=== PATIENT | male | born 1965 | race Caucasian/White ===

== ENCOUNTER 2024-02-24 05:42 | Emergency (ER) | payer OTHER, SELFPAY ==
[2024-02-24] VITALS (15 sets, daily range): BP systolic 109–140; BP diastolic 57–100; PULSE 83–102; RESP 17–20; TEMP 36.4; O2SAT 91–97; BMI 25.4
--- NOTE | 2024-02-24 06:13 | W.ED.GENADLT ---
HPI - General Adult General: Chief complaint: Upper Respiratory Infection Stated complaint: Rt side of Face Swollen Time Seen by Provider: 02/24/24 06:11 History of Present Illness: 58-year-old male presents emergency room with complaint of swelling in the left side of his neck. Over this past weekend about beginning about 6 7 days ago he had sore throat 4 days ago he was seen at [facility] clinic they swabbed him positive for strep he was started on amoxicillin beginning the following day and over the next 3 days leading up to this morning he had increased swelling and discomfort in that area. He still able to swallow and breathe out difficulty is a large amount of swelling in the right submandibular space extending down to the neck. He denies any tooth or dental pain. Associated symptoms: Reports chest pain; Deny dyspnea or rash Related Data Home Medications Medication Instructions Recorded Confirmed amoxicillin 875 mg tablet 875 mg PO Q12H 02/24/24 02/24/24 ibuprofen 200 mg tablet (Advil) 800 mg PO Q6H PRN Pain 02/24/24 02/24/24 omeprazole magnesium 20 mg 20 mg PO DAILY 02/24/24 02/24/24 tablet,delayed release (Prilosec OTC) Allergies Allergy/AdvReac Type Severity Reaction Status Date / Time No Known Allergies Allergy Verified 02/24/24 06:31 Review of Systems Const: Denies: fever(s) or chills ENMT: Reports: throat pain, enlarged tonsils, odynophagia and hoarseness; Denies: dental pain Card: Reports: chest pain Resp: Denies: dyspnea GI: Denies: abdominal pain : Denies: dysuria, urinary frequency or urinary urgency Musc: Denies: neck pain or back pain Skin/Breast: Denies: rash Physical Exam Const: GENERAL APPEARANCE: cooperative ORIENTATION/CONSCIOUSNESS: Yes awake, Yes oriented to person, Yes oriented to place and Yes oriented to time HENMT: COMMON NORMALS: normocephalic, atraumatic and hearing grossly normal bilaterally HEAD & SCALP: normocephalic and atraumatic THROAT: posterior oropharynx abnormal (swelling of posterior pharyngeal wall the right side ) erythema Neck/C-Spine: OTHER: Large swollen mass in the right submandibular region extending inferiorly to the level of the clavicle no supra or infraclavicular nodes are noted. No overlying skin irritation or erythema no induration no puncture araujo or abrasions of the skin overlying this area Resp: COMMON NORMALS: normal respiratory effort, No retractions, No use of accessory muscles and clear to auscultation bilaterally AUSCULTATION: clear to auscultation bilaterally Cardio: COMMON NORMALS: regular rate, regular rhythm and No murmurs present (Cardio) RATE: regular rate RHYTHM: regular rhythm GI: COMMON NORMALS: Soft to palpation and No hepatosplenomegaly present AUSCULTATION: Yes normoactive bowel sounds PALPATION: Yes Soft to palpation, No Tenderness to palpation present (GI), No Guarding due to palpation present (GI) and Yes No hepatosplenomegaly present Extremity: COMMON NORMALS: normal to inspection, capillary refill normal, no clubbing, cyanosis or edema, no calf tenderness and no pedal edema Neuro: SENSORIUM/ORIENTATION: Yes oriented to person, Yes oriented to place and Yes oriented to time Skin: COMMON NORMALS: no rashes or lesions noted GENERAL SKIN EXAM: no rashes or lesions noted Course Vital Signs: Vital signs: Vital Signs Temperature 97.6 F 02/24/24 05:51 Pulse Rate 96 02/24/24 11:44 Respiratory Rate 18 02/24/24 11:44 Blood Pressure 114/57 02/24/24 11:44 Pulse Oximetry 92 02/24/24 11:44 Oxygen Delivery Me thod Room Air 02/24/24 11:00 Oxygen Flow Rate 2 02/24/24 08:30 MDM - General Adult Medical Decision Making Large submandibular mass that is arisen over the last 3 days with severe leukocytosis with left shift. Cultures done lactate normal started on vancomycin. We do not have ENT coverage at our facility able to transfer to [facility]. Note that in the radiologist report there is concern of this being a neoplastic process however prior to 3 days ago patient did not have any of the swelling present. Her dad in conjunction with the recently diagnosed strep pharyngitis suspect this is infectious rather than neoplastic. Discussed with ENT and hospitalist at [facility]. Will transfer via ambulance. The patient has been started on antibiotics cultures have been done lactic acid is not elevated. CT was forwarded to [facility]. Medical Records I reviewed the patient's medical records. Lab Data I reviewed the patient's lab results. 02/24/24 06:10 02/24/24 06:[address] 02/24/24 06:25 IMPRESSION: Large pathologic process in the submandibular neck on the right side, this appears more likely to represent a neoplastic then inflammatory process but correlate clinically. ADDENDUM: 02/24/24822 Addendum: I calf received a very detailed history and based on that history this process is almost certainly a large inflammatory mass with abscess There does appear to be a focal area of abscess measuring 3.8 x 2.5 cm. Chest X-Ray 02/24/24 06:26 IMPRESSION: Two small nodules on the left. Consider chest CT. Laboratory Results WBC 41.15 10^3/uL (3.29-11.43) H* 02/24/24 06:10 RBC 4.30 10^6/uL (3.85-5.65) 02/24/24 06:10 Hgb 12.70 g/dL (11.27-16.99) 02/24/24 06:10 Hct 38.5 % (37-53) 02/24/24 06:10 MCV 89.5 fl (82-101) 02/24/24 06:10 MCH 29.5 pg (27-33) 02/24/24 06:10 MCHC 33.0 g/dL (30-55) 02/24/24 06:10 RDW 14.3 % (12.1-15.1) 02/24/24 06:10 Plt Count 274 10^3/cmm (157-399) 02/24/24 06:10 MPV 10.1 fL (7.4-10.4) 02/24/24 06:10 Neut % (Auto) 88.8 % 02/24/24 06:10 Lymph % (Auto) 3.5 % 02/24/24 06:10 [place] % (Auto) 6.1 % 02/24/24 06:10 Eos % (Auto) 0.0 % 02/24/24 06:10 Baso % (Auto) 0.3 % 02/24/24 06:10 Neut # (Auto) 36.54 10^3/uL (1.8-7.7) H 02/24/24 06:10 Lymph # (Auto) 1.4 10^3/uL (0.8-4.8) 02/24/24 06:10 [place] # (Auto) 2.5 10^3/uL (0.2-0.9) H 02/24/24 06:10 Eos # (Auto) 0.0 10^3/uL (0.0-0.8) 02/24/24 06:10 Baso # (Auto) 0.1 10^3/uL (0.0-0.1) 02/24/24 06:10 Nucleated RBC % (auto) 0 % 02/24/24 06:10 Nucleated RBCs # 0.0 /100WBC 02/24/24 06:10 Sodium 134 mmol/L (136-145) L 02/24/24 06:10 Potassium 3.8 mmol/L (3.5-5.1) 02/24/24 06:10 Chloride 98 mmol/L (98-107) 02/24/24 06:10 Carbon Dioxide 23 mmol/L (22-29) 02/24/24 06:10 Anion Gap 16.8 (5-19) 02/24/24 06:10 BUN 9 mg/dL (6-20) 02/24/24 06:10 Creatinine 0.7 mg/dL (0.7-1.2) 02/24/24 06:10 GFR Calculation 115.8 mL/min (90-130) 02/24/24 06:10 Glucose 129 mg/dL (65-115) H 02/24/24 06:10 Calculated Osmolality 278 mOsm/kg (285-295) L 02/24/24 06:10 Lactic Acid 1.7 mmol/L (0.5-2.2) 02/24/24 06:10 Calcium 9.3 mg/dL (8.5-10.5) 02/24/24 06:10 Total Bilirubin 1.0 mg/dL (0.15-1.2) 02/24/24 06:10 AST 19 U/L (0-40) 02/24/24 06:10 ALT 29 U/L (0-41) 02/24/24 06:10 Alkaline Phosphatase 158 U/L (40-130) H 02/24/24 06:10 Total Protein 7.7 g/dL (6.6-8.7) 02/24/24 06:10 Albumin 3.3 g/dL (3.5-5.2) L 02/24/24 06:10 Globulin 4.4 g/dL (1.3-4.6) 02/24/24 06:10 Lipase 12 U/L (13-60) L 02/24/24 06:10 All radiology interpretation(s) finalized by discharge Discharge Plan Discharge Patient Disposition: Xfer Short-Term Hosp Clinical Impression: Abscess of submandibular region Condition: Stable Coding Level of Care Code ED Screw Machine Operator for Rosanne Holliday
--- NOTE | 2024-02-24 06:25 | CTR_ITS ---
PROCEDURE INFORMATION: Exam: CT Neck With Contrast Exam date and time: 02/24/2024 6:57 AM Age: 58 years old Clinical indication: Mass, lump, or swelling in neck; Right; Additional info: Right submandibular mass possibly extending into the upper m. Swelling in right side of next x 3 days. PT was dx with strep and px amoxicillin 2 days ago. Swelling has increased in size and increased pain since. Difficulty swallowing. TECHNIQUE: Imaging protocol: Computed tomography of the neck with contrast. Radiation optimization: All CT scans at this facility use at least one of these dose optimization techniques: automated exposure control; mA and/or kV adjustment per patient size (includes targeted exams where dose is matched to clinical indication); or iterative reconstruction. Contrast material: OMNI 350; Contrast volume: 100 ml; Contrast route: INTRAVENOUS (IV); COMPARISON: CR XR chest 1V portable [id number] 02/24/2024 6:47 AM RADIATION DOSE METRICS: Total DLP (mGy-cm): 297.51 FINDINGS: Salivary glands: See Lymph nodes finding. Pharynx: Unremarkable. No significant tonsillar enlargement. Prevertebral and retropharyngeal spaces: Unremarkable. Larynx: Unremarkable. Epiglottis is normal. Thyroid: Normal. No enlarged or calcified nodules. Trachea: Visualized trachea is unremarkable. Lungs: Unremarkable as visualized. Lymph nodes: In the submandibular upper neck on the right side is a 5.6 x 4.0 cm heterogeneously enhancing mass with moderate adenopathy. Areas of necrosis are present. There is anterior displacement of the right submandibular gland, there is lateral displacement of the sternocleidomastoid muscle with an indistinct interface between the muscle and the mass, local invasion is probably present. In addition soft tissue surrounding the carotid artery have an infiltrated appearance, local invasion is probably present as well. Bones/joints: See Lymph nodes finding. Soft tissues: Unremarkable. No significant soft tissue swelling. Other findings: Despite the history the findings appear much more likely to represent a neoplastic than inflammatory process but correlate clinically. CT/CT neck w con* [id number] IMPRESSION: Large pathologic process in the submandibular neck on the right side, this appears more likely to represent a neoplastic then inflammatory process but correlate clinically.
--- NOTE | 2024-02-24 06:26 | XRR_ITS ---
PROCEDURE INFORMATION: Exam: XR Chest Exam date and time: 02/24/2024 6:47 AM Age: 58 years old Clinical indication: Dyspnea; Patient HX: Swollen neck TECHNIQUE: Imaging protocol: Radiologic exam of the chest. Views: 1 view. COMPARISON: No relevant prior studies available. FINDINGS: Lungs: Two small nodules in the left mid lung. Consider chest CT to evaluate for pulmonary nodules. Pleural spaces: Unremarkable. No pleural effusion. No pneumothorax. Heart/Mediastinum: Unremarkable. No cardiomegaly. Bones/joints: Unremarkable. Other findings: Mild chronic reticulonodular opacities. XR/XR chest 1V portable [id number] IMPRESSION: Two small nodules on the left. Consider chest CT.
[2024-02-24 06:27] LABS: Basophils # 0.1 10^3/uL (0.0-0.1); Basophils % 0.3 %; Hematocrit 38.5 % (37-53); Lymphocytes # 1.4 10^3/uL (0.8-4.8); Lymphocytes % 3.5 %; Mean Corpuscular Hemoglobin 29.5 pg (27-33); Mean Corpuscular Volume 89.5 fl (82-101); Mean Platelet Volume 10.1 fL (7.4-10.4); Monocytes # 2.5 10^3/uL (0.2-0.9); Monocytes % 6.1 %; Neutrophils # 36.54 10^3/uL (1.8-7.7); Neutrophils % 88.8 %; Nucleated Red Blood Cells % 0 %; Platelet Count 274 10^3/cmm (157-399); Red Cell Distribution Width 14.3 % (12.1-15.1)
[2024-02-24] MEDS: ondansetron 2 mg/ML SDV 2 mL 4 MG IVP (06:38)
[2024-02-24] MEDS: morphine 4 mg/mL SDV 1 mL IVP ×2 (06:39→11:36)
[2024-02-24 06:41] LABS: Alanine Aminotransferase 29 U/L (0-41); Albumin Level 3.3 g/dL (3.5-5.2); Alkaline Phosphatase 158 U/L (40-130); Anion Gap 16.8 (5-19); Aspartate Amino Transferase 19 U/L (0-40); Blood Urea Nitrogen 9 mg/dL (6-20); Calcium 9.3 mg/dL (8.5-10.5); Carbon Dioxide 23 mmol/L (22-29); Chloride 98 mmol/L (98-107); Creatinine Clr Calc Pharmacy 119.7903; Globulin 4.4 g/dL (1.3-4.6); Glomerular Filtration Rate 115.8 mL/min (90-130); Glucose 129 mg/dL (65-115); Osmolality Calculated 278 mOsm/kg (285-295); Potassium 3.8 mmol/L (3.5-5.1); Sodium 134 mmol/L (136-145); Total Protein 7.7 g/dL (6.6-8.7)
[2024-02-24 06:46] LABS: White Blood Count 41.15 10^3/uL (3.29-11.43)
[2024-02-24 06:49] LABS: Lactic Sepsis W/Reflex 1.7 mmol/L (0.5-2.2)
[2024-02-24 06:51] LABS: Lipase 12 U/L (13-60)
[2024-02-24] MEDS: iohexol 350 mg/mL 500 mL Btl (per mL) IV (07:08)
--- NOTE | 2024-02-24 07:09 | ECG_ITS ---
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 Measurements Intervals [place] Rate: 92 P: 94 TX: 141 QRS: 79 QRSD: 122 T: 75 QT: 385 QTc: 476 Interpretive Statements SINUS RHYTHM POSSIBLE RIGHT VENTRICULAR CONDUCTION DELAY [RSR (QR) IN V1/V2] No previous ECG available for comparison Electronically Signed On 02-24-2024 14:41:14 SORTING MACHINE OPERATOR by Leoncio Hernandez M.D. [email or web address]
--- NOTE | 2024-02-24 07:15 | PC.NURSE ---
PT WORRIED ABOUT OXYGEN SATURATION DROPPING DUE TO MORPHINE ADMINISTRATION. PT PLACED ON 2L NC FOR COMFORT.
[2024-02-24] MEDS: VANCOMYCIN ADD-Vantage 1,000 MG in 0.9% NaCl ADD-Vantage 250 ML 250 MG IV (07:16)
[2024-02-24] MEDS: sodium chloride 0.9% 1,000 ML 999 ML IV (11:35)
[2024-02-24] MEDS: ketorolac 30 mg/mL INJ IVP (11:37)
--- NOTE | 2024-02-24 12:31 | PC.NURSE ---
REPORT CALLED TO KHOI Nguyen RN AT [facility]. ACCEPTING NURSE VERBALIZED UNDERSTANDING AND DENIED ANY FURTHER VERBALIZED QUESTIONS OR CONCERNS.
== END 2024-02-24 13:58 | disposition short-term general hospital (02) ==
PROVIDERS: Emergency Provider Family Medicine
DX: K12.2 Cellulitis and abscess of mouth (principal)
CPT/HCPCS: 70491; 71045; 80053; 83605; 83690; 85025; 87040; 93005; 96365; 96375; 96376; 99285; J1885; J2270; J2405; J3370; J7030; J7050

== ENCOUNTER 2024-07-04 14:06 | Emergency (ER) | payer OTHER, SELFPAY ==
[2024-07-04 14:24] VITALS: BP 104/57; PULSE 66; RESP 16; TEMP 36.5; O2SAT 99; BMI 26.9
--- NOTE | 2024-07-04 15:29 | ED_ITS ---
HPI - General Adult 2 General: Chief complaint: Upper Respiratory Infection Stated complaint: sore throat with swelling Time Seen by Provider: 07/04/24 15:16 Source: patient Mode of arrival: ambulatory Limitations: no limitations History of Present Illness: Patient is a 59-year-old male who presents today with a painful right submandibular mass. In February 2024, patient had a large right submandibular mass that was abrupt in onset with severe leukocytosis and left shift. Patient was transferred from here to [facility] where the abscess was drained. Patient states he never had any follow up with them following this. CT scan at that time had questioned malignancy vs infectious etiology. Patient states that the mass has never fully gone away, however it is not typically painful. He states that the past few days the area has become extremely painful and he now has pain/difficulty swallowing. Denies difficulty breathing. Patient states that he called the ENT office and has an appointment scheduled for tomorrow at 2:00 with the nurse practitioner. They prescribed him Augmentin which he has started taking. Patient presents today as he states that the mass is too painful to wait. Onset (ago): day(s) Location: neck (submandibular) Radiation: non-radiation Severity: moderate Quality: aching and constant Pain Consistency: constant Relieving factors: none Exacerbating factors: other (swallowing) Associated symptoms: Reports no associated symptoms; Deny chest pain, dyspnea, headache(s), nausea, rash, palpitations or vomiting Treatments prior to arrival: other (abx) Related Data Home Medications ?Medication ?Instructions ?Recorded ?Confirmed amoxicillin 875 mg tablet 875 mg PO Q12H 02/24/2408/12 ibuprofen 200 mg tablet (Advil) 800 mg PO Q6H PRN Pain 02/24/24 02/24/24 omeprazole magnesium 20 mg 20 mg PO DAILY 02/24/2408/12 tablet,delayed release (Prilosec OTC) Previous Rx's ?Medication ?Instructions ?Recorded hydrocodone 5 mg-acetaminophen 325 1 tab PO Q6H PRN pa in #20 tabs 07/04/24 mg tablet Allergies Allergy/AdvReac Type Severity Reaction Status Date / Time No Known Allergies Allergy Verified 07/04/24 14:31 Review of Systems 2 Const: Denies: fever(s), chills, body aches, change in weight or fatigue ENMT: Reports: throat pain and odynophagia; Denies: sinus pain Card: Denies: chest pain or palpitations Resp: Denies: dyspnea, wheezing or stridor GI: Denies: abdominal pain, nausea, vomiting or dysphagia Musc: Reports: neck pain; Denies: back pain Skin/Breast: Denies: rash, pruritus, erythema or skin pain Neuro: Denies: headache(s), numbness in extremities or weakness in extremities Physical Exam 2 Const: COMMON NORMALS: no acute distress, average body habitus, patient oriented x3, no limitations, healthy appearing, alert and well nourished G ENERAL APPEARANCE: cooperative and comfortable ORIENTATION/CONSCIOUSNESS: Yes awake, Yes oriented to person, Yes oriented to place and Yes oriented to time HENMT: COMMON NORMALS: normocephalic, atraumatic, hearing grossly normal bilaterally, external ears normal and Normal external nose present HEAD & SCALP: normal to inspection, normocephalic and atraumatic FACE & SINUS: n ormal facial exam NOSE: Normal external nose present EXTERNAL EAR: Yes external ears normal MOUTH: Normal oral and palatal mucosa present and tongue normal; no muffled voice THROAT: posterior oropharynx normal and tonsils normal Eye: GENERAL EYE: appearance normal, both eyes and all related structures Neck/C-Spine: GENERAL: Yes trachea midline, Yes tender, Yes submandibular swelling (large R sided submandibular mass; no overlying erythema) and Yes other (no fluctuance) NECK IMAGES: 1. Large swollen mass in the right submandibular region extending inferiorly Chest: COMMONS NORMALS: normal inspection of the chest Resp: COMMON NORMALS: normal respiratory effort, No retractions, No use of accessory muscles, clear to auscultation bilaterally and percussion normal E FFORT & INSPECTION: Yes able to speak in complete sentences AUSCULTATION: c lear to auscultation bilaterally PERCUSSION: percussion normal Cardio: COMMON NORMALS: regular rate and regular rhythm RATE: regular rate RHYTHM: regular rhythm Neuro: COMMON NORMALS: patient oriented x3 SENSORIUM/ORIENTATION: Yes alert, Yes oriented to person, Yes oriented to place and Yes oriented to time Course 2 Vital Signs: Vital signs: Vital Signs Temperature 97.7 F 07/04/24 14:24 Pulse Rate 65 07/04/24 17:33 Respiratory Rate 16 07/04/24 16:35 Blood Pressure 115/64 07/04/24 17:33 Pulse Oximetry 96 07/04/24 17:33 Oxygen Delivery Me thod Room Air 07/04/24 16:35 MDM - General Adult Medical Decision Making Patient is a very nice 59-year-old male here with a right sided submandibular mass that has been present since February. In February, he was seen at [facility] and had the mass incised and drained. At that time he did have significant leukocytosis. Patient states he never followed up with ENT and the mass has never fully went away. CT imaging back in February did question the possibility of malignancy. Today mass feels firm. It does not appear acutely infected. His vital signs are stable. His white count is normal. His inflammatory CRP is scantly elevated at 8.4. CT scan today looking more like malignancy. He already has an ENT scheduled appointment for tomorrow at [facility] in [place]. We will upload today's CT imaging to their radiology system. He was also sent with a paper copy of the CT report as well as a disc. Patient is not having any airway compromise and is stable for discharge. Lab Data 07/04/24 15:37 07/04/24 15:[address] 07/04/24 15:37 IMPRESSION: Right neck mass with adenopathy consistent with malignancy. The findings have improved significantly over the past 4 months Laboratory Results WBC 7.64 10^3/uL (3.29-11.43) 07/04/24 15:37 RBC 4.35 10^6/uL (3.85-5.65) 07/04/24 15:37 Hgb 12.60 g/dL (11.27-16.99) 07/04/24 15:37 Hct 38.8 % (37-53) 07/04/24 15:37 MCV 89.2 fl (82-101) 07/04/24 15:37 MCH 29.0 pg (27-33) 07/04/24 15:37 MCHC 32.5 g/dL (30-55) 07/04/24 15:37 RDW 13.9 % (12.1-15.1) 07/04/24 15:37 Plt Count 237 10^3/cmm (157-399) 07/04/24 15:37 MPV 10.2 fL (7.4-10.4) 07/04/24 15:37 Neut % (Auto) 73.0 % 07/04/24 15:37 Lymph % (Auto) 17.8 % 07/04/24 15:37 [place] % (Auto) 7.2 % 07/04/24 15:37 Eos % (Auto) 1.3 % 07/04/24 15:37 Baso % (Auto) 0.3 % 07/04/24:37 Neut # (Auto) 5.58 10^3/uL (1.8-7.7) 07/04/24 15:37 Lymph # (Auto) 1.4 10^3/uL (0.8-4.8) 07/04/24 15:37 [place] # (Auto) 0.6 10^3/uL (0.2-0.9) 07/04/24 15:37 Eos # (Auto) 0.1 10^3/uL (0.0-0.8) 07/04/24:37 Baso # (Auto) 0.0 10^3/uL (0.0-0.1) 07/04/24 15:37 Nucleated RBC % (auto) 0 % 07/04/24: Nucleated RBCs # 0.0 /100WBC 07/04/24 15:37 Sodium 139 mmol/L (136-145) 07/04/24 15:37 Potassium 4.1 mmol/L (3.5-5.1) 07/04/24 15:37 Chloride 101 mmol/L (98-107) 07/04/24 15:37 Carbon Dioxide 25 mmol/L (22-29) 07/04/24 15:37 Anion Gap 17.1 (5-19) 07/04/24 15:37 BUN 9 mg/dL (6-20) 07/04/24 15:37 Creatinine 0.8 mg/dL (0.7-1.2) 07/04/24 15:37 GFR Calculation 98.9 mL/min (90-130) 07/04/24 15:37 Glucose 117 mg/dL (65-115) H 07/04/24 15:37 Calculated Osmolality 288 mOsm/kg (285-295) 07/04/24 15:37 Calcium 9.3 mg/dL (8.5-10.5) 07/04/24 15:37 Total Bilirubin 0.2 mg/dL (0.15-1.2) 07/04/24 15:37 AST 35 U/L (0-40) 07/04/24 15:37 ALT 25 U/L (0-41) 07/04/24 15:37 Alkaline Phosphatase 89 U/L (40-130) 07/04/24 15:37 C-Reactive Protein 8.4 mg/L (0.0-4.9) H 07/04/24 15:37 Total Protein 8.5 g/dL (6.6-8.7) 07/04/24 15:37 Albumin 4.2 g/dL (3.5-5.2) 07/04/24 15:37 Globulin 4.3 g/dL (1.3-4.6) 07/04/24 15:37 Group A Strep Rapid Negative (Negative) 07/04/24 15:19 All radiology interpretation(s) finalized by discharge Discharge Plan Discharge Patient Disposition: Home Clinical Impression: Mass of right submandibular region Condition: Stable Prescriptions: New hydrocodone-acetaminophen 5-325 mg tablet 1 tab PO Q6H PRN (Reason: pain) Qty: 20 0RF No Action amoxicillin 875 mg Tablet 875 mg PO Q12H ibuprofen [Advil] 200 mg Tablet 800 mg PO Q6H PRN (Reason: Pain) omeprazole magnesium [Prilosec OTC] 20 mg Tablet,Delayed Release (Dr/Ec) 20 mg PO DAILY Discharge Orders: Discharge ED (Routine); Ordered 07/04/24 Ordered By: Ritu Merlos Patient Instructions: Opioid Safety, Pain Management Activity Restrictions/Additional Instructions: As we discussed, I will have your CT imaging uploaded to the [facility] system. I have also given you a physical copy of the CT report as well as the CT disc to take with you to your ENT appointment tomorrow. Print Language: Brazilian Coding Level of Care Code ED Aircraft Maintenance Supervisor for Rosanne Holliday
[2024-07-04 15:35] LABS: Rapid Strep A Test Negative (Negative)
--- NOTE | 2024-07-04 15:37 | CTR_ITS ---
PROCEDURE INFORMATION: Exam: CT Neck With Contrast Exam date and time: 07/04/2024 4:19 PM Age: 59 years old Clinical indication: Abscess, cutaneous; Additional info: Right submandibular mass TECHNIQUE: Imaging protocol: Computed tomography of the neck with contrast. Radiation optimization: All CT scans at this facility use at least one of these dose optimization techniques: automated exposure control; mA and/or kV adjustment per patient size (includes targeted exams where dose is matched to clinical indication); or iterative reconstruction. Contrast material: OMNIPAQUE 350; Contrast volume: 100 ml; Contrast route: INTRAVENOUS (IV); COMPARISON: CT neck w con* [id number] 02/24/2024 6:57 AM RADIATION DOSE METRICS: Total DLP (mGy-cm): 262.64 FINDINGS: Salivary glands: See Vasculature finding. Pharynx: Unremarkable. No significant tonsillar enlargement. Larynx: Unremarkable. Epiglottis is normal. Thyroid: Normal. No enlarged or calcified nodules. Trachea: Visualized trachea is unremarkable. Lungs: Unremarkable as visualized. Esophagus: The cervical esophagus is unremarkable. Lymph nodes: See Vasculature finding. Vasculature: There is a rounded heterogeneous nodule lying within the right carotid space of the neck. The nodule shows a length of 5.3 cm and measures 3.4 cm in AP diameter as well as 3.3 cm in width. There are multiple other mildly prominent lymph nodes in this area measuring up to 1 cm in diameter. The larger mass lies just posterior to the right submandibular gland and deviates the gland anteriorly. 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 Bones/joints: Unremarkable. No acute fracture. Soft tissues: Surgical clips are noted in the right lower neck anteriorly. CT/CT neck w con* [id number] IMPRESSION: Right neck mass with adenopathy consistent with malignancy. The findings have improved significantly over the past 4 months
[2024-07-04 15:52] LABS: Basophils % 0.3 %; Eosinophils # 0.1 10^3/uL (0.0-0.8); Eosinophils % 1.3 %; Hematocrit 38.8 % (37-53); Lymphocytes # 1.4 10^3/uL (0.8-4.8); Lymphocytes % 17.8 %; Mean Corpuscular HGB Conc 32.5 g/dL (30-55); Mean Corpuscular Volume 89.2 fl (82-101); Mean Platelet Volume 10.2 fL (7.4-10.4); Monocytes # 0.6 10^3/uL (0.2-0.9); Monocytes % 7.2 %; Neutrophils # 5.58 10^3/uL (1.8-7.7); Nucleated Red Blood Cells % 0 %; Platelet Count 237 10^3/cmm (157-399); Red Blood Count 4.35 10^6/uL (3.85-5.65); Red Cell Distribution Width 13.9 % (12.1-15.1); White Blood Count 7.64 10^3/uL (3.29-11.43)
[2024-07-04 16:19] LABS: Alanine Aminotransferase 25 U/L (0-41); Albumin Level 4.2 g/dL (3.5-5.2); Alkaline Phosphatase 89 U/L (40-130); Anion Gap 17.1 (5-19); Aspartate Amino Transferase 35 U/L (0-40); Blood Urea Nitrogen 9 mg/dL (6-20); C Reactive Protein 8.4 mg/L (0.0-4.9); Calcium 9.3 mg/dL (8.5-10.5); Carbon Dioxide 25 mmol/L (22-29); Chloride 101 mmol/L (98-107); Creatinine Clr Calc Pharmacy 106.0898; Globulin 4.3 g/dL (1.3-4.6); Glomerular Filtration Rate 98.9 mL/min (90-130); Glucose 117 mg/dL (65-115); Osmolality Calculated 288 mOsm/kg (285-295); Potassium 4.1 mmol/L (3.5-5.1); Sodium 139 mmol/L (136-145); Total Bilirubin 0.2 mg/dL (0.15-1.2); Total Protein 8.5 g/dL (6.6-8.7)
[2024-07-04 16:30] VITALS: RESP 16
[2024-07-04] MEDS: ondansetron 2 mg/ML SDV 2 mL 4 MG IVP (16:30)
[2024-07-04] MEDS: morphine 4 mg/mL SDV 1 mL IVP (16:30)
[2024-07-04 16:35] VITALS: BP 129/73; PULSE 71; RESP 16; O2SAT 97
[2024-07-04 17:33] VITALS: BP 115/64; PULSE 65; O2SAT 96
== END 2024-07-04 17:35 | disposition home or self-care (01) ==
PROVIDERS: Emergency Medicine; Emergency Provider Physician Assistant
DX: R22.1 Localized swelling, mass and lump, neck (principal)
CPT/HCPCS: 36415; 70491; 80053; 85025; 86140; 87081; 87880; 96374; 96375; 99285; J2270; J2405

== ENCOUNTER 2024-08-01 07:43 | Observation (INO) | payer OTHER, SELFPAY ==
[2024-08-01] VITALS (20 sets, daily range): BP systolic 108–153; BP diastolic 65–99; PULSE 61–154; RESP 7–22; TEMP 36.6; O2SAT 92–98; BMI 26.2; BMI 25.2
--- NOTE | 2024-08-01 08:11 | W.ED.GENADLT ---
HPI - General Adult General: Chief complaint: General Medical Stated complaint: tonsils bleeding Time Seen by Provider: 08/01/24 07:54 History of Present Illness: 59-year-old male presents to the emergency room with complaints of bleeding from his tonsils. 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 He also has a mass in the right submandibular area this is in the process of being worked up by ENT doctor that he sees in [place]. This morning he had some bleeding from his throat which was new overnight he is not on any anticoagulants does not regularly take aspirin. On arrival here he is afebrile but noted to be tachycardic with an irregularly irregular rhythm. He has no known history of any arrhythmias particularly atrial fibrillation. Associated symptoms: Deny chest pain, dyspnea or rash Related Data Home Medications ?Medication ?Instructions ?Recorded ?Confirmed ibuprofen 200 mg tablet (Advil) 800 mg PO Q6H PRN Pain 02/24/24 08/01/24 omeprazole magnesium 20 mg 20 mg PO DAILY 02/24/24 08/01/24 tablet,delayed release (Prilosec OTC) acetaminophen 160 mg/5 mL oral 500 mg PO Q6H PRN Pain 08/01/24 08/01/24 liquid oxycodone 5 mg/5 mL oral solution 5 mg PO Q4H PRN Pain 08/01/24 08/01/24 Previous Rx's ?Medication ?Instructions ?Recorded hydrocodone 5 mg-acetaminophen 325 1 tab PO Q6H PRN pain #20 tabs 25 mg tablet metoprolol tartrate 25 mg tablet 25 mg PO BID@0900,2100 #180 tabs 08/02/24 Allergies Allergy/AdvReac Type Severity Reaction Status Date / Time diltiazem (From [facility]) Allergy Mild ALGY-Hives Verified 08/01/24 19:09 Review of Systems Const: Denies: fever(s) or chills Card: Denies: chest pain Resp: Denies: dyspnea GI: Denies: abdominal pain : Denies: dysuria, urinary frequency or urinary urgency Musc: Denies: neck pain or back pain Skin/Breast: Denies: rash PFSH ED PFSH: Social History Smoking and tobacco/nicotine status: never used tobacco/nicotine Alcohol intake: former Former alcohol use details: Years ago before father Substance/Drug Use: current Physical Exam Const: COMMON NORMALS: no acute distress GENERAL APPEARANCE: cooperative and comfortable ORIENTATION/CONSCIOUSNESS: Yes awake, Yes oriented to person, Yes oriented to place and Yes oriented to time HENMT: COMMON NORMALS: normocephalic, atraumatic and hearing grossly normal bilaterally HEAD & SCALP: normocephalic and atraumatic OTHER: Eschar on the right tonsillar bed appears to have sloughed off there is some bloody mucus there are no active bleeding on the left tonsillar bed eschar appears to be intact. There is no stridor noted compromise of the airway right submandibular swelling consistent with what was seen in previous exams. Resp: COMMON NORMALS: normal respiratory effort, No retractions, No use of accessory muscles and clear to auscultation bilaterally AUSCULTATION: clear to auscultation bilaterally Cardio: COMMON NORMALS: No murmurs present (Cardio) RATE: tachycardic RHYTHM: abnormal rhythm irregularly irregular GI: COMMON NORMALS: Soft to palpation and No hepatosplenomegaly present AUSCULTATION: Yes normoactive bowel sounds PALPATION: Yes Soft to palpation, No Tenderness to palpation present (GI), No Guarding due to palpation present (GI) and Yes No hepatosplenomegaly present Extremity: COMMON NORMALS: normal to inspection, capillary refill normal, no clubbing, cyanosis or edema, no calf tenderness and no pedal edema Neuro: SENSORIUM/ORIENTATION: Yes oriented to person, Yes oriented to place and Yes oriented to time Skin: COMMON NORMALS: no rashes or lesions noted GENERAL SKIN EXAM: no rashes or lesions noted Course Vital Signs: Vital signs: Vital Signs Temperature 97.9 F 08/01/24 08:08 Pulse Rate 72 08/02/24 10:49 Respiratory Rate 18 08/02/24 10:49 Blood Pressure 146/85 08/02/24 10:49 Pulse Oximetry 98 08/02/24 10:49 Oxygen Delivery Me thod Room Air 08/01/24 14:36 MDM - General Adult Medical Decision Making Patient had his surgery done by Dr. Reyes. Dr. Reyes was kind enough to call us and we discussed the patient since the patient not had any active bleeding generally we would not do anything with the sloughing of the eschar that we noted on exam. Patient has been here a little over 3 hours has not had any further bleeding reexamine the tonsillar bed several times no real real significant changes on the right the left still has a good eschar bed in place. Dr. Reyes stated that Dr. Tom Joiner is on-call for him and he can be reached through the [facility] transfer line if there are any issues that developed during this hospitalization. The rate is improved with Cardizem but is still not fully controlled. Medical Records I reviewed the patient's medical records. Lab Data I reviewed the patient's lab results. 08/01/24 08:30 08/01/24 08:30 Laboratory Results WBC 9.12 10^3/uL (3.29-11.43) 08/01/24 08:30 RBC 4.19 10^6/uL (3.85-5.65) 08/01/24 08:30 Hgb 12.20 g/dL (11.27-16.99) 08/01/24 08:30 Hct 38.1 % (37-53) 08/01/24 08:30 MCV 90.9 fl (82-101) 08/01/24 08:30 MCH 29.1 pg (27-33) 08/01/24 08:30 MCHC 32.0 g/dL (30-55) 08/01/24 08:30 RDW 13.7 % (12.1-15.1) 08/01/24 08:30 Plt Count 225 10^3/cmm (157-399) 08/01/24 08:30 MPV 10.7 fL (7.4-10.4) H 08/01/24 08:30 Neut % (Auto) 64.8 % 08/01/24 08:30 Lymph % (Auto) 18.4 % 08/01/24 08:30 Mckinley % (Auto) 11.5 % 08/01/24 08:30 Eos % (Auto) 4.5 % 08/01/24 08:30 Baso % (Auto) 0.5 % 08/01/24 08:30 Neut # (Auto) 5.90 10^3/uL (1.8-7.7) 08/01/24 08:30 Lymph # (Auto) 1.7 10^3/uL (0.8-4.8) 08/01/24 08:30 Mckinley # (Auto) 1.1 10^3/uL (0.2-0.9) H 08/01/24 08:30 Eos # (Auto) 0.4 10^3/uL (0.0-0.8) 08/01/24 08:30 Baso # (Auto) 0.1 10^3/uL (0.0-0.1) 08/01/24 08:30 Nucleated RBC % (auto) 0 % 08/01/24 08:30 Nucleated RBCs # 0.0 /100WBC 08/01/24 08:30 PT 12.50 SECONDS (12.1-14.9) 08/01/24 08:30 INR 0.87 (0.8-1.2) 08/01/24 08:30 Sodium 140 mmol/L (136-145) 08/01/24 08:30 Potassium 4.2 mmol/L (3.5-5.1) 08/01/24 08:30 Chloride 104 mmol/L (98-107) 08/01/24 08:30 Carbon Dioxide 21 mmol/L (22-29) L 08/01/24 08:30 Anion Gap 19.2 (5-19) H 08/01/24 08:30 BUN 13 mg/dL (6-20) 08/01/24 08:30 Creatinine 0.7 mg/dL (0.7-1.2) 08/01/24 08:30 GFR Calculation 115.4 mL/min (90-130) 08/01/24 08:30 Glucose 108 mg/dL (65-115) 08/01/24 08:30 Calculated Osmolality 291 mOsm/kg (285-295) 08/01/24 08:30 Lactic Acid 1.2 mmol/L (0.5-2.2) 08/01/24 08:30 Calcium 9.2 mg/dL (8.5-10.5) 08/01/24 08:30 Total Bilirubin 0.5 mg/dL (0.15-1.2) 08/01/24 08:30 AST 29 U/L (0-40) 08/01/24 08:30 ALT 29 U/L (0-41) 08/01/24 08:30 Alkaline Phosphatase 102 U/L (40-130) 08/01/24 08:30 Troponin T Baseline 7 ng/L (0-15) 08/01/24 08:30 Troponin T 120 Minute 11.16 ng/L (0-15) 08/01/24 10:23 Delta Troponin T 4.16 ABS# (0-10) 08/01/24 10:23 Total Protein 7.8 g/dL (6.6-8.7) 08/01/24 08:30 Albumin 4.1 g/dL (3.5-5.2) 08/01/24 08:30 Globulin 3.7 g/dL (1.3-4.6) 08/01/24 08:30 TSH 1.68 uIU/mL (0.27-4.20) 08/01/24 08:30 All radiology interpretation(s) finalized by discharge Discharge Plan Discharge Patient Disposition: Admitted As Inpatient Admit Provider: Behzad Bose Clinical Impression: Atrial fibrillation with RVR, Tonsillar cancer Condition: Stable Coding Level of Care Code ED Nuclear Unit Operator for Rosanne Holliday
--- NOTE | 2024-08-01 08:15 | ECG_ITS ---
[employer] Test Date: 2024-08-01 Pat Name: Harshal Hinson Department: Room: Gender: Male Sander Wooden Pencils: : 1965 Requested By: Chase Rhodes Order Number: [id number] Reading MD: JAMARI DIAMOND Measurements Intervals [place] Rate: 116 P: 0 NV: 0 QRS: 48 QRSD: 98 T: 64 QT: 309 QTc: 430 Interpretive Statements ATRIAL FIBRILLATION WITH RAPID VENTRICULAR RESPONSE INCOMPLETE RIGHT BUNDLE BRANCH BLOCK [90+ ms QRS DURATION, TERMINAL R IN V1/V2, 40+ ms S IN I/aVL/V4/V5/V6] ABNORMAL RHYTHM ECG Compared to ECG 02/24/2024 07:09:54 Incomplete right bundle-branch block now present Sinus rhythm no longer present Electronically Signed On 08-03-2024 23:34:55 CDT by JAMARI DIAMOND [email or web address] [id number]
--- NOTE | 2024-08-01 08:25 | PC.PHAR ---
patient has a bottle of maijana elderberry gummies but i cant put that in his chart as its not an option or even anything close that i can insert in there.
[2024-08-01] MEDS: sodium chloride 0.9% 1,000 ML 999 ML IV (08:31)
[2024-08-01] MEDS: dilTIAZem 5 mg/mL SDV 5 mL 10 MG IVP (08:32)
[2024-08-01] MEDS: dilTIAZem 100 MG in sodium chloride 0.9% (add-van) 100 ML IV (08:35)
[2024-08-01 08:45] LABS: Basophils # 0.1 10^3/uL (0.0-0.1); Basophils % 0.5 %; Eosinophils # 0.4 10^3/uL (0.0-0.8); Eosinophils % 4.5 %; Hematocrit 38.1 % (37-53); Lymphocytes # 1.7 10^3/uL (0.8-4.8); Lymphocytes % 18.4 %; Mean Corpuscular Hemoglobin 29.1 pg (27-33); Mean Corpuscular Volume 90.9 fl (82-101); Mean Platelet Volume 10.7 fL (7.4-10.4); Monocytes # 1.1 10^3/uL (0.2-0.9); Monocytes % 11.5 %; Neutrophils % 64.8 %; Nucleated Red Blood Cells % 0 %; Platelet Count 225 10^3/cmm (157-399); Red Blood Count 4.19 10^6/uL (3.85-5.65); Red Cell Distribution Width 13.7 % (12.1-15.1); White Blood Count 9.12 10^3/uL (3.29-11.43)
[2024-08-01 08:57] LABS: INR 0.87 (0.8-1.2)
[2024-08-01 09:04] LABS: Lactic Sepsis W/Reflex 1.2 mmol/L (0.5-2.2)
[2024-08-01 09:10] LABS: Troponin(5th) Baseline 7 ng/L (0-15)
[2024-08-01 09:17] LABS: Alanine Aminotransferase 29 U/L (0-41); Albumin Level 4.1 g/dL (3.5-5.2); Alkaline Phosphatase 102 U/L (40-130); Blood Urea Nitrogen 13 mg/dL (6-20); Calcium 9.2 mg/dL (8.5-10.5); Carbon Dioxide 21 mmol/L (22-29); Chloride 104 mmol/L (98-107); Creatinine Clr Calc Pharmacy 120.0786; Globulin 3.7 g/dL (1.3-4.6); Glomerular Filtration Rate 115.4 mL/min (90-130); Glucose 108 mg/dL (65-115); Osmolality Calculated 291 mOsm/kg (285-295); Sodium 140 mmol/L (136-145); Thyroid Stimulating Hormone 1.68 uIU/mL (0.27-4.20); Total Bilirubin 0.5 mg/dL (0.15-1.2); Total Protein 7.8 g/dL (6.6-8.7)
[2024-08-01 09:29] LABS: Anion Gap 19.2 (5-19); Aspartate Amino Transferase 29 U/L (0-40); Potassium 4.2 mmol/L (3.5-5.1)
--- NOTE | 2024-08-01 10:19 | ECG_ITS ---
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: : 1965 Requested By: Chase Rhodes Order Number: [id number] Reading MD: JAMARI DIAMOND Measurements Intervals [place] Rate: 111 P: 0 NC: 0 QRS: 59 QRSD: 99 T: 77 QT: 322 QTc: 438 Interpretive Statements ATRIAL FIBRILLATION WITH RAPID VENTRICULAR RESPONSE INCOMPLETE RIGHT BUNDLE BRANCH BLOCK [90+ ms QRS DURATION, TERMINAL R IN V1/V2, 40+ ms S IN I/aVL/V4/V5/V6] ABNORMAL RHYTHM ECG Compared to ECG 08/01/2024 08:39:27 No significant changes Electronically Signed On 08-03-2024 23:47:10 CDT by JAMARI DIAMOND [id number]
[2024-08-01 11:00] LABS: Troponin 5 2HR 11.16 ng/L (0-15); Troponin 5 2HR Delta 4.16 ABS# (0-10)
--- NOTE | 2024-08-01 14:15 | ECG_ITS ---
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: : 1965 Requested By: Chase Rhodes Order Number: [id number] Reading MD: JAMARI DIAMOND Measurements Intervals [place] Rate: 93 P: 77 PA: 158 QRS: 60 QRSD: 105 T: 72 QT: 350 QTc: 435 Interpretive Statements SINUS RHYTHM WITH OCCASIONAL SUPRAVENTRICULAR PREMATURE COMPLEXES INCOMPLETE RIGHT BUNDLE BRANCH BLOCK [90+ ms QRS DURATION, TERMINAL R IN V1/V2, 40+ ms S IN I/aVL/V4/V5/V6] Compared to ECG 08/01/2024 10:19:57 Atrial fibrillation no longer present Electronically Signed On 08-03-2024 23:43:09 CDT by JAMARI DIAMOND [id number]
--- NOTE | 2024-08-01 14:17 | P.HP_ITS ---
Providers/Chief Complaint 2 Admitting Physician: Behzad Bose Chief Complaint: tonsils bleeding History of Present Illness The patient with a history of tonsil cancer (status post recent tonsillectomy) and remote rotator cuff surgery (four to five years ago) presents after being referred by Dr. Brennan in the ER for overnight observation. The patient was noted to have coughed up some bloody secretions following the tonsillectomy. There is no report of persistent bleeding. The patient was also found to be in atrial fibrillation with a heart rate up to 140 bpm. The patient denies any prior history of atrial fibrillation, heart disease, stents, or heart attack. There is no recent chest pain, pressure, palpitations, or significant lightheadedness (other than what the patient attributes to recent surgery and medications). The patient denies fever, chills, nausea, vomiting, diarrhea, blood in stool, or melena. No leg swelling or orthopnea. The patient reports sleeping with a wedge due to habit from prior shoulder surgery, not due to shortness of breath. The patient has not smoked, used to drink alcohol heavily but quit years ago, and currently uses marijuana edibles to help with sleep (has not smoked marijuana for two weeks). The patient is currently on hydrocodone for throat pain and has been eating soft foods but will be kept on a liquid diet for now due to recent minor bleeding. Review of Systems 2 Const: Denies: fever(s), chills, body aches or malaise ENMT: Reports: other (Scratchy throat) Card: Reports: other (Lightheaded after surgery); Denies: chest pain, edema, pre-syncope or dyspnea on exertion Resp: Denies: dyspnea, productive cough, change in phlegm color or hemoptysis GI: Denies: abdominal pain, nausea, vomiting, diarrhea, constipation, hematochezia or melena : Denies: flank pain, difficulty urinating, urinary frequency or hematuria Musc: Denies: back pain, joint swelling or joint redness Skin/Breast: Denies: rash or new lesions Neuro: Denies: headache(s) or confusion Medications/Allergies Home Medications ?Medication ?Instructions ?Recorded ?Confirmed ?Last Taken ?Type ibuprofen 200 mg tablet (Advil) 800 mg PO Q6H PRN Pain 02/24/24 08/01/24 02/24/24 02:00 History omeprazole magnesium 20 mg 20 mg PO DAILY 02/24/2402/23/24 History tablet,delayed release (Prilosec OTC) hydrocodone 5 mg-acetaminophen 325 1 tab PO Q6H PRN pa in #20 tabs 07/04/24 08/01/24 Unknown Rx mg tablet acetaminophen 160 mg/5 mL oral 500 mg PO Q6H PRN Pain 08/01/24 08/01/24 Unknown History liquid oxycodone 5 mg/5 mL oral solution 5 mg PO Q4H PRN Pain 08/01/24 08/01/24 Unknown History Allergies Allergy/AdvReac Type Severity Reaction Status Date / Time No Known Allergies Allergy Verified 07/04/24 14:31 PFSH Acute 2 PFSH: Social History Smoking and tobacco/nicotine status: never used tobacco/nicotine Alcohol intake: former Former alcohol use details: Years ago before father Substance/Drug Use: current Substance/Drug use type: Marijuana Vitals/I&O/Wt Last Vital Signs Temp 97.9 F 08/01/24 08:08 Pulse 98 08/01/24 13:00 Resp 16 08/01/24 13:00 BP 132/71 08/01/24 13:00 Pulse Ox 96 08/01/24 12:30 O2 Del Method Room Air 08/01/24 09:19 07/31/24 08/01/24 08/01/24 22:59 06:59 14:59 Intake Total 1022.083 / 1022.083 Balance 1022.083 / 1022.083 Weight last 48 hrs Weight 80.739 kg Physical Exam 2 Const: COMMON NORMALS: patient oriented x3 and alert GENERAL APPEARANCE: c ooperative ORIENTATION/CONSCIOUSNESS: Yes awake HENMT: COMMON NORMALS: oropharynx normal OTHER: Status post bilateral tonsillectomy, granulation tissue, no bleeding. Neck/C-Spine: COMMON NORMALS: no JVD Resp: COMMON NORMALS: normal respiratory effort and clear to auscultation bilaterally AUSCULTATION: clear to auscultation bilaterally Cardio: COMMON NORMALS: no JVD, regular rhythm, S1 normal heart sound present, S2 normal heart sound present and No murmurs present (Cardio) RHYTHM: regular rhythm HEART SOUNDS: S1 normal heart sound present and S2 normal heart sound present GI: COMMON NORMALS: Normal to inspection, nondistended, normoactive bowel sounds present, Soft to palpation and non-tender PALPATION: Yes Soft to palpation Extremity: COMMON NORMALS: no joint enlargement and no pedal edema Neuro: COMMON NORMALS: patient oriented x3 and moves all extremities S ENSORIUM/ORIENTATION: Yes alert Skin: COMMON NORMALS: no rashes or lesions noted GENERAL SKIN EXAM: no rashes or lesions noted Data 08/01/24 08:30 08/01/24 08:30 Micro: Microbiology 08/01/24 08:30 Blood Culture - Preliminary Blood SPECIMEN COLLECTED 08/01/24 08:37 Blood Culture - Preliminary Blood SPECIMEN COLLECTED A&P Assessment and plan (1) Atrial fibrillation with RVR: New onset atrial fibrillation with rapid ventricular response (heart rate up to 140 bpm) discovered during ER evaluation. No prior history of atrial fibrillation or other cardiac disease. No chest pain, pressure, or significant lightheadedness. No stents or history of heart attack. The patient is considered at lower risk for stroke due to absence of hypertension, diabetes, or other risk factors, but the risk is not zero. Current bleeding risk precludes starting aspirin or anticoagulation at this time. The patient is responding to IV diltiazem (referred to as 'cartosome drip') for rate control. Reviewed vitals, CBC, INR, CMP, troponin, EKG, ER provider note, discussed with ER provider. - Continue IV diltiazem drip for rate control. - Transition to oral diltiazem as tolerated, with plan to wean off IV drip overnight or by tomorrow if stable. Start Cardizem 60 mg every 6 hours. Wean off drip. Monitor for risk of hypotension. - Monitor heart rate and rhythm. - Check thyroid function, magnesium, and cardiac enzymes. - Consider outpatient cardiac stress test in the future to assess for coronary artery disease. - Follow up with primary care provider after discharge to reassess need for antithrombotic therapy (aspirin or anticoagulation) once bleeding risk subsides. Discussed with him also subsequent follow-up and consideration for stress testing. (2) Tonsillar cancer: Oropharyngeal bleeding after tonsillectomy. On exam noted bilateral granular tissue, without active bleeding. Spitting up some bloody secretions on presentation, but so far without recurrence in ER. His case was discussed with his ENT by ER provider, with recommendation for observation. Discussed with him will keep with liquid diet for now. His ENT originally did recommend solid diet as tolerating. Follow-up with ENT in office. Plan Tonsil cancer (status post tonsillectomy) : History of tonsil cancer, recently treated with tonsillectomy. Pathology results pending or not yet communicated to the patient. - Await pathology results from tonsillectomy. - Follow up with ENT for further management and surveillance. Pain management (post-tonsillectomy) : Patient is taking hydrocodone (liquid) for throat pain following tonsillectomy. No issues reported with pain control. Patient prefers to use their own medication if possible. - Continue hydrocodone (liquid) for pain as needed, using hospital-supplied medication if available, or patient's own supply if necessary. PDMP PDMP Reviewed: Not Reviewed Attestations 2 Medical Necessity Statement*: Please observation for additional assessment management of new onset A-fib with RVR. Oropharyngeal bleeding following tonsillectomy. and High MDM includes amount and/or complexity of data reviewed/ordered [ previous or external records, resulted lab(s)/test(s), ordered lab(s)/test(s) and other healthcare professional discussion] and described risk of complication, morbidity or mortality of management as documented Diagnoses Atrial fibrillation with RVR I48.91 Tonsillar cancer C09.9
[2024-08-01] MEDS: dilTIAZem 60 mg Tablet PO (14:43)
[2024-08-01] MEDS: OXYCODONE 5 MG/5 ML 5 EACH PO ×3 (15:04→22:50)
--- NOTE | 2024-08-01 15:36 | PC.NURSE ---
REceived patient from ER staff at 1430. Patient is alert, oriented to person, place, time, and situation. HR: 93 (Normal sinus), BP: 139/87, SPO2: 97% on room air. Respiratory rate: 12. Currently on cardizem drip, received PO Cardizem, nurse has started titrating off of drip. Home medication: Liquid oxycodone. Label made by pharmacy, dose administered, and medication store din locked pharmacy cabinet.
--- NOTE | 2024-08-01 18:07 | PC.NURSE ---
HIves noted to left arm. Allergic reaction limited to left arm only, no other symptoms. Proximal to Cardizem infusion site. IV aspirated. Cardizem discontinued. Patient still has PO cardizem ordered. Nurse alerted Dr poole. Cardizem discontinued Future aniarrythmic changed to metoprolol
--- NOTE | 2024-08-01 18:27 | PC.NURSE ---
SHift SUmmary: Since arrival in ICU, patient has been normal sinus. Initially transitioned to cardizem PO, but after hives developed, the anti arrythmic was changed to metoprolol.
[2024-08-01] MEDS: cetylpyridinium Lozenge 1 EACH MUCOUS MEM ×2 (20:16→23:03)
[2024-08-01] MEDS: metoprolol tartrate 25 mg Tablet PO (20:17)
[2024-08-02] MEDS: OXYCODONE 5 MG/5 ML 5 EACH PO ×2 (03:06→07:46)
[2024-08-02 06:00] VITALS: PULSE 67
[2024-08-02] MEDS: metoprolol tartrate 25 mg Tablet PO (07:46)
[2024-08-02] MEDS: pantoprazole DR 40 mg Tablet PO (07:46)
--- NOTE | 2024-08-02 08:20 | P.DS_ITS ---
Discharge Providers Date of Admission: 08/01/24 14:13 Date of Discharge: August 02, 2024 Attending Provider at Admission: Behzad Bose Attending Provider at Discharge: Behzad Bose Diagnoses at Discharge Discharge Diagnosis (1) Atrial fibrillation with RVR: Status: Acute (2) Tonsillar cancer: Status: Acute Reason for Visit Reason for Visit: tonsils bleeding Brief History: The patient with a history of tonsil cancer (status post recent tonsillectomy) and remote rotator cuff surgery (four to five years ago) presents after being referred by Dr. Brennan in the ER for overnight observation. The patient was noted to have coughed up some bloody secretions following the tonsillectomy. There is no report of persistent bleeding. The patient was also found to be in atrial fibrillation with a heart rate up to 140 bpm. The patient denies any prior history of atrial fibrillation, heart disease, stents, or heart attack. There is no recent chest pain, pressure, palpitations, or significant lightheadedness (other than what the patient attributes to recent surgery and m edications). The patient denies fever, chills, nausea, vomiting, diarrhea, blood in stool, or melena. No leg swelling or orthopnea. The patient reports sleeping with a wedge due to habit from prior shoulder surgery, not due to shortness of breath. The patient has not smoked, used to drink alcohol heavily but quit years ago, and currently uses marijuana edibles to help with sleep (has not smoked ma rijuana for two weeks). The patient is currently on hydrocodone for throat pain and has been eating soft foods but will be kept on a liquid diet for now due to recent minor bleeding. Hospital Course Hospital Course He was admitted and received treatment for A-fib with RVR with Cardizem drip, transition to oral Cardizem, however, noted to have erythema at the site of infusion of Cardizem tracking up his arm with suspected allergic reaction, added to his list of allergies. Cardizem discontinued so switched over to metoprolol with continued good control with conversion to sinus rhythm. Discussed risk of stroke with him, however, due to recent tonsillectomy and bloody secretions preadmission anticoagulation or aspirin not started and has prescription with him he is encouraged to follow-up with primary provider and discuss and start this once bleeding is no longer concerned. He understands the reason for this is to prevent risk of stroke with atrial fibrillation even if it is perioperative. He is referred for further assessment with echocardiogram and as per discussion we will follow-up with primary provider and consider further evaluation with stress testing given new onset atrial fibrillation. He otherwise had no further recurrence of bloody sputum or secretions. He is asked to also follow-up with his ENT within the next 4 to 7 days for reassessment as well as for pathology results. Physical Exam Narrative: He is feeling well today, denies any discomfort, without any concerns. Const: COMMON NORMALS: patient oriented x3 and alert GENERAL APPEARANCE: cooperative ORIENTATION/CONSCIOUSNESS: Yes awake HENMT: COMMON NORMALS: oropharynx normal Neck/C-Spine: COMMON NORMALS: no JVD Resp: COMMON NORMALS: normal respiratory effort and clear to auscultation bilaterally AUSCULTATION: clear to auscultation bilaterally Cardio: COMMON NORMALS: no JVD, regular rhythm, S1 normal heart sound present, S2 normal heart sound present and No murmurs present (Cardio) RHYTHM: regular rhythm HEART SOUNDS: S1 normal heart sound present and S2 normal heart sound present GI: COMMON NORMALS: Normal to inspection, nondistended, normoactive bowel sounds present, Soft to palpation and non-tender PALPATION: Yes Soft to palpation Extremity: COMMON NORMALS: no joint enlargement and no pedal edema Neuro: COMMON NORMALS: patient oriented x3 and moves all extremities SENSORIUM/ORIENTATION: Yes alert Skin: COMMON NORMALS: no rashes or lesions noted GENERAL SKIN EXAM: no rashes or lesions noted Discharge Data Studies Completed and Pending Pending at discharge Category Date Time Status Blood Culture Stat Lab 08/01/24 08:30 Results Laboratory Results WBC 9.12 10^3/uL (3.29-11.43) 08/01/24 08:30 RBC 4.19 10^6/uL (3.85-5.65) 08/01/24 08:30 Hgb 12.20 g/dL (11.27-16.99) 08/01/24 08:30 Hct 38.1 % (37-53) 08/01/24 08:30 MCV 90.9 fl (82-101) 08/01/24 08:30 MCH 29.1 pg (27-33) 08/01/24 08:30 MCHC 32.0 g/dL (30-55) 08/01/24 08:30 RDW 13.7 % (12.1-15.1) 08/01/24 08:30 Plt Count 225 10^3/cmm (157-399) 08/01/24 08:30 MPV 10.7 fL (7.4-10.4) H 08/01/24 08:30 Neut % (Auto) 64.8 % 08/01/24 08:30 Lymph % (Auto) 18.4 % 08/01/24 08:30 Dupage % (Auto) 11.5 % 08/01/24 08:30 Eos % (Auto) 4.5 % 08/01/24 08:30 Baso % (Auto) 0.5 % 08/01/24 08:30 Neut # (Auto) 5.90 10^3/uL (1.8-7.7) 08/01/24 08:30 Lymph # (Auto) 1.7 10^3/uL (0.8-4.8) 08/01/24 08:30 Dupage # (Auto) 1.1 10^3/uL (0.2-0.9) H 08/01/24 08:30 Eos # (Auto) 0.4 10^3/uL (0.0-0.8) 08/01/24 08:30 Baso # (Auto) 0.1 10^3/uL (0.0-0.1) 08/01/24 08:30 Nucleated RBC % (auto) 0 % 08/01/24 08:30 Nucleated RBCs # 0.0 /100WBC 08/01/24 08:30 PT 12.50 SECONDS (12.1-14.9) 08/01/24 08:30 INR 0.87 (0.8-1.2) 08/01/24 08:30 Sodium 140 mmol/L (136-145) 08/01/24 08:30 Potassium 4.2 mmol/L (3.5-5.1) 08/01/24 08:30 Chloride 104 mmol/L (98-107) 08/01/24 08:30 Carbon Dioxide 21 mmol/L (22-29) L 08/01/24 08:30 Anion Gap 19.2 (5-19) H 08/01/24 08:30 BUN 13 mg/dL (6-20) 08/01/24 08:30 Creatinine 0.7 mg/dL (0.7-1.2) 08/01/24 08:30 GFR Calculation 115.4 mL/min (90-130) 08/01/24 08:30 Glucose 108 mg/dL (65-115) 08/01/24 08:30 Calculated Osmolality 291 mOsm/kg (285-295) 08/01/24 08:30 Lactic Acid 1.2 mmol/L (0.5-2.2) 08/01/24 08:30 Calcium 9.2 mg/dL (8.5-10.5) 08/01/24 08:30 Total Bilirubin 0.5 mg/dL (0.15-1.2) 08/01/24 08:30 AST 29 U/L (0-40) 08/01/24 08:30 ALT 29 U/L (0-41) 08/01/24 08:30 Alkaline Phosphatase 102 U/L (40-130) 08/01/24 08:30 Troponin T Baseline 7 ng/L (0-15) 08/01/24 08:30 Troponin T 120 Minute 11.16 ng/L (0-15) 08/01/24 10:23 Delta Troponin T 4.16 ABS# (0-10) 08/01/24 10:23 Troponin T Hi Sens 6Hr 8.10 ng/L (0-15) 08/01/24 14:22 Troponin T Hi Sens 6Hr Delta 1.10 ng/L (0-12) 08/01/24 14:22 Total Protein 7.8 g/dL (6.6-8.7) 08/01/24 08:30 Albumin 4.1 g/dL (3.5-5.2) 08/01/24 08:30 Globulin 3.7 g/dL (1.3-4.6) 08/01/24 08:30 TSH 1.68 uIU/mL (0.27-4.20) 08/01/24 08:30 Vitals Last Vital Signs Temp 97.9 F 08/01/24 08:08 Pulse 67 08/02/24 06:00 Resp 16 08/01/24 13:00 BP 130/86 08/01/24 14:29 Pulse Ox 98 08/01/24 14:29 O2 Del Method Room Air 08/01/24 14:36 Discharge Plan Discharge Patient Disposition: Home Condition: Stable Prescriptions: New metoprolol tartrate 25 mg Tablet 25 mg PO BID@0900,2100 Qty: 180 0RF Continued ibuprofen [Advil] 200 mg Tablet 800 mg PO Q6H PRN (Reason: Pain) omeprazole magnesium [Prilosec OTC] 20 mg Tablet,Delayed Release (Dr/Ec) 20 mg PO DAILY hydrocodone-acetaminophen 5-325 mg tablet 1 tab PO Q6H PRN (Reason: pain) Qty: 20 0RF acetaminophen 160 mg/5 mL Liquid 500 mg PO Q6H PRN (Reason: Pain) Rx Instructions: TAKE 31.25 MG PO EVERY 6 HOURS NEEDED oxycodone 5 mg/5 mL Solution 5 mg PO Q4H PRN (Reason: Pain) Discharge Orders: Discharge Order (Routine); Ordered 08/02/24 Ordered By: Behzad Bose Other Ambulatory Orders: CV. echo complete* [id number] (Routine) Timeframe: 3 Days Facility: [facility] - Location: Radiology Ordered By: Behzad Bose Referrals: Your, ENT Dr Reyes [Other, Otolaryngology (ENT)] - 08/08/24 11:30 am Sandy Mclain, REPERTOIRE MANAGER [Nurse Practitioner, Family Practice] - 08/11/24 10:30 am Referral Note: establish primary care, post tonsillectomy at [facility], , and admisson to icu at [facility] 08-01-2024 with new onset of atrial fib with rvr please call if you need to cancel,please bring insurance cards ,and arrive at 10:15 prior to this visit also centralized scheduling for echocardiogram will call you for appointment for a date and time to schedule . Patient Instructions: Metoprolol (By mouth), A-fib (Atrial Fibrillation) (GEN), Tonsillectomy (GEN), Opioid Safety Activity Restrictions/Additional Instructions: Please follow-up with the primary doctor within 4-7 days for reassessment after new onset atrial fibrillation and rapid ventricular response. Continue metoprolol. Complete echocardiogram as per referral to further assess for any structural abnormalities in your heart and have your primary doctor further refer you for stress testing. Revisit also with your primary provider regarding stroke prophylaxis with atrial fibrillation as discussed which could be started once bleeding is no longer a risk after tonsillectomy. Follow-up with your ENT Dr Reyes within a week for reassessment after tonsillectomy and to discuss results. Discharge Attestations Time Spent in Discharge Care*: greater than 30 min Quality Metrics Clinical Quality Measures [ No reported AMI, CVA or VTE this stay] Coding Level of Care Code 60581 Total time (in minutes) for Discharge: 45 Diagnoses Atrial fibrillation with RVR I48.91 Tonsillar cancer C09.9
[2024-08-02] MEDS: cetylpyridinium Lozenge 1 EACH MUCOUS MEM (08:47)
--- NOTE | 2024-08-02 10:46 | PC.NURSE ---
Patient home medications returned to him. Patient dc meds delivered via meds to beds. All d/c instructions provided to patient and friend. Verbalizes understanding. Patient IV removed, stable upon discharge.
[2024-08-02 10:49] VITALS: BP 146/85; PULSE 72; RESP 18; O2SAT 98
== END 2024-08-02 10:50 | disposition home or self-care (01) ==
LOC: ER 11:31 → ICU 14:13
PROVIDERS: Admitting Provider Internal Medicine; Emergency Provider Family Medicine; Visit Provider Internal Medicine
DX: I48.91 Unspecified atrial fibrillation (principal); C09.9 Malignant neoplasm of tonsil, unspecified; Z98.890 Other specified postprocedural states
CPT/HCPCS: 36415; 80053; 83605; 84443; 84484; 85025; 85610; 87040; 93005; 96365; 96366; 96375; 99285; G0378; J3490; J7030; J9999

== ENCOUNTER 2024-08-04 08:06 | Outpatient (CLI) | payer OTHER, SELFPAY ==
--- NOTE | 2024-08-04 08:13 | USCV_ITS ---
Harshal Hinson Age: 59 Gender: M : 1965 Exam Date: 08/04/2024 08:21 Ordering Phys: Behzad Bose MD Technologist: MENA Exam Location: [facility] [place] [place] Indication: New AFib BP: 132 / 71 HR: 65 Rhythm: Sinus Technical Quality: Adequate MEASUREMENTS (Male / Female) Normal Values 2D ECHO LV Diastolic Diameter PLAX 5.3 cm 4.2 - 5.9 / 3.9 - 5.3 cm IVS Diastolic Thickness 0.8 cm 0.6 - 1.0 / 0.6 - 0.9 cm IVS Systolic Thickness 2.1 cm LVPW Diastolic Thickness 1.1 cm 0.6 - 1.0 / 0.6 - 0.9 cm LVPW Systolic Thickness 1.5 cm LVOT Diameter 2.1 cm LV Ejection Fraction 2D Teich 53.4 % LV Ejection Fraction MOD 4C 53.5 % LV Ejection Fraction MOD 2C 55.0 % LV Ejection Fraction 2C AL 55.6 % LA Diameter 3.1 cm RA Systolic Volume 4C AL 34.1 ml RA Systolic Volume 4C MOD 33.9 ml Aorta at Sinotubular Diameter 3.1 cm IVC Diameter 1.8 cm DOPPLER AV Peak Velocity 133.0 cm/s LVOT Peak Velocity 75.0 cm/s AV Area Cont Eq vti 2.0 cm squared AV Area Cont Eq pk 1.9 cm squared MV Peak Velocity 73.0 cm/s MV Area PHT 2.7 cm squared Mitral E to A Ratio 0.7 TR Peak Velocity 104.0 cm/s TR Peak Gradient 4.3 mmHg TV Peak E Velocity 72.0 cm/s PV Peak Velocity 98.0 cm/s FINDINGS Left Ventricle Normal left ventricular size, systolic function and wall thickness, with no regional wall motion abnormalities. Estimated LVEF normal at 55-60%. Right Ventricle Normal right ventricular size and systolic function. Right Atrium Normal right atrial size. Left Atrium Normal left atrial size. Mitral Valve Grossly normal mitral valve. No mitral valve regurgitation. Aortic Valve Structurally normal aortic valve. Tricuspid Valve Structurally normal tricuspid valve. Pulmonic Valve Pulmonic valve not well visualized. Trace pulmonary valve regurgitation. Pericardium No pericardial effusion. Aorta Normal size aortic root and proximal ascending aorta. IVC Inferior vena cava not well visualized. CONCLUSIONS Normal left ventricle size and systolic function. LVEF is normal 55 to 60%. Normal chamber sizes. No significant valvular abnormality noted. Normal right heart and pulmonary pressures. Eduar Booker MD (Electronically Signed) Final Date: 04 Aug 2024 13:11 S
== END 2024-08-04 08:07 | disposition home or self-care (01) ==
PROVIDERS: Visit Provider Internal Medicine
DX: I48.91 Unspecified atrial fibrillation (principal)
CPT/HCPCS: 93306

== ENCOUNTER 2024-11-19 00:26 | Inpatient (IN) | payer OTHER, SELFPAY ==
[2024-11-19] VITALS (48 sets, daily range): BP systolic 114–167; BP diastolic 75–119; PULSE 80–127; RESP 14–30; TEMP 36.9; O2SAT 78–100
--- NOTE | 2024-11-19 00:36 | PC.NURSE ---
family reports seizure that occurred at home was est 1 minute long. no hx of seizures.
--- OUTSIDE RECORDS SUMMARY | 2024-11-19 00:39 | XMS_ITS ---
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 07/17/2024 Neck abscess 02/26/2024 Abscess of neck 02/24/2024 Leukocytosis (leucocytosis) 02/24/2024 Hard to intubate 02/24/2024 Hypothyroidism 02/24/2024 GERD (gastroesophageal reflux disease) Probable sepsis 02/24/2024 Status post Right rotator cu ff surgery 03/13/2020 w/Dr Medina 03/27/2020 Current Treatment and Therapy Plans OP ONC HEAD NECK_CISPLATIN_EVERY 7 DAYS X 6 WITH CONCURRENT RADIATION* Plan Start Date:08/30/2024 Plan Provider:Arvind Trevino MD Linked Problems Squamous cell carcinoma of h ead and neck regionTonsillar cancer (CMS/HCC) Treatment Medications CISplatin (PLATINOL) with mannitol Past Treatment and Therapy Plans No past plan information found. Radiation Treatments * Course 1 09/20/2024 - 11/08/2024 Treatment Sites Treatment Period Technique Fraction Dose Fra ctions Total Dose RTonsil&NckRpln 10/09/2024 - 11/08/2024 Helical-IMRT 200 / 200 cGy 23 / 23 4,600 / 4,600 cGy R tonsil R neck 09/20/2024 - 10/06/2024 Helical-IMRT 200 / 200 cGy 2,400 / 7,000 cGy Lifetime Dose Tracking * Chemical Lifetime Dose Automatic Entry Manual Entr y cisplatin 274.886 mg/m2 (549 mg) 274.886 mg/m2 (549 mg) 0 mg/m2 (0 mg) Effective Dose 16.26 mSv 16.26 mSv 0 mSv Total DLP 1,108.95 DLP 1,108.95 DLP 0 DLP CTDIvol Max 32.33 mGy 32.33 mGy 0 mGy CTDIvol Min 0.14 mGy 0.14 mGy 0 mGy
--- OUTSIDE RECORDS SUMMARY | 2024-11-19 00:40 | XMS_ITS | Encounter Summary ---
Author Organization [employer] Address [address] [place] [address] Care Team Providers Care Director Of Instrumental Music Name Role Phone Unavailable Primary Care Provider Unavailabl e Encounter Details Date Type Department Care Team (Late st Contact Info) Description 11/16/2024 External Device Data STL ABSTRACTION Provider, Abstract NO ADDRESS ON FILE Social History Tobacco Use Types Packs/Day Years Used Date Smoking Tobacco: Never Smokeless Tobacco: Former Chew Quit: 2014 Alcohol Use Standard Drinks/Week Comments Not Currently 0 (1 standard drink = 0.6 oz pur e alcohol) Feeling Safe Answer Date Recorded Do you worry about feeling s afe and happy with the people in your life? No 08/22/2024 Food Insecurity Answer Date Recorded Do you find you are eating l ess than you should because you can t pay for food? No 08/22/2024 Transportation Needs Answer Date Record ed Have you gone without health care because you didn t have a way to get there? Or worry about transportation for future doctor visits, peanut picker medication, etc.? No 2024 Housing Stability Answer Date Recorded Do you worry you won t have a steady place to sleep or struggle to pay rent or mortgage? No 08/22/2024 Utility Needs Answer Date Recorded Do you have difficulty payin g for utility costs (electric, water or gas bills)? Yes 08/22/2024 Medication Needs Answer Date Recorded Have you skipped taking medi cation due to cost or worry you can t afford new medications? No 08/22/2024 Feeling Safe Answer Date Recorded Are you in a relationship wi th someone who hurts you emotionally and/or physically? No 07/27/2024 Food Insecurity Answer Date Recorded Patient needs follow up regardin 07/12/2024 Transportation Needs Answer Date Record ed Patient needs follow up regardin 07/12/2024 Housing Stability Answer Date Recorded Social/Environmental Concerns No concerns Utility Needs Answer Date Recorded Patient needs follow up regardin 07/12/2024 Sex and Gender Information Value Date Recorded Sex Assigned at Not on file Legal Sex Male 8:32 PM CANE WEIGHER HELPER Gender Identity Not on file Sexual Orientation Not on file documented as of this encounter Plan of Treatment Upcoming Encounters Date Type Department Care Team (Late st Contact Info) Description 11/21/2024 9:00 AM CDT Video Visit [facility] Supportive Care [facility] [address] [place] [address] Margaret Davis MD [address] [place] [address] 12/14/2024 1:45 PM CDT Appointment [facility] [address] [facility] [address] [address] Arvind Trevino MD [address] [place] [address] 12/14/2024 2:40 PM CDT Office Visit [facility] [address] [place] [address] 2 [place] [address] Arvind Trevino MD [address] [place] [phone] 02/02/2025 1:00 PM CANE WEIGHER HELPER Appointment [facility] [address] [facility] [address] [address] Arvind Trevino MD [address] [place] [phone] 02/02/2025 1:40 PM CANE WEIGHER HELPER Office Visit [facility] [place] [address] [place] [address] Arvind Trevino MD [address] [place] [address] 02/07/2025 10:00 AM CANE WEIGHER HELPER Office Visit [facility] Ear Nose and Throat Head Neck S[facility] [address] [place] [address] Magno Reyes MD [address] [place] [address] 02/08/2025 3:30 PM CANE WEIGHER HELPER Appointment [facility] [address] [place] [address] Amaris Deras PA-C [address] [place] [address] 03/05/2025 11:30 AM CANE WEIGHER HELPER Clinical Support [facility] Supportive Care [facility] [address] [place] [address] Kathe Regan, GOLF COURSE EQUIPMENT OPERATOR [address] [facility] [address] [place] [address] 03/12/2025 10:00 AM CANE WEIGHER HELPER Clinical Support [facility] Supportive Care [facility] [address] [place] [address] Kathe Regan, GOLF COURSE EQUIPMENT OPERATOR [address] [facility] [address] [place] [address] documented as of this encounter Visit Diagnoses Not on filedocumented in this encounter
--- OUTSIDE RECORDS SUMMARY | 2024-11-19 00:40 | XMS_ITS | Encounter Summary ---
Author Organization [employer] Address [address] [place] [address] Care Team Providers Care Chronic Care Nurse Name Role Phone Unavailable Primary Care Provider Unavailabl e Encounter Details Date Type Department Care Team (Late st Contact Info) Description 11/15/2024 External Device Data STL ABSTRACTION Provider, Abstract [...] worry about transportation for future doctor visits, pickle processor medication, etc.? No 2024 Housing Stability Answer [...] on file Legal Sex Male 8:32 PM FLIGHT PURSER Gender Identity Not on file Sexual Orientation Not on file documented as of this encounter Plan of Treatment Upcoming Encounters Date Type Department Care Team (Late st Contact Info) Description 11/21/2024 9:00 AM CDT Video Visit [facility] Supportive Care [facility] [address] [place] [address] Margaret Davis MD [address] [place] [address] 12/14/2024 1:45 PM CDT Appointment [facility] [address] [facility] [address], [place] [address] Arvind Trevino MD [address] [place] [address] 12/14/2024 2:40 PM CDT Office Visit [facility] [address] [place] [address] 2 [place] [address] Arvind Trevino MD [address] [place] [phone] 02/02/2025 1:00 PM FLIGHT PURSER Appointment [facility] [address] [facility] [address], [place] [address] Arvind Trevino MD [address] [place] [phone] 02/02/2025 1:40 PM FLIGHT PURSER Office Visit [facility] [place] [address] [place] [address] Arvind Trevino MD [address] [place] [address] 02/07/2025 10:00 AM FLIGHT PURSER Office Visit [facility] Ear Nose and Throat Head Neck S[facility] [address] [place] [address] Magno Reyes MD [address] [place] [address] 02/08/2025 3:30 PM FLIGHT PURSER Appointment [facility] [address] [facility] [address] [place] [address] Amaris Deras PA-C [address] [place] [address] 03/05/2025 11:30 AM FLIGHT PURSER Clinical Support [facility] Supportive Care [facility] [address] [place] [address] Kathe Regan, DOG BARBER [address] [facility] [address] [place] [address] 03/12/2025 10:00 AM FLIGHT PURSER Clinical Support [facility] Supportive Care [facility] [address] [place] [address] Kathe Regan, DOG BARBER [address] [facility] [address] [place] [address] documented as of this encounter Visit Diagnoses Not on filedocumented in this encounter
--- OUTSIDE RECORDS SUMMARY | 2024-11-19 00:40 | XMS_ITS | Encounter Summary ---
Author Organization [employer] Address [address] [place] [address] Care Team Providers Care Silk Finisher Name Role Phone Unavailable Primary Care Provider Unavailabl e Encounter Details Date Type Department Care Team (Late st Contact Info) Description 11/17/2024 External Device Data STL ABSTRACTION Provider, Abstract [...] worry about transportation for future doctor visits, garbage pick up worker medication, etc.? No 2024 Housing Stability Answer [...] on file Legal Sex Male 8:32 PM METAL FURNITURE POLISHER Gender Identity Not on file Sexual Orientation Not on file documented as of this encounter Plan of Treatment Upcoming Encounters Date Type Department Care Team (Late st Contact Info) Description 11/21/2024 9:00 AM CDT Video Visit [facility] Supportive Care [facility] [address] [place] [address] Margaret Davis MD [address] [place] [address] 12/14/2024 1:45 PM CDT Appointment [facility] [address] [facility] [address], [place] [address] Arvind Trevino MD [address] [place] [address] 12/14/2024 2:40 PM CDT Office Visit [facility] [address] [place] [address] 2 [place] [address] Arvind Trevino MD [address] [place] [address] 02/02/2025 1:00 PM METAL FURNITURE POLISHER Appointment [facility] [address] [facility] [address], [place] [address] Arvind Trevino MD [address] [place] [phone] 02/02/2025 1:40 PM METAL FURNITURE POLISHER Office Visit [facility] [place] [address] [place] [address] Arvind Trevino MD [address] [place] [address] 02/07/2025 10:00 AM METAL FURNITURE POLISHER Office Visit [facility] Ear Nose and Throat Head Neck S[facility] [address] [place] [address] Magno Reyes MD [address] [place] [address] 02/08/2025 3:30 PM METAL FURNITURE POLISHER Appointment [facility] [address] [place] [address] Amaris Deras PA-C [address] [place] [address] 03/05/2025 11:30 AM METAL FURNITURE POLISHER Clinical Support [facility] Supportive Care [facility] [address] [place] [address] Kathe Regan, BICYCLE DESIGNER [address] [facility] [address] [place] [address] 03/12/2025 10:00 AM METAL FURNITURE POLISHER Clinical Support [facility] Supportive Care [facility] [address] [place] [address] Kathe Regan, BICYCLE DESIGNER [address] [facility] [place] [address] [place] [address] documented as of this encounter Visit Diagnoses Not on filedocumented in this encounter
--- OUTSIDE RECORDS SUMMARY | 2024-11-19 00:40 | XMS_ITS | Encounter Summary ---
Author Organization [employer] Address [address] [place] [address] Care Team Providers Care Medical Billing Coordinator Name Role Phone Unavailable Primary Care Provider [...] worry about transportation for future doctor visits, supervisor opening and picking medication, etc.? 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 Gender Identity Not on file Sexual Orientation Not on file documented as of this encounter Plan of Treatment Upcoming Encounters Date Type Department Care Team (Late st Contact Info) Description 11/21/2024 9:00 AM CDT Video Visit [facility] Supportive [place] [facility] [place] [address] [place] [address] Margaret Davis MD [address] [place] [address] 12/14/2024 1:45 PM CDT Appointment [facility] [address] [facility] [address], [place] [address] Arvind Trevino MD [address] [place] [phone] 12/14/2024 2:40 PM CDT Office Visit [facility] [address] [place] [address] [address] [place] [address] Arvind Trevino MD [address] [place] [phone] 02/02/2025 1:00 PM AGRICULTURAL PILOT Appointment [facility] [address] [facility] [address], [place] [address] Arvind Trevino MD [address] [place] [phone] 02/02/2025 1:40 PM AGRICULTURAL PILOT Office Visit [facility] [place] [address] [place] [address] Arvind Trevino MD [address] [place] [address] 02/07/2025 10:00 AM AGRICULTURAL PILOT Office Visit [facility] [address] [place] [address] Magno Reyes MD [address] [place] [address] 02/08/2025 3:30 PM AGRICULTURAL PILOT Appointment [facility] [address] [place] [address] Amaris Deras PA-C [address] [place] [address] 03/05/2025 11:30 AM AGRICULTURAL PILOT Clinical Support [facility] Supportive Care [facility] [address] [place] [address] Kathe Regan, REGISTRATION OFFICER [address] [facility] [address] [place] [address] 03/12/2025 10:00 AM AGRICULTURAL PILOT Clinical Support [facility] Supportive Care [facility] [address] [place] [address] Kathe Regan, REGISTRATION OFFICER [address] [facility] [address] [place] [address] documented as of this encounter Visit Diagnoses Not on filedocumented in this encounter
--- OUTSIDE RECORDS SUMMARY | 2024-11-19 00:40 | XMS_ITS | Clinical Summary ---
Author Organization [facility] Alicia Crump nob Address [address] [facility] [place] [address] Care Team Providers Care Whale Fisherman Name Role Phone Unavailable Primary Care Provider Unavailabl e Allergies No known active allergies Medications omeprazole (PriLOSEC) 20 mg Capsule, Delayed Release(E.C.) Take 20 mg by mouth daily. 09/07/19 20 Active metoprolol tartrate (LOPRESSOR) 25 mg tablet TAKE ONE TABLET BY MOUTH TWICE DAILY AT 9am AND 9pm 08/03/19 25 Active baclofen (LIORESAL) 5 mg tablet Take 1 Tablet (5 mg) by mouth 3 times daily as needed for Pain. 30 Tablet 09/09/19 25 Active Oral Thermometer, Electronic (Digital Thermometer) 1 Each [place] [facility]Non-[place] g; Combo Route) route 1 time daily as needed for Temperature. 1 Each 09/09/19 25 Active lidocaine (lidocaine viscous 2%) 2 % Solution 5 mL by Mouth/Throat route every 6 hours as needed for Pain. 400 mL 5 10/03/19 25 Active ondansetron (ZOFRAN) 8 mg Tablet Take 1 Tablet (8 mg) by mouth every 8 hours as needed for Nausea/Emesis . Take every 8 hours PRN starting on day 4 after chemo. 30 Tablet 1 5 12:00 PM CDT 10/20/19 25 Active OLANZapine (ZyPREXA) 5 mg tablet Take 1 Tablet (5 mg) by mouth daily at bedtime. Take 1 tablet PO days 1-4 of chemotherapy. After that can then take PRN 30 Tablet 1 5 4:40 PM CDT 10/20/19 25 Active dexAMETHasone (DECADRON) 4 mg tablet Take 1 Tablet (4 mg) by mouth 2 times daily. Take 2 tablets with breakfast day 2, 3 and 4 of each chemo. 60 Tablet 5 4:40 PM CDT 10/20/19 25 Active fluconazole (DIFLUCAN) 100 mg tabletIndicati ons:Palliative care by specialist,Thr ush, oral Take 2 tabs on day one and then 1 tab daily thereafter. 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 Swish around, retain as long as possible then swallow. 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 From 10/17/2024 to 10/21/2024 Max Daily Amount: 6 Tablets 24 Tablet 5 2:09 PM CDT 10/18/19 025 gabapentin (NEURONTIN) 300 mg capsuleIndicat ions:Palliativ e care by specialist,Corrie ropathy associated with cancer (CMS/HCC) Take 1 Capsule (300 mg) by mouth daily at bedtime. 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 Max Daily Amount: 60 mg 60 Tablet 5 3:44 PM CDT 10/31/19 025 Discontinued Active Problems Problem Noted Date Diagnosed Date [...] cu ff surgery 03/13/2020 w/Dr Medina 03/27/2020 Encounters Date Type Department Care Team Description 11/18/2024 External Device Data STL ABSTRACTION Provider, Abstract 11/18/2024 External Device Data STL ABSTRACTION Provider, Abstract 11/17/2024 External Device Data STL ABSTRACTION Provider, Abstract 11/17/2024 External Device Data STL ABSTRACTION Provider, Abstract 11/16/2024 External Device Data STL ABSTRACTION Provider, Abstract 11/16/2024 External Device Data STL ABSTRACTION Provider, Abstract 11/15/2024 External Device Data STL ABSTRACTION Provider, Abstract 11/15/2024 External Device Data STL ABSTRACTION Provider, Abstract 11/14/2024 External Device Data STL ABSTRACTION Provider, Abstract 11/14/2024 External Device Data STL ABSTRACTION Provider, Abstract 11/13/2024 External Device Data STL ABSTRACTION Provider, Abstract 11/13/2024 External Device Data STL ABSTRACTION Provider, Abstract 11/12/2024 External Device Data STL ABSTRACTION Provider, Abstract 11/12/2024 External Device Data STL ABSTRACTION Provider, Abstract 11/11/2024 External Device Data STL ABSTRACTION Provider, Abstract 11/11/2024 External Device Data STL ABSTRACTION Provider, Abstract 11/10/2024 External Device Data STL ABSTRACTION Provider, Abstract 11/10/2024 External Device Data STL ABSTRACTION Provider, Abstract 11/09/2024 External Device Data STL ABSTRACTION Provider, Abstract 11/09/2024 External Device Data STL ABSTRACTION Provider, Abstract 11/08/2024 10:00 AM CDT Office Visit [facility] Ear Nose and Throat Head Neck [facility] [address] [place] [address] Magno Reyes MD Tonsillar cancer (CMS/HCC) (Primary Dx) 11/08/2024 8:26 AM CDT - 11/08/2024 11:59 PM CDT Hospital Encounter [facility] [address] [place] [address] [address] [place] [address] Jose East MD Discharge Disposition: Home or Self Care 11/08/2024 External Device Data STL ABSTRACTION Provider, Abstract 11/08/2024 External Device Data STL ABSTRACTION Provider, Abstract 11/08/2024 External Device Data STL ABSTRACTION Provider, Abstract 11/08/2024 Chart Note [facility] [address] [place] [address] [address] [place] [address] Melisa Dunne RN 11/08/2024 Orders Only HIS RADIATION ONCOLOGY 11/07/2024 9:10 AM CDT - 11/07/2024 11:59 PM CDT Hospital Encounter [facility] [address] [place] [address] [address] [place] [address] Jose East MD Discharge Disposition: Home or Self Care 11/07/2024 External Device Data STL ABSTRACTION Provider, Abstract 11/07/2024 Orders Only HIS RADIATION ONCOLOGY 11/07/2024 Orders Only [facility] Supportive [place] [facility] [address] [address] Janet Ulrich, MENTAL HEALTH AIDES TEACHER 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 ([facility]/HCC); Palliative care by specialist; Cancer related pain 11/07/2024 External Device Data STL ABSTRACTION Provider, Abstract 11/06/2024 10:21 AM CDT - 11/06/2024 11:59 PM CDT Hospital Encounter [facility] [address] [place] [address] 10 [place] [address] Jose East MD Discharge Disposition: Home or Self Care 11/06/2024 9:30 AM CDT Office Visit [facility] Supportive [facility] [address] [place] [address] Margaret Davis MD Thrush, oral (Primary Dx); 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); Palliative care by specialist; Cancer related pain; Neuropathy associated with cancer (CMS/HCC); Mucositis due to radiation therapy; Depression screen 11/06/2024 Telephone [facility] Ear Nose and Throat Head Neck [facility] [address] [place] [address] Magno Reyes MD appointment needed 11/06/2024 Chart Note [facility] Cancer and Hematology [facility] [address] [place] [address] 11/06/2024 Orders Only HIS RADIATION ONCOLOGY 11/06/2024 External Device Data STL ABSTRACTION Provider, Abstract 11/05/2024 External Device Data STL ABSTRACTION Provider, Abstract 11/04/2024 External Device Data STL ABSTRACTION Provider, Abstract 11/03/2024 8:22 AM CDT - 11/03/2024 11:59 PM CDT Hospital Encounter [facility] Radiation Oncology Cancer [place] [address] [facility] [address] [place] [address] Jose East MD Discharge Disposition: Home or Self Care 11/03/2024 Telephone [facility] Spiritual Care [address] [place] [phone] Bruce Mclain S Cancer (Spiritual care) 11/03/2024 Orders Only HIS RADIATION ONCOLOGY 11/03/2024 External Device Data STL ABSTRACTION Provider, Abstract 11/02/2024 9:51 AM CDT - 11/02/2024 11:59 PM CDT Hospital Encounter [facility] Cancer [place] [address] [place] [address] Arvind Trevino MD Sprg Oncology, Infusion 8 Discharge Disposition: Home or Self Care 11/02/2024 9:30 AM CDT Office Visit [facility] Cancer and Hematology [facility] [address] [place], [place] [address] [place] [address] Arvind Trevino MD Joy, Jennifer L, MANAGER OF MAINTENANCE Tonsillar cancer (CMS/HCC) (Primary Dx); 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; Anemia due to chemotherapy 11/02/2024 8:28 AM CDT - 11/02/2024 11:59 PM CDT Hospital Encounter [facility] [address] [place] [address] [address] [place] [address] Arvind Trevino MD Discharge Disposition: Home or Self Care 11/02/2024 8:22 AM CDT - 11/02/2024 11:59 PM CDT Hospital Encounter [facility] Laboratory Services [address] [facility] [address] [place] [address] Arvind Trevino MD Discharge Disposition: Home or Self Care 11/02/2024 7:43 AM CDT - 11/02/2024 11:59 PM CDT Hospital Encounter [facility] [address] [facility] [address] [place] [address] Jose East MD Discharge Disposition: Home or Self Care 11/02/2024 Orders Only HIS RADIATION ONCOLOGY 11/02/2024 External Device Data STL ABSTRACTION Provider, Abstract 11/02/2024 External Device Data STL ABSTRACTION Provider, Abstract 11/02/2024 External Device Data STL ABSTRACTION Provider, Abstract 11/02/2024 External Device Data STL ABSTRACTION Provider, Abstract 11/01/2024 9:14 AM CDT - 11/01/2024 11:59 PM CDT Hospital Encounter [facility] [address] [facility] [address] [place] [address] Jose East MD Discharge Disposition: Home or Self Care 11/01/2024 External Device Data STL ABSTRACTION Provider, Abstract 11/01/2024 [facility] Cancer and Hematology [place] [address] [address] [place] [address] Trish Alva, OLINDA ePRO 11/01/2024 External Device Data STL ABSTRACTION Provider, Abstract 11/01/2024 Chart Note [facility] [address] [facility] [address] [place] [address] Melisa Dunne RN 11/01/2024 External Device Data STL ABSTRACTION Provider, Abstract 11/01/2024 External Device Data STL ABSTRACTION Provider, Abstract 11/01/2024 Orders Only HIS RADIATION ONCOLOGY 11/01/2024 External Device Data STL ABSTRACTION Provider, Abstract 11/01/2024 External Device Data STL ABSTRACTION Provider, Abstract 11/01/2024 External Device Data STL ABSTRACTION Provider, Abstract 11/01/2024 External Device Data STL ABSTRACTION Provider, Abstract 11/01/2024 External Device Data STL ABSTRACTION Provider, Abstract 11/01/2024 External Device Data STL ABSTRACTION Provider, Abstract 10/31/2024 9:40 AM CDT - 10/31/2024 11:59 PM CDT Hospital Encounter [facility] [address] [facility] 10 [place] [address] Jose East MD Discharge Disposition: Home or Self Care 10/31/2024 Orders Only HIS RADIATION ONCOLOGY 10/31/2024 External Device Data STL ABSTRACTION Provider, Abstract 10/30/2024 1:30 PM CDT Video Visit [facility] Supportive Care [facility] [address] [place] [address] Margaret Davis MD Depression screen (Primary Dx); 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); Palliative care by specialist; Neuropathy associated with cancer (CMS/HCC); Cancer related pain; Thrush, oral 10/30/2024 9:39 AM CDT - 10/30/2024 11:59 PM CDT Hospital Encounter [facility] [address] [facility] 10 [place] [address] Jose East MD Discharge Disposition: Home or Self Care 10/30/2024 External Device Data STL ABSTRACTION Provider, Abstract 10/30/2024 External Device Data STL ABSTRACTION Provider, Abstract 10/30/2024 External Device Data STL ABSTRACTION Provider, Abstract 10/30/2024 External Device Data STL ABSTRACTION Provider, Abstract 10/30/2024 External Device Data STL ABSTRACTION Provider, Abstract 10/30/2024 External Device Data STL ABSTRACTION Provider, Abstract 10/30/2024 External Device Data STL ABSTRACTION Provider, Abstract 10/30/2024 External Device Data STL ABSTRACTION Provider, Abstract 10/30/2024 External Device Data STL ABSTRACTION Provider, Abstract 10/30/2024 External Device Data STL ABSTRACTION Provider, Abstract 10/30/2024 External Device Data STL ABSTRACTION Provider, Abstract 10/30/2024 External Device Data STL ABSTRACTION Provider, Abstract 10/30/2024 External Device Data STL ABSTRACTION Provider, Abstract 10/30/2024 External Device Data STL ABSTRACTION Provider, Abstract 10/30/2024 External Device Data STL ABSTRACTION Provider, Abstract 10/30/2024 External Device Data STL ABSTRACTION Provider, Abstract 10/30/2024 External Device Data STL ABSTRACTION Provider, Abstract 10/30/2024 External Device Data STL ABSTRACTION Provider, Abstract 10/30/2024 External Device Data STL ABSTRACTION Provider, Abstract 10/30/2024 External Device Data STL ABSTRACTION Provider, Abstract 10/30/2024 Orders Only [facility] Cancer and Hematology [facility] [address] [place], [place] [address] [address] Jackie Bertrand, MANAGER OF MAINTENANCE Leukocytosis, unspecified type (Primary Dx); 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 10/30/2024 Orders Only HIS RADIATION ONCOLOGY 10/30/2024 Chart Note [facility] Cancer and Hematology [facility] [address] [place], [place] [address] [place] [address] 10/30/2024 External Device Data STL ABSTRACTION Provider, Abstract 10/29/2024 External Device Data STL ABSTRACTION Provider, Abstract 10/28/2024 External Device Data STL ABSTRACTION Provider, Abstract 10/27/2024 9:01 AM CDT - 10/27/2024 11:59 PM CDT Hospital Encounter [facility] Radiation Oncology Cancer [place] [address] [place] [address] Jose East MD Discharge Disposition: Home or Self Care 10/27/2024 Orders Only HIS RADIATION ONCOLOGY 10/27/2024 External Device Data STL ABSTRACTION Provider, Abstract 10/26/2024 4:28 PM CDT - 10/26/2024 11:59 PM CDT Hospital Encounter [facility] Oncology [facility] [address] [place] [address] Jose East MD Discharge Disposition: Home or Self Care 10/26/2024 1:11 PM CDT - 10/26/2024 11:59 PM CDT Hospital Encounter [facility] [address] [place] [address] Arvind Trevino MD Spr Oncology, Infusion 5 Discharge Disposition: Home or Self Care 10/26/2024 1:00 PM CDT Office Visit [facility] Cancer and Hematology [address] [place] [address] Avrind Trevino MD Leukocytosis, unspecified type (Primary Dx); 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 10/26/2024 8:17 AM CDT - 10/26/2024 11:59 PM CDT Hospital Encounter [facility] Laboratory Services [address] [place] [address] Arvind Trevino MD Discharge Disposition: Home or Self Care 10/26/2024 Orders Only HIS RADIATION ONCOLOGY 10/26/2024 External Device Data STL ABSTRACTION Provider, Abstract 10/25/2024 9:15 AM CDT - 10/25/2024 11:59 PM CDT Hospital Encounter [facility] [address] [facility] [address] [address] [place] [address] Jose East MD Discharge Disposition: Home or Self Care 10/25/2024 External Device Data STL ABSTRACTION Provider, Abstract 10/25/2024 Orders Only HIS RADIATION ONCOLOGY 10/24/2024 9:40 AM CDT - 10/24/2024 11:59 PM CDT Hospital Encounter [facility] [address] [facility] 10 [place] [address] Jose East MD Discharge Disposition: Home or Self Care 10/24/2024 Orders Only HIS RADIATION ONCOLOGY 10/24/2024 External Device Data STL ABSTRACTION Provider, Abstract 10/23/2024 9:27 AM CDT - 10/23/2024 11:59 PM CDT Hospital Encounter [facility] [address] [facility] 10 [place] [address] Jose East MD Discharge Disposition: Home or Self Care 10/23/2024 Orders Only [facility] Cancer and Hematology [facility] [address] [facility] 2 [place] [address] Arvind Trevino MD Leukocytosis, unspecified type (Primary Dx); 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 10/23/2024 Orders Only HIS RADIATION ONCOLOGY 10/23/2024 External Device Data STL ABSTRACTION Provider, Abstract 10/22/2024 External Device Data STL ABSTRACTION Provider, Abstract 10/21/2024 External Device Data STL ABSTRACTION Provider, Abstract 10/20/2024 8:58 AM CDT - 10/20/2024 11:59 PM CDT Hospital Encounter [facility] [address] [facility] [address] [place] [address] Jose East MD Discharge Disposition: Home or Self Care 10/20/2024 8:15 AM CDT Office Visit [facility] Supportive Care [facility] [address] [place] [phone] Negro Jordan, OLINDA Cancer related pain (Primary Dx); 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); Palliative care by specialist; Depression screen; Neuropathy associated with cancer (CMS/HCC); Thrush, oral; Neoplastic malignant related fatigue 10/20/2024 Refill [facility] Supportive Care [facility] [address] [place] [address] Negro Jordan, MANAGER OF MAINTENANCE Cancer related pain (Primary Dx); 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); Palliative care by specialist 10/20/2024 Orders Only HIS RADIATION ONCOLOGY 10/20/2024 External Device Data STL ABSTRACTION Provider, Abstract 10/19/2024 12:12 PM CDT - 10/19/2024 11:59 PM CDT Hospital Encounter [facility] [address] [place] [address] Arvind Trevino MD [facility] Oncology, Infusion 13 Discharge Disposition: Home or Self Care 10/19/2024 12:00 PM CDT Office Visit [facility] Cancer and Hematology [facility] [address] [place] [address] Arvind Trevino MD Grogan, Susan K, DOG LICENSER Tonsillar cancer (CMS/HCC) (Primary Dx); Encounter for antineoplastic chemotherapy 10/19/2024 10:13 AM CDT - 10/19/2024 11:59 PM CDT Hospital Encounter [facility] Laboratory Services [address] [place] [address] Arvind Trevino MD Discharge Disposition: Home or Self Care 10/19/2024 9:07 AM CDT - 10/19/2024 11:59 PM CDT Hospital Encounter [facility] [address] [facility] [address] [place] [address] Jose East MD Discharge Disposition: Home or Self Care 10/19/2024 Orders Only HIS RADIATION ONCOLOGY 10/19/2024 External Device Data STL ABSTRACTION Provider, Abstract 10/18/2024 9:34 AM CDT - 10/18/2024 11:59 PM CDT Hospital Encounter [facility] [address] [facility] [address] [place] [address] Jose East MD Discharge Disposition: Home or Self Care 10/18/2024 Orders Only HIS RADIATION ONCOLOGY 10/18/2024 External Device Data STL ABSTRACTION Provider, Abstract 10/17/2024 9:36 AM CDT - 10/17/2024 11:59 PM CDT Hospital Encounter [facility] [address] [place] [address] Jose East MD Discharge Disposition: Home or Self Care 10/17/2024 Refill [facility] Supportive Care [facility] [address] [place] [address] Negro Jordan, OLINDA Cancer related pain (Primary Dx); 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); Palliative care by specialist 10/17/2024 Orders Only HIS RADIATION ONCOLOGY 10/17/2024 External Device Data STL ABSTRACTION Provider, Abstract 10/16/2024 9:16 AM CDT - 10/16/2024 11:59 PM CDT Hospital Encounter [facility] [address] [facility] 10 [place] [address] Jose East MD Discharge Disposition: Home or Self Care 10/16/2024 Orders Only HIS RADIATION ONCOLOGY 10/16/2024 Chart Note [facility] Cancer and Hematology [facility] [address] [place] [phone] [address] 10/16/2024 External Device Data STL ABSTRACTION Provider, Abstract 10/15/2024 External Device Data STL ABSTRACTION Provider, Abstract 10/14/2024 External Device Data STL ABSTRACTION Provider, Abstract 10/13/2024 9:26 AM CDT - 10/13/2024 11:59 PM CDT Hospital Encounter [facility] [address] [facility] [address] [place] [address] Jose East MD Discharge Disposition: Home or Self Care 10/13/2024 Orders Only HIS RADIATION ONCOLOGY 10/13/2024 Orders Only [facility] Cancer and Hematology [facility] [place] [address] Traci Veloz, DOG LICENSER Leukocytosis, unspecified type (Primary Dx) 10/13/2024 External Device Data STL ABSTRACTION Provider, Abstract 10/12/2024 10:46 AM CDT - 10/12/2024 11:59 PM CDT Hospital Encounter [facility] Oncology [facility] [address] [place] [address] Arvind Trevino MD [facility] Oncology, Infusion Discharge Disposition: Home or Self Care 10/12/2024 10:00 AM CDT - 10/12/2024 11:59 PM CDT Hospital Encounter [facility] [address] [facility] 10 [place] [address] Jose East MD Discharge Disposition: Home or Self Care 10/12/2024 10:00 AM CDT Office Visit [facility] Cancer and Hematology [facility] [address] [facility] 2 [place] [address] Arvind Trevino MD Tonsillar cancer (CMS/HCC) (Primary Dx) 10/12/2024 8:30 AM CDT - 10/12/2024 11:59 PM CDT Hospital Encounter [facility] Laboratory Services [address] [place] [address] Arvind Trevino MD Discharge Disposition: Home or Self Care 10/12/2024 Orders Only HIS RADIATION ONCOLOGY 10/12/2024 External Device Data STL ABSTRACTION Provider, Abstract 10/11/2024 9:46 AM CDT - 10/11/2024 11:59 PM CDT Hospital Encounter [facility] [address] [facility] [address] [place] [address] Jose East MD Discharge Disposition: Home or Self Care 10/11/2024 Orders Only HIS RADIATION ONCOLOGY 10/11/2024 External Device Data STL ABSTRACTION Provider, Abstract 10/10/2024 9:35 AM CDT - 10/10/2024 11:59 PM CDT Hospital Encounter [facility] [address] [phone] Jose East MD Discharge Disposition: Home or Self Care 10/10/2024 External Device Data STL ABSTRACTION Provider, Abstract 10/10/2024 Orders Only HIS RADIATION ONCOLOGY 10/10/2024 External Device Data STL ABSTRACTION Provider, Abstract 10/09/2024 9:57 AM CDT - 10/09/2024 11:59 PM CDT Hospital Encounter [facility] [address] [place] [phone] Jose East MD Discharge Disposition: Home or Self Care 10/09/2024 Orders Only HIS RADIATION ONCOLOGY 10/09/2024 Telephone [facility] Spiritual [facility] [place] [address] [place] [address] Bruce Mclain S Cancer (Spiritual care) 10/09/2024 Chart Note [facility] [address] [place] [address] [place] [address] [place] [phone] Melisa Dunne RN 10/09/2024 External Device Data STL ABSTRACTION Provider, Abstract 10/08/2024 External Device Data STL ABSTRACTION Provider, Abstract 10/07/2024 External Device Data STL ABSTRACTION Provider, Abstract 10/06/2024 9:22 AM CDT - 10/06/2024 11:59 PM CDT Hospital Encounter [facility] [address] [place] [address] [phone] Jose East MD Discharge Disposition: Home or Self Care 10/06/2024 Orders Only HIS RADIATION ONCOLOGY 10/06/2024 External Device Data STL ABSTRACTION Provider, Abstract 10/05/2024 11:25 AM CDT - 10/05/2024 11:59 PM CDT Hospital Encounter [facility] Oncology Infusion [facility] [place] [address] [place] [address] Arvind Trevino MD Sprg Oncology, Infusion 14 Discharge Disposition: Home or Self Care 10/05/2024 10:54 AM CDT - 10/05/2024 11:59 PM CDT Hospital Encounter [facility] Radiation Oncology [facility] [address] [place] [phone] Jose East MD Discharge Disposition: Home or Self Care 10/05/2024 10:30 AM CDT - 10/05/2024 11:59 PM CDT Hospital Encounter [facility] Radiation Oncology [facility] [address] [place] [address] Jose East MD Discharge Disposition: Home or Self Care 10/05/2024 10:00 AM CDT Office Visit [facility] Cancer and Hematology [facility] [address] [facility] 2 [place] [address] Arvind Trevino MD Joy, Jennifer L, OLINDA Tonsillar cancer (CMS/HCC) (Primary Dx) 10/05/2024 8:33 AM CDT - 10/05/2024 11:59 PM CDT Hospital Encounter [facility] Services [address] [facility] [address] [place] [phone] Arvind Trevino MD Discharge Disposition: Home or Self Care 10/05/2024 Orders Only HIS RADIATION ONCOLOGY 10/05/2024 Refill [facility] Supportive Care [facility] [address] [place] [phone] Margaret Davis MD 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) 10/05/2024 External Device Data STL ABSTRACTION Provider, Abstract 10/04/2024 9:56 AM CDT - 10/04/2024 11:59 PM CDT Hospital Encounter [facility] [address] [place] [address] Jose East MD Discharge Disposition: Home or Self Care 10/04/2024 External Device Data STL ABSTRACTION Provider, Abstract 10/04/2024 Orders Only HIS RADIATION ONCOLOGY 10/04/2024 External Device Data STL ABSTRACTION Provider, Abstract 10/04/2024 External Device Data STL ABSTRACTION Provider, Abstract 10/04/2024 External Device Data STL ABSTRACTION Provider, Abstract 10/03/2024 9:53 AM CDT - 10/03/2024 11:59 PM CDT Hospital Encounter [facility] [address] [place] [address] Jose East MD Discharge Disposition: Home or Self Care 10/03/2024 External Device Data STL ABSTRACTION Provider, Abstract 10/03/2024 Orders Only HIS RADIATION ONCOLOGY 10/03/2024 External Device Data STL ABSTRACTION Provider, Abstract 10/02/2024 9:59 AM CDT - 10/02/2024 11:59 PM CDT Hospital Encounter [facility] [address] [place] [address] Jose East MD Discharge Disposition: Home or Self Care 10/02/2024 Orders Only HIS RADIATION ONCOLOGY 10/02/2024 External Device Data STL ABSTRACTION Provider, Abstract 10/01/2024 External Device Data STL ABSTRACTION Provider, Abstract 09/30/2024 External Device Data STL ABSTRACTION Provider, Abstract 09/29/2024 10:04 AM CDT - 09/29/2024 11:59 PM CDT Hospital Encounter [facility] [address] [place] [address] Jose East MD Discharge Disposition: Home or Self Care 09/29/2024 Orders Only HIS RADIATION ONCOLOGY 09/29/2024 Chart Note [facility] Cancer and Hematology [facility] [address] [place] [phone] Ruth Deal, LJ 09/29/2024 Refill [facility] Supportive Care [facility] [address] [place] [address] Margaret Davis MD 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) 09/29/2024 External Device Data STL ABSTRACTION Provider, Abstract 09/28/2024 2:45 PM CDT - 09/28/2024 11:59 PM CDT Hospital Encounter [facility] Radiation Oncology [facility] [place] [address] [place] [phone] Jose East MD Discharge Disposition: Home or Self Care 09/28/2024 11:48 AM CDT - 09/28/2024 11:59 PM CDT Hospital Encounter [facility] Oncology [facility]fusion [facility] [place] [address] [place] [phone] Arvind Trevino MD Sprg Oncology, Infusion 13 Discharge Disposition: Home or Self Care 09/28/2024 11:30 AM CDT Office Visit [facility] Cancer and Hematology [facility] [address] [place] [phone] Arvind Trevino MD Joy, Jennifer L, MANAGER OF MAINTENANCE Tonsillar cancer (CMS/HCC) (Primary Dx) 09/28/2024 9:50 AM CDT - 09/28/2024 11:59 PM CDT Hospital Encounter [facility] Oncology [facility] Cancer [place] [address] [place] [phone] Arvind Trevino MD Discharge Disposition: Home or Self Care 09/28/2024 9:44 AM CDT - 09/28/2024 11:59 PM CDT Hospital Encounter [facility] Laboratory Services [address] [place] [phone] Arvind Trevino MD Discharge Disposition: Home or Self Care 09/28/2024 Orders Only HIS RADIATION ONCOLOGY 09/28/2024 External Device Data STL ABSTRACTION Provider, Abstract 09/27/2024 2:11 PM CDT - 09/27/2024 11:59 PM CDT Hospital Encounter [facility] [address] [place] [address] AVE [address] [place] [address] Jose East MD Discharge Disposition: Home or Self Care 09/27/2024 Orders Only HIS RADIATION ONCOLOGY 09/27/2024 External Device Data STL ABSTRACTION Provider, Abstract 09/26/2024 2:02 PM CDT - 09/26/2024 11:59 PM CDT Hospital Encounter [facility] [address] [place] [address] 10 [place] [address] Jose East MD Discharge Disposition: Home or Self Care 09/26/2024 Orders Only HIS RADIATION ONCOLOGY 09/26/2024 External Device Data STL ABSTRACTION Provider, Abstract 09/25/2024 2:20 PM CDT - 09/25/2024 11:59 PM CDT Hospital Encounter [facility] [address] [place] [address] 10 [place] [address] Jose East MD Discharge Disposition: Home or Self Care 09/25/2024 Orders Only HIS RADIATION ONCOLOGY 09/25/2024 Chart Note [facility] Cancer [place] [address] [place] [address] [place] [address] [place] [address] Gianfranco Fajardo RN 09/25/2024 External Device Data STL ABSTRACTION Provider, Abstract 09/24/2024 External Device Data STL ABSTRACTION Provider, Abstract 09/23/2024 External Device Data STL ABSTRACTION Provider, Abstract 09/22/2024 External Device Data STL ABSTRACTION Provider, Abstract 09/21/2024 2:17 PM CDT - 09/21/2024 11:59 PM CDT Hospital Encounter [facility] [address] [place] [address] AVE [facility] 10 [place] [address] Jose East MD Discharge Disposition: Home or Self Care 09/21/2024 Orders Only HIS RADIATION ONCOLOGY 09/21/2024 Orders Only [address] 2 [place] [address] Arvind Trevino MD Leukocytosis, unspecified type (Primary Dx); 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 09/21/2024 Orders Only [facility] Hematology [address] 2 [place] [address] Jackie Bertrand L, MANAGER OF MAINTENANCE Leukocytosis, unspecified type (Primary Dx); 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 09/21/2024 Orders Only [facility] Hematology [address] 2 [place] [address] Jackie Bretrand L, MANAGER OF MAINTENANCE Leukocytosis, unspecified type (Primary Dx); 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 09/21/2024 Abstract [facility] Hematology [address] 2 [place] [address] Provider, Abstract 09/21/2024 Chart Note [facility] [address] [place] [address] [place] [address] Deni Meehan RN 09/20/2024 11:30 AM CDT - 09/20/2024 11:59 PM CDT Hospital Encounter [facility] Oncology Infusion Cancer [address] [place] [address] Arvind Trevino MD Sprg Oncology, Infusion 20 Discharge Disposition: Home or Self Care 09/20/2024 11:12 AM CDT - 09/20/2024 11:59 PM CDT Hospital Encounter [facility] Radiation Oncology Cancer [address] 10 [place] [address] Jose East MD Discharge Disposition: Home or Self Care 09/20/2024 11:00 AM CDT [facility] Visit [facility] [address] [facility] 2 [place] [address] Arvind Trevino MD Tonsillar cancer (CMS/HCC) (Primary Dx); 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 09/20/2024 9:19 AM CDT - 09/20/2024 11:59 PM CDT Hospital Encounter [facility] [address] [facility] [address] [place] [address] Arvind Trevino MD Discharge Disposition: Home or Self Care 09/20/2024 8:56 AM CDT - 09/20/2024 11:59 PM CDT Hospital Encounter [facility] Interventional Radiology [address] [place] [phone] Discharge Disposition: Home or Self Care 09/20/2024 Orders Only HIS RADIATION ONCOLOGY 09/20/2024 Abstract [facility] [place] [address] [facility] [place] [address] Provider, Abstract 09/20/2024 Chart Note [facility] Cancer and Hematology [facility] [address] [place] [address] 2 [place] [address] Melisa Dunne RN 09/20/2024 Chart Note [facility] Cancer and Hematology [facility] [address] [place] [address] 2 [place] [address] 09/19/2024 10:00 AM CDT Office Visit [facility] Ear, Nose and Throat [address] [place] [phone] Angie Goss, DOG LICENSER Bilateral impacted cerumen (Primary Dx) 09/19/2024 9:30 AM CDT Procedure visit [facility] Audiology [address] [place] [address] Arvind Trevino MD Stone, Amanda, AU.D Encounter for monitoring ototoxic drug therapy (Primary Dx); Tonsillar cancer (CMS/HCC); Sensorineural hearing loss, bilateral 09/19/[address] [place] [address] Melisa Dunne, RN Nurse Navigation 09/14/2024 8:00 AM CDT - 09/14/2024 11:59 PM CDT Hospital Encounter [facility] Radiation Oncology [address] [place] [address] Discharge Disposition: Home or Self Care 09/13/2024 Telephone [place] [id number] [place] [address] Nathaniel Carney Jr., MD Medication Question 09/13/[address] [place] [address] Melisa Dunne, HELADIO Nurse Navigation 09/12/2024 3:00 PM CDT Clinical Support [place] [id number] [place] [address] Kathe Regan MSW Other specified counseling (Primary Dx) 09/12/2024 2:30 PM CDT Office Visit [place] [id number] [facility] 230 [place] [phone] Belinda Edge, MANAGER OF MAINTENANCE Palliative care by specialist (Primary Dx); 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); Cancer related pain; Depression screen 09/11/[address] [place] [address] Provider, Abstract 09/08/2024 11:00 AM CDT Clinical Support [facility] Cancer and Hematology [place] [address] [place] [address] [address] [place] [address] Arvind Trevino MD Brumfield, Sheena R, DOG LICENSER Tonsillar cancer (CMS/HCC) (Primary Dx); Encounter for education; Palliative care by specialist 09/08/2024 8:22 AM CDT - 09/08/2024 11:59 PM CDT Hospital Encounter [facility] Radiation Oncology [facility] [place] [address] [facility] [place] [address] Jose East MD Discharge Disposition: Home or Self Care 09/08/2024 Telephone [facility] Supportive Care [facility] [address] [place] [address] Margaret Davis MD Pain 09/08/2024 Chart Note [facility] Cancer [place] [address] [place] [address] [place] [address] Magi Garnett LCSW Other (Social Work Navigation) 09/08/2024 Chart Note [facility] [address] [place] [address] [place] [address] Melisa Dunne RN 09/08/2024 Chart Note [facility] Cancer and Hematology [facility] S [facility] [address] [place] [address] 09/07/2024 1:00 PM CDT Clinical Support [facility] [address] [place] [phone] Kathe Regan, VENEER MARKER Other specified counseling (Primary Dx) 09/06/2024 7:03 AM CDT - 09/06/2024 11:59 PM CDT Hospital Encounter [facility] Interventional Radiology [address] [place] [address] Arvind Trevino MD Todd, Adam Ross, MD Discharge Disposition: Home or Self Care 09/06/2024 7:03 AM CDT - 09/06/2024 11:59 PM CDT Hospital Encounter [facility] Interventional Radiology [address] [place] [address] Jose East MD Todd, Adam Ross, MD Discharge Disposition: Home or Self Care 09/06/2024 External Device Data STL ABSTRACTION Provider, Abstract 09/05/2024 Telephone [facility] [address] [place] [address] [place] [address] Melisa Dunne, RN Nurse Navigation 09/04/2024 Chart Note [facility] Cancer and Hematology [place] [address] [place] [phone] 09/01/2024 3:15 PM CDT - 09/01/2024 11:59 PM CDT Hospital Encounter [facility] [address] [place] [address] Magno Reyes MD Discharge Disposition: Home or Self Care 09/01/2024 Orders Only [facility] Cancer and Hematology [place] [address] [place] [address] Arvind Trevino MD Leukocytosis, unspecified type (Primary Dx); 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 [phone] Sonal Rios, LJ 08/25/2024 Telephone [facility] [address] [place] [address] [place] [address] Bettye Khan LCSW Information (Social Work Navigation) 08/25/2024 Telephone [facility] [address] [place] [address] [place] [address] Melisa Dunne, RN Nurse Navigation 08/24/2024 Chart Note [facility] 7A Oncology [address] [place] [address] Sonal Rios, RD 08/23/2024 12:37 PM CDT - 08/23/2024 11:59 PM CDT Hospital Encounter [facility] Radiation Oncology Cancer Center 2054 [facility] 10 [place] [address] Jose East MD Discharge Disposition: Home or Self Care 08/23/2024 11:20 AM CDT Office Visit [facility] Cancer and Hematology [facility] [address] [place] [address] 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 [address] [facility] 2 [place] [address] Arvind Trevino MD Discharge Disposition: Home or Self Care 08/23/2024 Telephone [facility] Cancer and Hematology [facility] [address] [place], [place] [address] Ave [facility] 2 [place] [address] 08/23 visit to do 08/23/2024 Orders Only [facility] Cancer and Hematology [facility] [address] [facility] 2 [place] [address] Arvind Trevino MD Tonsillar cancer (CMS/HCC) (Primary Dx) 08/23/2024 Chart Note [facility] [address] [facility] [place] [address] Bettye Khan LCSW Cancer (Social Work Navigation) 08/23/2024 Chart Note [facility] Cancer and Hematology [facility] [address] 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) (Primary Dx); Palliative care by specialist; Cancer related pain; Financial difficulties; Depression screen; Atrial fibrillation, unspecified type (CMS/HCC) from Last 3 Months Family History Medical History Relation Name Comments Respiratory Disease Brother 2 Sonu substance abuse Brother 3 Tray Alzheimer's Disease Father Colon Cancer Father Lung Cancer Mother No Known Problems Sister Relation Name Status Comments Brother 1 Bryn Brother 2 Sonu Brother 3 Tray Brother 4 Ray Alive Father Mother Sister Alive Social History Tobacco Use Types Packs/Day Years Used Date Smoking Tobacco: Never Smokeless Tobacco: Former Chew Quit: 2014 Tobacco Cessation:Counseling Given: No Alcohol Use Standard Drinks/Week Comments Not Currently [...] worry about transportation for future doctor visits, mushroom picker medication, etc.? No 2024 Housing Stability [...] on file Legal Sex Male 8:32 PM BRUISE TRIMMER Gender Identity Not on file Sexual Orientation Not on file Last Filed Vital Signs Vital Sign Reading Time Taken Comments Blood Pressure 146/92 11/08/2024 9:42 AM CDT Pulse 90 11/06/2024 10:47 AM CDT Temperature 36.1 C (97 F) 11/06/2024 10:47 AM CDT Respiratory Rate 16 11/06/2024 10:47 AM CDT Oxygen Saturation 98% 11/06/2024 10:47 AM CDT Inhaled Oxygen Concentration - - Weight 88.5 kg (195 lb) 11/08/2024 9:42 AM CDT Height 175.3 cm (5' 9 ) 11/08/2024 9:42 AM CDT Body Mass Index 28.8 11/08/2024 9:42 AM CDT Plan of Treatment Upcoming Encounters Date Type Department Care Team (Late st Contact Info) Description 11/21/2024 9:00 AM CDT Video Visit [facility] Supportive Care [facility] [address] [place] [address] Margaret Davis MD [address] [place] [phone] 12/14/2024 1:45 PM CDT Appointment [facility] [address] [facility] [address] [place] [address] Arvind Trevino MD [address] [phone] 12/14/2024 2:40 PM CDT Office Visit [facility] Cancer [facility] Hematology [facility] 2 [place] [address] Arvind Trevino MD S [address] [address] 02/02/2025 1:00 PM BRUISE TRIMMER Appointment [facility] S [facility] [address] [address] Arvind Trevino MD [address] [place] [address] 02/02/2025 1:40 PM BRUISE TRIMMER Office Visit [facility] [address] [address] Arvind Trevino MD [address] [place] [address] 02/07/2025 10:00 AM BRUISE TRIMMER Office Visit [facility] Ear Nose and Throat Head [place]ck [facility] [address] [place] [address] Magno Reyes MD [address] [place] [address] 02/08/2025 3:30 PM BRUISE TRIMMER Appointment [facility] Radiation Oncology [facility] S [facility] 10 [place] [address] Amaris Deras PA-C [address] [place] [address] 03/05/2025 11:30 AM BRUISE TRIMMER Clinical Support [facility] Supportive Care [facility] [address] [place] [address] Haseltine, Kathe, VENEER MARKER [address] [place] [address] 03/12/2025 10:00 AM BRUISE TRIMMER Clinical Support [facility] Supportive Care [facility] [address] [place] [address] Haseltine, Kathe, VENEER MARKER [address] [facility] 230 [place] [address] Health Maintenance Due Date Last Done Comments DTAP/TDAP/TD VACCINES (1 - Tdap) 1984 HEPATITIS B VACCINES (1 of 3 - 19+ 3-dose series) 1984 ZOSTER VACCINE (1 of 2) 1984 COLORECTAL SCREENING 2010 Colorectal Cancer Screening 2010 FIT-DNA Q 3 years 2010 FIT/FOBT Q 1 year 2010 Flex Sig/CT Colonography Q 5 years 2010 COVID-19 Vaccine (3 - Moderna risk series) 11/25/2020 10/28/2020, 09/30/2020 Pre-Diabetes and Diabetes Screening 10/04/202210/04 INFLUENZA VACCINE (#1) 2024 09/07/2019 Medical Devices Implanted Type Area Cover Marker Device Identifier Shelf Expiration Date Model / Serial / Lot [place] Suture 4.75x24.5mm Bio [facility] Swiveloc Sp Ar-2324bcm - [id number] Implanted:Qty: 1 on 03/13/2020 by Goodman LOONEY, Sergio Murray MD [place] Right: Shoulder [employer] [id number] 12/20/2023 AR-2324BC M / / [id number] [place] Suture 4.75x24.5mm Bio Com Swiveloc Sp Ar-2324bcm - [id number] Implanted:Qty: 1 on 03/13/2020 by Sergio Medina III, MD [place] Right: Shoulder [employer] [id number] 12/20/2023 AR-2324BC M / / [id number] Clip Ligating Horizon Med Ti [id number] - Csc - [id number] Implanted:Qty: 1 on 02/24/2024 by Paul Kimbrough DO at [facility] Clip Right: Neck [employer]- [employer] S[employer] [id number] 10/13/2028 [id number] / / [id number] Tube Feeding Yaya Gastro Bolus 16fr [id number] - [id number] Implanted:Qty: 1 on 09/06/2024 by Ricardo Rogers MD at [facility] Feeding Device N/A: Abdomen [employer] HALYARD [id number] 04/26/2027 [id number] / / [id number] Port Pwrprt Clearvue Slim 8fr [id number] - [id number] Implanted:Qty: 1 on 09/06/2024 by Ricardo Rogers MD at [facility] Port Left: Chest Wall BARD EVON VASC [id number] 07/19/2025 [id number] / / [id number] Procedures Procedure Name Priority Date/Time Associated Diagnosis Comments RAD ONC MSQ TREATMENT SUMMARY Routine 11/08/2024 8:46 AM CDT RAD ONC MSQ TREATMENT SUMMARY Routine 11/07/2024 9:30 AM CDT RAD ONC MSQ TREATMENT SUMMARY Routine 11/06/2024 10:44 AM CDT RAD ONC MSQ TREATMENT SUMMARY Routine 11/03/2024 8:42 AM CDT MAGNESIUM LEVEL Stat 11/02/2024 8:56 AM CDT Leukocytosis, unspecified type 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 COMPREHENSIVE METABOLIC PANEL Stat 11/02/2024 8:56 AM CDT Leukocytosis, unspecified type 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 DIFFERENTIAL, MANUAL Stat 11/02/2024 8:55 AM CDT Leukocytosis, unspecified type 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 CBC WITH DIFFERENTIAL Stat 11/02/2024 8:55 AM CDT Leukocytosis, unspecified type 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 RAD ONC MSQ TREATMENT SUMMARY Routine 11/02/2024 8:18 AM CDT RAD ONC MSQ TREATMENT SUMMARY Routine 11/01/2024 9:40 AM CDT RAD ONC MSQ TREATMENT SUMMARY Routine 10/31/2024 9:53 AM CDT RAD ONC MSQ TREATMENT SUMMARY Routine 10/30/2024 10:02 AM CDT RAD ONC MSQ TREATMENT SUMMARY Routine 10/27/2024 10:00 AM CDT RAD ONC MSQ TREATMENT SUMMARY Routine 10/26/2024 4:38 PM CDT DIFFERENTIAL, MANUAL Stat 10/26/2024 8:20 AM CDT Leukocytosis, unspecified type 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 MAGNESIUM LEVEL Stat 10/26/2024 8:20 AM CDT Leukocytosis, unspecified type 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 COMPREHENSIVE METABOLIC PANEL Stat 10/26/2024 8:20 AM CDT Leukocytosis, unspecified type 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 CBC WITH DIFFERENTIAL Stat 10/26/2024 8:20 AM CDT Leukocytosis, unspecified type 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 RAD ONC MSQ TREATMENT SUMMARY Routine 10/25/2024 10:02 AM CDT RAD ONC MSQ TREATMENT SUMMARY Routine 10/24/2024 10:22 AM CDT RAD ONC MSQ TREATMENT SUMMARY Routine 10/23/2024 9:43 AM CDT RAD ONC MSQ TREATMENT SUMMARY Routine 10/20/2024 9:21 AM CDT MAGNESIUM LEVEL Stat 10/19/2024 10:20 AM CDT Leukocytosis, unspecified type COMPREHENSIVE METABOLIC PANEL Stat 10/19/2024 10:20 AM CDT Leukocytosis, unspecified type CBC WITH DIFFERENTIAL Stat 10/19/2024 10:20 AM CDT Leukocytosis, unspecified type RAD ONC MSQ TREATMENT SUMMARY Routine 10/19/2024 10:08 AM CDT RAD ONC MSQ TREATMENT SUMMARY Routine 10/18/2024 9:58 AM CDT RAD ONC MSQ TREATMENT SUMMARY Routine 10/17/2024 10:07 AM CDT RAD ONC MSQ TREATMENT SUMMARY Routine 10/16/2024 10:17 AM CDT RAD ONC MSQ TREATMENT SUMMARY Routine 10/13/2024 10:08 AM CDT RAD ONC MSQ TREATMENT SUMMARY Routine 10/12/2024 10:42 AM CDT MAGNESIUM LEVEL Stat 10/12/2024 8:34 AM CDT 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 Tonsillar cancer (CMS/HCC) COMPREHENSIVE METABOLIC PANEL Stat 10/12/2024 8:34 AM CDT 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 Tonsillar cancer (CMS/HCC) CBC WITH DIFFERENTIAL Stat 10/12/2024 8:34 AM CDT 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 Tonsillar cancer (CMS/HCC) RAD ONC MSQ TREATMENT SUMMARY Routine 10/11/2024 10:08 AM CDT RAD ONC MSQ TREATMENT SUMMARY Routine 10/10/2024 9:53 AM CDT RAD ONC MSQ TREATMENT SUMMARY Routine 10/09/2024 10:59 AM CDT RAD ONC MSQ TREATMENT SUMMARY Routine 10/06/2024 9:56 AM CDT RAD ONC MSQ TREATMENT SUMMARY Routine 10/05/2024 10:59 AM CDT DIFFERENTIAL, MANUAL Stat 10/05/2024 8:39 AM CDT Tonsillar cancer (CMS/HCC) MAGNESIUM LEVEL Stat 10/05/2024 8:39 AM CDT Tonsillar cancer (CMS/HCC) COMPREHENSIVE METABOLIC PANEL Stat 10/05/2024 8:39 AM CDT Tonsillar cancer (CMS/HCC) CBC WITH DIFFERENTIAL Stat 10/05/2024 8:39 AM CDT Tonsillar cancer (CMS/HCC) RAD ONC MSQ TREATMENT SUMMARY Routine 10/04/2024 10:38 AM CDT RAD ONC MSQ TREATMENT SUMMARY Routine 10/03/2024 10:13 AM CDT RAD ONC MSQ TREATMENT SUMMARY Routine 10/02/2024 10:17 AM CDT RAD ONC MSQ TREATMENT SUMMARY Routine 09/29/2024 10:32 AM CDT RAD ONC MSQ TREATMENT SUMMARY Routine 09/28/2024 3:10 PM CDT MAGNESIUM LEVEL Stat 09/28/2024 10:47 AM CDT Leukocytosis, unspecified type 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 COMPREHENSIVE METABOLIC PANEL Stat 09/28/2024 10:47 AM CDT Leukocytosis, unspecified type 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 DIFFERENTIAL, MANUAL Stat 09/28/2024 10:46 AM CDT Leukocytosis, unspecified type 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 CBC WITH DIFFERENTIAL Stat 09/28/2024 10:46 AM CDT Leukocytosis, unspecified type 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 RAD ONC MSQ TREATMENT SUMMARY Routine 09/27/2024 2:39 PM CDT RAD ONC MSQ TREATMENT SUMMARY Routine 09/26/2024 2:49 PM CDT RAD ONC MSQ TREATMENT SUMMARY Routine 09/25/2024 3:13 PM CDT RAD ONC MSQ TREATMENT SUMMARY Routine 09/21/2024 3:26 PM CDT RAD ONC MSQ TREATMENT SUMMARY Routine 09/20/2024 11:33 AM CDT CBC WITH DIFFERENTIAL Stat 09/20/2024 9:21 AM CDT Leukocytosis, unspecified type 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) COMPREHENSIVE METABOLIC PANEL Stat 09/20/2024 9:21 AM CDT Leukocytosis, unspecified type 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) [place] REMOVAL IMPACTED CERUMEN INSTRUMENTATION UNILAT Routine 09/19/2024 10:27 AM CDT Bilateral impacted cerumen AZ TYMPANOMETRY Routine 09/19/2024 10:03 AM CDT Encounter for monitoring ototoxic drug therapy Tonsillar cancer (CMS/HCC) Sensorineural hearing loss, bilateral [place] DISTRT PROD EVOKD OTOACOUSTIC EMSNS COMP/DX EVAL Routine 09/19/2024 10:03 AM CDT Encounter for monitoring ototoxic drug therapy Tonsillar cancer (CMS/HCC) Sensorineural hearing loss, bilateral [place] COMPRE AUDIOMETRY THRESHOLD EVAL SP RECOGNIJ Routine 09/19/2024 10:03 AM CDT Encounter for monitoring ototoxic drug therapy Tonsillar cancer (CMS/HCC) Sensorineural hearing loss, bilateral IR TUBE PLACEMENT Stat 09/06/2024 9:4 9 AM CDT 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) 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 IR VENOUS ACCESS Routine 09/06/2024 9:15 AM CDT 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) 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 PROTIME-INR Stat 09/06/2024 7:17 AM CDT CBC WITHOUT DIFFERENTIAL Stat 09/06/2024 7:[address] CHEST WO CONTRAST Routine 09/01/2024 3:23 PM CDT 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) COMPREHENSIVE METABOLIC PANEL Stat 08/23/2024 9:35 AM CDT 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 CBC WITH DIFFERENTIAL Stat 08/23/2024 9:35 AM CDT 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 HEMOGLOBIN A1C Routine 10/05/2019 8:16 AM CDT from Last 3 Months or Most Recently Relevant to Health Maintenance Results * RAD ONC MSQ TREATMENT SUMMARY (11/08/2024 8:46 AM CDT) Treatment Site RTonsil&N ckRpln [facility] Course Number 1 [facility] Prescribed Fractional Dose 200 cGray [facility] Prescribed Total Dose 4,600 cGray [facility] Actual Fractions Delivered 23 [facility] Prescription Pattern Comment 6FFF; 36.8Gy SIB cGy [facility] Actual Session Delivered Dose 200 cGray [facility] Actual Total Dose 4,600 cGray [facility] Prescribed Technique Helical-I MRT [facility] Elapsed Days 30 [facility] Start Date 10[facility]09/2024 [facility] Last Date 11/08/2024 [facility] Prescribed Number of Fractions 23 [facility] 11/08/2024 8:46 AM CDT us Aok Ip Radiation Oncologist Physician MD RILEY ON ONCOLOGY ORDERABLES Final Result [facility] CLIA # [id number] [address] [place] [address] * RAD ONC MSQ TREATMENT SUMMARY (11/07/2024 9:30 AM CDT) Treatment Site RTonsil&N ckRpln [facility] Course Number 1 [facility] Prescribed Fractional Dose 200 cGray [facility] Prescribed Total Dose 4,600 cGray [facility] Actual Fractions Delivered 22 [facility] Prescription Pattern Comment 6FFF; 36.8Gy SIB cGy [facility] Actual Session Delivered Dose 200 cGray [facility] Actual Total Dose 4,400 cGray [facility] Prescribed Technique Helical-I MRT [facility] Elapsed Days 29 [facility] Start Date 10/09/2024 [facility] Last Date 11/07/2024 [facility] Prescribed Number of Fractions 23 [facility] 11/07/2024 9:30 AM CDT us Aok Ip Radiation Oncologist Physician MD RILEY ON ONCOLOGY ORDERABLES Final Result [facility] CLIA # [id number] [address] [place] [address] * RAD ONC MSQ TREATMENT SUMMARY (11/06/2024 10:44 AM CDT) [facility] Treatment Site RTonsil&N ckRpln [facility] Course Number 1 [facility] Prescribed Fractional Dose 200 cGray [facility] Prescribed Total Dose 4,600 cGray [facility] Actual Fractions Delivered 21 [facility] Prescription Pattern Comment 6FFF; 36.8Gy SIB cGy [facility] Actual Session Delivered Dose 200 cGray [facility] Actual Total Dose 4,200 cGray [facility] Prescribed Technique Helical-I MRT [facility] Elapsed Days 28 [facility] Start Date 10/09/2024 [facility] Last Date 11/06/2024 [facility] Prescribed Number of Fractions 23 [facility] 11/06/2024 10:4 4 AM CDT us Aok Ip Radiation Oncologist Physician MD RILEY ON ONCOLOGY ORDERABLES Final Result [facility] CLIA # [id number] [address] [place] [address] * RAD ONC MSQ TREATMENT SUMMARY (11/03/2024 8:42 AM CDT) [facility] Treatment Site RTonsil&N ckRpln [facility] Course Number 1 [facility] Prescribed Fractional Dose 200 cGray [facility] Prescribed Total Dose 4,600 cGray [facility] Actual Fractions Delivered 20 [facility] Prescription Pattern Comment 6FFF; 36.8Gy SIB cGy [facility] Actual Session Delivered Dose 200 cGray [facility] Actual Total Dose 4,000 cGray [facility] Prescribed Technique Helical-I MRT [facility] Elapsed Days 25 [facility] Start Date 10/09/2024 [facility] Last Date 11/03/2024 [facility] Prescribed Number of Fractions 23 [facility] 11/03/2024 8:42 AM CDT us Aok Ip Radiation Oncologist Physician MD RILEY ON ONCOLOGY ORDERABLES Final Result [facility] CLIA # [id number] [address] [place] [address] * MAGNESIUM LEVEL (11/02/2024 8:56 AM CDT) Only the most recent of6 resultswithin the time period is included. [facility] MAGNESIUM 1.7 1.6 - 2.6 mg/dL 11/02/2024 10:12 AM CDT [facility] [place] Blood Venipuncture / Unknown 11/02/2024 8:56 AM CDT 11/02/2024 8:56 AM CDT us Jackie Bertrand NP CHEMISTRY ORDERABLES Final Res ult [facility] CLIA# [id number] [address] [place] [address] * (ABNORMAL) COMPREHENSIVE METABOLIC PANEL (11/02/2024 8:56 AM CDT) Only the most recent of8 resultswithin the time period is included. SODIUM 134(L) 136 - 145 mmol/L 11/02/2024 10:12 AM T [facility] POTASSIUM 4.5 3.5 - 5.1 mmol/L 11/02/2024 10:[address] [facility] CHLORIDE 96(L) 98 - 107 mmol/L 11/02/2024 10:[address] [facility] CO2 28 22 - 29 mmol/L 11/02/2024 10:[address] [facility] CALCIUM 8.5(L) 8.6 - 10.0 mg/dL 11/02/2024 10:[address] [facility] BUN 27(H) 6 - 20 mg/dL 11/02/2024 10:[address] [facility] CREATININE 0.64(L) 0.67 - 1.17 mg/dL 11/02/2024 10:[address] [facility] GLUCOSE 136(H) 74 - 99 mg/dL 11/02/2024 10:[address] [facility] TOTAL PROTEIN 6.5 6.4 - 8.3 g/dL 11/02/2024 10:[address] [facility] ALBUMIN 3.9 3.5 - 5.2 g/dL 11/02/2024 10:[address] [facility] BILIRUBIN TOTAL <0.2 0.0 - 1.0 mg/dL 11/02/2024 10:[address] [facility] ALKALINE PHOSPHATASE 45 40 - 129 U/L 11/02/2024 10:12 AM T [facility] [place] AST 22 <=41 U/L 11/02/2024 10:[address] [facility] [place] ALT 41 <=41 U/L 11/02/2024 10:[address] [facility] [place] GFR >60 >=60 mL/min/1.7 3 sq meter 11/02/2024 10:[address] [facility] [place] Comment:eGFR calculated with 2020 CKD-EPI equation. Vegetarian diet, extremely high or low muscle mass, and may affect results. Cystatin C with Glomerular Filtration Rate is a suitable alternative for these patients. ANION GAP 10 9 - 20 mmol/L 11/02/2024 10:[address] [facility] [place] Blood Venipuncture / Unknown 11/02/2024 8:56 AM CDT 11/02/2024 8:56 AM CDT us Jackie Bertrand NP CHEMISTRY ORDERABLES Final Res ult [id number] [address] [place] [address] * (ABNORMAL) MANUAL DIFFERENTIAL (11/02/2024 8:55 AM CDT) Only the most recent of4 resultswithin the time period is included. SEGMENTED NEUTROPHILS 73(H) 36 - 66 % 11/02/2024 9:55 AM T [facility] [place] LYMPHOCYTES RELATIVE 9(L) 43 - 53 % 11/02/2024 9:55 AM T [facility] [place] MONOCYTES RELATIVE 6 4 - 10 % 2024 9:55 AM T [facility] [place] METAMYELOCYTES RELATIVE 10(H) 0 - 1 % 11/02/2024 9:55 AM T [facility] [place] MYELOCYTES - REL (DIFF) 2(H) <0 % 11/02/2024 9:55 AM CDT [facility] NEUTROPHILS ABSOLUTE COUNT 4.31 1.40 - 6.50 K/uL 11/02/2024 9:55 AM CDT [facility] LYMPHOCYTES ABSOLUTE 0.53(L) 1.20 - 4.00 K/uL 11/02/2024 9:55 AM CDT [facility] MONOCYTES ABSOLUTE 0.35 0.10 - 0.60 K/uL 11/02/2024 9:55 AM CDT [facility] TOTAL CELLS COUNTED IN DIFF 100 11/02/2024 9:55 AM CDT [facility] PLATELET EST. Adequate 11/02/2024 9:55 AM CDT [facility] ANISOCYTOSIS 2+ /hpf 11/02/2024 9:55 AM CDT [facility] TOXIC GRANULATION 1+ 025 9:55 AM CDT [facility] Blood 11/02/2024 8:55 AM CDT 11/02/2024 8:55 AM CDT us Jackie Bertrand NP HEMATOLOGY ORDERABLES COM Isabella costa Result [facility] CLIA# [id number] [address] [place] [address] * (ABNORMAL) CBC WITH DIFFERENTIAL (11/02/2024 8:55 AM CDT) Only the most recent of8 resultswithin the time period is included. WBC 5.9 4.8 - 10.8 K/uL 11/02/2024 9:20 AM CDT [facility] NRBCS 1(H) <1 % 11/02/2024 9:20 AM CDT [facility] [place] RBC 3.62(L) 4.60 - 6.20 M/uL 11/02/2024 9:20 AM CDT [facility] [place] HEMOGLOBIN 11.3(L) 14.0 - 18.0 g/dL 11/02/2024 9:20 AM CDT [facility] [place] HEMATOCRIT 33.0(L) 41.0 - 53.0 % 11/02/2024 9:20 AM CDT [facility] MCV 91.2 82.0 - 100.0 fL 11/02/2024 9:20 AM CDT [facility] [place] MCH 31.2 27.0 - 34.0 pg 11/02/2024 9:20 AM CDT [facility] [place] MCHC 34.2 31.0 - 37.0 g/dL 11/02/2024 9:20 AM CDT [facility] [place] RDW 19.4(H) 11.0 - 14.5 % 11/02/2024 9:20 AM CDT [facility] [place] RDW-STDEV 57.1(H) 37.0 - 54.0 fL 11/02/2024 9:20 AM CDT [facility] [place] PLATELETS 195 140 - 440 K/uL 11/02/2024 9:20 AM CDT [facility] [place] MPV 9.5 8.9 - 12.8 fL 11/02/2024 9:20 AM CDT [facility] [place] Blood 11/02/2024 8:55 AM CDT 11/02/2024 8:55 AM CDT us Jackie Bertrand MANAGER OF MAINTENANCE HEMATOLOGY ORDERABLES Final Re sult [facility] [place] CLIA# [id number] [facility] [id number] [place] [address] * RAD ONC MSQ TREATMENT SUMMARY (11/02/2024 8:18 AM CDT) Treatment Site RTonsil&N ckRpln [facility] Course Number 1 [facility] Prescribed Fractional Dose 200 cGray [facility] Prescribed Total Dose 4,600 cGray [facility] Actual Fractions Delivered 19 [facility] Prescription Pattern Comment 6FFF; 36.8Gy SIB cGy [facility] Actual Session Delivered Dose 200 cGray [facility] Actual Total Dose 3,800 cGray [facility] Prescribed Technique Helical-I MRT [facility] Elapsed Days 24 [facility] Start Date 10[facility]09/2024 [facility] Last Date 11/02/2024 [facility] Prescribed Number of Fractions 23 [facility] 11/02/2024 8:18 AM CDT us Aok Ip Radiation Oncologist Physician MD RILEY ON ONCOLOGY ORDERABLES Final Result [facility] CLIA # [id number] [address] [place] [address] * RAD ONC MSQ TREATMENT SUMMARY (11/01/2024 9:40 AM CDT) Treatment Site RTonsil&N ckRpln [facility] Course Number 1 [facility] Prescribed Fractional Dose 200 cGray [facility] Prescribed Total Dose 4,600 cGray [facility] Actual Fractions Delivered 18 [facility] Prescription Pattern Comment 6FFF; 36.8Gy SIB cGy [facility] Actual Session Delivered Dose 200 cGray [facility] Actual Total Dose 3,600 cGray [facility] Prescribed Technique Helical-I MRT [facility] Elapsed Days 23 [facility] Start Date 10/09/2024 [facility] Last Date 11/01/2024 [facility] Prescribed Number of Fractions 23 [facility] 11/01/2024 9:40 AM CDT us Aok Ip Radiation Oncologist Physician MD RILEY ON ONCOLOGY ORDERABLES Final Result Performing Organization Address City/[facility]/ZIP Co de Phone Number [facility] CLIA # [id number] [address] [place] [address] * RAD ONC MSQ TREATMENT SUMMARY (10/31/2024 9:53 AM CDT) Pathologist [facility] Treatment Site RTonsil&N ckRpln [facility] Course Number 1 [facility] Prescribed Fractional Dose 200 cGray [facility] Prescribed Total Dose 4,600 cGray [facility] Actual Fractions Delivered 17 [facility] Prescription Pattern Comment 6FFF; 36.8Gy SIB cGy [facility] Actual Session Delivered Dose 200 cGray [facility] Actual Total [facility]ose 3,400 cGray [facility] Prescribed Technique Helical-I MRT [facility] Elapsed Days 22 [facility] C LINIC [facility] Start Date 10[facility]09/2024 [facility] CLI RAFAEL [facility] Last Date 10/31/2024 [facility] CLIN IC [facility] Prescribed Number of Fractions 23 [facility] 10/31/2024 9:53 AM CDT us Aok Ip Radiation Oncologist Physician MD RILEY ON ONCOLOGY ORDERABLES Final Result [facility] CLIA # [id number] [place] [address] * RAD ONC MSQ TREATMENT SUMMARY (10/30/2024 10:02 AM CDT) [facility] RTonsil&N ckRpln [facility] Course Number 1 [facility] Prescribed Fractional [facility]ose 200 cGray [facility] [facility] Prescribed Total Dose 4,600 cGray [facility] Actual Fractions Delivered 16 [facility] Prescription Pattern Comment 6FFF; 36.8Gy SIB cGy [facility] Actual Session Delivered Dose 200 cGray [facility] Actual Total Dose 3,200 cGray [facility] Prescribed Technique Helical-I MRT [facility] Elapsed Days 21 [facility] Start Date 10[facility]09/2024 [facility] Last Date 10/30/2024 [facility] Prescribed Number of Fractions 23 [facility] 10/30/2024 10:0 2 AM CDT us Aok Ip Radiation Oncologist Physician MD RILEY ON ONCOLOGY ORDERABLES Final Result [facility] CLIA # [id number] [address] [place] [address] * RAD ONC MSQ TREATMENT SUMMARY (10/27/2024 10:00 AM CDT) [facility] Treatment [facility] RTonsil&N ckRpln [facility] Course Number 1 [facility] Prescribed Fractional Dose 200 cGray [facility] Prescribed Total Dose 4,600 cGray [facility] Actual Fractions Delivered 15 [facility] Prescription Pattern Comment 6FFF; 36.8Gy SIB cGy [facility] Actual Session Delivered Dose 200 cGray [facility] Actual Total Dose 3,000 cGray [facility] Prescribed Technique Helical-I MRT [facility] Elapsed Days 18 [facility] Start Date 10[facility]09/2024 [facility] Last Date 10/27/2024 [facility] Prescribed Number of Fractions 23 [facility] 10/27/2024 10:0 0 AM CDT us Aok Ip Radiation Oncologist Physician MD RILEY ON ONCOLOGY ORDERABLES Final Result [facility] CLIA # [id number] [address] [place] [address] * RAD ONC MSQ TREATMENT SUMMARY (10/26/2024 4:38 PM CDT) Pathologist [facility] Treatment Site RTonsil&N ckRpln [facility] Course Number 1 [facility] Prescribed Fractional Dose 200 cGray [facility] Prescribed Total Dose 4,600 cGray [facility] Actual Fractions Delivered 14 [facility] Prescription Pattern Comment 6FFF; 36.8Gy SIB cGy [facility] Actual Session Delivered Dose 200 cGray [facility] Actual Total Dose 2,800 cGray [facility] Prescribed Technique Helical-I MRT [facility] Elapsed Days 17 [facility] Start Date 10/09/2024 [facility] Last Date 10/26/2024 [facility] Prescribed Number of Fractions 23 [facility] 10/26/2024 4:38 PM CDT us Aok Ip Radiation Oncologist Physician MD RILEY ON ONCOLOGY ORDERABLES Final Result [facility] CLIA # [id number] [address] [place] [address] * RAD ONC MSQ TREATMENT SUMMARY (10/25/2024 10:02 AM CDT) [facility] RTonsil&N ckRpln [facility] Course Number 1 [facility] Prescribed Fractional Dose 200 cGray [facility] Prescribed Total Dose 4,600 cGray [facility] Actual Fractions Delivered 13 [facility] Prescription Pattern Comment 6FFF; 36.8Gy SIB cGy [facility] Actual Session Delivered Dose 200 cGray [facility] Actual Total Dose 2,600 cGray [facility] Prescribed Technique Helical-I MRT [facility] Elapsed Days 16 [facility] Start Date 10/09/2024 [facility] Last Date 10/25/2024 [facility] Prescribed Number of Fractions 23 [facility] 10/25/2024 10:0 2 AM CDT us Aok Ip Radiation Oncologist Physician MD RILEY ON ONCOLOGY ORDERABLES Final Result [facility] CLIA # [id number] [address] [place] [address] * RAD ONC MSQ TREATMENT SUMMARY (10/24/2024 10:22 AM CDT) [facility] RTonsil&N ckRpln [facility] Course Number 1 [facility] Prescribed Fractional Dose 200 cGray [facility] Prescribed Total Dose 4,600 cGray [facility] Actual Fractions Delivered 12 [facility] Prescription Pattern Comment 6FFF; 36.8Gy SIB cGy [facility] Actual Session Delivered Dose 200 cGray [facility] Actual Total Dose 2,400 cGray [facility] Prescribed Technique Helical-I MRT [facility] Elapsed Days 15 [facility] Start Date 10/09/2024 [facility] Last Date 10/24/2024 [facility] Prescribed Number of Fractions 23 [facility] 10/24/2024 10:2 2 AM CDT us Aok Ip Radiation Oncologist Physician MD RILEY ON ONCOLOGY ORDERABLES Final Result [facility] CLIA # [id number] [address] [place] [address] * RAD ONC MSQ TREATMENT SUMMARY (10/23/2024 9:43 AM CDT) Treatment Site RTonsil&N ckRpln [facility] Course Number 1 [facility] Prescribed Fractional Dose 200 cGray [facility] Prescribed Total Dose 4,600 cGray [facility] Actual Fractions Delivered 11 [facility] Prescription Pattern Comment 6FFF; 36.8Gy SIB cGy [facility] Actual Session Delivered Dose 200 cGray [facility] Actual Total Dose 2,200 cGray [facility] Prescribed Technique Helical-I MRT [facility] Elapsed Days 14 [facility] Start Date 10/09/2024 [facility] Last Date 10/23/2024 [facility] Prescribed Number of Fractions 23 [facility] 10/23/2024 9:43 AM CDT us Aok Ip Radiation Oncologist Physician MD RILEY ON ONCOLOGY ORDERABLES Final Result Performing Organization Address City/[facility] Co de Phone Number [facility] CLIA # [id number] [address] [place] [address] * RAD ONC MSQ TREATMENT SUMMARY (10/20/2024 9:21 AM CDT) Pathologist [facility] Treatment Site RTonsil&N ckRpln [facility] Course Number 1 [facility] Prescribed Fractional Dose 200 cGray [facility] Prescribed Total Dose 4,600 cGray [facility] Actual Fractions Delivered 10 [facility] Prescription Pattern Comment 6FFF; 36.8Gy SIB cGy [facility] Actual Session Delivered Dose 200 cGray [facility] Actual Total Dose 2,000 cGray [facility] Prescribed Technique Helical-I MRT [facility] Elapsed Days 11 [facility] Start Date 10/09/2024 [facility] Last Date 10/20/2024 [facility] Prescribed Number of Fractions 23 [facility] 10/20/2024 9:21 AM CDT us Aok Ip Radiation Oncologist Physician MD RILEY ON ONCOLOGY ORDERABLES Final Result [facility] CLIA # [id number] [address] [place] [address] * RAD ONC MSQ TREATMENT SUMMARY (10/19/2024 10:08 AM CDT) [facility] RTonsil&N ckRpln [facility] Course Number 1 [facility] Prescribed Fractional Dose 200 cGray [facility] Prescribed Total Dose 4,600 cGray [facility] Actual Fractions Delivered 9 [facility] Prescription Pattern Comment 6FFF; 36.8Gy SIB cGy [facility] Actual Session Delivered Dose 200 cGray [facility] Actual Total Dose 1,800 cGray [facility] Prescribed Technique Helical-I MRT [facility] Elapsed Days 10 [facility] Start Date 10/09/2024 [facility] Last Date 10/19/2024 [facility] Prescribed Number of Fractions 23 [facility] 10/19/2024 10:0 8 AM CDT Aok Ip Radiation Oncologist Physician MD RILEY ON ONCOLOGY ORDERABLES Final Result [facility] CLIA # [id number] [address] [place] [address] * RAD ONC MSQ TREATMENT SUMMARY (10/18/2024 9:58 AM CDT) [facility] Treatment [facility] RTonsil&N ckRpln [facility] Course Number 1 [facility] Prescribed Fractional Dose 200 cGray [facility] Prescribed Total Dose 4,600 cGray [facility] Actual Fractions Delivered 8 [facility] Prescription Pattern Comment 6FFF; 36.8Gy SIB cGy [facility] Actual Session Delivered Dose 200 cGray [facility] Actual Total Dose 1,600 cGray [facility] Prescribed Technique Helical-I MRT [facility] Elapsed Days 9 [facility] Start Date 10/09/2024 [facility] Last Date 10/18/2024 [facility] Prescribed Number of Fractions 23 [facility] 10/18/2024 9:58 AM CDT us Aok Ip Radiation Oncologist Physician MD RILEY ON ONCOLOGY ORDERABLES Final Result [facility] CLIA # [id number] [address] [place] [phone] * RAD ONC MSQ TREATMENT SUMMARY (10/17/2024 10:07 AM CDT) [facility] Treatment Site RTonsil&N ckRpln [facility] Course Number 1 [facility] Prescribed Fractional Dose 200 cGray [facility] Prescribed Total Dose 4,600 cGray [facility] Actual Fractions Delivered 7 [facility] Prescription Pattern Comment 6FFF; 36.8Gy SIB cGy [facility] Actual Session Delivered Dose 200 cGray [facility] Actual Total Dose 1,400 cGray [facility] Prescribed Technique Helical-I MRT [facility] Elapsed Days 8 [facility] Start Date 10/09/2024 [facility] Last Date 10/17/2024 [facility] Prescribed Number of Fractions 23 [facility] 10/17/2024 10:0 7 AM CDT us Aok Ip Radiation Oncologist Physician MD RILEY ON ONCOLOGY ORDERABLES Final Result Performing Organization Address City/[facility]/ZIP Co de Phone Number [facility] CLIA # [id number] [address] [place] [address] * RAD ONC MSQ TREATMENT SUMMARY (10/16/2024 10:17 AM CDT) [facility] Treatment Site RTonsil&N ckRpln [facility] Course Number 1 [facility] Prescribed Fractional Dose 200 cGray [facility] Prescribed Total Dose 4,600 cGray [facility] Actual Fractions Delivered 6 [facility] Prescription Pattern Comment 6FFF; 36.8Gy SIB cGy [facility] Actual Session Delivered Dose 200 cGray [facility] Actual Total Dose 1,200 cGray [facility] Prescribed Technique Helical-I MRT [facility] Elapsed Days 7 [facility] Start Date 10/09/2024 [facility] Last Date 10[facility]16/2024 [facility] Prescribed Number of Fractions 23 [facility] 10/16/2024 10:1 7 AM CDT us Aok Ip Radiation Oncologist Physician MD RILEY ON ONCOLOGY ORDERABLES Final Result [facility] CLIA # [id number] [address] [place] [address] * RAD ONC MSQ TREATMENT SUMMARY (10/13/2024 10:08 AM CDT) [facility] RTonsil&N ckRpln [facility] Course Number 1 [facility] Prescribed Fractional Dose 200 cGray [facility] Prescribed Total Dose 4,600 cGray [facility] Actual Fractions Delivered 5 [facility] Prescription Pattern Comment 6FFF; 36.8Gy SIB cGy [facility] Actual Session Delivered Dose 200 cGray [facility] Actual Total Dose 1,000 cGray [facility] Prescribed Technique Helical-I MRT [facility] Elapsed Days 4 [facility] Start Date 10/09/2024 [facility] Last Date 10/13/2024 [facility] Prescribed Number of Fractions 23 [facility] 10/13/2024 10:0 8 AM CDT us Aok Ip Radiation Oncologist Physician MD RILEY ON ONCOLOGY ORDERABLES Final Result [facility] CLIA # [id number] [address] [place] [address] * RAD ONC MSQ TREATMENT SUMMARY (10/12/2024 10:42 AM CDT) [facility] Treatment Site RTonsil&N ckRpln [facility] Course Number 1 [facility] Prescribed Fractional Dose 200 cGray [facility] Prescribed Total Dose 4,600 cGray [facility] Actual Fractions Delivered 4 [facility] Prescription Pattern Comment 6FFF; 36.8Gy SIB cGy [facility] Actual Session Delivered Dose 200 cGray [facility] Actual Total Dose 800 cGray [facility] Prescribed Technique Helical-I MRT [facility] Elapsed Days 3 [facility] Start Date 10[facility]09/2024 [facility] Last Date 10/12/2024 [facility] Prescribed Number of Fractions 23 [facility] 10/12/2024 10:4 2 AM CDT us Aok Ip Radiation Oncologist Physician MD RILEY ON ONCOLOGY ORDERABLES Final Result [facility] CLIA # [id number] [address] [place] [address] * RAD ONC MSQ TREATMENT SUMMARY (10/11/2024 10:08 AM CDT) Treatment Site RTonsil&N ckRpln [facility] Course Number 1 [facility] Prescribed Fractional Dose 200 cGray [facility] Prescribed Total Dose 4,600 cGray [facility] Actual Fractions Delivered 3 [facility] Prescription Pattern Comment 6FFF; 36.8Gy SIB cGy [facility] Actual Session Delivered Dose 200 cGray [facility] Actual Total Dose 600 cGray [facility] Prescribed Technique Helical-I MRT [facility] Elapsed Days 2 [facility] Start Date 10[facility]09/2024 [facility] Last Date 10/11/2024 [facility] Prescribed Number of Fractions 23 [facility] 10/11/2024 10:0 8 AM CDT us Aok Ip Radiation Oncologist Physician MD RILEY ON ONCOLOGY ORDERABLES Final Result Performing Organization Address City/[facility]/ZIP Co de Phone Number [facility] CLIA # [id number] [address] [place] [address] * RAD ONC MSQ TREATMENT SUMMARY (10/10/2024 9:53 AM CDT) [facility] RTonsil&N ckRpln [facility] Course Number 1 [facility] Prescribed Fractional Dose 200 cGray [facility] Prescribed Total Dose 4,600 cGray [facility] Actual [facility]ractions Delivered 2 [facility] Prescription Pattern Comment 6FFF; 36.8Gy SIB cGy [facility] Actual Session Delivered Dose 200 cGray [facility] Actual Total Dose 400 cGray [facility] Prescribed Technique Helical-I MRT [facility] Elapsed Days 1 [facility] Start Date 10/09/2024 [facility] Last Date 10/10/2024 [facility] Prescribed Number of Fractions 23 [facility] 10/10/2024 9:53 AM CDT us Aok Ip Radiation Oncologist Physician MD RILEY ON ONCOLOGY ORDERABLES Final Result [facility] CLIA # [id number] [address] [place] [address] * RAD ONC MSQ TREATMENT SUMMARY (10/09/2024 10:59 AM CDT) [facility] Treatment Site RTonsil&N ckRpln [facility] Course Number 1 [facility] Prescribed Fractional Dose 200 cGray [facility] Prescribed Total Dose 4,600 cGray [facility] Actual [facility]ractions Delivered 1 [facility] Prescription Pattern Comment 6FFF; 36.8Gy SIB cGy [facility] Actual Session Delivered Dose 200 cGray [facility] Actual Total Dose 200 cGray [facility] Prescribed Technique Helical-I MRT [facility] Elapsed Days 0 [facility] Start Date 10[facility]09/2024 [facility] Last Date 10/09/2024 [facility] Prescribed Number of Fractions 23 [facility] 10/09/2024 10:5 9 AM CDT us Aok Ip Radiation Oncologist Physician MD RILEY ON ONCOLOGY ORDERABLES Final Result [facility] CLIA # [id number] [address] [place] [address] * RAD ONC MSQ TREATMENT SUMMARY (10/06/2024 9:56 AM CDT) [facility] R tonsil R neck [facility] Course Number 1 [facility] Prescribed Fractional Dose 200 cGray [facility] Prescribed Total Dose 7,000 cGray [facility] Actual Fractions Delivered 12 [facility] Prescription Pattern Comment 5600 cGy SIB cGy [facility] Actual Session Delivered Dose 200 cGray [facility] Actual Total Dose 2,400 cGray [facility] [facility] Prescribed Technique Helical-IM RT [facility] Elapsed Days 16 [facility] Start Date 09[facility]20/2024 [facility] Last Date 10/06/2024 [facility] Prescribed Number of Fractions 35 [facility] 10/06/2024 9:56 AM CDT us Aok Ip Radiation Oncologist Physician MD RILEY ON ONCOLOGY ORDERABLES Final Result [facility] CLIA # [id number] [address] [place] [address] * RAD ONC MSQ TREATMENT SUMMARY (10/05/2024 10:59 AM CDT) Treatment Site R tonsil R neck [facility] Course Number 1 [facility] Prescribed Fractional Dose 200 cGray [facility] Prescribed Total Dose 7,000 cGray [facility] Actual Fractions Delivered 11 [facility] Prescription Pattern Comment 5600 cGy SIB cGy [facility] Actual Session Delivered Dose 200 cGray [facility] Actual Total Dose 2,200 cGray [facility] Prescribed Technique Helical-IM RT [facility] Elapsed Days 15 [facility] Start Date 09/20/2024 [facility] Last Date 10/05/2024 [facility] Prescribed Number of Fractions 35 [facility] 10/05/2024 10:5 9 AM CDT us Aok Ip Radiation Oncologist Physician MD RILEY ON ONCOLOGY ORDERABLES Final Result [facility] CLIA # [id number] [address] [place] [address] * RAD ONC MSQ TREATMENT SUMMARY (10/04/2024 10:38 AM CDT) [facility] Treatment Site R tonsil R neck [facility] Course Number 1 [facility] Prescribed Fractional Dose 200 cGray [facility] Prescribed Total Dose 7,000 cGray [facility] Actual Fractions Delivered 10 [facility] Prescription Pattern Comment 5600 cGy SIB cGy [facility] Actual Session Delivered Dose 200 cGray [facility] Actual Total Dose 2,000 cGray [facility] Prescribed Technique Helical-IM RT [facility] Elapsed Days 14 [facility] Start Date 09/20/2024 [facility] Last Date 10/04/2024 [facility] Prescribed Number of Fractions 35 [facility] 10/04/2024 10:3 8 AM CDT us Aok Ip Radiation Oncologist Physician MD RILEY ON ONCOLOGY ORDERABLES Final Result [facility] CLIA # [id number] [address] [place] [address] * RAD ONC MSQ TREATMENT SUMMARY (10/03/2024 10:13 AM CDT) [facility] Treatment Site R tonsil R neck [facility] Course Number 1 [facility] Prescribed Fractional Dose 200 cGray [facility] Prescribed Total Dose 7,000 cGray [facility] Actual Fractions Delivered 9 [facility] Prescription Pattern Comment 5600 cGy SIB cGy [facility] Actual Session Delivered Dose 200 cGray [facility] Actual Total Dose 1,800 cGray [facility] Prescribed Technique Helical-IM RT [facility] Elapsed Days 13 [facility] Start Date 09/20/2024 [facility] Last Date 10/03/2024 [facility] Prescribed Number of Fractions 35 [facility] 10/03/2024 10:1 3 AM CDT us Aok Ip Radiation Oncologist Physician MD RILEY ON ONCOLOGY ORDERABLES Final Result [facility] CLIA # [id number] [address] [place] [address] * RAD ONC MSQ TREATMENT SUMMARY (10/02/2024 10:17 AM CDT) [facility] Treatment Site R tonsil R neck [facility] Course Number 1 [facility] Prescribed Fractional Dose 200 cGray [facility] Prescribed Total Dose 7,000 cGray [facility] Actual Fractions Delivered 8 [facility] Prescription Pattern Comment 5600 cGy SIB cGy [facility] Actual Session Delivered Dose 200 cGray [facility] Actual Total Dose 1,600 cGray [facility] Prescribed Technique Helical-IM RT [facility] Elapsed Days 12 [facility] Start Date 09/20/2024 [facility] Last Date 10/02/2024 [facility] Prescribed Number of Fractions 35 [facility] 10/02/2024 10:1 7 AM CDT us Aok Ip Radiation Oncologist Physician MD RILEY ON ONCOLOGY ORDERABLES Final Result Performing Organization Address City/[facility]/ZIP Co de Phone Number [facility] CLIA # [id number] [address] [place] [address] * RAD ONC MSQ TREATMENT SUMMARY (09/29/2024 10:32 AM CDT) Pathologist [facility] Treatment Site R tonsil R neck [facility] Course Number 1 [facility] Prescribed Fractional Dose 200 cGray [facility] Prescribed Total Dose 7,000 cGray [facility] Actual Fractions Delivered 7 [facility] Prescription Pattern Comment 5600 cGy SIB cGy [facility] Actual Session Delivered Dose 200 cGray [facility] Actual Total Dose 1,400 cGray [facility] Prescribed Technique Helical-IM RT [facility] Elapsed Days 9 [facility] Start Date 09/20/2024 [facility] Last Date 09/29/2024 [facility] Prescribed Number of Fractions 35 [facility] 09/29/2024 10:3 2 AM CDT us Aok Ip Radiation Oncologist Physician MD RILEY ON ONCOLOGY ORDERABLES Final Result [facility] CLIA # [id number] [address] [place] [address] * RAD ONC MSQ TREATMENT SUMMARY (09/28/2024 3:10 PM CDT) [facility] Treatment Site R tonsil R neck [facility] Course Number 1 [facility] Prescribed Fractional Dose 200 cGray [facility] Prescribed Total Dose 7,000 cGray [facility] Actual Fractions Delivered 6 [facility] Prescription Pattern Comment 5600 cGy SIB cGy [facility] Actual Session Delivered Dose 200 cGray [facility] Actual Total Dose 1,200 cGray [facility] Prescribed Technique Helical-IM RT [facility] Elapsed Days 8 [facility] Start Date 09/20/2024 [facility] Last Date 09/28/2024 [facility] Prescribed Number of Fractions 35 [facility] 09/28/2024 3:10 PM CDT us Aok Ip Radiation Oncologist Physician MD RILEY ON ONCOLOGY ORDERABLES Final Result [facility] CLIA # [id number] [address] [place] [address] * RAD ONC MSQ TREATMENT SUMMARY (09/27/2024 2:39 PM CDT) [facility] Treatment Site R tonsil R neck [facility] Course Number 1 [facility] Prescribed Fractional Dose 200 cGray [facility] Prescribed Total Dose 7,000 cGray [facility] Actual Fractions Delivered 5 [facility] Prescription Pattern Comment 5600 cGy SIB cGy [facility] Actual Session Delivered Dose 200 cGray [facility] Actual Total Dose 1,000 cGray [facility] Prescribed Technique Helical-IM RT [facility] Elapsed Days 7 [facility] Start Date 09[facility]20/2024 [facility] Last Date 09/27/2024 [facility] Prescribed Number of Fractions 35 [facility] 09/27/2024 2:39 PM CDT us Aok Ip Radiation Oncologist Physician MD RILEY ON ONCOLOGY ORDERABLES Final Result Performing Organization Address City/State/[facility] Co de Phone Number [facility] CLIA # [id number] [address] [place] [phone] * RAD ONC MSQ TREATMENT SUMMARY (09/26/2024 2:49 PM CDT) Pathologist [facility] Treatment Site R tonsil R neck [facility] Course Number 1 [facility] Prescribed [facility]ractional Dose 200 cGray [facility] Prescribed Total Dose 7,000 cGray [facility] Actual Fractions Delivered 4 [facility] Prescription Pattern Comment 5600 cGy SIB cGy [facility] Actual Session Delivered Dose 200 cGray [facility] Actual Total Dose 800 cGray [facility] Prescribed Technique Helical-IM RT [facility] Elapsed Days 6 [facility] Start Date 09/20/2024 [facility] Last Date 09/26/2024 [facility] Prescribed Number of Fractions 35 [facility] 09/26/2024 2:49 PM CDT us Aok Ip Radiation Oncologist Physician MD RILEY ON ONCOLOGY ORDERABLES Final Result [facility] CLIA # [id number] [address] [place] [address] * RAD ONC MSQ TREATMENT SUMMARY (09/25/2024 3:13 PM CDT) [facility] Treatment Site R tonsil R neck [facility] Course Number 1 [facility] Prescribed Fractional Dose 200 cGray [facility] Prescribed Total Dose 7,000 cGray [facility] Actual Fractions Delivered 3 [facility] Prescription Pattern Comment 5600 cGy SIB cGy [facility] Actual Session Delivered Dose 200 cGray [facility] Actual Total Dose 600 cGray [facility] Prescribed Technique Helical-IM RT [facility] Elapsed Days 5 [facility] Start Date 09[facility]20/2024 [facility] Last Date 09/25/2024 [facility] Prescribed Number of Fractions 35 [facility] 09/25/2024 3:13 PM CDT us Aok Ip Radiation Oncologist Physician MD RILEY ON ONCOLOGY ORDERABLES Final Result Performing Organization Address [facility]/ZIP Co de Phone Number [facility] CLIA # [id number] [address] [place] [address] * RAD ONC MSQ TREATMENT SUMMARY (09/21/2024 3:26 PM CDT) [facility] Treatment Site R tonsil R neck [facility] Course Number 1 [facility] Prescribed Fractional Dose 200 cGray [facility] Prescribed Total Dose 7,000 cGray [facility] Actual Fractions Delivered 2 [facility] Prescription Pattern Comment 5600 cGy SIB cGy [facility] Actual Session Delivered Dose 200 cGray [facility] Actual Total Dose 400 cGray [facility] Prescribed Technique Helical-IM RT [facility] Elapsed Days 1 [facility] Start Date 09[facility]20/2024 [facility] Last Date 09/21/2024 [facility] Prescribed Number of Fractions 35 [facility] 09/21/2024 3:26 PM CDT us Aok Ip Radiation Oncologist Physician MD RILEY ON ONCOLOGY ORDERABLES Final Result [facility] CLIA # [id number] [address] [place] [address] * RAD ONC MSQ TREATMENT SUMMARY (09/20/2024 11:33 AM CDT) Treatment Site R tonsil R neck [facility] Course Number 1 [facility] Prescribed Fractional Dose 200 cGray [facility] Prescribed Total Dose 7,000 cGray [facility] Actual Fractions Delivered 1 [facility] Prescription Pattern Comment 5600 cGy SIB cGy [facility] Actual Session Delivered Dose 200 cGray [facility] Actual Total Dose 200 cGray [facility] Prescribed Technique Helical-IM RT [facility] Elapsed Days 0 [facility] Start Date 09[facility]20/2024 [facility] Last Date 09/20/2024 [facility] Prescribed Number of Fractions 35 [facility] 09/20/2024 11:3 3 AM CDT us Aok Ip Radiation Oncologist Physician MD RILEY ON ONCOLOGY ORDERABLES Final Result [facility] CLIA # [id number] [address] [place] [address] * [place] REMOVAL IMPACTED CERUMEN INSTRUMENTATION UNILAT (09/19/2024 10:27 AM CDT) Narrative Angie Goss FNP - 09/19/2024 10:27 AM CDT Angie Goss FNP 09/19/2024 10:29 AM Procedure - Binocular Microscopy For Cerumen Removal: Cerumen was noted to be significantly obstructing the bilateral external auditory canal(s). The cerumen was removed by manual debridement using: slade suction, cerumen loop, and alligator forceps under binocular microscopy to allow inspection of the tympanic membrane and middle ear. The patient tolerated the procedure well and without any known complications. us Angie STUART PROCEDURE/MINOR SURGICAL ORDE RABLES Final Result * [place] TYMPANOMETRY (09/19/2024 10:03 AM CDT) Kathe Putnam AU.D - 09/19/2024 10:03 AM CDT aKthe Kirkpatrick AU.D 09/19/2024 10:07 AM Tympanometric results: See Scanned Images Right Ear: Jerger Type A (0.5 ear canal volume; 0.30 compliance; 7 middle ear pressure) Left Ear: Jerger Type A (0.6 ear canal volume; 0.54 compliance; -9 middle ear pressure) us Kathe [facility] ORDERABLES Final Result * [place] DISTRT PROD EVOKD OTOACOUSTIC EMSNS COMP/DX EVAL (09/19/2024 10:03 AM CDT) Kathe Putnam AU.D - 09/19/2024 10:03 AM CDT Kathe Kirkpatrick AU.D 09/19/2024 10:07 AM 12 Frequency Distortion Product Otoacoustic Emissions (DPOAEs) Protocol: See Scanned Images Right ear: OAEs present at or above 6 dB SNR at 1330-7985 Hz Left ear: OAEs present at or above 6 dB SNR at 9223-4341 Hz us Kathe [facility] ORDERABLES Final Result * [place] COMPRE AUDIOMETRY THRESHOLD EVAL SAMIRA RECOGNIJ (09/19/2024 10:03 AM CDT) Narrative Kathe Kirkpatrick AU.D - 09/19/2024 10:03 AM CDT Kathe Kirkpatrick AU.D 09/19/2024 10:07 AM SUBJECTIVE: Adiel Burton is a 59 y.o. male was seen today for a baseline hearing evaluation to monitor ototoxic drug therapy. 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 He is scheduled to start treatment tomorrow. He denies any difficulty hearing or tinnitus. He describes the right ear as feeling different or puffy/swollen compared to the left; he attributes this to the cancer on that side. He denies otalgia, history of ear infections, and significant history of noise exposure. He recalls rupturing his right eardrum when diving as a child. There is a family history of hearing loss with age. OBJECTIVE: Patient was referred by Dr. Trevino. ASSESSMENT: Otoscopy revealed significant but non-occluding cerumen bilaterally. [employer] Consultant Threshold:(live voice) Right Ear: 20 dB HL Left Ear: 20 dB HL Word Recognition Testing: (recorded) Right: 100 % presented at 60 dB HL (-- dB masking) Left: 100 % presented at 60 dB HL (-- dB masking) Pure Tone Testing: Right Ear: mild to moderate sensorineural hearing loss Left Ear: mild to moderately-severe sensorineural hearing loss High Frequency Audiometry Results: 9k 10k 11.2k 12.5k 14k 16k 18k 20k Right Baseline 09/19/2024 80 80 85 90 NR NR NR NR Left Baseline 09/19/2024 60 65 70 75 80 NR NR NR NR= No Response at the limits of the audiometer Interpretation: Baseline: 09/19/2024; Grade 0; National Cancer [place] Common Terminology Criteria for Adverse Events (CTCAE) v4.03 Tympanometric results: See Scanned Images Right Ear: Jerger Type A (0.5 ear canal volume; 0.30 compliance; 7 middle ear pressure) Left Ear: Jerger Type A (0.6 ear canal volume; 0.54 compliance; -9 middle ear pressure). 12 Frequency Distortion Product Otoacoustic Emissions (DPOAEs) Protocol: See Scanned Images Right ear: OAEs present at or above 6 dB SNR at 0547-2955 Hz Left ear: OAEs present at or above 6 dB SNR at 8109-2113 Hz Patient test reliability was very good. (Amos #2; Transducer: HF HEADPHONES; Word List:[id number] RECORDED) PLAN: It is recommended that patient follow up with oncology team as planned., Serial audiograms scheduled just prior to each cisplatin treatment is recommended., Hearing protection around loud noise is recommended., and His next follow up will be scheduled with the help of his care team. Follow up sooner if changes in hearing or tinnitus occur. us Kathe [facility] ORDERABLES Final Result * IR TUBE PLACEMENT (09/06/2024 9:49 AM CDT) Anatomical Region Laterality Modality X-Ray Angiograph y 09/06/2024 9:49 AM CDT Impressions 09/06/2024 10:04 AM CDT IMPRESSION: Successful image-guided insertion of a percutaneous gastrostomy tube. 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 DATE: 09/06/2024. COMPARISON: CT of the chest obtained on 09/01/2024. PHYSICIAN: Ricardo Rogers CONSENT: After discussing the potential risks, benefits, and alternatives of the procedure, written informed consent was obtained. MEDICATIONS: Versed 3.5 mg IV, fentanyl 175 mcg IV, Ancef 2 g IV, 1% lidocaine subcutaneous. SEDATION: Moderate (conscious) sedation for this procedure was performed with continuous physician supervision. Medical history, physical exam, drug dosages, routes of drug administration, monitoring data, and precise times of service are documented in the medical record on the [facility]-approved form, 'Sedative/Analgesic Administration for Diagnostic and Therapeutic Procedures'. Please see nursing flow sheets for dosage and time. DESCRIPTION OF PROCEDURE: The patient was brought to the angiography suite and placed on table in the supine position. The patient's mid and left upper abdomen were prepped and draped in the usual sterile fashion. The abdomen was evaluated with ultrasound and the liver margin was marked on the skin surface. The patient was given glucagon IV, and the stomach was inflated with air via a previously placed nasogastric tube. The skin and subcutaneous tissues overlying the stomach were infiltrated with 2% lidocaine without epinephrine. A T-fastener needle was advanced into the stomach lumen under fluoroscopic guidance, and intragastric position was confirmed by aspiration of air from the stomach lumen and injection of contrast into the stomach lumen. A total of three T-fasteners were deployed using this technique. A dermatotomy was then made between the T-fasteners, and a needle was inserted into the stomach. A 0.035-inch J-wire was advanced through the needle, and fluoroscopy showed the wire curled within the stomach lumen. A serial dilator/peel-away sheath was passed over the wire into the stomach. A 16 [place] YAYA gastrostomy tube was placed over the wire through the sheath and into the stomach. The sheath was removed. Intraluminal position was again confirmed with the injection of contrast, and the gastrostomy tube balloon was inflated with dilute contrast.The procedure site was dressed. CATHETER: 16 [place] YAYA gastrostomy tube.. COMPLICATIONS: None. The patient tolerated the procedure well. ESTIMATED BLOOD LOSS: Less than 5 mL. CONTRAST : Isovue-300, 10 mL administered into the gastric lumen. FLUOROSCOPY TIME: 1.9 minutes. SAMPLES: None. 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 DATE: 09/06/2024. COMPARISON: CT of the chest obtained on 09/01/2024. PHYSICIAN: Ricardo Rogers CONSENT: After discussing the potential risks, benefits, and alternatives of the procedure, written informed consent was obtained. MEDICATIONS: Versed 3.5 mg IV, fentanyl 175 mcg IV, Ancef 2 g IV, 1% lidocaine subcutaneous. SEDATION: Moderate (conscious) sedation for this procedure was performed with continuous physician supervision. Medical history, physical exam, drug dosages, routes of drug administration, monitoring data, and precise times of service are documented in the medical record on the [facility]-approved form, 'Sedative/Analgesic Administration for Diagnostic and Therapeutic Procedures'. Please see nursing flow sheets for dosage and time. DESCRIPTION OF PROCEDURE: The patient was brought to the angiography suite and placed on table in the supine position. The patient's mid and left upper abdomen were prepped and draped in the usual sterile fashion. The abdomen was evaluated with ultrasound and the liver margin was marked on the skin surface. The patient was given glucagon IV, and the stomach was inflated with air via a previously placed nasogastric tube. The skin and subcutaneous tissues overlying the stomach were infiltrated with 2% lidocaine without epinephrine. A T-fastener needle was advanced into the stomach lumen under fluoroscopic guidance, and intragastric position was confirmed by aspiration of air from the stomach lumen and injection of contrast into the stomach lumen. A total of three T-fasteners were deployed using this technique. A dermatotomy was then made between the T-fasteners, and a needle was inserted into the stomach. A 0.035-inch J-wire was advanced through the needle, and fluoroscopy showed the wire curled within the stomach lumen. A serial dilator/peel-away sheath was passed over the wire into the stomach. A 16 Djiboutian YAYA gastrostomy tube was placed over the wire through the sheath and into the stomach. The sheath was removed. Intraluminal position was again confirmed with the injection of contrast, and the gastrostomy tube balloon was inflated with dilute contrast.The procedure site was dressed. CATHETER: 16 Djiboutian YAYA gastrostomy tube.. COMPLICATIONS: None. The patient tolerated the procedure well. ESTIMATED BLOOD LOSS: Less than 5 mL. CONTRAST : Isovue-300, 10 mL administered into the gastric lumen. FLUOROSCOPY TIME: 1.9 minutes. SAMPLES: None. IMPRESSION: Successful image-guided insertion of a percutaneous gastrostomy tube. us Jose East MD IR ORDERABLES F inal Result * IR VENOUS ACCESS (09/06/2024 9:15 AM CDT) Anatomical Region Laterality Modality X-Ray Angiograph y 09/06/2024 9:15 AM CDT Impressions 09/06/2024 10:03 AM CDT IMPRESSION: Successful image-guided implantation of a left chest PowerPort. 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 DATE: 09/06/2024. COMPARISON: CT of the soft tissue neck obtained on 07/20/2024. PHYSICIAN: Ricardo Rogers CONSENT: After discussing the risks, benefits, and alternatives of the procedure, written informed consent was obtained. PERIPROCEDURE MEDICATIONS: Versed 2.5 mg IV, fentanyl 175 mcg IV, Ancef 2 g IV, 1% lidocaine subcutaneous. SEDATION: Moderate (conscious) sedation for this procedure was performed with continuous physician supervision. Medical history, physical exam, drug dosages, routes of drug administration, monitoring data, and precise times of service are documented in the medical record on the [facility]-approved form, 'Sedative/Analgesic Administration for Diagnostic and Therapeutic Procedures'. See the accession number for image guided insertion of a percutaneous gastrostomy tube (which was performed on the same day) for the total sedation time. DESCRIPTION OF PROCEDURE: The patient was brought to the angiography suite and placed on table in the supine position. The patient's left neck and chest were prepped and draped in usual sterile manner and with use of maximal barrier technique. Townshend timeout protocol was performed. The initial sonographic evaluation of the patient's neck showed anechoic and compressible left internal jugular vein. After anesthetizing the patient's skin and subcutaneous tissue with 2% lidocaine, a 4 mm skin incision was made, and the left internal jugular vein was accessed with micropuncture needle using real-time ultrasound guidance (ultrasound image is archived to PACS). Using standard micropuncture technique, the tract was dilated, and a micropuncture wire was used to measure the length to the atriocaval junction. After anesthetizing the skin and subcutaneous tissue of the patient's left upper chest with 2% lidocaine with epinephrine, a 1 to 2 cm skin incision was made. A subcutaneous pocket was created using blunt dissection. The port was placed in the pocket, and the catheter was tunneled subcutaneously to the neck incision site using a tunneling device. The neck incision site was dilated, and an 8 Djiboutian peel-away sheath was inserted over a 0.035-inch J-wire using fluoroscopic guidance. The 8 Djiboutian tunneled catheter was inserted into the left internal jugular vein as a peel-away sheath was removed. The final fluoroscopic images showed an indwelling left chest port and tunneled central venous catheter entering the left internal jugular vein. The catheter tip is located near the cavoatrial junction. The port was aspirated, flushed, and heparinized. The neck incision site was closed with a 3-0 Vicryl suture, Dermabond and Steri-Strips. The chest incision site was closed with 3-0 Vicryl sutures, Dermabond, and Steri-Strips. The procedure sites were sterilely dressed. CATHETER: 8 Fr Single-Lumen Bard ClearVue Slim Power Port. COMPLICATIONS: None. The patient tolerated the procedure well. ESTIMATED BLOOD LOSS: MInimal. RADIATION: Fluoroscopy time = 1.9 minutes. SAMPLES: None. 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 DATE: 09/06/2024. COMPARISON: CT of the soft tissue neck obtained on 07/20/2024. PHYSICIAN: Ricardo Rogers CONSENT: After discussing the risks, benefits, and alternatives of the procedure, written informed consent was obtained. PERIPROCEDURE MEDICATIONS: Versed 2.5 mg IV, fentanyl 175 mcg IV, Ancef 2 g IV, 1% lidocaine subcutaneous. SEDATION: Moderate (conscious) sedation for this procedure was performed with continuous physician supervision. Medical history, physical exam, drug dosages, routes of drug administration, monitoring data, and precise times of service are documented in the medical record on the [facility]-approved form, 'Sedative/Analgesic Administration for Diagnostic and Therapeutic Procedures'. See the accession number for image guided insertion of a percutaneous gastrostomy tube (which was performed on the same day) for the total sedation time. DESCRIPTION OF PROCEDURE: The patient was brought to the angiography suite and placed on table in the supine position. The patient's left neck and chest were prepped and draped in usual sterile manner and with use of maximal barrier technique. Townshend timeout protocol was performed. The initial sonographic evaluation of the patient's neck showed anechoic and compressible left internal jugular vein. After anesthetizing the patient's skin and subcutaneous tissue with 2% lidocaine, a 4 mm skin incision was made, and the left internal jugular vein was accessed with micropuncture needle using real-time ultrasound guidance (ultrasound image is archived to PACS). Using standard micropuncture technique, the tract was dilated, and a micropuncture wire was used to measure the length to the atriocaval junction. After anesthetizing the skin and subcutaneous tissue of the patient's left upper chest with 2% lidocaine with epinephrine, a 1 to 2 cm skin incision was made. A subcutaneous pocket was created using blunt dissection. The port was placed in the pocket, and the catheter was tunneled subcutaneously to the neck incision site using a tunneling device. The neck incision site was dilated, and an 8 Djiboutian peel-away sheath was inserted over a 0.035-inch J-wire using fluoroscopic guidance. The 8 Djiboutian tunneled catheter was inserted into the left internal jugular vein as a peel-away sheath was removed. The final fluoroscopic images showed an indwelling left chest port and tunneled central venous catheter entering the left internal jugular vein. The catheter tip is located near the cavoatrial junction. The port was aspirated, flushed, and heparinized. The neck incision site was closed with a 3-0 Vicryl suture, Dermabond and Steri-Strips. The chest incision site was closed with 3-0 Vicryl sutures, Dermabond, and Steri-Strips. The procedure sites were sterilely dressed. CATHETER: 8 Fr Single-Lumen Bard ClearVue Slim Power Port. COMPLICATIONS: None. The patient tolerated the procedure well. ESTIMATED BLOOD LOSS: MInimal. RADIATION: Fluoroscopy time = 1.9 minutes. SAMPLES: None. IMPRESSION: Successful image-guided implantation of a left chest PowerPort. us Arvind Trevino MD IR ORDERABLES Final Result * PROTIME-INR (09/06/2024 7:17 AM CDT) Pathologist [facility] PROTIME 13.5 12.7 - 14.9 Seconds 09/06/2024 8:03 AM CDT [facility] [employer] [facility] INR 1.0 0.8 - 1.2 09/06/2024 8:03 AM CDT [facility] Blood Venipuncture / Unknown 09/06/2024 7:17 AM CDT 09/06/2024 7:50 AM CDT Narrative [facility] [employer] [facility] - 09/06/2024 8:03 AM CDT Expected Values for INR: DVT/PE Goal INR 2.5; range 2.0 - 3.0 Valve Replacement Tissue Goal INR 2.5; range 2.0 - 3.0 Valve Replacement Mechanical Goal INR 3.0; range 2.5 - 3.5 POST-RI Goal INR 2.5; range 2.0 - 3.0 or Goal INR 3.0; range 2.5 - 3.5 Atrial Fibrillation Goal INR 2.5; range 2.0 - 3.0 Ischemic Stroke Goal INR 2.5; range 2.0 - 3.0 us Ricardo Rogers MD HEMATOLOGY ORDERABLES Final Re sult [facility] CLIA # [id number] [address] [place] [address] * (ABNORMAL) CBC WITHOUT DIFFERENTIAL (09/06/2024 7:17 AM CDT) WBC 6.5 4.8 - 10.8 K/uL 09/06/2024 7:55 AM CDT [facility] RBC 4.49(L) 4.60 - 6.20 M/uL 09/06/2024 7:55 AM CDT [facility] HEMOGLOBIN 12.9(L) 14.0 - 18.0 g/dL 09/06/2024 7:55 AM CDT [facility] HEMATOCRIT 39.3(L) 41.0 - 53.0 % 09/06/2024 7:55 AM CDT [facility] MCV 87.5 84.0 - 103.0 fL 09/06/2024 7:55 AM CDT [facility] MCH 28.7 27.0 - 34.0 pg 09/06/2024 7:55 AM CDT [facility] MCHC 32.8 30.0 - 35.0 g/dL 09/06/2024 7:55 AM CDT [facility] PLATELETS 291 140 - 440 K/uL 09/06/2024 7:55 AM CDT [facility] MPV 9.9 8.9 - 12.8 fL 09/06/2024 7:55 AM CDT [facility] RDW 13.2 11.0 - 14.5 % 09/06/2024 7:55 AM T [facility] RDW-STDEV 42.0 37.0 - 54.0 fL 09/06/2024 7:55 AM T [facility] Blood Venipuncture / Unknown 09/06/2024 7:17 AM CDT 09/06/2024 7:50 AM CDT us Ricardo Rogers MD HEMATOLOGY ORDERABLES Final Re sult [facility] CLIA # [id number] [address] [address] [place] [address] * CT CHEST WO CONTRAST (09/01/2024 3:23 PM CDT) Anatomical Region Laterality Modality Chest Computed Tomogra phy 09/01/2024 3:20 PM CDT Impressions 09/04/2024 1:36 PM CDT IMPRESSION: Please see below. 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 Findings: Comparison: PET/CT 07/25/2024 This is a non-contrast examination. Evaluation of the mediastinum/elgin, viscera, vasculature and lymphadenopathy is limited without the use of IV contrast. Chest: The heart size normal for pleural effusion. The thoracic aorta is nonaneurysmal. The main pulmonary artery is normal in caliber. The thyroid is unremarkable. The trachea is unremarkable. Esophagus unremarkable. No pathologically enlarged thoracic lymph nodes. There is mild subpleural reticular scarring throughout the bilateral lungs without honeycombing. There is mild bronchiectatic change of the lung bases. The pulmonary opacity within the posterior left lower lobe on PET/CT 07/25/2024 is again noted (series 3 image 280) 4 x 7 mm, previously 7 x 11 mm. This now appears more linear and favor is focal scarring, some likely representing pulmonary metastasis. An indolent primary neoplasm is possible is felt less likely. Subpleural nodule lateral upper lobe measuring 3 mm unchanged compared to prior exam without hypermetabolism favoring subpleural scarring. No concerning rounded or nodules to suggest metastasis. The upper abdomen demonstrates no acute findings. There is diverticulosis without diverticulitis. No concerning osseous lesions. IMPRESSION: 1. Pulmonary nodule of the left lower lobe on PET/CT is again noted, this appears decreased in size is predominantly linear favoring scarring likely related to a previous inflammatory process. Metastasis is unlikely given the morphology. An indolent primary pulmonary neoplasm is also felt unlikely. A follow-up CT chest in 6-12 months recommended for further decrease in size/resolution. 2. No enlarged lymph nodes. Narrative Procedure Note Mendoza Casper MD - 09/04/2024 IMPRESSION: Please see below. 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 Findings: Comparison: PET/CT 07/25/2024 This is a non-contrast examination. Evaluation of the mediastinum/elgin, viscera, vasculature and lymphadenopathy is limited without the use of IV contrast. Chest: The heart size normal for pleural effusion. The thoracic aorta is nonaneurysmal. The main pulmonary artery is normal in caliber. The thyroid is unremarkable. The trachea is unremarkable. Esophagus unremarkable. No pathologically enlarged thoracic lymph nodes. There is mild subpleural reticular scarring throughout the bilateral lungs without honeycombing. There is mild bronchiectatic change of the lung bases. The pulmonary opacity within the posterior left lower lobe on PET/CT 07/25/2024 is again noted (series 3 image 280) 4 x 7 mm, previously 7 x 11 mm. This now appears more linear and favor is focal scarring, some likely representing pulmonary metastasis. An indolent primary neoplasm is possible is felt less likely. Subpleural nodule lateral upper lobe measuring 3 mm unchanged compared to prior exam without hypermetabolism favoring subpleural scarring. No concerning rounded or nodules to suggest metastasis. The upper abdomen demonstrates no acute findings. There is diverticulosis without diverticulitis. No concerning osseous lesions. IMPRESSION: 1. Pulmonary nodule of the left lower lobe on PET/CT is again noted, this appears decreased in size is predominantly linear favoring scarring likely related to a previous inflammatory process. Metastasis is unlikely given the morphology. An indolent primary pulmonary neoplasm is also felt unlikely. A follow-up CT chest in 6-12 months recommended for further decrease in size/resolution. 2. No enlarged lymph nodes. us Magno Reyes MD CT ORDERABLES Final Re sult * HEMOGLOBIN A1C (10/05/2019 8:16 AM CDT) HEMOGLOBIN A1C 5.6 See Comment % 10/05/2019 7:24 PM CDT [facility] EST. AVG GLUCOSE, A1C 114 mg/dL 10/05/2019 7:24 PM CDT [facility] Blood Venipuncture / Unknown 10/05/2019 8:16 AM CDT 10/05/2019 6:46 PM CDT Narrative [facility] - 10/05/2019 7:24 PM CDT HGB A1C INTERPRETATION NORMAL: <5.7% PRE-DIABETES: 5.7 - 6.4% DIABETES: 6.5% OR GREATER Falsely low A1C measurements can occur when: 1. Anemia and/or hemolytic anemia is present. 2. Hemoglobin variants present. 3. Renal failure. 4. Transfusion of blood product in the last 120 days. We recommend ordering a fructosamine test([id number]) to more accurately assess glycemic status if any of the above conditions are present. Janell Warren MANAGER OF MAINTENANCE CHEMISTRY ORDERABLES Final Result [facility] CLIA# [id number] [address] [place] [address] from Last 3 Months or Most Recently Relevant to Health Maintenance Insurance [facility] * Guarantor: ADIEL HINSON Account Type Relation to Patient Date of Phone Billing Address Personal/Family [address] [place] [address] [employer] (INTERNAL) [facility] [employer] [facility] [employer] Express Advance Directives For more information, please contact: [phone] * Full Code (Latest Code Status on File) Date Activated Date Inactivated Comments 02/27/2024 10:18 AM 03/02/2024 6:36 PM * Full Code Date Activated Date Inactivated Comments 02/24/2024 7:34 PM 02/27/2024 10:18 AM
--- OUTSIDE RECORDS SUMMARY | 2024-11-19 00:40 | XMS_ITS | Encounter Summary ---
Author Organization [facility] Address [address] [place] [address] Care Team Providers Care Bobbin Fixer Name Role Phone Unavailable Primary Care Provider Unavailabl e Encounter Details Date Type Department Care Team (Late st Contact Info) Description 11/13/2024 External Device Data [facility] ABSTRACTION Provider, [...] worry about transportation for future doctor visits, pick up attendant medication, etc.? No 2024 Housing Stability Answer [...] on file Legal Sex Male 8:32 PM [employer] Gender Identity Not on file Sexual Orientation Not on file documented as of this encounter Plan of Treatment Upcoming Encounters Date Type Department Care Team (Late st Contact Info) Description 11/21/2024 9:00 AM CDT Video Visit [facility] Supportive Care [facility] [address] [place] [address] Margaret Davis MD [address] [place] [address] 12/14/2024 1:45 PM CDT Appointment [facility] [address] [facility] [address] [address] Arvind Trevino MD [address] [place] [phone] 12/14/2024 2:40 PM CDT Office Visit [facility] [address] [place] [address] [address] [place] [address] Arvind Trevino MD [address] [place] [phone] 02/02/2025 1:00 PM [employer] Appointment [facility] [address] [facility] [address] [address] Arvind Trevino MD [address] [place] [phone] 02/02/2025 1:40 PM [employer] Office Visit [facility] [place] [address] [place] [address] Arvind Trevino MD [address] [place] [address] 02/07/2025 10:00 AM [employer] Office Visit [facility] [address] [place] [address] Magno Reyes MD [address] [place] [address] 02/08/2025 3:30 PM [employer] Appointment [facility] [address] [place] [address] Amaris Deras PA-C [address] [place] [address] 03/05/2025 11:30 AM [employer] Clinical Support [facility] Supportive Care [facility] [address] [place] [address] Kathe Regan, HOSE STRIPPER [address] [facility] [address] [place] [address] 03/12/2025 10:00 AM [employer] Clinical Support [facility] [address] [place] [address] Kathe Regan, HOSE STRIPPER [address] [facility] [address] [place] [address] documented as of this encounter Visit Diagnoses Not on filedocumented in this encounter
--- OUTSIDE RECORDS SUMMARY | 2024-11-19 00:40 | XMS_ITS | Clinical Summary ---
Author Organization [facility] Alicia Crump nob Address [address] [place] [address] Care Team Providers Care Plaster Lather Name Role Phone Daryl Cruz MD Primary Care Provider [phone] Allergies No known active allergies Medications omeprazole (PriLOSEC) 20 mg Capsule, Delayed Release(E.C.) Take 20 mg by mouth daily. Active Needle, Disp, 18 G (Nokor Admix Needle) 18 gauge x 1 1/2 Needle Use to draw up testosterone twice weekly 100 Each 3 1 Active Syringe with Needle, Disp, 1 mL 27 x 1/2 Syringe Use to administer Testosterone subcutaneously every 7 days. 100 Each 5 1 Active thyroid, pork, ([place] Thyroid) 30 mg tablet Take 1 Tablet (30 mg) by mouth daily. 30 Tablet 3 1 Active OTHER Testosterone 200mg/ml ([place]) 75 mg three times weekly --TM w/supplies 10 mg 4 1 Active Active Problems Problem Noted Date Diagnosed Date Status post Right rotator cu ff surgery 03/13/2020 w/Dr Medina 03/27/2020 Family History Medical History Relation Name Comments Respiratory Disease Brother passed a way from COPD Alzheimer's Disease Father Colon Cancer Father Lung Cancer Mother Relation Name Status Comments Brother Father Alive Mother Social History Tobacco Use Types Packs/Day Years Used Date Smoking Tobacco: Never Smokeless Tobacco: Current Chew Tobacco Cessation:Ready to Q uit: No; Counseling Given: Yes Alcohol Use Standard Drinks/Week Comments Not Currently 0 (1 standard drink = 0.6 oz pur e alcohol) Sex and Gender Information Value Date Recorded Sex Assigned at Not on file Legal Sex Male 1:14 PM CDT Gender Identity Not on file Sexual Orientation Not on file Last Filed Vital Signs Vital Sign Reading Time Taken Comments Blood Pressure 120/76 08/08/2020 10:40 AM CDT Pulse 77 08/08/2020 10:40 AM CDT Temperature 36.6 C (97.8 F) 03/13/2020 12:00 PM SOIL CONSERVATION TEACHER Respiratory Rate 16 03/13/2020 12:00 PM SOIL CONSERVATION TEACHER Oxygen Saturation 98% 08/08/2020 10:40 AM CDT Inhaled Oxygen Concentration - - Weight 79.4 kg (175 lb) 08/08/2020 10:40 AM CDT Height 175.3 cm (5' 9 ) 08/08/2020 10:40 AM CDT Body Mass Index 25.84 08/08/2020 10:40 AM CDT Plan of Treatment Health Maintenance Due Date Last Done Comments DTAP/TDAP/TD VACCINES (1 - Tdap) 1984 HEPATITIS B VACCINES (1 of 3 - 19+ 3-dose series) 05/20 COLORECTAL SCREENING 2010 Colorectal Cancer Screening 2010 FIT-DNA Q 3 years 2010 FIT/FOBT Q 1 year 2010 Flex Sig/CT Colonography Q 5 years 2010 ZOSTER VACCINE (1 of 2) 06/08/2015 Pre-Diabetes and Diabetes Screening 10/04/202210/04 Preventative Visit- Commercial 03/22/2024 INFLUENZA VACCINE (#1) 2024 09/07/2019 Medical Devices Implanted Type Area Builder'S Labourer Device Identifier Shelf Expiration Date Model / Serial / Lot Index Suture 4.75x24.5mm Bio Com Swiveloc Sp Ar-2324bcm - [id number] Implanted:Qty: 1 on 03/13/2020 by Sergio Medina III, MD at [facility] Index Right: Shoulder [employer] [id number] 12/20/2023 AR-2324BC M / / [id number] Index Suture 4.75x24.5mm Bio Com Swiveloc Sp Ar-2324bcm - [id number] Implanted:Qty: 1 on 03/13/2020 by Sergio Medina III, MD at [facility] Index Right: Shoulder [employer] [id number] 12/20/2023 AR-2324BC M / / [id number] Procedures Procedure Name Priority Date/Time Associated Diagnosis Comments HEMOGLOBIN A1C Routine 10/05/2019 8:16 AM CDT Pain radiating to right shoulder Encounter to establish care from Last 3 Months or Most Recently Relevant to Health Maintenance Results * HEMOGLOBIN A1C (10/05/2019 8:16 AM CDT) HEMOGLOBIN A1C 5.6 See Comment % 10/05/2019 7:24 PM CDT [facility] EST. AVG GLUCOSE, A1C 114 mg/dL 10/05/2019 7:24 PM CDT [facility] Blood Venipuncture / Unknown 10/05/2019 8:16 AM CDT 10/05/2019 6:46 PM CDT Narrative [facility] - 10/05/2019 7:24 PM CDT HGB A1C INTERPRETATION NORMAL: <5.7% PRE-DIABETES: 5.7 - 6.4% DIABETES: 6.5% OR GREATER Falsely low A1C measurements can occur when: 1. Anemia and/or hemolytic anemia is present. 2. Hemoglobin variants present. 3. Renal failure. 4. Transfusion of blood product in the last 120 days. We recommend ordering a fructosamine test([id number]) to more accurately assess glycemic status if any of the above conditions are present. Janell Warren PANEL LAY UP WORKER CHEMISTRY ORDERABLES Final Result [facility] CLIA# [id number] [address] [place] [address] from Last 3 Months or Most Recently Relevant to Health Maintenance Insurance [facility] RX [facility] [employer] Advance Directives For more information, please contact: [phone] * Full Code (Latest Code Status on File) Date Activated Date Inactivated Comments 03/13/2020 7:56 AM 03/13/2020 3:36 PM Care Teams Plaster Lather Relationship Specialty Start Date End Date Daryl Cruz MD PCP - General Family Practice 12/11/19
--- OUTSIDE RECORDS SUMMARY | 2024-11-19 00:40 | XMS_ITS | Encounter Summary ---
Author Organization [employer] Address [address] [place] [address] Care Team Providers Care Signal System Testing Maintainer Name Role Phone Unavailable Primary Care Provider Unavailabl e Encounter Details Date Type Department Care Team (Late st Contact Info) Description 11/18/2024 External Device Data STL ABSTRACTION [...] worry about transportation for future doctor visits, curing pickling packer medication, etc.? 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 Supportive Care [facility] [address] [place] [address] Margaret Davis MD [address] [place] [address] 12/14/2024 1:45 PM CDT Appointment [facility] [address] [facility] [address], [place] [address] Arvind Trevino MD [address] [place] [address] 12/14/2024 2:40 PM CDT Office Visit [facility] [address] [place] [address] 2 [place] [address] Arvind Trevino MD [address] [place] [address] 02/02/2025 1:00 PM ENGINEERING MODEL MAKER Appointment [facility] [address] [facility] [address], [place] [address] Arvind Trevino MD [address] [place] [phone] 02/02/2025 1:40 PM ENGINEERING MODEL MAKER Office Visit [facility] [place] [address] [place] [address] Arvind Trevino MD [address] [place] [address] 02/07/2025 10:00 AM ENGINEERING MODEL MAKER Office Visit [facility] Nose [facility] Thro[facility] Head Ne[facility] [address] [place] [address] Magno Reyes MD [address] [place] [address] 02/08/2025 3:30 PM ENGINEERING MODEL MAKER Appointment [facility] [address] [place] [address] Amaris Deras PA-C [address] [place] [address] 03/05/2025 11:30 AM ENGINEERING MODEL MAKER Clinical Support [facility] Supportive Care [facility] [address] [place] [address] Kathe Regan, AGENT CONTRACT CLERK [address] [facility] [address] [place] [address] 03/12/2025 10:00 AM ENGINEERING MODEL MAKER Clinical Support [facility] Supportive Care [facility] [address] [place] [address] Kathe Regan, AGENT CONTRACT CLERK [address] [facility] 230 [place] [address] documented as of this encounter Visit Diagnoses Not on filedocumented in this encounter
--- OUTSIDE RECORDS SUMMARY | 2024-11-19 00:40 | XMS_ITS | Encounter Summary ---
Author Organization [employer] Address [address] [place] [address] Care Team Providers Care Medical Services Manager Name Role Phone Unavailable Primary Care Provider [...] worry about transportation for future doctor visits, tack picker medication, etc.? 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 Gender Identity Not on file Sexual Orientation Not on file documented as of this encounter Plan of Treatment Upcoming Encounters Date Type Department Care Team (Late st Contact Info) Description 11/21/2024 9:00 AM CDT Video Visit [facility] Supportive Care [facility] [address] [place] [address] Margaret Davis MD [address] [place] [address] 12/14/2024 1:45 PM CDT Appointment [facility] [address] [facility] [address] [address] Arvind Trevino MD [address] [place] [address] 12/14/2024 2:40 PM CDT Office Visit [facility] [address] [place] [address] 2 [place] [address] Arvind Trevino MD [address] [place] [phone] 02/02/2025 1:00 PM MILK WAGON DRIVER Appointment [facility] [address] [facility] [address] [address] Arvind Trevino MD [address] [place] [phone] 02/02/2025 1:40 PM MILK WAGON DRIVER Office [facility] [place] [address] [place] [address] Arvind Trevino MD [address] [place] [address] 02/07/2025 10:00 AM MILK WAGON DRIVER Office Visit [facility] Ear Nose and Throat Head Neck [facility] [address] [place] [address] Magno Reyes MD [address] [place] [address] 02/08/2025 3:30 PM MILK WAGON DRIVER Appointment [facility] [address] [place] [address] Amaris Deras PA-C [address] [place] [address] 03/05/2025 11:30 AM MILK WAGON DRIVER Clinical Support [facility] Supportive Care [facility] [address] [place] [address] Kathe Regan, AQUATIC PERFORMER [address] [facility] 230 [place] [address] 03/12/2025 10:00 AM MILK WAGON DRIVER Clinical Support [facility] Supportive Care [facility] [address] [place] [address] Kathe Regan, AQUATIC PERFORMER [address] [facility] [address] [place] [address] documented as of this encounter Visit Diagnoses Not on filedocumented in this encounter
--- OUTSIDE RECORDS SUMMARY | 2024-11-19 00:40 | XMS_ITS | Encounter Summary ---
Author Organization [employer] Address [address] [place] [address] Care Team Providers Care Review Specialist Name Role Phone Unavailable Primary Care Provider [...] worry about transportation for future doctor visits, clam picker medication, etc.? 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 [address] [address] Arvind Trevino MD [address] [place] [address] 12/14/2024 2:40 PM CDT Office Visit [facility] [address] [place] [address] 2 [place] [address] Arvind Trevino MD [address] [place] [address] 02/02/2025 1:00 PM FOUNDRY METALLURGIST Appointment [facility] [address] [facility] [address] [address] Arvind Trevino MD [address] [place] [address] 02/02/2025 1:40 PM FOUNDRY METALLURGIST Office Visit [facility] [place] [address] [place] [address] Arvind Trevino MD [address] [place] [address] 02/07/2025 10:00 AM FOUNDRY METALLURGIST Office Visit [facility] Ear Nose and Throat Head Neck S[facility] [address] [place] [address] Magno Reyes MD [address] [place] [address] 02/08/2025 3:30 PM FOUNDRY METALLURGIST Appointment [facility] [address] [place] [address] Amaris Deras PA-C [address] [place] [address] 03/05/2025 11:30 AM FOUNDRY METALLURGIST Clinical Support [facility] Supportive Care [facility] [address] [place] [address] Kathe Regan, FACULTY INSTRUCTOR [address] [facility] 230 [place] [address] 03/12/2025 10:00 AM FOUNDRY METALLURGIST Clinical Support [facility] Supportive Care [facility] [address] [place] [address] Kathe Regan, FACULTY INSTRUCTOR [address] [facility] 230 [place] [address] documented as of this encounter Visit Diagnoses Not on filedocumented in this encounter
--- OUTSIDE RECORDS SUMMARY | 2024-11-19 00:40 | XMS_ITS | Encounter Summary ---
Author Organization [employer] Address [address] [place] [address] Care Team Providers Care Mucker Cofferdam Name Role Phone Unavailable Primary Care Provider Unavailabl e Encounter Details Date Type Department Care Team (Late st Contact Info) Description 11/12/2024 External Device Data STL ABSTRACTION Provider, [...] worry about transportation for future doctor visits, sheepskin pickler medication, etc.? 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 Gender Identity Not on file Sexual Orientation Not on file documented as of this encounter Plan of Treatment Upcoming Encounters Date Type Department Care Team (Late st Contact Info) Description 11/21/2024 9:00 AM CDT Video Visit [facility] Supportive Care [facility] [address] [place] [address] Margaret Davis MD [address] [place] [address] 12/14/2024 1:45 PM CDT Appointment [facility] [address] [facility] [address], [place] [address] Arvind Trevino MD [address] [place] [address] 12/14/2024 2:40 PM CDT Office Visit [facility] [address] [place] [address] 2 [place] [address] Arvind Trevino MD [address] [place] [address] 02/02/2025 1:00 PM COMPANY LABORER Appointment [facility] [address] [facility] [address], [place] [address] Arvind Trevino MD [address] [place] [address] 02/02/2025 1:40 PM COMPANY LABORER Office Visit [facility] [place] [address] [place] [address] Arvind Trevino MD [address] [place] [address] 02/07/2025 10:00 AM COMPANY LABORER Office Visit [facility] Ear Nose and Throat Head Neck S[facility] [address] [place] [address] Magno Reyes MD [address] [place] [address] 02/08/2025 3:30 PM COMPANY LABORER Appointment [facility] [address] [place] [address] Amaris Deras PA-C [address] [place] [address] 03/05/2025 11:30 AM COMPANY LABORER Clinical Support [facility] Supportive Care [facility] [address] [place] [address] Kathe Regan, GAS COMPRESSOR TURBINE OPERATOR [address] [facility] 230 [place] [address] 03/12/2025 10:00 AM COMPANY LABORER Clinical Support [facility] Supportive Care [facility] [address] [place] [address] Kathe Regan, GAS COMPRESSOR TURBINE OPERATOR [address] [facility] 230 [place] [address] documented as of this encounter Visit Diagnoses Not on filedocumented in this encounter
--- OUTSIDE RECORDS SUMMARY | 2024-11-19 00:40 | XMS_ITS | Encounter Summary ---
Author Organization [employer] Address [address] [place] [address] Care Team Providers Care Copyist Name Role Phone Unavailable Primary Care Provider Unavailabl e Encounter Details Date Type Department Care Team (Late st Contact Info) Description 11/14/2024 External Device Data STL ABSTRACTION Provider, [...] transportation for future doctor visits, pick up driver medication, etc.? 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 Gender Identity Not on file Sexual Orientation Not on file documented as of this encounter Plan of Treatment Upcoming Encounters Date Type Department Care Team (Late st Contact Info) Description 11/21/2024 9:00 AM CDT Video Visit [facility] Supportive Care [facility] [address] [place] [address] Margaret Davis MD [address] [place] [address] 12/14/2024 1:45 PM CDT Appointment [facility] [address] [facility] [address] [address] Arvind Trevino MD [address] [place] [address] 12/14/2024 2:40 PM CDT Office Visit [facility] [address] [place] [address] 2 [place] [address] Arvind Trevino MD [address] [place] [address] 02/02/2025 1:00 PM MOTTLER MACHINE FEEDER Appointment [facility] [address] [facility] [address] [address] Arvind Trevino MD [address] [place] [address] 02/02/2025 1:40 PM MOTTLER MACHINE FEEDER Office Visit [facility] Cancer [place] [address] [place] [address] Arvind Trevino MD [address] [place] [address] 02/07/2025 10:00 AM MOTTLER MACHINE FEEDER Office Visit [facility] Ear Nose and Throat Head Neck S[facility] [address] [place] [address] Magno Reyes MD [address] [place] [address] 02/08/2025 3:30 PM MOTTLER MACHINE FEEDER Appointment [facility] [address] [place] [address] Amaris Deras PA-C [address] [place] [address] 03/05/2025 11:30 AM MOTTLER MACHINE FEEDER Clinical Support [facility] Supportive Care [facility] [address] [place] [address] Kathe Regan, ALTERNATIVE ENERGY TECHNICIAN [address] [facility] 230 [place] [address] 03/12/2025 10:00 AM MOTTLER MACHINE FEEDER Clinical Support [facility] Supportive Care [facility] [address] [place] [address] Kathe Regan, ALTERNATIVE ENERGY TECHNICIAN [address] [facility] 230 [place] [address] documented as of this encounter Visit Diagnoses Not on filedocumented in this encounter
--- OUTSIDE RECORDS SUMMARY | 2024-11-19 00:40 | XMS_ITS | Encounter Summary ---
Author Organization [employer] Address 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 [address] [place] [address] Margaret Davis MD [address] [place] [address] 12/14/2024 1:45 PM CDT Appointment [facility] [address] [facility] [address], [place] [address] Arvind Trevino MD [address] [place] [address] 12/14/2024 2:40 PM CDT Office Visit [facility] [address] [place] [address] 2 [place] [address] Arvind Trevino MD [address] [place] [address] 02/02/2025 1:00 PM LAB TECHNICIAN Appointment [facility] [address] [facility] [address], [place] [address] Arvind Trevino MD [address] [place] [address] 02/02/2025 1:40 PM LAB TECHNICIAN Office Visit [facility] Cancer [place] [address] [place] [address] Arvind Trevino MD [address] [place] [address] 02/07/2025 10:00 AM LAB TECHNICIAN Office Visit [facility] Ear Nose and Throat Head Neck [facility] [address] [place] [address] Magno Reyes MD [address] [place] [address] 02/08/2025 3:30 PM LAB TECHNICIAN Appointment [facility] [address] [place] [address] Amaris Deras PA-C [address] [place] [address] 03/05/2025 11:30 AM LAB TECHNICIAN Clinical Support [facility] Supportive Care [facility] [address] [place] [address] Kathe Regan, DESIGN ENGINEERING MANAGER [address] [facility] 230 [place] [address] 03/12/2025 10:00 AM LAB TECHNICIAN Clinical Support [facility] Supportive Care [facility] [address] [place] [address] Kathe Regan, DESIGN ENGINEERING MANAGER [address] [facility] 230 [place] [address] documented as of this encounter Visit Diagnoses Not on filedocumented in this encounter
--- OUTSIDE RECORDS SUMMARY | 2024-11-19 00:40 | XMS_ITS | Encounter Summary ---
Author Organization [employer] Address [address] [place] [address] Care Team Providers Care Sodium Chlorite Operator Name Role Phone Unavailable Primary Care Provider [...] worry about transportation for future doctor visits, molded goods spot picker medication, etc.? 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 Gender Identity Not on file Sexual Orientation Not on file documented as of this encounter Plan of Treatment Upcoming Encounters Date Type Department Care Team (Late st Contact Info) Description 11/21/2024 9:00 AM CDT Video Visit [facility] Supportive [facility] [address] [place] [address] Margaret Davis MD [address] [place] [address] 12/14/2024 1:45 PM CDT Appointment [facility] [address] [facility] [address], [place] [address] Arvind Trevino MD [address] [place] [address] 12/14/2024 2:40 PM CDT Office Visit [facility] [address] [place] [address] 2 [place] [address] Arvind Trevino MD [address] [place] [phone] 02/02/2025 1:00 PM PUMP SERVICE SUPERVISOR Appointment [facility] [address] [facility] [address], [place] [address] Arvind Trevino MD [address] [place] [address] 02/02/2025 1:40 PM PUMP SERVICE SUPERVISOR Office Visit [facility] [place] [address] [place] [address] Arvind Trevino MD [address] [place] [address] 02/07/2025 10:00 AM PUMP SERVICE SUPERVISOR Office Visit [facility] Nose [facility] Thro[facility] Head Neck [facility] [address] [place] [address] Magno Reyes MD [address] [place] [address] 02/08/2025 3:30 PM PUMP SERVICE SUPERVISOR Appointment [facility] [address] [place] [address] Amaris Deras PA-C [address] [place] [address] 03/05/2025 11:30 AM PUMP SERVICE SUPERVISOR Clinical Support [facility] Supportive Care [facility] [address] [place] [address] Kathe Regan, DIESEL POWER SHOVEL OPERATOR [address] [facility] 230 [place] [address] 03/12/2025 10:00 AM PUMP SERVICE SUPERVISOR Clinical Support [facility] Supportive Care [facility] [address] [place] [address] Kathe Regan, DIESEL POWER SHOVEL OPERATOR [address] [facility] 230 [place] [address] documented as of this encounter Visit Diagnoses Not on filedocumented in this encounter
--- OUTSIDE RECORDS SUMMARY | 2024-11-19 00:40 | XMS_ITS | Encounter Summary ---
Author Organization [employer] Address [address] [place] [address] Care Team Providers Care Float Nurse Name Role Phone Unavailable Primary Care [...] worry about transportation for future doctor visits, slat pickler medication, etc.? 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 Supportive Care [facility] [address] [place] [address] Margaret Davis MD [address] [place] [address] 12/14/2024 1:45 PM CDT Appointment [facility] [address] [facility] [address], [place] [address] Arvind Trevino MD [address] [place] [address] 12/14/2024 2:40 PM CDT Office Visit [facility] [address] [place] [address] 2 [place] [address] Arvind Trevino MD [address] [place] [phone] 02/02/2025 1:00 PM TELEGRAPHIC INSTRUMENT SUPERVISOR Appointment [facility] [address] [facility] [address], [place] [address] Arvind Trevino MD [address] [place] [phone] 02/02/2025 1:40 PM TELEGRAPHIC INSTRUMENT SUPERVISOR Office Visit [facility] Cancer [place] [address] [place] [address] Arvind Trevino MD [address] [place] [address] 02/07/2025 10:00 AM TELEGRAPHIC INSTRUMENT SUPERVISOR Office Visit [facility] Ear Nose and Throat Head Neck [facility] [address] [place] [address] Magno Reyes MD [address] [place] [address] 02/08/2025 3:30 PM TELEGRAPHIC INSTRUMENT SUPERVISOR Appointment [facility] Radiation [facility] [address] [place] [address] Amaris Deras PA-C [address] [place] [address] 03/05/2025 11:30 AM TELEGRAPHIC INSTRUMENT SUPERVISOR Clinical Support [facility] Supportive Care [facility] [address] [place] [address] Kathe Regan, VICE PRESIDENT OF RECRUITING [address] [facility] 230 [place] [address] 03/12/2025 10:00 AM TELEGRAPHIC INSTRUMENT SUPERVISOR Clinical Support [facility] Supportive Care [facility] [address] [place] [address] Kathe Regan, VICE PRESIDENT OF RECRUITING [address] [facility] 230 [place] [address] documented as of this encounter Visit Diagnoses Not on filedocumented in this encounter
--- OUTSIDE RECORDS SUMMARY | 2024-11-19 00:40 | XMS_ITS | Encounter Summary ---
Author Organization [employer] Address [address] [place] [address] Care Team Providers Care Rug Dyer Helper Name Role Phone Unavailable Primary Care Provider [...] worry about transportation for future doctor visits, rock picker medication, etc.? 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 Gender Identity Not on file Sexual Orientation Not on file documented as of this encounter Plan of Treatment Upcoming Encounters Date Type Department Care Team (Late st Contact Info) Description 11/21/2024 9:00 AM CDT Video Visit [facility] Supportive Care [facility] [address] [place] [address] Margaret Davis MD [address] [place] [address] 12/14/2024 1:45 PM CDT Appointment [facility] [address] [facility] [address], [place] [address] Arvind Trevino MD [address] [place] [address] 12/14/2024 2:40 PM CDT Office Visit [facility] [address] [place] [address] 2 [place] [address] Arvind Trevino MD [address] [place] [address] 02/02/2025 1:00 PM COUNTER CUTTER Appointment [facility] [address] [facility] [address], [place] [address] Arvind Trevino MD [address] [place] [address] 02/02/2025 1:40 PM COUNTER CUTTER Office Visit [facility] Cancer [place] [address] [place] [address] Arvind Trevino MD [address] [place] [address] 02/07/2025 10:00 AM COUNTER CUTTER Office Visit [facility] Ear Nose and Throat Head Neck [facility] [address] [place] [address] Magno Reyes MD [address] [place] [address] 02/08/2025 3:30 PM COUNTER CUTTER Appointment [facility] [address] [place] [address] Amaris Deras PA-C [address] [place] [address] 03/05/2025 11:30 AM COUNTER CUTTER Clinical Support [facility] Supportive Care [facility] [address] [place] [address] Kathe Regan, TRAINING INSTRUCTOR [address] [facility] 230 [place] [address] 03/12/2025 10:00 AM COUNTER CUTTER Clinical Support [facility] Supportive Care [facility] [address] [place] [address] Kathe Regan, TRAINING INSTRUCTOR [address] [facility] 230 [place] [address] documented as of this encounter Visit Diagnoses Not on filedocumented in this encounter
--- NOTE | 2024-11-19 00:57 | CTR_ITS ---
PROCEDURE INFORMATION: Exam: CT Head With Contrast Exam date and time: 11/19/2024 1:21 AM Age: 59 years old Clinical indication: Altered mental status/memory loss and other: Seizure; EMS arrival for seizure. Patient just recently finished chemotherapy for throat cancer. ; Additional info: [facility] cancer PT. TECHNIQUE: Imaging protocol: Computed tomography of the head with intravenous contrast. Radiation optimization: All CT scans at this facility use at least one of these dose optimization techniques: automated exposure control; mA and/or kV adjustment per patient size (includes targeted exams where dose is matched to clinical indication); or iterative reconstruction. Contrast material: OMNI 350; Contrast volume: 100 ml; Contrast route: INTRAVENOUS (IV); COMPARISON: CT neck w con* [id number] 07/04/2024 4:19 PM RADIATION DOSE METRICS: Total DLP (mGy-cm): 2687.78 FINDINGS: Brain: Normal white matter. No mass effect. No abnormal enhancing lesions. Cerebral ventricles: Unremarkable. No ventriculomegaly. Bones/joints: No fracture or destructive lesion. Paranasal sinuses: Visualized sinuses are unremarkable. No fluid levels. Mastoid air cells: Visualized mastoid air cells are well aerated. Soft tissues: Unremarkable. CT/CT head w con [id number] IMPRESSION: No evidence of acute intracranial hemorrhage, mass effect, or edema. No pathologic enhancement.
--- NOTE | 2024-11-19 00:58 | XRR_ITS ---
PROCEDURE INFORMATION: Exam: XR Chest Exam date and time: 11/19/2024 1:07 AM Age: 59 years old Clinical indication: Other: Altered mental status; Prior surgery; Surgery date: 1-6 months; Surgery type: Port-a-cath; Additional info: [facility] TECHNIQUE: Imaging protocol: Radiologic exam of the chest. Views: 1 view. COMPARISON: CR XR chest 1V portable [id number] 02/24/2024 6:47 AM FINDINGS: Tubes, catheters and devices: Left internal jugular central venous catheter tip projects over the superior vena cava. Lungs: Clear, symmetrically inflated lungs. Pleural spaces: No pleural effusion. No pneumothorax. Heart/Mediastinum: Cardiac silhouette is normal in size for technique. Bones/joints: Age appropriate. XR/XR chest 1V portable [id number] IMPRESSION: No acute cardiopulmonary abnormality.
[2024-11-19] MEDS: iohexol 350 mg/mL 500 mL Btl (per mL) IV (01:25)
--- NOTE | 2024-11-19 01:29 | ED_ITS ---
HPI - Altered Mental Status 2 General: Chief Complaint: Altered Mental Status Stated Complaint: SEIZURE Time Seen by Provider: 11/19/24 00:37 History of Present Illness: Patient is a 59-year-old male with a history of throat cancer who presented after experiencing a seizure at home. Per the patient's caregiver, he recently completed both chemotherapy and radiation treatments for cancer affecting his throat, colon, lymph nodes, head, and lungs. The patient has been deteriorating since returning home from his most recent treatment, which he drove himself to, and home from. He has been experiencing an excruciating headache that has been persistent, along with bilateral leg pain. The night before presentation, he took half a pill of morphine for pain with minimal relief. Earlier today, around 6 PM, the patient became increasingly restless, was reaching up, and couldn't decide whether to get up, sit up, or lay down. By 9 PM, he was raising his legs up and experiencing severe head pain. The caregiver reports he was confused and not making sense at this time, though he had been coherent and able to text earlier in the day. Later, the patient cried out, and the caregiver found him convulsing. After attempting to sit him up, the flailing decreased, but he has not been coherent since. The patient has also experienced vomiting after attempting to eat today and has been constipated, which was attributed to pain medications. Related Data Home Medications ?Medication ?Instructions ?Recorded ?Confirmed ibuprofen 200 mg tablet (Advil) 800 mg PO Q6H PRN Pain 02/24/24 08/11/24 omeprazole magnesium 20 mg 20 mg PO DAILY 02/24/24 tablet,delayed release (Prilosec OTC) acetaminophen 160 mg/5 mL oral 500 mg PO Q6H PRN Pain 08/01/24 08/11/24 liquid Previous Rx's ?Medication ?Instructions ?Recorded metoprolol tartrate 25 mg tablet 25 mg PO BID@0900,210 0 #180 tabs 08/02/24 Allergies Allergy/AdvReac Type Severity Reaction Status Date / Time diltiazem (From Cardizem) Allergy Mild ALGY-Hives Verified 11/19/24 00:35 Review of Systems 2 Narrative: Constitutional: Possible slight fever (per caregiver) Neurological: Excruciating headache, seizure, confusion, altered mental status Gastrointestinal: Vomiting after eating, severe constipation Musculoskeletal: Leg pain Sleep: Significant sleep disturbance noted PFSH ED 2 PFSH: Surgical History Hx of tonsillectomy Family History Father Alzheimer's dementia Mother Cancer lung Social History Smoking and tobacco/nicotine status: former use of tobacco/nicotine Alcohol intake: former Former alcohol use details: Years ago before father Substance/Drug Use: current Physical Exam 2 Const: EXAM LIMITATIONS: altered mental status GENERAL APPEARANCE: ill appearing; not comfortable ORIENTATION/CONSCIOUSNESS: Yes awake HENMT: COMMON NORMALS: normocephalic, atraumatic and Normal external nose present HEAD & SCALP: normocephalic and atraumatic FACE & SINUS: normal facial exam and face symmetric NOSE: Normal external nose present and Normal nares present Eye: COMMON NORMALS: Equal, round and reactive pupils present and EOMs intact bilaterally PUPIL: Yes Equal, round and reactive pupils present Neck/C-Spine: GENERAL: Yes trachea midline Chest: CHEST: Yes Symmetrical chest wall rise Resp: COMMON NORMALS: No use of accessory muscles and clear to auscultation bilaterally AUSCULTATION: clear to auscultation bilaterally Cardio: COMMON NORMALS: regular rhythm RATE: tachycardic RHYTHM: regular rhythm GI: COMMON NORMALS: Soft to palpation PALPATION: Yes Soft to palpation Neuro: SHANTEL COMA SCALE: document GCS findings [place] coma scale eye opening: Spontaneous [place]el coma scale verbal response: Sounds [place] coma scale motor response: Localising Shantel coma scale total score: 11 COMMON NORMALS: no focal motor deficits (moves all extremities equally. nonparticipatory in neuro exam) Course 2 Vital Signs: Vital signs: Vital Signs Temperature 98.4 F 11/19/24 00:26 Pulse Rate 107 H 11/19/24 04:57 Respiratory Rate 22 H 11/19/24 04:57 Blood Pressure 166/114 11/19/24 04:57 Pulse Oximetry 98 11/19/24 04:57 Oxygen Delivery Me thod Nasal Cannula 11/19/24 04:57 Oxygen Flow Rate 1.5 11/19/24 04:37 MDM - Altered Mental Status Medical Decision Making This patient is restless on exam. He equal movements bilaterally. He does appear postictal, confused. This appears metabolic more so than hemorrhage or stroke related. He was taken for CT with contrast. There is no evidence of hemorrhage, mass effect or edema. No clear mass or metastatic disease. His sodium came back at 113. He had a seizure lasting several seconds upon return from CT. He was rolled on his side by staff. Airway suction. He did not get hypoxic. Supplemental oxygen was placed for precautionary reasons. Airway support was given. Currently heart rate is 94 blood pressure is 144/84, saturation is 100% on 2 L. Respirations are 17. He was given 2 mg Ativan for seizure. Keppra infusion started at 1 g. Upon notification of severe hyponatremia, second line was started. Patient was given an infusion of 100 mL of 3% hypertonic saline for initial rapid correction. He will start hypertonic saline at 20 mL/h following that. He was also given desmopressin initially. His potassium is 3.0, this is being repleted as well. Urinalysis and drug screen are pending. He still appears postictal, but is much less restless after Ativan. Chest x-ray is negative. No more episodes of seizure. He is making purposeful movements. Sodium is up to 116 from 113 following the above. He is placed on hypertonic saline infusion at 20 mL an hour. He will go to the ICU. The hospitalist to see the patient. He will require sodiums every 2 hours initially. Lab Data 11/19/24 01:18 11/19/24 03:[address] 11/19/24 00:57 IMPRESSION: No evidence of acute intracranial hemorrhage, mass effect, or edema. No pathologic enhancement. Chest X-Ray 11/19/24 00:58 IMPRESSION: No acute cardiopulmonary abnormality. Laboratory Results WBC 4.23 10^3/uL (3.29-11.43) 11/19/24 01:18 RBC 3.71 10^6/uL (3.85-5.65) L 11/19/24 01:18 Hgb 11.50 g/dL (11.27-16.99) 11/19/24 01:18 Hct 31.3 % (37-53) L 11/19/24 01:18 MCV 84.4 fl (82-101) 11/19/24 01:18 MCH 31.0 pg (27-33) 11/19/24 01:18 MCHC 36.7 g/dL (30-55) 11/19/24 01:18 RDW 19.0 % (12.1-15.1) H 11/19/24 01:18 Plt Count 179 10^3/cmm (157-399) 11/19/24 01:18 MPV 9.0 fL (7.4-10.4) 11/19/24 01:18 Neut % (Auto) 84.9 % 11/19/24 01:18 Lymph % (Auto) 4.3 % 11/19/24 01:18 [place] % (Auto) 5.4 % 11/19/24 01:18 Eos % (Auto) 0.2 % 11/19/24 01:18 Baso % (Auto) 0.5 % 11/19/24 01:18 Neut # (Auto) 3.59 10^3/uL (1.8-7.7) 11/19/24 01:18 Lymph # (Auto) 0.2 10^3/uL (0.8-4.8) L 11/19/24 01:18 [place] # (Auto) 0.2 10^3/uL (0.2-0.9) 11/19/24 01:18 Eos # (Auto) 0.0 10^3/uL (0.0-0.8) 11/19/24 01:18 Baso # (Auto) 0.0 10^3/uL (0.0-0.1) 11/19/24 01:18 Nucleated RBC % (auto) 0 % 11/19/24 01:18 Nucleated RBCs # 0.0 /100WBC 11/19/24 01:18 PT 12.10 SECONDS (12.1-14.9) 11/19/24 01:18 INR 0.83 (0.8-1.2) 11/19/24 01:18 APTT 24.3 SECONDS (23.9-36.7) 11/19/24 01:18 Specimen Type Arterial 11/19/24 02:00 Sample Site Brachial, right 11/19/24 02:00 ABG pH 7.36 (7.35-7.45) 11/19/24 02:00 ABG pCO2 34.3 mmHg (35-45) L 11/19/24 02:00 ABG pO2 107.0 mmHg (80.0-100.0) H 11/19/24 02:00 ABG HCO3 19.3 mmol/L (22-26) L 11/19/24 02:00 ABG Base Excess -5.5 mmol/L (-2.0-2.0) L 11/19/24 02:00 Javier Test N/a 11/19/24 02:00 Hematocrit 37.7 % (42-52) L 11/19/24 02:00 O2 Delivery Device Nc 11/19/24 02:00 O2 Liters/Min 2.0 % 11/19/24 02:00 Server Engineer ID [email or web address] 11/19/24 02:00 Sodium 116 mmol/L (136-145) L* 11/19/24 03:54 Potassium 3.4 mmol/L (3.5-5.1) L 11/19/24 03:54 Chloride 80 mmol/L (98-107) L 11/19/24 03:54 Carbon Dioxide 25 mmol/L (22-29) 11/19/24 03:54 Anion Gap 14.4 (5-19) 11/19/24 03:54 BUN 8 mg/dL (6-20) 11/19/24 03:54 Creatinine 0.4 mg/dL (0.7-1.2) L 11/19/24 03:54 GFR Calculation 220.2 mL/min (90-130) H 11/19/24 03:54 Glucose 107 mg/dL (65-115) 11/19/24 03:54 Calculated Osmolality 241 mOsm/kg (285-295) L 11/19/24 03:54 Lactic Acid 1.9 mmol/L (0.5-2.2) 11/19/24 01:18 Calcium 7.9 mg/dL (8.5-10.5) L 11/19/24 03:54 Magnesium 1.4 mg/dL (1.7-2.3) L 11/19/24 01:18 Total Bilirubin 0.8 mg/dL (0.15-1.2) 11/19/24 01:18 AST 34 U/L (0-40) 11/19/24 01:18 ALT 60 U/L (0-41) H 11/19/24 01:18 Alkaline Phosphatase 57 U/L (40-130) 11/19/24 01:18 Creatine Kinase 55 U/L (39-308) 11/19/24 01:18 C-Reactive Protein 83.6 mg/L (0.0-4.9) H 11/19/24 01:18 Total Protein 6.8 g/dL (6.6-8.7) 11/19/24 01:18 Albumin 3.8 g/dL (3.5-5.2) 11/19/24 01:18 Globulin 3.0 g/dL (1.3-4.6) 11/19/24 01:18 Urine Color Yellow (Yellow) 11/19/24 02:13 Urine Appearance Clear (CLEAR) 11/19/24 02:13 Urine pH 8.5 (5-7) A 11/19/24 02:13 Ur Specific Welcome 1.022 (1.005-1.030) 11/19/24 02:13 Urine Protein Negative (Negative) 11/19/24 02:13 Urine Glucose (UA) Trace (Normal) H 11/19/24 02:13 Urine Ketones Trace (Negative) 11/19/24 02:13 Urine Blood Negative (Negative) 11/19/24 02:13 Urine Nitrate Negative (Negative) 11/19/24 02:13 Urine Bilirubin Negative (Negative) 11/19/24 02:13 Urine Urobilinogen 0.2 mg/dL (Negative) 11/19/24 02:13 Ur Leukocyte Esterase Negative (Negative) 11/19/24 02:13 Urine RBC 0-2 /hpf (0-2) 11/19/24 02:13 Urine WBC 0-5 /hpf (0-5) 11/19/24 02:13 Ur Squamous Epith Cells 0-5 /hpf (0-5) 11/19/24 02:13 Amorphous Sediment Not Reportable 11/19/24 02:13 Urine Bacteria None seen /hpf (NONE) 11/19/24 02:13 Hyaline Casts 2.87 /lpf 11/19/24 02:13 Urine Opiates Screen Positive ng/mL (Negative) H 11/19/24 02:13 Ur Barbiturates Screen Negative ng/mL (Negative) 11/19/24 02:13 Ur Phencyclidine Scrn Negative ng/mL (Negative) 11/19/24 02:13 Ur Amphetamines Screen Negative ng/mL (Negative) 11/19/24 02:13 U Benzodiazepines Scrn Negative ng/mL (Negative) 11/19/24 02:13 Urine Cocaine Screen Negative ng/mL (Negative) 11/19/24 02:13 U Marijuana (THC) Screen Positive ng/mL (Negative) H 11/19/24 02:13 Ethyl Alcohol < 10 mg/dL (0-10) 11/19/24 01:18 All radiology interpretation(s) finalized by discharge Critical Care Time 2 Critical Care Time: Critical Care Time: Yes Total Critical Care Time: 40 Attestation: This case had a high probability of a clinically significant, sudden, or life threatening deterioration of this patient's condition which required my full and direct attention, intervention and personal management. Time is independent of any procedures performed. Discharge Plan Discharge Patient Disposition: Admitted As Inpatient Admit Provider: Caren Almaguer Clinical Impression: Hyponatremia, Seizure Condition: Critical Coding Level of Care Code ED Intake Clinician for Rosanne Holliday
[2024-11-19 01:33] LABS: Hematocrit 31.3 % (37-53); Hemoglobin 11.50 g/dL (11.27-16.99); Mean Corpuscular HGB Conc 36.7 g/dL (30-55); Mean Corpuscular Hemoglobin 31.0 pg (27-33); Mean Corpuscular Volume 84.4 fl (82-101); Nucleated Red Blood Cells % 0 %; Platelet Count 179 10^3/cmm (157-399); Red Blood Count 3.71 10^6/uL (3.85-5.65); White Blood Count 4.23 10^3/uL (3.29-11.43)
[2024-11-19 01:45] LABS: INR 0.83 (0.8-1.2); Partial Thromboplastin Time 24.3 SECONDS (23.9-36.7); Prothrombin Time 12.10 SECONDS (12.1-14.9)
[2024-11-19 01:55] LABS: Lactic Sepsis W/Reflex 1.9 mmol/L (0.5-2.2)
[2024-11-19 01:56] LABS: Alanine Aminotransferase 60 U/L (0-41); Albumin Level 3.8 g/dL (3.5-5.2); Alkaline Phosphatase 57 U/L (40-130); Anion Gap 16.0 (5-19); Aspartate Amino Transferase 34 U/L (0-40); Blood Urea Nitrogen 8 mg/dL (6-20); Calcium 8.2 mg/dL (8.5-10.5); Carbon Dioxide 24 mmol/L (22-29); Chloride 76 mmol/L (98-107); Globulin 3.0 g/dL (1.3-4.6); Glucose 135 mg/dL (65-115); Magnesium 1.4 mg/dL (1.7-2.3); Osmolality Calculated 236 mOsm/kg (285-295); Potassium 3.0 mmol/L (3.5-5.1); Total Protein 6.8 g/dL (6.6-8.7)
--- NOTE | 2024-11-19 01:56 | ECG_ITS ---
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 Measurements Intervals [place] Rate: 98 P: 74 IN: 166 QRS: 56 QRSD: 109 T: 78 QT: 360 QTc: 462 Interpretive Statements SINUS RHYTHM INCOMPLETE RIGHT BUNDLE BRANCH BLOCK [90+ ms QRS DURATION, TERMINAL R IN V1/V2, 40+ ms S IN I/aVL/V4/V5/V6] Compared to ECG 08/01/2024 14:22:00 HEART RATE HAS INCREASED Electronically Signed On 11-19-2024 22:06:12 CDT by Brock Logan M.D. [email or web address]
[2024-11-19 02:00] LABS: Alcohol Level < 10 mg/dL (0-10); Creatinine Clr Calc Pharmacy 298.4865; Sodium 113 mmol/L (136-145)
[2024-11-19 02:11] LABS: ABG PCO2 34.3 mmHg (35-45); ABG PH Result 7.36 (7.35-7.45); Arterial Blood Gas Hematocrit 37.7 % (42-52); Blood Gas LPM 2.0 %; Blood Gas Sample Site Brachial, right; Blood Gas Sample Type Arterial; HCO3 ABG 19.3 mmol/L (22-26); PO2 ABG 107.0 mmHg (80.0-100.0)
[2024-11-19] MEDS: LORazepam 1 MG/0.5 ML injection 2 MG IVP (02:23)
[2024-11-19] MEDS: levETIRAcetam 1,000 MG/100 ML PREMIX 400 MG IV (02:23)
[2024-11-19] MEDS: sodium chloride 3% 100 ML in empty flexible container 1 EACH 200 ML IV ×3 (03:03→14:10)
--- NOTE | 2024-11-19 03:44 | PM.HP ---
Providers/Chief Complaint Admitting Physician: RUBEN ALTMAN DO Chief Complaint: SEIZURE History of Present Illness Harshal Hinson is a 59 year old male with a history of head and neck cancer and had completed treatment a week and a half ago for 7 rounds of radiation. Patient is at this time had presented with sodium of 113 and had seizure twice today. Patient had being started on hypertonic fluid of 100 mL x 2 Chemistry with BMP is every 2 hours. Serum sodium of 113 had increased to 116. Patient is en route to ICU Nephrology consulted because of hyponatremia with seizure. He is doing much better and did not have any further seizure episode. Patient received Keppra will continue with Keppra at this time. Review of Systems Narrative: System review we are not optimal as patient was pretty much postictal Brandon in the room were able to give history and answer some question on behalf of of the patient there is a close friend that has to buy him through this cancer of head and neck. Medications/Allergies Home Medications ?Medication ?Instructions ?Recorded ?Confirmed ?Last Taken ?Type ibuprofen 200 mg tablet (Advil) 800 mg PO Q6H PRN Pain 02/24/24 08/11/24 02/24/24 02:00 History omeprazole magnesium 20 mg 20 mg PO DAILY 02/24/24 08/01/24 02/23/24 History tablet,delayed release (Prilosec OTC) acetaminophen 160 mg/5 mL oral 500 mg PO Q6H PRN Pain 08/01/24 08/11/24 Unknown History liquid metoprolol tartrate 25 mg tablet 25 mg PO BID@0900,2100 #180 tabs 08/02/24 08/11/24 Unknown Rx Allergies Allergy/AdvReac Type Severity Reaction Status Date / Time diltiazem (From [facility]) Allergy Mild ALGY-Hives Verified 11/19/24 00:35 PFSH Acute PFSH: Surgical History Hx of tonsillectomy Family History Father Alzheimer's dementia Mother Cancer lung Social History Smoking and tobacco/nicotine status: former use of tobacco/nicotine Alcohol intake: former Former alcohol use details: Years ago before father Substance/Drug Use: current Vitals/I&O/Wt Last Vital Signs Temp 98.4 F 11/19/24 00:26 Pulse 103 H 11/19/24 03:17 Resp 26 H 11/19/24 03:17 BP 134/97 11/19/24 03:17 Pulse Ox 98 11/19/24 03:17 O2 Del Method Nasal Cannula 11/19/24 03:17 O2 Flow Rate 1.5 11/19/24 03:17 11/18/24 11/18/24 11/19/24 14:59 22:59 06:59 Intake Total 100 / 100 Balance 100 / 100 Weight last 48 hrs Weight 92.941 kg Physical Exam Narrative: Generally patient is calm and fine has Barcenas to gravity eyes closed and l seem to be comfortable HEENT normocephalic/atraumatic neck neck is supple cardiovascular heart rate is regular lungs are pretty much clear abdomen soft nontender nondistended unremarkable extremities are intact no edema has good pulses neurology has no focality but patient is postictal and had had good sleep overnight lab studies lab studies reviewed and noted Urinary Catheter Management: Barcenas: Cath Placed During This Visit: yes Urinary Catheter Date of Insertion: 11/19/24 Data 11/19/24 01:18 11/19/24 03:54 A&P Assessment and plan 1. Seizure: 2. Hyponatremia: 3. Tonsillar cancer: 4. Atrial fibrillation with RVR: 5. Elevated C-reactive protein: 6. Acute alteration in mental status: Plan: #! Acute seizure disorder secondary to hyponatremia - Admit to ICU - Hypertonic saline initiated - BMP chemistry every 2 hours for close monitoring regarding management of hyponatremia IN treatment - Must continue to monitor with renal consult for electrolyte imbalance - Continue Keppra #2 Acute mental status change due to postictal state - Patient on telemetry and in ICU location for close monitoring #3 Elevated C-reactive protein - Patient is a cancer patient had just been status post completion of radiation therapy just 1 and half week ago, hence inflammatory cells #4 Chronic medical problem-head and neck cancer significant for tonsillar cancer and remote history of atrial fibrillation #5 GI and DVT prophylaxis in place PDMP PDMP Reviewed: Last Reviewed 11/19/24 06:56 by Ruben Altman MD Attestations Medical Necessity Statement*: Acute seizure disorder with severe hyponatremia patient is of inpatient stay at least 2 midnights Coding Level of Care Code 83731 Diagnoses Seizure R56.9 Hyponatremia E87.1 Tonsillar cancer C09.9 Atrial fibrillation with RVR I48.91 Elevated C-reactive protein R79.82 Acute alteration in mental status R41.82 Time Spent (min) 60
[2024-11-19 03:48] LABS: Glucose Urine UA Trace (Normal); Nitrate Urine Negative (Negative); Specific Gravity, Urine 1.022 (1.005-1.030)
[2024-11-19 03:53] LABS: Add Urine Microscopic? YES
[2024-11-19 03:55] LABS: PCP Screen Urine Negative (Negative)
[2024-11-19] MEDS: lidocaine 1% 5 ML in potassium chloride premix 100 ML 26.25 ML IV (04:10)
[2024-11-19 04:27] LABS: Anion Gap 14.4 (5-19); Blood Urea Nitrogen 8 mg/dL (6-20); Calcium 7.9 mg/dL (8.5-10.5); Carbon Dioxide 25 mmol/L (22-29); Chloride 80 mmol/L (98-107); Glucose 107 mg/dL (65-115); Osmolality Calculated 241 mOsm/kg (285-295); Potassium 3.4 mmol/L (3.5-5.1)
[2024-11-19 04:46] LABS: Creatinine Clr Calc Pharmacy 223.8649; Sodium 116 mmol/L (136-145)
--- NOTE | 2024-11-19 06:20 | PC.NURSE ---
Port flushes but has no blood return. Dr. Almaguer notified that 3% saline is now infusing through peripheral line.
[2024-11-19] MEDS: heparin 5,000 unit/mL INJ 1 mL 5000 UNIT SUBCUT ×2 (06:32→17:24)
[2024-11-19 06:38] LABS: Hematocrit 32.8 % (37-53); Hemoglobin 11.50 g/dL (11.27-16.99); Mean Corpuscular HGB Conc 35.1 g/dL (30-55); Mean Corpuscular Hemoglobin 32.2 pg (27-33); Mean Corpuscular Volume 91.9 fl (82-101); Nucleated Red Blood Cells % 0 %; Platelet Count 115 10^3/cmm (157-399); Red Blood Count 3.57 10^6/uL (3.85-5.65); White Blood Count 4.05 10^3/uL (3.29-11.43)
--- NOTE | 2024-11-19 08:10 | PM.CONSULT ---
Providers/Reason For Consult Consulting Physician/Specialty*: kommana/Nephrology Reason for Consult*: Hyponatremia Attending Physician: Caren Almaguer MD History of Present Illness History of Present Illness Harshal Hinson is a 59 year old male Patient is a 59-year-old male with past medical history of head and neck cancer status postradiation, remote history of tonsillar cancer presented to the emergency department after patient had a seizure at home. Lab data in the ER has showed severe hyponatremia with a sodium of 113. Patient received 3% saline bolus of 100 mL x 1 and started on 3% saline at 20 cc/h. Patient also was given 1 dose of desmopressin 4 mcg in the ED. And also received Keppra and IV Ativan. Repeat sodium 3 hours later showed 116. Patient unable to provide me any history currently. Review of Systems Narrative: Cannot obtain from patient Medications/Allergies Home Medications ?Medication ?Instructions ?Recorded ?Confirmed ?Last Taken ?Type ibuprofen 200 mg tablet (Advil) 800 mg PO Q6H PRN Pain 02/24/24 08/11/24 02/24/24 02:00 History omeprazole magnesium 20 mg 20 mg PO DAILY 02/24/24 08/01/24 02/23/24 History tablet,delayed release (Prilosec OTC) acetaminophen 160 mg/5 mL oral 500 mg PO Q6H PRN Pain 08/01/24 08/11/24 Unknown History liquid metoprolol tartrate 25 mg tablet 25 mg PO BID@0900,2100 #180 tabs 08/02/24 08/11/24 Unknown Rx Allergies Allergy/AdvReac Type Severity Reaction Status Date / Time diltiazem (From Cardizem) Allergy Mild ALGY-Hives Verified 11/19/24 00:35 Current Medications Generic Name Dose Route Start Last Admin Trade Name Freq PRN Reason Stop Dose Admin Heparin Sodium (Porcine) 5,000 unit 11/19/24 06:15 11/19/24 06:32 Heparin 5,000 Unit/Ml Inj 1 Ml SUBCUT 5,000 unit Q12H JOHNNY Administration Sodium Chloride 1,000 mls @ 125 mls/hr 11/19/24 02:15 11/19/24 06:34 Sodium Chloride 0.9% IV 125 mls/hr .Q8H JOHNNY Infusion PFSH Acute PFSH: Surgical History Hx of tonsillectomy Family History Father Alzheimer's dementia Mother Cancer lung Social History Smoking and tobacco/nicotine status: former use of tobacco/nicotine Alcohol intake: former Former alcohol use details: Years ago before father Substance/Drug Use: current Vitals/I&O/Wt Last Vital Signs Temp 98.4 F 11/19/24 00:26 Pulse 112 H 11/19/24 07:30 Resp 16 11/19/24 07:30 BP 167/83 11/19/24 07:30 Pulse Ox 95 11/19/24 07:30 O2 Del Method Nasal Cannula 11/19/24 06:25 O2 Flow Rate 1.5 11/19/24 06:25 11/18/24 11/19/24 11/19/24 22:59 06:59 14:59 Intake Total 1663.5 / 1663.5 Output Total 1999 Balance -336.5 / -336.5 Weight last 48 hrs Weight 90.265 kg Weight 92.941 kg Physical Exam Narrative: Patient lethargic, sleeping, no distress No JVD S1-S2 regular rate and rhythm Lungs with decreased breath sounds bilaterally Abdomen soft nontender Extremities no pedal edema Skin no rash Urinary Catheter Management: Barcenas: Cath Placed During This Visit: yes Reason for Continuing Indwelling Catheter: Accurate Measurement of Urinary Output in Critically Ill Patients Urinary Catheter Date of Insertion: 11/19/24 Data 11/19/24 06:22 11/19/24 03:54 A&P Assessment and plan 1. Hyponatremia: Plan: 1. 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 Sodium 113 on presentation associated with seizures. Patient received 3% saline bolus of 100 mL and running 3% saline at 20 mL/h currently - Plan on every 2 hours sodium checks, 3% saline currently on hold till the next sodium results back in an hour. Asked RN to report all sodium results to me. - Check urine sodium and urine osmolality - Goal correction up to 8 mEq in 24-hour. Avoid rapid correction 2. Status post seizures, likely from low sodium, status post Keppra and Ativan and correcting sodium 3. Head and neck cancer status post recent radiation Patient evaluated using audiovisual cart. Time spent 40 minutes. PDMP PDMP Reviewed: Not Reviewed Consult Attestations Medical Necessity Statement: per medicne Coding Level of Care Code Acute Code for Chg Fwd Diagnoses Hyponatremia E87.1
[2024-11-19 09:13] LABS: Alanine Aminotransferase 55 U/L (0-41); Albumin Level 3.4 g/dL (3.5-5.2); Alkaline Phosphatase 52 U/L (40-130); Anion Gap 19.6 (5-19); Aspartate Amino Transferase 35 U/L (0-40); Blood Urea Nitrogen 6 mg/dL (6-20); Calcium 7.8 mg/dL (8.5-10.5); Carbon Dioxide 20 mmol/L (22-29); Chloride 80 mmol/L (98-107); Creatinine Clr Calc Pharmacy 294.4725; Globulin 3.0 g/dL (1.3-4.6); Glucose 104 mg/dL (65-115); Osmolality Calculated 240 mOsm/kg (285-295); Potassium 3.6 mmol/L (3.5-5.1); Total Protein 6.4 g/dL (6.6-8.7)
[2024-11-19 09:14] LABS: Sodium 116 mmol/L (136-145)
[2024-11-19 10:45] LABS: Anion Gap 18.8 (5-19); Blood Urea Nitrogen 5 mg/dL (6-20); Calcium 8.0 mg/dL (8.5-10.5); Carbon Dioxide 21 mmol/L (22-29); Chloride 78 mmol/L (98-107); Creatinine Clr Calc Pharmacy 294.4725; Glucose 106 mg/dL (65-115); Osmolality Calculated 236 mOsm/kg (285-295); Potassium 3.8 mmol/L (3.5-5.1); Thyroid Stimulating Hormone 1.22 uIU/mL (0.27-4.20)
[2024-11-19 10:47] LABS: Sodium 114 mmol/L (136-145)
--- NOTE | 2024-11-19 10:56 | PC.PHAR ---
verified medications with [facility] . Pharmacist did say a few were transferred recently to [facility]. [facility] is closed and I will Check back with Patient when he is awake.
[2024-11-19] MEDS: magnesium sulfate premix 2 GM/50 ML PIGGYBACK IV (10:57)
--- NOTE | 2024-11-19 11:31 | PC.NURSE ---
recieved this am pt resting eyes closed resp nonlaborded is lethargic but will respond very confused and picking at things in air will not verbally respond to staff pulling at peg tube and all lines and ivs, monitor lab work q 2 hrs at this time on 3% saline , mqt replacement ordered , oral care done
[2024-11-19] MEDS: levETIRAcetam 500 MG/100 ML PREMIX 400 MG IV (13:15)
--- NOTE | 2024-11-19 14:20 | PC.NURSE ---
lab here kady blood for chem Dr Tolentino called informed to give 3%ns bolus not given prior pharmacy called reloaded ,,, on one bolus of ns given this shift to continue monitor na and inform Dr Robert
[2024-11-19 14:34] LABS: Alanine Aminotransferase 58 U/L (0-41); Albumin Level 3.7 g/dL (3.5-5.2); Alkaline Phosphatase 55 U/L (40-130); Blood Urea Nitrogen 5 mg/dL (6-20); Calcium 8.3 mg/dL (8.5-10.5); Carbon Dioxide 22 mmol/L (22-29); Chloride 79 mmol/L (98-107); Creatinine Clr Calc Pharmacy 294.4725; Globulin 3.2 g/dL (1.3-4.6); Glucose 105 mg/dL (65-115); Osmolality Calculated 240 mOsm/kg (285-295); Total Protein 6.9 g/dL (6.6-8.7)
[2024-11-19 14:42] LABS: Anion Gap 19.1 (5-19); Aspartate Amino Transferase 41 U/L (0-40); Potassium 4.1 mmol/L (3.5-5.1); Sodium 116 mmol/L (136-145)
--- NOTE | 2024-11-19 16:41 | PC.NURSE ---
doctor here exam pt , remain on 3%ns at 30 cc aware changed bmp to q 4 hr
[2024-11-19 18:18] LABS: Blood Urea Nitrogen 5 mg/dL (6-20); Calcium 8.4 mg/dL (8.5-10.5); Carbon Dioxide 22 mmol/L (22-29); Chloride 86 mmol/L (98-107); Glucose 107 mg/dL (65-115); Osmolality Calculated 246 mOsm/kg (285-295)
[2024-11-19 18:21] LABS: Creatinine Clr Calc Pharmacy 294.4725
[2024-11-19 18:22] LABS: Anion Gap 14.7 (5-19); Potassium 3.7 mmol/L (3.5-5.1)
[2024-11-19 18:23] LABS: Sodium 119 mmol/L (136-145)
--- NOTE | 2024-11-19 18:43 | PC.NURSE ---
na called to to kunal loredo running as per order
--- NOTE | 2024-11-19 20:00 | PC.NURSE ---
G tube: Dr. Almaguer gave telephone orders to use G tube for PO medication administration.
[2024-11-19 22:24] LABS: Blood Urea Nitrogen 5 mg/dL (6-20); Calcium 8.3 mg/dL (8.5-10.5); Carbon Dioxide 17 mmol/L (22-29); Chloride 87 mmol/L (98-107); Glucose 110 mg/dL (65-115); Osmolality Calculated 250 mOsm/kg (285-295); Sodium 121 mmol/L (136-145)
[2024-11-19 22:30] LABS: Creatinine Clr Calc Pharmacy 220.8544
[2024-11-19 22:31] LABS: Anion Gap 22.0 (5-19); Potassium 5.0 mmol/L (3.5-5.1)
[2024-11-20] VITALS (46 sets, daily range): BP systolic 80–138; BP diastolic 55–85; PULSE 84–117; RESP 7–25; TEMP 36.6–37.1; O2SAT 92–97; BMI 27.0
[2024-11-20 00:15] LABS: Procalcitonin 0.19 ng/mL (0-0.5)
[2024-11-20 00:23] LABS: Estmated Average Glucose 128; Hemoglobin A1C 6.1 % (4.0-6.0)
[2024-11-20] MEDS: levETIRAcetam 500 MG/100 ML PREMIX 400 MG IV ×2 (01:02→13:04)
[2024-11-20 01:44] LABS: Iron 51 ug/dL (59-158)
[2024-11-20 02:00] LABS: Vitamin B12 641 pg/mL (232-1245)
[2024-11-20 02:20] LABS: Total Iron Binding Capacity 285 mcg/dl; Unsaturated Iron Binding 234 ug/dL (112-347)
[2024-11-20 02:38] LABS: Anion Gap 18.5 (5-19); Blood Urea Nitrogen 6 mg/dL (6-20); Calcium 8.8 mg/dL (8.5-10.5); Carbon Dioxide 22 mmol/L (22-29); Chloride 91 mmol/L (98-107); Glucose 105 mg/dL (65-115); Osmolality Calculated 264 mOsm/kg (285-295); Potassium 3.5 mmol/L (3.5-5.1); Sodium 128 mmol/L (136-145)
[2024-11-20 02:39] LABS: Creatinine Clr Calc Pharmacy 220.8544
--- NOTE | 2024-11-20 03:51 | PC.NURSE ---
3% Saline: Dr. Mcgee was contacted regarding Na level results, gave telephone orders to stop administration of 3% saline and recheck sodium at 2200 and to call her with results. 2200 results were called to Dr. Mcgee wo gave telephone orders to recheck in 4 hours and to call with results if Na level is greater than 125 or less than 122. 0200 results: Na level was 128, Dr. Mcgee gave telephone orders to begin D5w at 60mL/hr . Dr. Mcgee later called and changed the D5w order to 75mL/hr, encourage oral fluids, and check Na level Q2h.
--- NOTE | 2024-11-20 04:06 | PC.NURSE ---
Agitation: Patient repeatedly asked for restraints to be removed, patient also continued to pull on lines and tubes. This nurse attempted to reorient and redirected patient's attempts. Patient also stated he had to pee , this nurse informed patient he had a catheter in place.
--- NOTE | 2024-11-20 04:08 | PC.NURSE ---
Oral intake: This nurse attempted to encourage patient to drink water, patient refused saying it hurt .
[2024-11-20] MEDS: heparin 5,000 unit/mL INJ 1 mL 5000 UNIT SUBCUT ×2 (05:57→17:22)
[2024-11-20 06:23] LABS: Alanine Aminotransferase 53 U/L (0-41); Albumin Level 3.5 g/dL (3.5-5.2); Alkaline Phosphatase 53 U/L (40-130); Aspartate Amino Transferase 27 U/L (0-40); Blood Urea Nitrogen 6 mg/dL (6-20); Calcium 8.4 mg/dL (8.5-10.5); Carbon Dioxide 23 mmol/L (22-29); Chloride 90 mmol/L (98-107); Creatinine Clr Calc Pharmacy 212.6385; Globulin 3.2 g/dL (1.3-4.6); Glucose 124 mg/dL (65-115); Osmolality Calculated 263 mOsm/kg (285-295); Sodium 127 mmol/L (136-145); Total Protein 6.7 g/dL (6.6-8.7)
[2024-11-20 06:36] LABS: Anion Gap 17.1 (5-19); Potassium 3.1 mmol/L (3.5-5.1)
[2024-11-20 07:39] LABS: Hematocrit 31.6 % (37-53); Hemoglobin 11.40 g/dL (11.27-16.99); Mean Corpuscular HGB Conc 36.1 g/dL (30-55); Mean Corpuscular Hemoglobin 32.3 pg (27-33); Mean Corpuscular Volume 89.5 fl (82-101); Nucleated Red Blood Cells % 0 %; Platelet Count 172 10^3/cmm (157-399); Red Blood Count 3.53 10^6/uL (3.85-5.65); White Blood Count 2.34 10^3/uL (3.29-11.43)
[2024-11-20 08:00] LABS: Anion Gap 15.1 (5-19); Blood Urea Nitrogen 7 mg/dL (6-20); Calcium 8.6 mg/dL (8.5-10.5); Carbon Dioxide 26 mmol/L (22-29); Chloride 90 mmol/L (98-107); Creatinine Clr Calc Pharmacy 212.6385; Glucose 131 mg/dL (65-115); Osmolality Calculated 266 mOsm/kg (285-295); Potassium 3.1 mmol/L (3.5-5.1); Sodium 128 mmol/L (136-145)
--- NOTE | 2024-11-20 09:26 | P.PN_ITS ---
Subjective 2 Subjective: more alert today Medications: Reviewed: Yes Vitals/I&O/Wt Last Vital Signs Temp 98.2 F 11/20/24 08:00 Pulse 103 H 11/20/24 08:00 Resp 14 11/20/24 08:00 BP 130/77 11/20/24 08:00 Pulse Ox 96 11/20/24 08:00 O2 Del Method Room Air 11/20/24 08:00 O2 Flow Rate 1 11/19/24 20:30 11/19/24 11/20/24 11/20/24 22:59 06:59 14:59 Intake Total 30 / 499.167 148 / 647.167 250 / 250 Output Total 1601 / 4101 1250 / 5351 Balance -1571 / -3601.833 -1102 / -4703.833 250 / 250 Weight last 48 hrs Weight 82.962 kg Weight 90.265 kg Weight 92.941 kg Physical Exam 2 Narrative: awake , alert , no distress No JVD S1-S2 regular rate and rhythm Lungs with decreased breath sounds bilaterally Abdomen soft nontender Extremities no pedal edema Skin no rash Urinary Catheter Management: Barcenas: Cath Placed During This Visit: yes Reason for Continuing Indwelling Catheter: Accurate Measurement of Urinary Output in Critically Ill Patients Urinary Catheter Date of Insertion: 11/19/24 Data 11/20/24 07:28 11/20/24 07:28 A&P Assessment and plan 1. Hyponatremia: Plan: 1. 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 Sodium 113 on presentation associated with seizures. Patient received 3% saline bolus of 100 mL in ER , and was placed on 30 ml /hr - Plan on every 2 hours sodium checks, - Na corrected from 121 to 128 , so placed on d5w for a goal of 125-126 today - Goal correction up to 8 mEq in 24-hour. Avoid rapid correction 2. Status post seizures, likely from low sodium, status post Keppra and Ativan and correcting sodium 3. Head and neck cancer status post recent radiation 4. AMS : Improved today Patient evaluated using audiovisual cart. Time spent 40 minutes. PDMP PDMP Reviewed: Not Reviewed Attestations 2 Medical Necessity Statement*: per [facility] Coding Level of Care Code Acute Code for Chg Fwd Diagnoses Hyponatremia E87.1
[2024-11-20] MEDS: potassium chloride premix 100 ML 25 MEQ IV (09:36)
[2024-11-20 09:45] LABS: Anion Gap 15.2 (5-19); Blood Urea Nitrogen 9 mg/dL (6-20); Calcium 8.7 mg/dL (8.5-10.5); Carbon Dioxide 27 mmol/L (22-29); Chloride 91 mmol/L (98-107); Creatinine Clr Calc Pharmacy 141.7590; Glucose 136 mg/dL (65-115); Osmolality Calculated 271 mOsm/kg (285-295); Potassium 3.2 mmol/L (3.5-5.1); Sodium 130 mmol/L (136-145)
--- NOTE | 2024-11-20 10:06 | PC.NURSE ---
Notified Dr. Mcgee that new Na+ level is 130.
[2024-11-20] MEDS: magnesium sulfate premix 1 GM/100 ML PIGGYBACK IV (10:28)
[2024-11-20 11:28] LABS: Anion Gap 13.7 (5-19); Blood Urea Nitrogen 10 mg/dL (6-20); Calcium 8.3 mg/dL (8.5-10.5); Carbon Dioxide 27 mmol/L (22-29); Chloride 91 mmol/L (98-107); Creatinine Clr Calc Pharmacy 170.1108; Glucose 120 mg/dL (65-115); Magnesium 2.2 mg/dL (1.7-2.3); Osmolality Calculated 266 mOsm/kg (285-295); Potassium 3.7 mmol/L (3.5-5.1); Sodium 128 mmol/L (136-145)
--- NOTE | 2024-11-20 11:45 | PC.SOCIAL ---
*IMM no gave to patient as the patient will not be discharging in two day, patient is unable to understand IMM at this time.
[2024-11-20 12:06] LABS: Urine Random Sodium < 10 mmol/L
[2024-11-20 13:36] LABS: Anion Gap 15.2 (5-19); Blood Urea Nitrogen 11 mg/dL (6-20); Calcium 8.4 mg/dL (8.5-10.5); Carbon Dioxide 26 mmol/L (22-29); Chloride 89 mmol/L (98-107); Creatinine Clr Calc Pharmacy 170.1108; Glucose 137 mg/dL (65-115); Osmolality Calculated 264 mOsm/kg (285-295); Potassium 4.2 mmol/L (3.5-5.1); Sodium 126 mmol/L (136-145)
--- NOTE | 2024-11-20 13:57 | P.PN_ITS ---
Subjective 2 Subjective: Hospital course, labs appreciated. On examination patient comfortably in bed. Awake and alert. Denies any nausea, vomiting, headache. States he is feeling a lot better. Not feeling any dizziness or fuzzy feeling in the head anymore. Vitals/I&O/Wt Last Vital Signs Temp 98.7 F 11/20/24 12:00 Pulse 107 H 11/20/24 12:00 Resp 14 11/20/24 12:00 BP 115/69 11/20/24 12:00 Pulse Ox 95 11/20/24 12:00 O2 Del Method Room Air 11/20/24 12:00 O2 Flow Rate 1 11/19/24 20:30 11/19/24 11/20/24 11/20/24 22:59 06:59 14:59 Intake Total 30 / 499.167 148 / 735.055 7217.333 / 1223.333 Output Total 1601 / 4101 1250 / 5351 Balance -1571 / -3601.833 -1102 / -4703.833 1223.333 / 1223.333 Weight last 48 hrs Weight 82.962 kg Weight 90.265 kg Weight 92.941 kg Physical Exam 2 Narrative: General: No acute distress, AO x3 HEENT: PERRLA, pupils bilaterally equal and reactive Chest: Normal vesicular breath sounds, no added sounds, equal good air entry bilaterally CVS: S1-S2 regular, no murmurs, no tachycardia, no gallops, no rubs Abdomen: Soft, nontender, no organomegaly, bowel sounds present Neuro: No focal deficits, no facial deformity, AO x3, power 5/5 in all limbs Urinary Catheter Management: Barcenas: Cath Placed During This Visit: yes Reason for Continuing Indwelling Catheter: Accurate Measurement of Urinary Output in Critically Ill Patients Urinary Catheter Date of Insertion: 11/19/24 Data 11/20/24 07:28 11/20/24 13:06 A&P Assessment and plan 1. Seizure: History of head and neck cancer. Seizures most likely in setting of hyponatremia. Appreciate CT head results on admission. If has recurrent seizure can plan for MRI brain to rule out any metastasis. Seizure precaution. Hold off on antiseizure medications for now. 2. Hyponatremia: Most likely in setting of SIADH. History of head and neck cancer. Hold off on home dose of olanzapine. 113 on presentation. Improved to 131 within 36 hours. Concern for overcorrection. Appreciate nephrology recommendations. Continue with D5W at 100 cc/h along with DDAVP for now. Monitor sodium level every 2 hours. Once below 127 can discontinue D5W and DDAVP while monitoring BMP every 2 hours. 3. Tonsillar cancer: 4. Atrial fibrillation with RVR: Restart home dose of metoprolol 25 mg twice daily. 5. Elevated C-reactive protein: 6. Acute alteration in mental status: Plan: Full code Cardiac diet Heparin for DVT prophylaxis Protonix for PUD prophylaxis Continue chronic pain medications. Restart gabapentin. PDMP PDMP Reviewed: Not Reviewed Attestations 2 Medical Necessity Statement*: Require further hospitalization for management of acute hyponatremia leading to seizure in a patient with history of head and neck cancer with concerns for SIADH Critical Care Time: The high probability of a clinically significant, sudden or life threatening deterioration of the patient's [nephrology] system(s) required my full and direct attention, intervention and personal management. The critical care time is as shown. This time is in addition to time spent performing any reported procedures but includes the following: [x] Data and vital sign review and interpretation [x] Patient assessment, examination and intervention [x] Documentation [x] Medication orders and management Critical Care Time (min): 60 Coding Level of Care Code Critical Care >/= 30 minutes Critical care time (in minutes): 60 The high probability of a clinically significant, sudden or life threatening deterioration, as referenced in this documentation, required my full and direct attention, intervention and personal management. The critical care time shown is in addition to time spent performing any reported separately billable procedures and includes the following: [x] Data and vital sign review and interpretation [x ] Patient assessment, examination and intervention [x] Medication orders and management [x] Patient/Family updates as able [x] Care Coordination and Documentation. Diagnoses Seizure R56.9 Hyponatremia E87.1 Tonsillar cancer C09.9 Atrial fibrillation with RVR I48.91 Elevated C-reactive protein R79.82 Acute alteration in mental status R41.82
[2024-11-20 15:40] LABS: Anion Gap 14.1 (5-19); Blood Urea Nitrogen 12 mg/dL (6-20); Calcium 8.4 mg/dL (8.5-10.5); Carbon Dioxide 26 mmol/L (22-29); Chloride 91 mmol/L (98-107); Creatinine Clr Calc Pharmacy 170.1108; Glucose 118 mg/dL (65-115); Osmolality Calculated 265 mOsm/kg (285-295); Potassium 4.1 mmol/L (3.5-5.1); Sodium 127 mmol/L (136-145)
[2024-11-20 19:55] LABS: Blood Urea Nitrogen 14 mg/dL (6-20); Calcium 8.2 mg/dL (8.5-10.5); Carbon Dioxide 24 mmol/L (22-29); Chloride 89 mmol/L (98-107); Creatinine Clr Calc Pharmacy 170.1108; Glucose 105 mg/dL (65-115); Osmolality Calculated 261 mOsm/kg (285-295); Sodium 125 mmol/L (136-145)
[2024-11-20 19:58] LABS: Anion Gap 16.3 (5-19); Potassium 4.3 mmol/L (3.5-5.1)
--- NOTE | 2024-11-20 21:42 | PC.NURSE ---
Discharge order entered in error on wrong patient. Placed and stopped.
--- NOTE | 2024-11-20 23:10 | PC.NURSE ---
Addendum entered by Vanessa Madrid RN 11/20/24 23:12: Witnessed waste of morphine. Original Note: Patient refusing scheduled morphine; med has already been removed from packaging, Vanessa LEIJA witnessed waste
[2024-11-20 23:36] LABS: Blood Urea Nitrogen 12 mg/dL (6-20); Calcium 8.3 mg/dL (8.5-10.5); Carbon Dioxide 25 mmol/L (22-29); Chloride 90 mmol/L (98-107); Creatinine Clr Calc Pharmacy 212.6385; Glucose 112 mg/dL (65-115); Osmolality Calculated 259 mOsm/kg (285-295); Sodium 124 mmol/L (136-145)
[2024-11-20 23:38] LABS: Anion Gap 12.9 (5-19); Potassium 3.9 mmol/L (3.5-5.1)
[2024-11-21] VITALS (98 sets, daily range): BP systolic 71–151; BP diastolic 54–105; PULSE 70–109; RESP 9–29; TEMP 36.3–37.1; O2SAT 74–99
[2024-11-21 04:37] LABS: Hematocrit 31.8 % (37-53); Hemoglobin 10.70 g/dL (11.27-16.99); Mean Corpuscular HGB Conc 33.6 g/dL (30-55); Mean Corpuscular Hemoglobin 31.6 pg (27-33); Mean Corpuscular Volume 93.8 fl (82-101); Nucleated Red Blood Cells % 0 %; Platelet Count 172 10^3/cmm (157-399); Red Blood Count 3.39 10^6/uL (3.85-5.65); White Blood Count 2.45 10^3/uL (3.29-11.43)
[2024-11-21 04:55] LABS: Alanine Aminotransferase 41 U/L (0-41); Albumin Level 3.1 g/dL (3.5-5.2); Alkaline Phosphatase 45 U/L (40-130); Anion Gap 14.0 (5-19); Aspartate Amino Transferase 22 U/L (0-40); Blood Urea Nitrogen 11 mg/dL (6-20); Calcium 8.4 mg/dL (8.5-10.5); Carbon Dioxide 23 mmol/L (22-29); Chloride 90 mmol/L (98-107); Creatinine Clr Calc Pharmacy 212.6385; Globulin 2.9 g/dL (1.3-4.6); Glucose 105 mg/dL (65-115); Magnesium 1.8 mg/dL (1.7-2.3); Osmolality Calculated 256 mOsm/kg (285-295); Potassium 4.0 mmol/L (3.5-5.1); Sodium 123 mmol/L (136-145); Total Protein 6.0 g/dL (6.6-8.7)
--- NOTE | 2024-11-21 05:03 | PC.NURSE ---
Provider notified of amount of decrease in patients sodium levels. Provider made aware and stated the changes were acceptable and that nephrology had been consulted.
[2024-11-21] MEDS: heparin 5,000 unit/mL INJ 1 mL 5000 UNIT SUBCUT ×2 (06:17→18:11)
--- NOTE | 2024-11-21 07:44 | P.PN_ITS ---
Subjective 2 Subjective: Na trend better Medications: Reviewed: Yes Vitals/I&O/Wt Last Vital Signs Temp 97.8 F 11/20/24 20:00 Pulse 88 11/21/24 06:15 Resp 18 11/21/24 06:15 BP 99/60 11/21/24 06:15 Pulse Ox 81 L 11/21/24 06:15 O2 Del Method Room Air 11/20/24 20:00 O2 Flow Rate 1 11/19/24 20:30 11/20/24 11/21/24 11/21/24 22:59 06:59 14:59 Intake Total 592 / 1815.333 Output Total 850 / 850 375 / 1225 Balance -258 / 965.333 -375 / 590.333 Weight last 48 hrs Weight 82.962 kg Weight 82.962 kg Physical Exam 2 Narrative: awake , alert , no distress No JVD S1-S2 regular rate and rhythm Lungs with decreased breath sounds bilaterally Abdomen soft nontender Extremities no pedal edema Skin no rash Urinary Catheter Management: Barcenas: Cath Placed During This Visit: yes, but has since been removed by the nurse Reason for Continuing Indwelling Catheter: Decision to DC Catheter Urinary Catheter Date of Insertion: 11/19/24 Date Urinary Catheter Removed: 11/20/24 Time Urinary Catheter Discontinued: 16:24 Data 11/21/24 04:28 11/21/24 12:31 A&P Assessment and plan 1. Hyponatremia: Plan: 1. 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 Sodium 113 on presentation associated with seizures. Patient received 3% saline bolus of 100 mL in ER , and was placed on 30 ml /hr - Plan on every 2 hours sodium checks, - Na corrected from 121 to 128/130 yesterday, so placed on d5w for a goal of 125-126 , and s/p DDAVP --> now Na dropped to 123 --> added salt tabs and fluid restriction and will follow Na levels 2. Status post seizures, likely from low sodium, status post Keppra and Ativan and correcting sodium 3. Head and neck cancer status post recent radiation 4. AMS : Improved today Patient evaluated using audiovisual cart. Time spent 40 minutes. PDMP PDMP Reviewed: Not Reviewed Attestations 2 Medical Necessity Statement*: per medicine Coding Level of Care Code Acute Code for Chg Fwd Diagnoses Hyponatremia E87.1
[2024-11-21] MEDS: albumin 25 G/100 ML BAG 60 G IV (08:44)
[2024-11-21 10:47] LABS: Anion Gap 13.8 (5-19); Blood Urea Nitrogen 10 mg/dL (6-20); Calcium 8.6 mg/dL (8.5-10.5); Carbon Dioxide 26 mmol/L (22-29); Chloride 92 mmol/L (98-107); Creatinine Clr Calc Pharmacy 170.1108; Glucose 101 mg/dL (65-115); Osmolality Calculated 265 mOsm/kg (285-295); Potassium 3.8 mmol/L (3.5-5.1); Sodium 128 mmol/L (136-145)
--- NOTE | 2024-11-21 11:39 | P.PN_ITS ---
Subjective 2 Subjective: No acute vents overnight. Seen with caregiver at bedside. Sitting up in chair today. Denies any nausea, vomiting, headache. States feeling a lot better. Blood pressures occasionally soft. Medications: Reviewed: Yes Vitals/I&O/Wt Last Vital Signs Temp 97.8 F 11/20/24 20:00 Pulse 88 11/21/24 06:15 Resp 18 11/21/24 06:15 BP 99/60 11/21/24 06:15 Pulse Ox 81 L 11/21/24 06:15 O2 Del Method Room Air 11/20/24 20:00 O2 Flow Rate 1 11/19/24 20:30 11/20/24 11/21/24 11/21/24 22:59 06:59 14:59 Intake Total 592 / 1815.333 Output Total 850 / 850 375 / 1225 Balance -258 / 965.333 -375 / 590.333 Weight last 48 hrs Weight 82.962 kg Weight 82.962 kg Physical Exam 2 Narrative: General: No acute distress, AO x3 HEENT: PERRLA, pupils bilaterally equal and reactive Chest: Normal vesicular breath sounds, no added sounds, equal good air entry bilaterally CVS: S1-S2 regular, no murmurs, no tachycardia, no gallops, no rubs Abdomen: Soft, nontender, no organomegaly, bowel sounds present Neuro: No focal deficits, no facial deformity, AO x3, power 5/5 in all limbs Urinary Catheter Management: Barcenas: Cath Placed During This Visit: yes, but has since been removed by the nurse Reason for Continuing Indwelling Catheter: Decision to DC Catheter Urinary Catheter Date of Insertion: 11/19/24 Date Urinary Catheter Removed: 11/20/24 Time Urinary Catheter Discontinued: 16:24 Data 11/21/24 04:28 11/21/24 10:00 A&P Assessment and plan 1. Seizure: History of head and neck cancer. Seizures most likely in setting of hyponatremia. Appreciate CT head results on admission. If has recurrent seizure can plan for MRI brain to rule out any metastasis. Seizure precaution. Hold off on antiseizure medications for now. 2. Hyponatremia: Most likely in setting of SIADH. History of head and neck cancer. Hold off on home dose of olanzapine. 113 on presentation. Overcorrected to 131 over 36 hrs. Trending down to 123 today. Appreciate nephrology recommendations. Hold off on D5W and DDAVP. Continue with salt tablets 3 times daily, fluid restriction. Blood pressure soft so would not be able to give Lasix. Repeat BMP every 4-6 hours as per nephrology. 3. Hypotension: Unknown cause. Goal blood pressure less than 140/90 mmHg with mean over 65. Check cortisol level. Patient asymptomatic. Appropriate urine output and renal functions. Continue to monitor. Decrease metoprolol to 12.5 mg twice daily. Change morphine from standing to as needed. 4. Atrial fibrillation with RVR: Change metoprolol 12.5 mg twice daily. 5. Elevated C-reactive protein: 6. Acute alteration in mental status: 7. Tonsillar cancer: Plan: Full code Cardiac diet Heparin for DVT prophylaxis Protonix for PUD prophylaxis Continue chronic pain medications. Restart gabapentin. PDMP PDMP Reviewed: Not Reviewed Attestations 2 Medical Necessity Statement*: Requires further hospitalization for management of acute symptomatic hyponatremia leading to seizure disorder Diagnoses Seizure R56.9 Hyponatremia E87.1 Hypotension I95.9 Atrial fibrillation with RVR I48.91 Elevated C-reactive protein R79.82 Acute alteration in mental status R41.82 Tonsillar cancer C09.9
[2024-11-21 12:52] LABS: Anion Gap 13.7 (5-19); Blood Urea Nitrogen 12 mg/dL (6-20); Calcium 8.9 mg/dL (8.5-10.5); Carbon Dioxide 27 mmol/L (22-29); Chloride 92 mmol/L (98-107); Creatinine Clr Calc Pharmacy 170.1108; Glucose 97 mg/dL (65-115); Osmolality Calculated 268 mOsm/kg (285-295); Potassium 3.7 mmol/L (3.5-5.1); Sodium 129 mmol/L (136-145)
--- NOTE | 2024-11-21 18:38 | PC.NURSE ---
Addendum entered by Jean Cervantes RN 11/21/24 18:41: Placed on fluid restriction of 1 liter. Has remained compliant so far, 680mL in during day shift, leaving 320mL for overnight. Original Note: Shift Summary: Uneventful shift. Up to a chair for most of the day. Sodium has increased from 123 at 0400 up to 129 at noon. BMP was just drawn at the time of this note (1844). Patient has been a difficult stick making getting timely BMPs difficult. NUrsing staff has frequently needed to use ultrasound to get blood sample. Mental status is alert and oriented to person, place, time, and situation.
[2024-11-21 19:35] LABS: Anion Gap 16.1 (5-19); Blood Urea Nitrogen 13 mg/dL (6-20); Calcium 8.7 mg/dL (8.5-10.5); Carbon Dioxide 25 mmol/L (22-29); Chloride 96 mmol/L (98-107); Creatinine Clr Calc Pharmacy 170.1108; Glucose 109 mg/dL (65-115); Osmolality Calculated 277 mOsm/kg (285-295); Potassium 4.1 mmol/L (3.5-5.1); Sodium 133 mmol/L (136-145)
--- NOTE | 2024-11-21 19:43 | PC.NURSE ---
630 Sodium resulted at 133 up from 129, called Dr Mcgee who gave telephone orders to hold 2100 Sodium tab. MAY reflected to show orders
[2024-11-21 23:06] LABS: Anion Gap 16.1 (5-19); Blood Urea Nitrogen 13 mg/dL (6-20); Calcium 8.7 mg/dL (8.5-10.5); Carbon Dioxide 25 mmol/L (22-29); Chloride 96 mmol/L (98-107); Creatinine Clr Calc Pharmacy 170.1108; Glucose 114 mg/dL (65-115); Osmolality Calculated 277 mOsm/kg (285-295); Potassium 4.1 mmol/L (3.5-5.1); Sodium 133 mmol/L (136-145)
[2024-11-22] VITALS (15 sets, daily range): BP systolic 94–133; BP diastolic 59–85; PULSE 81–122; RESP 11–59; TEMP 36.5–36.9; O2SAT 92–98
[2024-11-22 03:29] LABS: Anion Gap 15.0 (5-19); Blood Urea Nitrogen 13 mg/dL (6-20); Calcium 8.8 mg/dL (8.5-10.5); Carbon Dioxide 27 mmol/L (22-29); Chloride 96 mmol/L (98-107); Creatinine Clr Calc Pharmacy 212.6385; Glucose 102 mg/dL (65-115); Osmolality Calculated 278 mOsm/kg (285-295); Potassium 4.0 mmol/L (3.5-5.1); Sodium 134 mmol/L (136-145)
[2024-11-22] MEDS: heparin 5,000 unit/mL INJ 1 mL 5000 UNIT SUBCUT (05:45)
[2024-11-22 06:36] LABS: Hematocrit 31.4 % (37-53); Hemoglobin 10.50 g/dL (11.27-16.99); Mean Corpuscular HGB Conc 33.4 g/dL (30-55); Mean Corpuscular Hemoglobin 31.4 pg (27-33); Mean Corpuscular Volume 94.0 fl (82-101); Nucleated Red Blood Cells % 0 %; Platelet Count 205 10^3/cmm (157-399); Red Blood Count 3.34 10^6/uL (3.85-5.65); White Blood Count 2.98 10^3/uL (3.29-11.43)
[2024-11-22 06:57] LABS: Alanine Aminotransferase 37 U/L (0-41); Albumin Level 3.4 g/dL (3.5-5.2); Alkaline Phosphatase 48 U/L (40-130); Anion Gap 15.0 (5-19); Aspartate Amino Transferase 19 U/L (0-40); Blood Urea Nitrogen 11 mg/dL (6-20); Calcium 8.9 mg/dL (8.5-10.5); Carbon Dioxide 27 mmol/L (22-29); Chloride 97 mmol/L (98-107); Creatinine Clr Calc Pharmacy 212.4855; Globulin 3.1 g/dL (1.3-4.6); Glucose 104 mg/dL (65-115); Osmolality Calculated 280 mOsm/kg (285-295); Potassium 4.0 mmol/L (3.5-5.1); Sodium 135 mmol/L (136-145); Total Protein 6.5 g/dL (6.6-8.7)
--- NOTE | 2024-11-22 06:58 | PM.PN ---
Subjective Subjective: The patient feels well. The patient denies nausea vomiting fevers chills itching cramps or diarrhea no further seizures. Medications: Reviewed: Yes Medication Review Details: Current Medications Acetaminophen (Acetaminophen 325 Mg Tablet) 650 mg PO Q6H PRN PRN Reason: Mild/Mod Pain Or Temp >/= 101 Docusate Sodium (Docusate Sodium 100 Mg Capsule) 100 mg PO BID [facility] Last Admin: 11/21/24 18:09 Dose: 100 mg Fentanyl (Fentanyl 12 Mcg Patch) 1 patch TRANSDERMA Q72H [facility] Gabapentin (Gabapentin 300 Mg Capsule) 300 mg PO BID [facility] Last Admin: 11/21/24 18:09 Dose: 300 mg Heparin Sodium (Porcine) (Heparin 5,000 Unit/Ml Inj 1 Ml) 5,000 unit SUBCUT Q12H [facility] Last Admin: 11/22/24 05:45 Dose: 5,000 unit Metoprolol Tartrate (Metoprolol Tartrate 25 Mg Tablet) 12.5 mg PO BID@0900,2100 [facility] Last Admin: 11/21/24 20:34 Dose: 12.5 mg Morphine Sulfate (Morphine Ir 15 Mg Tablet) 15 mg PEG-TUBE Q6H PRN PRN Reason: pain Pantoprazole Sodium (Pantoprazole Dr 40 Mg Tablet) 40 mg PO DAILY [facility] Last Admin: 11/21/24 08:42 Dose: 40 mg Sodium Chloride (Sodium Chloride 1 Gm Tablet) 1 gm PO TID [facility] Vitals/I&O/Wt Last Vital Signs Temp 97.7 F 11/22/24 05:00 Pulse 113 H 11/22/24 06:00 Resp 12 11/22/24 05:00 BP 112/63 11/22/24 05:00 Pulse Ox 95 11/22/24 04:00 O2 Del Method Room Air 11/22/24 04:00 O2 Flow Rate 1 11/19/24 20:30 11/21/24 11/21/24 11/22/24 14:59 22:59 06:59 Intake Total 200 / 200 680 / 880 Output Total 800 / 800 400 / 1200 Balance -600 / -600 280 / -320 Weight last 48 hrs Weight 82.826 kg Weight 82.962 kg Physical Exam Narrative: The patient is comfortable in bed no apparent distress vital signs noted. Blood pressure remains low and he is mildly tachycardic. HEENT normal cephalic atraumatic. Neck is supple no JVP no carotid bruits. Lungs are clear to auscultation. Heart is irregular irregular without rubs or gallops. Abdomen soft positive bowel sounds extremities no edema Neuro awake and interactive Urinary Catheter Management: Barcenas: Cath Placed During This Visit: yes, but has since been removed by the nurse Reason for Continuing Indwelling Catheter: Decision to DC Catheter Urinary Catheter Date of Insertion: 11/19/24 Date Urinary Catheter Removed: 11/20/24 Time Urinary Catheter Discontinued: 16:24 Data 11/21/24 04:28 11/22/24 06:29 A&P Assessment and plan 1. Hyponatremia: 59-year-old gentleman with history of head and neck cancer status posttreatment. Patient presented with a seizure and symptomatic hyponatremia. Sodium is improving. Patient's urine sodium was low which is more consistent with prerenal azotemia or significant water intake. At this time I will decrease his salt tablets continue to fluid restrict the patient and monitor chemistries. If this serum sodium drops further can repeat urine electrolytes including osmolality and creatinine. Given history of head and neck cancer please have patient follow-up with his oncologist. Patient was seen and examined with the aid of a nurse using A/V equipment. The patient consented to telehealth. Plan: Free water restrict and decrease salt tablets PDMP PDMP Reviewed: Not Reviewed Attestations Medical Necessity Statement*: Per hospitalist Time Spent in Patient Care: 16 - 35 minutes (>than 50% of time spent in counselling and/or direct pt care on unit). Coding Level of Care Code Acute Code for [facility] Diagnoses Hyponatremia E87.1
[2024-11-22 07:07] LABS: Magnesium 1.7 mg/dL (1.7-2.3)
[2024-11-22 07:43] LABS: Slide Review Slide Review Perform
--- NOTE | 2024-11-22 09:16 | P.DS_ITS ---
Discharge Providers Date of Admission: 11/19/24 04:10 Date of Discharge: November 22, 2024 Attending Provider at Admission: Caren Almaguer MD Attending Provider at Discharge: Papito Hernandez MD Consults: Telemetry nephrology Diagnoses at Discharge Discharge Diagnosis 1. Hyponatremia: Reason for Visit Reason for Visit: SEIZURE Brief History: Per HPI: Harshal Hinson is a 59 year old male with a history of head and neck cancer and had completed treatment a week and a half ago for 7 rounds of radiation. Patient is at this time had presented with sodium of 113 and had seizure twice today. Patient had being started on hypertonic fluid of 100 mL x 2 Chemistry with BMP is every 2 hours. Serum sodium of 113 had increased to 116. Patient is en route to ICU Nephrology consulted because of hyponatremia with seizure. He is doing much better and did not have any further seizure episode. Patient received Keppra will continue with Keppra at this time. Hospital Course Hospital Course Patient was admitted to the hospital further evaluation and management of acute symptomatic hyponatremia leading to seizures. He was treated with 3% saline. Nephrology was consulted. 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 His hospitalization was prolonged and complicated by overcorrection of sodium on day 1 which was managed accordingly. His sodium levels since then have been gradually improving. Patient is back to his baseline mentation. Has not had any further seizure after improvement in sodium levels. He has been discharged in hemodynamically stable condition on oral salt tablet 1 g daily with advised to hold off on olanzapine, continue with fluid restriction to less than 1500 cc and to follow-up with his PCP within next 2 to 3 days with a repeat sodium level. Physical Exam Narrative: General: No acute distress, AO x3 HEENT: PERRLA, pupils bilaterally equal and reactive Chest: Normal vesicular breath sounds, no added sounds, equal good air entry bilaterally CVS: S1-S2 regular, no murmurs, no tachycardia, no gallops, no rubs Abdomen: Soft, nontender, no organomegaly, bowel sounds present Neuro: No focal deficits, no facial deformity, AO x3, power 5/5 in all limbs Urinary Catheter Management: Barcenas: Cath Placed During This Visit: yes, but has since been removed by the nurse Reason for Continuing Indwelling Catheter: Decision to DC Catheter Urinary Catheter Date of Insertion: 11/19/24 Date Urinary Catheter Removed: 11/20/24 Time Urinary Catheter Discontinued: 16:24 Discharge Data Studies Completed and Pending Completed Studies During Hospitalization Category Date Time Status CT head w con [id number] Stat Cat Scan 11/19/24 00:57 Completed XR chest 1V portable [id number] Stat Exams 11/19/24 00:58 Completed Pending at discharge Category Date Time Status BMP [Basic Metabolic Panel] Q4HR Lab 11/22/24 12:00 Ordered Comprehensive Metabolic Panel AM LABS Lab 11/23/24 04:00 Ordered Comprehensive Metabolic Panel AM LABS Lab 11/24/24 04:00 Ordered Comprehensive Metabolic Panel AM LABS Lab 11/25/24 04:00 Ordered MAG [Magnesium] AM LABS Lab 11/23/24 04:00 Ordered Osmolality Urine Urgent Lab 11/20/24 10:44 Received Uric Acid AM LABS Lab 11/23/24 04:00 Ordered Radiology Impressions Head CT 11/19/24 00:57 IMPRESSION: No evidence of acute intracranial hemorrhage, mass effect, or edema. No pathologic enhancement. Chest X-Ray 11/19/24 00:58 IMPRESSION: No acute cardiopulmonary abnormality. Laboratory Results WBC 2.98 10^3/uL (3.29-11.43) L 11/22/24 06:29 Corrected WBC Cancelled 11/20/24 05:08 RBC 3.34 10^6/uL (3.85-5.65) L 11/22/24 06:29 Hgb 10.50 g/dL (11.27-16.99) L 11/22/24 06:29 Hct 31.4 % (37-53) L 11/22/24 06:29 MCV 94.0 fl (82-101) 11/22/24 06:29 MCH 31.4 pg (27-33) 11/22/24 06:29 MCHC 33.4 g/dL (30-55) 11/22/24 06:29 RDW 21.4 % (12.1-15.1) H 11/22/24 06:29 Plt Count 205 10^3/cmm (157-399) 11/22/24 06:29 MPV 9.3 fL (7.4-10.4) 11/22/24 06:29 Gran % Cancelled 11/20/24 05:08 Neut % (Auto) 63.4 % 11/22/24 06:29 Lymph % (Auto) 12.8 % 11/22/24 06: [place] % (Auto) 16.4 % 11/22/24 06: Eos % (Auto) 0.7 % 11/22/24 06: Baso % (Auto) 0.7 % 11/22/24 06: Neut # (Auto) 1.89 10^3/uL (1.8-7.7) 11/22/24 06: Lymph # (Auto) 0.4 10^3/uL (0.8-4.8) L 11/22/24 06: [place] # (Auto) 0.5 10^3/uL (0.2-0.9) 11/22/24 06: Eos # (Auto) 0.0 10^3/uL (0.0-0.8) 11/22/24 06: Baso # (Auto) 0.0 10^3/uL (0.0-0.1) 11/22/24 06: Absolute Gran (auto) Cancelled 11/20/24 05:08 Nucleated RBC % (auto) 0 % 11/22/24 06: Nucleated RBCs # 0.0 /100WBC 11/22/24 06: PT 12.10 SECONDS (12.1-14.9) 11/19/24 01:18 INR 0.83 (0.8-1.2) 11/19/24 01:18 APTT 24.3 SECONDS (23.9-36.7) 11/19/24 01:18 Specimen Type Arterial 11/19/24 02:00 Sample Site Brachial, right 11/19/24 02:00 ABG pH 7.36 (7.35-7.45) 11/19/24 02:00 ABG pCO2 34.3 mmHg (35-45) L 11/19/24 02:00 ABG pO2 107.0 mmHg (80.0-100.0) H 11/19/24 02:00 ABG HCO3 19.3 mmol/L (22-26) L 11/19/24 02:00 ABG Base Excess -5.5 mmol/L (-2.0-2.0) L 11/19/24 02:00 Javier Test N/a 11/19/24 02:00 Hematocrit 37.7 % (42-52) L 11/19/24 02:00 O2 Delivery Device Nc 11/19/24 02:00 O2 Liters/Min 2.0 % 11/19/24 02:00 Content Writer ID [email or web address] 11/19/24 02:00 Sodium 135 mmol/L (136-145) L 11/22/24 06:29 Potassium 4.0 mmol/L (3.5-5.1) 11/22/24 06:29 Chloride 97 mmol/L (98-107) L 11/22/24 06:29 Carbon Dioxide 27 mmol/L (22-29) 11/22/24 06:29 Anion Gap 15.0 (5-19) 11/22/24 06:29 BUN 11 mg/dL (6-20) 11/22/24 06:29 Creatinine 0.4 mg/dL (0.7-1.2) L 11/22/24 06:29 GFR Calculation 220.2 mL/min (90-130) H 11/22/24 06:29 Glucose 104 mg/dL (65-115) 11/22/24 06:29 Estimat Average Glucose 128 11/19/24 06:22 Hemoglobin A1c 6.1 % (4.0-6.0) H 11/19/24 06:22 Calculated Osmolality 280 mOsm/kg (285-295) L 11/22/24 06:29 Lactic Acid 1.9 mmol/L (0.5-2.2) 11/19/24 01:18 Calcium 8.9 mg/dL (8.5-10.5) 11/22/24 06:29 Magnesium 1.7 mg/dL (1.7-2.3) 11/22/24 06:29 Iron 51 ug/dL (59-158) L 11/19/24 08:31 TIBC 285 mcg/dl 11/19/24 08:31 % Saturation 17.8 % (20-50) L 11/19/24 08:31 Unsat Iron Binding 234 ug/dL (112-347) 11/19/24 08:31 Total Bilirubin 0.3 mg/dL (0.15-1.2) 11/22/24 06:29 AST 19 U/L (0-40) 11/22/24 06:29 ALT 37 U/L (0-41) 11/22/24 06:29 Alkaline Phosphatase 48 U/L (40-130) 11/22/24 06:29 Creatine Kinase 55 U/L (39-308) 11/19/24 01:18 C-Reactive Protein 83.6 mg/L (0.0-4.9) H 11/19/24 01:18 Total Protein 6.5 g/dL (6.6-8.7) L 11/22/24 06:29 Albumin 3.4 g/dL (3.5-5.2) L 11/22/24 06:29 Globulin 3.1 g/dL (1.3-4.6) 11/22/24 06:29 Vitamin B12 641 pg/mL (232-1245) 11/19/24 08:31 Folate > 20.0 ng/mL (4.5-32.2) 11/20/24 05:08 Procalcitonin 0.19 ng/mL (0-0.5) 11/19/24 08:31 TSH 1.22 uIU/mL (0.27-4.20) 11/19/24 10:12 Random Cortisol 7.46 ug/dL (2.47-19.5) 11/21/24 04:28 Urine Color Yellow (Yellow) 11/19/24 02:13 Urine Appearance Clear (CLEAR) 11/19/24 02:13 Urine pH 8.5 (5-7) A 11/19/24 02:13 Ur Specific [place] 1.022 (1.005-1.030) 11/19/24 02:13 Urine Protein Negative (Negative) 11/19/24 02:13 Urine Glucose (UA) Trace (Normal) H 11/19/24 02:13 Urine Ketones Trace (Negative) 11/19/24 02:13 Urine Blood Negative (Negative) 11/19/24 02:13 Urine Nitrate Negative (Negative) 11/19/24 02:13 Urine Bilirubin Negative (Negative) 11/19/24 02:13 Urine Urobilinogen 0.2 mg/dL (Negative) 11/19/24 02:13 Ur Leukocyte Esterase Negative (Negative) 11/19/24 02:13 Urine RBC 0-2 /hpf (0-2) 11/19/24 02:13 Urine WBC 0-5 /hpf (0-5) 11/19/24 02:13 Ur Squamous Epith Cells 0-5 /hpf (0-5) 11/19/24 02:13 Amorphous Sediment Not Reportable 11/19/24 02:13 Urine Bacteria None seen /hpf (NONE) 11/19/24 02:13 Hyaline Casts 2.87 /lpf 11/19/24 02:13 Ur Random Sodium < 10 mmol/L 11/20/24 10:44 Urine Opiates Screen Positive ng/mL (Negative) H 11/19/24 02:13 Ur Barbiturates Screen Negative ng/mL (Negative) 11/19/24 02:13 Ur Phencyclidine Scrn Negative ng/mL (Negative) 11/19/24 02:13 Ur Amphetamines Screen Negative ng/mL (Negative) 11/19/24 02:13 U Benzodiazepines Scrn Negative ng/mL (Negative) 11/19/24 02:13 Urine Cocaine Screen Negative ng/mL (Negative) 11/19/24 02:13 U Marijuana (THC) Screen Positive ng/mL (Negative) H 11/19/24 02:13 Ethyl Alcohol < 10 mg/dL (0-10) 11/19/24 01:18 Vitals Last Vital Signs Temp 97.7 F 11/22/24 05:00 Pulse 113 H 11/22/24 06:00 Resp 12 11/22/24 05:00 BP 112/63 11/22/24 05:00 Pulse Ox 95 11/22/24 04:00 O2 Del Method Room Air 11/22/24 04:00 O2 Flow Rate 1 11/19/24 20:30 Discharge Plan Discharge Patient Disposition: Home Condition: Critical Prescriptions: New sodium chloride 1,000 mg Tablet,Soluble 1,000 mg PO DAILY Qty: 14 0RF Continued fluconazole 100 mg tablet 100 mg PO DAILY ondansetron HCl 8 mg tablet 8 mg PO Q8H PRN (Reason: Nausea And Vomiting) morphine 15 mg tablet 15 mg PO Q4H PRN (Reason: Pain) fentanyl 12 mcg/hr patch 72 hour 12 mcg topical Q72H nystatin 100,000 unit/mL suspension 5 ml PO Q4H gabapentin 300 mg capsule 300 mg PO BID ibuprofen [Advil] 200 mg Tablet 800 mg PO Q6H PRN (Reason: Pain) acetaminophen 160 mg/5 mL Liquid 500 mg PO Q6H PRN (Reason: Pain) Rx Instructions: TAKE 31.25 MG PO EVERY 6 HOURS NEEDED metoprolol tartrate 25 mg Tablet 25 mg PO BID@0900,2100 Qty: 180 0RF Held olanzapine 5 mg tablet 5 mg PO DAILY Hold Instructions: Resume on 12/13/24. Discontinued dexamethasone 4 mg tablet 4 mg PO BID Discharge Order = DC NOW: Discharge Order (Routine); Ordered 11/22/24 Ordered By: Papito Hrenandez Referrals: Sandy Mclain NP [Nurse Practitioner, Family Practice] Jackie Cedeño DO [Physician, Family Practice] - 11/24/24 9:15 am Referral Note: will follow with this visit ,will need lab at this to check sodium level,then will resume care with Sandy Mclain APN nurse . appointment at 09:15 please arrive at 09:00 am please! Discharge Diet: Regular Discharge Activity: Resume usual activity and Increase activity as tolerated Patient Instructions: Sodium Chloride (By mouth), Hyponatremia (DC), How to Take a Blood Pressure Reading (DC), Fluid Restriction (DC), Altered Mental Status (GEN), Opioid Safety, Patient Portal & [facility] Instructions Activity Restrictions/Additional Instructions: Continue to restrict your fluid intake to less than 50 ounces every day. Take salt tablet 1 g daily. Repeat sodium level with your PCP within next 3 days. Do not take olanzapine for now. Check your blood pressure daily at home and maintain a blood pressure diary. Goal blood pressure is between 100-140 systolics. Follow-up with your primary care provider within next 1 week with a blood pressure diary. Discharge Attestations Time Spent in Discharge Care*: greater than 30 min Specific Discharge Activities: educating patient, educating and/or supporting family/caregiver, discussing with pcp/other providers, discussing with packaging inspector/social workers/dc planners, documenting/other paperwork and evaluating patient/reviewing data Status at Discharge: Cognitive status at discharge: cognitively intact , Behavioral status at discharge: cooperative , Functional status at discharge: independent ambulation , Overall status at discharge: patient is back to baseline Quality Metrics Clinical Quality Measures [ No reported AMI, CVA or VTE this stay] Coding Level of Care Code 53919 Total time (in minutes) for Discharge: 65 Diagnoses Hyponatremia E87.1
[2024-11-22 11:27] LABS: Anion Gap 15.9 (5-19); Blood Urea Nitrogen 11 mg/dL (6-20); Calcium 9.2 mg/dL (8.5-10.5); Carbon Dioxide 28 mmol/L (22-29); Chloride 96 mmol/L (98-107); Creatinine Clr Calc Pharmacy 141.6570; Glucose 107 mg/dL (65-115); Osmolality Calculated 282 mOsm/kg (285-295); Potassium 3.9 mmol/L (3.5-5.1); Sodium 136 mmol/L (136-145)
--- NOTE | 2024-11-22 13:57 | PC.NURSE ---
Discharge. Patient discharged at 1330. Accompanied by girlfriend. New prescriptions sent to [facility]. Education provided on new medications, discontinued medications, and fluid restriction. IV removed. patient signature form signed.
== END 2024-11-22 13:30 | disposition home or self-care (01) | DRG 645 ==
LOC: ER 02:55 → ICU 04:38
PROVIDERS: Hospitalist; Student in an Organized Health Care Education/Training Program; Admitting Provider Internal Medicine; Emergency Provider Emergency Medicine; Visit Provider Student in an Organized Health Care Education/Training Program
DX: E22.2 Syndrome of inappropriate secretion of antidiuretic hormone (principal); R56.9 Unspecified convulsions; C09.9 Malignant neoplasm of tonsil, unspecified; R51.9 Headache, unspecified; K59.03 Drug induced constipation; T40.605A Adverse effect of unspecified narcotics, initial encounter; I48.91 Unspecified atrial fibrillation; R41.82 Altered mental status, unspecified; Z92.3 Personal history of irradiation; Z92.21 Personal history of antineoplastic chemotherapy; Z87.891 Personal history of nicotine dependence
CPT/HCPCS: 36415; 36600; 51702; 51798; 70460; 71045; 80048; 80053; 80306; 80307; 81001; 82533; 82550; 82607; 82746; 82803; 83036; 83540; 83550; 83605; 83735; 83935; 84145; 84300; 84443; 85025; 85610; 85730; 86140; 93005; 96365; 96367; 96372; 96375; 99291; J1644; J1953; J2060; J2597; J3475; J3480; J7030; J7070; J7131; J9999; P9046; Q3014

== ENCOUNTER → 2024-11-24 09:53 | Outpatient (BNVA) | payer OTHER, SELFPAY | PROVIDERS: PCP Family Medicine; Visit Provider Family Medicine | DX: E87.1 Hypo-osmolality and hyponatremia (principal) | CPT/HCPCS: 80053 ==

== ENCOUNTER 2024-12-04 09:21 | Emergency (ER) | payer OTHER, SELFPAY ==
--- OUTSIDE RECORDS SUMMARY | 2024-11-29 11:45 | XMS_ITS | Encounter Summary ---
Author Organization [facility] Address 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 This encounter was completed via two-way synchronous audio and video communication. [facility] SUPPORTIVE AND PALLIATIVE CARE OUTPATIENT OFFICE FOLLOW UP PATIENT: Harshal Hinson Date of : 1965 Primary Care Physician: No primary care provider on file. No chief complaint on file. SHORT HISTORY: Harshal Hinson is a 59 y.o. 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 CT done concerning for fluid collection, abscess. Managed with I&D 02/2024. Symptoms persisted. 02/27/2024 CT Soft tissue neck 1. A 6.0 x 3.8 x 5.2 cm complex fluid collection in the lateral right neck likely represents an abscess. 2. A drainage catheter in the lateral right neck is located either within or immediately alongside the complex fluid collection. 3. Mild cervical lymphadenopathy. 4. Bilateral carotid artery disease. 5. Dliz-ai-zwojlntb degenerative changes of the cervical spine. 07/05/2024 FNA A. Right neck, fine-needle aspiration - Atypical cells present, see comment 07/11/2024 FNA A. Right neck mass, fine-needle aspiration and cell block - POSITIVE FOR MALIGNANCY - Metastatic squamous cell carcinoma, p16 positive 07/20/2024 CT Soft tissue neck: Solid and cystic/necrotic mass in the right neck and adjacent surgical clips, overall decreased in size compared to the 02/27/2024 exam. Aggregate metastatic lymphadenopathy is favored considering the history and reported biopsy results. Few additional small bilateral cervical lymph nodes, nonspecific. 07/25/2024 PET 1. Extensive hypermetabolic brown fat uptake within the posterior triangles of the neck and the chest which does limit evaluation. There is redemonstration of a dominant hypermetabolic centrally necrotic layo metastasis of the right level II/III level. There are additional scattered small hypermetabolic lymph nodes within bilateral cervical levels II-V which are indeterminate and are favored to be reactive, soft tissue sampling would be needed to fully exclude additional layo metastasis. 2. Hypermetabolism of the bilateral palatine tonsils, greater on the right. No additional mucosal hypermetabolism of the neck. A right tonsillar primary is leading consideration, direct visualizationrecommended. 3. No definitive metastatic disease within the chest, abdomen or pelvis. Dependent atelectasis which partially obscures a pulmonary nodule left lower lobe which is indeterminate. A follow-up CT chestin 6-8 weeks with prone imaging recommended for reevaluation of this nodule. 07/27/2024 biopsy A. Hypopharynx, biopsy - no tumor identified. / B. Base of tongue, right, biopsy - no tumor identified. / C. Nasopharynx, midline, biopsy - no tumor identified. / D. Tonsil, right, biopsy - squamous cell carcinoma, HPV-associated - tumor in this biopsy measures approximately 0.5 cm in greatest dimension. / E. Tonsil, right, resection - tonsil with no residual carcinoma identified. / F. Tonsil, left, excision - no tumor identified. Advanced Directive/DPOA: No Advance Care Plan Completed: no, Reviewed with patient/ family Review of Systems Constitutional: Negative. HENT: Positive for sore throat. Eyes: Negative. Respiratory: Negative. Cardiovascular: Negative. Gastrointestinal: PEG Genitourinary: Negative. Musculoskeletal: Positive for neck pain. Skin: Negative. Neurological: Negative. Psychiatric/Behavioral: The patient has insomnia. [place] Symptom Assessment Scale (ESAS-r) Pain: 5 (11/29/241099) Tiredness: 7 (11/29/241099) Drowsiness: 5 (11/29/241099) Nausea: 0 - no nausea (11/29/241099) Lack of Appetite: 7 (11/29/241099) Shortness of Breath: 0 - normal respiration with no distress (11/29/241099) Depression: 0 - no symptom(s) of depression (11/29/241099) Anxiety: 0 - no signs or symptoms of anxiety (11/29/241099) [place] (11/29/241099) Other - Constipation: 0 - no constipation (11/29/241099) Completed by: Patient (11/29/241099) PHQ-2 & PHQ-9 Little interest or pleasure in doing things: Not at all (11/29/241099) Feeling down, depressed, or hopeless: Not at all (11/29/241099) PHQ-2 Total: 0 (11/29/241099) SUBJECTIVE: Patient seen via video visit Reviewed events since last visit Reports being hospitalized for hyponatremia (113) in [place] (11/18-11/22) Prior to this he stopped taking his opioids (fentanyl and oxycodone) due to the way the pills madehim feel and constipation He denies pain at this time, no longer taking opioids Now on fluid restriction and sodium tablets Continues to have thrush intermittently, completed diflucan Nystatin previously prescribed for continued symptoms Denies constipation Overall feeling well Fair appetite - although taste is altered He is hopeful to return to work in December Wt Readings from Last 5 Encounters: 11/08/24 88.5 kg (195 lb) 11/06/24 87.3 kg (192 lb 6.4 oz) 11/06/24 87.1 kg (192 lb) 11/02/24 85.7 kg (189 lb) 11/01/24 86.8 kg (191 lb 6.4 oz) ASSESSMENT/PLAN Primary diagnosis: 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 Treatment Plan: primary chemoradiation. Cisplatin + XRT, start 09/20/24 Watch for adverse effects / toxicities of treatment Watch for symptoms related to cancer progression / burden Follow treatment plan PPS 80-90% Pain generators: Cancer related pain - moderate neck pain Symptoms related to treatment - neuropathy, radiation mucositis, dry mouth Comorbidity related pain- none ~ Pain is subjectively satisfactorily controlled ~ Is able to function with activities of daily living ~ No adverse effects reported ~ No aberrant drug taking noted Opioid Screening Tool: yes 6pts MOD risk Current regimen: Not currently taking medications Previously Prescribed: IR 15 mg Fentanyl 12mcg patch Apap 500mg prn Plan: -Tonsillar CA. started treatment on 09/20/24, scheduled last chemo 10/26/24, scheduled last XRT 11/08/24 - pain resolved, denies at this time - no longer using opioids --> discussed storing these in a safe place/out of reach/etc. 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 Next visit, increase further if needed Thrush Dry mouth - nystatin swish and swallow QID x 14 days - oral hygiene discussed. Salt + soda rinses. - did not tolerate Biotene due to taste. Did not tolerate viscous lidocaine d/t consistency Cancer fatigue: Multifactorial: Cancer, cancer treatment, anemia, pain, anxiety/stress/depression, lack of sleep, nutrition, medication, lack of exercise, hormonal agents Nutrition: Goal caloric intake to 2200-2500kcal, 105-120 g protein. --> PEG placed 09/06, following with oncology nutrition, currently with good oral intake Supplements with protein shakes Pain: monitor pain level Activity as tolerated. 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 He intends to continue working as able Depression: Depression Screen Positive: PHQ-2 score >= 3 or PHQ-9 score >= 9 PHQ-2 Total: 0 (11/29/2024 11:00 AM) In the past few weeks, have you had thoughts that you would be better off or have you ever prepared or tried to end your life?: No (11/29/2024 11:00 AM) DEPRESSION PLAN OF CARE His depression screen was negative. (PHQ2 <3, PHQ9 <10, [place] <11) Advanced care planning Discussed. He states he has no family in the area. Closest friend is Zohaib, listed as his emergencycontact. Ex-girlfriend will be helping him at home after treatment completion Return in about 6 weeks (around 01/10/2025). Current Outpatient Medications Medication Sig Dispense Refill nystatin (MYCOSTATIN) 100,000 unit/mL suspension Take 5 mL (500,000 Units) by mouth 4 times daily. Swish around, retain as long as possible then swallow. Take for 14 days 300 mL 0 morphine (MS IR) 15 mg tablet Take 1 Tablet (15 mg) by mouth every 4 hours as needed for Pain. Max Daily Amount: 90 mg 84 Tablet 0 gabapentin (NEURONTIN) 300 mg capsule Take 1 Capsule (300 mg) by mouth 2 times daily. 30 Capsule 0 fluconazole (DIFLUCAN) 100 mg tablet Take 2 tabs on day one and then 1 tab daily thereafter. 15 Tablet 2 ondansetron (ZOFRAN) 8 mg Tablet Take 1 Tablet (8 mg) by mouth every 8 hours as needed for Nausea/Emesis. Take every 8 hours PRN starting on day 4 after chemo. 30 Tablet 1 OLANZapine (ZyPREXA) 5 mg tablet Take 1 Tablet (5 mg) by mouth daily at bedtime. Take 1 tablet PO days 1-4 of chemotherapy. After that can then take PRN 30 Tablet 1 dexAMETHasone (DECADRON) 4 mg tablet Take 1 Tablet (4 mg) by mouth 2 times daily. Take 2 tablets with breakfast day 2, 3 and 4 of each chemo. 60 Tablet 0 lidocaine (lidocaine viscous 2%) 2 % Solution 5 mL by Mouth/Throat route every 6 hours as needed for Pain. 400 mL 5 baclofen (LIORESAL) 5 mg tablet Take 1 Tablet (5 mg) by mouth 3 times daily as needed for Pain. 30 Tablet 0 Oral Thermometer, Electronic (Digital Thermometer) 1 Each by Misc.(Non-Drug; Combo Route) route 1 time daily as needed for Temperature. 1 Each 0 metoprolol tartrate (LOPRESSOR) 25 mg tablet TAKE ONE TABLET BY MOUTH TWICE DAILY AT 9am AND 9pm omeprazole (PriLOSEC) 20 mg Capsule, Delayed Release(E.C.) Take 20 mg by mouth daily. No current facility-administered medications for this visit. I have reviewed the patient's medical, surgical, family, and social history in detail; there are nochanges to the history as noted in the medical record. OBJECTIVE: There were no vitals filed for this visit. Wt Readings from Last 10 Encounters: 11/08/24 88.5 kg (195 lb) 11/06/24 87.3 kg (192 lb 6.4 oz) 11/06/24 87.1 kg (192 lb) 11/02/24 85.7 kg (189 lb) 11/01/24 86.8 kg (191 lb 6.4 oz) 10/26/24 86 kg (189 lb 9.6 oz) 10/24/24 83.7 kg (184 lb 9.6 oz) 10/20/24 83 kg (183 lb) 10/19/24 80.5 kg (177 lb 6.4 oz) 10/16/24 81.6 kg (180 lb) Physical Exam: Limited due to video visit Alert, appropriate No distress, room air Seated in his home Belidna Edge NP, 11/30/2024 3:21 PM On the day of this visit I spent 37 minutes providing care to this patient including Preparing to see the patient, Examining the patient with two-way synchronous audio & visual technology, Counseling and educating the patient/family/caregiver, and Documenting clinical information in the medical record documented in this encounter Plan of Treatment Upcoming Encounters Date Type Department Care Team (Late st Contact Info) Description 12/14/2024 12:15 PM CDT Appointment [facility] On[facility] [address] [place] [address] 12/14/2024 1:20 PM CDT Office Visit [facility] Cancer and Hematology [place] [address] [place] [address] Arvind Trevino MD [address] [place] [address] 01/10/2025 9:45 AM CDT Office Visit [facility] Supportive Care [facility] [place] [address] [place] [address] Margaret Davis MD [address] [place] [address] 02/02/2025 1:00 PM FINANCIAL AID OFFICER Appointment [facility] On[facility] [address] [place] [address] Arvind Trevino MD [address] [place] [address] 02/02/2025 1:40 PM FINANCIAL AID OFFICER Office Visit [facility] [place] [address] [facility] [place] [address] Arvind Trevino MD [address] [address] 02/07/2025 10:00 AM FINANCIAL AID OFFICER Office Visit [facility] Nose [facility] Throat Head Neck [facility] [address] [place] [address] Magno Reyes MD [address] [place] [address] 02/08/2025 3:30 PM FINANCIAL AID OFFICER Appointment [facility] Radiation [facility] [address] [facility] [address] [place] [address] Amaris Deras PA-C [address] [facility] [address] [place] [address] 03/05/2025 11:30 AM FINANCIAL AID OFFICER Clinical Support [facility] Supportive Care [facility] [address] [place] [address] Kathe Regan, RAIL TRACK LAYER [address] [facility] [address] [place] [address] 03/12/2025 10:00 AM FINANCIAL AID OFFICER Clinical Support [facility] Supportive Care [facility] [place] [address] [place] [address] Kathe Regan, RAIL TRACK LAYER [address] [place] [address] documented as of this encounter Visit Diagnoses Diagnosis Palliative care by specialist- Primary 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
--- OUTSIDE RECORDS SUMMARY | 2024-12-04 09:36 | XMS_ITS | Encounter Summary ---
Author Organization [employer] Address [address] [place] [address] Care Team Providers Care [employer] Name Role Phone Unavailable Primary Care Provider Unavailabl e Encounter Details Date Type Department Care Team (Late st Contact Info) Description 11/28/2024 External Device Data STL ABSTRACTION Provider, Abstract [...] about transportation for future doctor visits, supervisor picking crew medication, etc.? 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 Gender Identity Not on file Sexual Orientation Not on file documented as of this encounter Plan of Treatment Upcoming Encounters Date Type Department Care Team (Late st Contact Info) Description 12/14/2024 12:15 PM CDT Appointment [facility] [address] [facility] [address] [place] [address] 12/14/2024 1:20 PM CDT Office Visit [facility] Cancer [facility] Hematology [place] [address] [address] Arvind Trevino MD [address] [place] [address] 01/10/2025 9:45 AM CDT Office Visit [facility] Supportive Care [facility] [address] [place] [address] Margaret Davis MD [address] [place] [address] 02/02/2025 1:00 PM COMPUTING SYSTEMS MECHANIC Appointment [facility] [address] [facility] [address] [place] [address] Arvind Trevino MD [address] [address] 02/02/2025 1:40 PM COMPUTING SYSTEMS MECHANIC Office Visit [facility] Hematology [place] [address] [address] Arvind Trevino MD [address] [address] 02/07/2025 10:00 AM COMPUTING SYSTEMS MECHANIC Office Visit [facility] Ear Nose and Throat Head [facility]ck [facility] [address] [place] [address] Magno Reyes MD [address] [place] [address] 02/08/2025 3:30 PM COMPUTING SYSTEMS MECHANIC Appointment [facility] [address] [facility] [address] [place] [address] Amaris Deras PA-C [address] [place] [address] 03/05/2025 11:30 AM COMPUTING SYSTEMS MECHANIC Clinical Support [facility] Supportive Care [facility] [address] [place] [address] Kathe Regan, VALUE ENGINEER [address] [place] [address] 03/12/2025 10:00 AM COMPUTING SYSTEMS MECHANIC Clinical Support [facility] Supportive Care [facility] [address] [place] [address] Kathe Regan, VALUE ENGINEER [address] [place] [address] documented as of this encounter Visit Diagnoses Not on filedocumented in this encounter
--- OUTSIDE RECORDS SUMMARY | 2024-12-04 09:36 | XMS_ITS | Encounter Summary ---
Author Organization [employer] Address [address] [place] [address] Care Team Providers Care Insurance Claim Auditor Name Role Phone Unavailable Primary Care Provider Unavailabl e Encounter Details Date Type Department Care Team (Late st Contact Info) Description 11/29/2024 External Device Data STL ABSTRACTION Provider, Abstract [...] worry about transportation for future doctor visits, oyster picker medication, etc.? 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 Gender Identity Not on file Sexual Orientation Not on file documented as of this encounter Plan of Treatment Upcoming Encounters Date Type Department Care Team (Late st Contact Info) Description 12/14/2024 12:15 PM CDT Appointment [facility] [address] [email or web address] [address] [place] [address] 12/14/2024 1:20 PM CDT Office Visit [facility] [place] [address] [address] Arvind Trevino MD [address] [place] [address] 01/10/2025 9:45 AM CDT Office Visit [facility] Supportive Care [facility] [address] [place] [address] Margaret Davis MD [address] [place] [address] 02/02/2025 1:00 PM ANGLESMITH HELPER Appointment [facility] [address] [facility] [[email or web address] [address] [place] [address] Arvind Trevino MD [address] [address] 02/02/2025 1:40 PM ANGLESMITH HELPER Office Visit [facility] [place] [address] [address] Arvind Trevino MD [address] [address] 02/07/2025 10:00 AM ANGLESMITH HELPER Office Visit [facility] Ear Nose and Throat Head [facility]ck [facility] [address] [place] [address] Magno Reyes MD [address] [place] [address] 02/08/2025 3:30 PM ANGLESMITH HELPER Appointment [facility] [address] [facility] [address] [place] [address] Amaris Deras PA-C [address] [place] [address] 03/05/2025 11:30 AM ANGLESMITH HELPER Clinical Support [facility] Supportive Care [facility] [address] [place] [address] Kathe Regan, PNP [address] [place] [address] 03/12/2025 10:00 AM ANGLESMITH HELPER Clinical Support [facility] Supportive Care [facility] [address] [place] [address] Kathe Regan, PNP [address] [place] [address] documented as of this encounter Visit Diagnoses Not on filedocumented in this encounter
--- OUTSIDE RECORDS SUMMARY | 2024-12-04 09:36 | XMS_ITS | Encounter Summary ---
Author Organization [employer] Address [address] [place] [address] Care Team Providers Care Pecan Sheller Name Role Phone Unavailable Primary Care Provider Unavailabl e Encounter Details Date Type Department Care Team (Late st Contact Info) Description 12/04/2024 External Device Data STL ABSTRACTION Provider, Abstract [...] worry about transportation for future doctor visits, cone picker medication, etc.? 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 Gender Identity Not on file Sexual Orientation Not on file documented as of this encounter Plan of Treatment Upcoming Encounters Date Type Department Care Team (Late st Contact Info) Description 12/14/2024 12:15 PM CDT Appointment [facility] [address] [facility] [address] [place] [address] 12/14/2024 1:20 PM CDT Office Visit [facility] Cancer [facility] Hematology [place] [address] [address] Arvind Trevino MD [address] [place] [address] 01/10/2025 9:45 AM CDT Office Visit [facility] Supportive Care [facility] [address] [place] [address] Margaret Davis MD [address] [place] [address] 02/02/2025 1:00 PM HANDLE LATHE OPERATOR Appointment [facility] [address] [facility] [address] [place] [address] Arvind Trevino MD [address] [address] 02/02/2025 1:40 PM HANDLE LATHE OPERATOR Office Visit [facility] Hematology [place] [address] [address] Arvind Trevino MD [address] [address] 02/07/2025 10:00 AM HANDLE LATHE OPERATOR Office Visit [facility] Ear Nose and Throat Head [facility] [address] [place] [address] Magno Reyes MD [address] [place] [address] 02/08/2025 3:30 PM HANDLE LATHE OPERATOR Appointment [facility] [address] [facility] [address] [place] [address] Amaris Deras PA-C [address] [place] [address] 03/05/2025 11:30 AM HANDLE LATHE OPERATOR Clinical Support [facility] Supportive Care [facility] [address] [place] [address] Kathe Regan, PICKER BOX OPERATOR [address] [place] [address] 03/12/2025 10:00 AM HANDLE LATHE OPERATOR Clinical Support [facility] Supportive Care [facility] [address] [place] [address] Kathe Regan, PICKER BOX OPERATOR [address] [place] [address] documented as of this encounter Visit Diagnoses Not on filedocumented in this encounter
--- OUTSIDE RECORDS SUMMARY | 2024-12-04 09:36 | XMS_ITS | Encounter Summary ---
Author Organization [employer] Address [address] [place] [address] Care Team Providers Care Engineering Technician Parking Name Role Phone Unavailable Primary Care Provider [...] worry about transportation for future doctor visits, corn picker medication, etc.? 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 Gender Identity Not on file Sexual Orientation Not on file documented as of this encounter Plan of Treatment Upcoming Encounters Date Type Department Care Team (Late st Contact Info) Description 12/14/2024 12:15 PM CDT Appointment [facility] [address] [facility] [address] [place] [address] 12/14/2024 1:20 PM CDT Office Visit [facility] Cancer and Hematology [place] [address] [address] Arvind Trevino MD [address] [place] [address] 01/10/2025 9:45 AM CDT Office Visit [facility] Supportive Care [facility] [address] [place] [address] Margaret Davis MD [address] [place] [address] 02/02/2025 1:00 PM OPHTHALMIC PHOTOGRAPHER Appointment [facility] [address] [facility] [address] [place] [address] Arvind Trevino MD S [address] [address] 02/02/2025 1:40 PM OPHTHALMIC PHOTOGRAPHER Office Visit [facility] Cancer and Hematology [place] [address] [address] Arvind Trevino MD [address] [address] 02/07/2025 10:00 AM OPHTHALMIC PHOTOGRAPHER Office Visit [facility] Ear Nose and Throat [facility] [place] [place] [address] [place] [address] Magno Reyes MD [address] [place] [address] 02/08/2025 3:30 PM OPHTHALMIC PHOTOGRAPHER Appointment [facility] [address] [facility] [address] [place] [address] Amaris Deras PA-C [address] [place] [address] 03/05/2025 11:30 AM OPHTHALMIC PHOTOGRAPHER Clinical Support [facility] Supportive Care [facility] [address] [place] [address] Kathe Regan, END PACKER [address] [place] [address] 03/12/2025 10:00 AM OPHTHALMIC PHOTOGRAPHER Clinical Support [facility] Supportive Care [facility] [address] [place] [address] Kathe Regan, END PACKER [address] [place] [address] documented as of this encounter Visit Diagnoses Not on filedocumented in this encounter
--- OUTSIDE RECORDS SUMMARY | 2024-12-04 09:36 | XMS_ITS | Encounter Summary ---
Author Organization [employer] Address [address] [place] [address] Care Team Providers Care Asphalt Machine Operator Name Role Phone Unavailable Primary Care Provider Unavailabl e Encounter Details Date Type Department Care Team (Late st Contact Info) Description 12/01/2024 External Device Data STL ABSTRACTION Provider, Abstract [...] worry about transportation for future doctor visits, pickling machine operator medication, etc.? 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 Gender Identity Not on file Sexual Orientation Not on file documented as of this encounter Plan of Treatment Upcoming Encounters Date Type Department Care Team (Late st Contact Info) Description 12/14/2024 12:15 PM CDT Appointment [facility] [address] [facility] [address] [place] [address] 12/14/2024 1:20 PM CDT Office Visit [facility] Cancer and Hematology [place] [address] [address] Arvind Trevino MD [address] [place] [address] 01/10/2025 9:45 AM CDT Office Visit [facility] Supportive Care [facility] [address] [place] [address] Margaret Davis MD [address] [place] [address] 02/02/2025 1:00 PM WATER FABRICATOR OPERATOR Appointment [facility] [address] [facility] [address] [place] [address] Arvind Trevino MD S [address] [address] 02/02/2025 1:40 PM WATER FABRICATOR OPERATOR Office Visit [facility] Cancer and Hematology [place] [address] [address] Arvind Trevino MD [address] [address] 02/07/2025 10:00 AM WATER FABRICATOR OPERATOR Office Visit [facility] Ear Nose and Throat [place] [place] [address] [place] [address] Magno Reyes MD [address] [place] [address] 02/08/2025 3:30 PM WATER FABRICATOR OPERATOR Appointment [facility] Rad[facility] [address] [facility] [address] [place] [address] mAaris Deras PA-C [address] [place] [address] 03/05/2025 11:30 AM WATER FABRICATOR OPERATOR Clinical Support [facility] Supportive Care [facility] [address] [place] [address] Kathe Regan, WAX BLENDER [address] [place] [address] 03/12/2025 10:00 AM WATER FABRICATOR OPERATOR Clinical Support [facility] Supportive Care [facility] [address] [place] [address] Kathe Regan, WAX BLENDER [address] [place] [address] documented as of this encounter Visit Diagnoses Not on filedocumented in this encounter
--- OUTSIDE RECORDS SUMMARY | 2024-12-04 09:36 | XMS_ITS | Encounter Summary ---
Author Organization [employer] Address [address] [place] [address] Care Team Providers Care Curriculum And Instruction Specialist Name Role Phone Unavailable Primary Care [...] worry about transportation for future doctor visits, citrus picker medication, etc.? 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 Gender Identity Not on file Sexual Orientation Not on file documented as of this encounter Plan of Treatment Upcoming Encounters Date Type Department Care Team (Late st Contact Info) Description 12/14/2024 12:15 PM CDT Appointment [facility] [address] [facility] [address] [place] [address] 12/14/2024 1:20 PM CDT Office Visit [facility] Cancer and Hematology [place] [address] [address] Arvind Trevino MD [address] [place] [address] 01/10/2025 9:45 AM CDT Office Visit [facility] Supportive Care [facility] [address] [place] [address] Margaret Davis MD [address] [place] [address] 02/02/2025 1:00 PM CONCRETE BLOCK MAKER Appointment [facility] [address] [facility] [address] [place] [address] Arvind Trevino MD S [address] [address] 02/02/2025 1:40 PM CONCRETE BLOCK MAKER Office Visit [facility] Cancer and Hematology [place] [address] [address] Arvind Trevino MD [address] [address] 02/07/2025 10:00 AM CONCRETE BLOCK MAKER Office Visit [facility] Ear Nose and Throat [facility] [place] [place] [address] [place] [address] Magno Reyes MD [address] [place] [address] 02/08/2025 3:30 PM CONCRETE BLOCK MAKER Appointment [facility]cology [facility] [address] [facility] [address] [place] [address] Amaris Deras PA-C [address] [place] [address] 03/05/2025 11:30 AM CONCRETE BLOCK MAKER Clinical Support [facility] Supportive Care [facility] [address] [place] [address] Kathe Regan, PEDIATRIC SPORTS MEDICINE SPECIALIST [address] [place] [address] 03/12/2025 10:00 AM CONCRETE BLOCK MAKER Clinical Support [facility] Supportive Care [facility] [address] [place] [address] Kathe Regan, PEDIATRIC SPORTS MEDICINE SPECIALIST [address] [place] [address] documented as of this encounter Visit Diagnoses Not on filedocumented in this encounter
--- OUTSIDE RECORDS SUMMARY | 2024-12-04 09:36 | XMS_ITS | Encounter Summary ---
Author Organization [employer] Address 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 Gender Identity Not on file Sexual Orientation Not on file documented as of this encounter Plan of Treatment Upcoming Encounters Date Type Department Care Team (Late st Contact Info) Description 12/14/2024 12:15 PM CDT Appointment [facility] [address] [facility] [address] [place] [address] 12/14/2024 1:20 PM CDT Office Visit [facility] Cancer and Hematology [place] [address] [address] Arvind Trevino MD [address] [place] [address] 01/10/2025 9:45 AM CDT Office Visit [facility] Supportive Care [facility] [address] [place] [address] Margaret Davis MD [address] [place] [address] 02/02/2025 1:00 PM NIB FINISHER Appointment [facility] [address] [facility] [address] [place] [address] Arvind Trevino MD S [address] [address] 02/02/2025 1:40 PM NIB FINISHER Office Visit [facility] Cancer and Hematology [place] [address] [address] Arvind Trevino MD [address] [address] 02/07/2025 10:00 AM NIB FINISHER Office Visit [facility] Ear Nose and Throat Head [facility]ck [facility] [address] [place] [address] Magno Reyes MD [address] [place] [address] 02/08/2025 3:30 PM NIB FINISHER Appointment [facility] Radiation Oncology [facility] [address] [facility] [address] [place] [address] Amaris Deras PA-C [address] [place] [address] 03/05/2025 11:30 AM NIB FINISHER Clinical Support [facility] Supportive Care [facility] [address] [place] [address] Kathe Regan, NURSE PLASTICS [address] [place] [address] 03/12/2025 10:00 AM NIB FINISHER Clinical Support [facility] Supportive Care [facility] [address] [place] [address] Kathe Regan, NURSE PLASTICS [address] [place] [address] documented as of this encounter Visit Diagnoses Not on filedocumented in this encounter
--- OUTSIDE RECORDS SUMMARY | 2024-12-04 09:36 | XMS_ITS | Encounter Summary ---
Author Organization [employer] Address [address] [place] [address] Care Team Providers Care Foundry Worker Apprentice Name Role Phone Unavailable Primary Care Provider Unavailabl e Encounter Details Date Type Department Care Team (Late st Contact Info) Description 12/03/2024 External Device Data STL ABSTRACTION Provider, Abstract [...] worry about transportation for future doctor visits, olive picker medication, etc.? 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 Gender Identity Not on file Sexual Orientation Not on file documented as of this encounter Plan of Treatment Upcoming Encounters Date Type Department Care Team (Late st Contact Info) Description 12/14/2024 12:15 PM CDT Appointment [facility] [address] [facility] [address] [place] [address] 12/14/2024 1:20 PM CDT Office Visit [facility] Cancer and Hematology [place] [address] [address] Arvind Trevino MD [address] [place] [address] 01/10/2025 9:45 AM CDT Office Visit [facility] Supportive Care [facility] [address] [place] [address] Margaret Davis MD [address] [place] [address] 02/02/2025 1:00 PM PACK PULLER Appointment [facility] [address] [facility] [address] [place] [address] Arvind Trevino MD S [address] [address] 02/02/2025 1:40 PM PACK PULLER Office Visit [facility] Cancer and Hematology [place] [address] [address] Arvind Trevino MD [address] [address] 02/07/2025 10:00 AM PACK PULLER Office Visit [facility] Ear Nose and Throat Head [place]ck [place] [address] [place] [address] Magno Reyes MD [address] [place] [address] 02/08/2025 3:30 PM PACK PULLER Appointment [facility] [address] [facility] [address] [place] [address] Amaris Deras PA-C [address] [place] [address] 03/05/2025 11:30 AM PACK PULLER Clinical Support [facility] Supportive Care [facility] [address] [place] [address] Kathe Regan, EMPLOYEE TRAINING SPECIALIST [address] [place] [address] 03/12/2025 10:00 AM PACK PULLER Clinical Support [facility] Supportive Care [facility] [address] [place] [address] Kathe Regan, EMPLOYEE TRAINING SPECIALIST [address] [place] [address] documented as of this encounter Visit Diagnoses Not on filedocumented in this encounter
--- OUTSIDE RECORDS SUMMARY | 2024-12-04 09:36 | XMS_ITS | Encounter Summary ---
Author Organization [employer] Address [address] [place] [address] Care Team Providers Care Front Office Secretary Name Role Phone Unavailable Primary Care Provider [...] worry about transportation for future doctor visits, picking tech medication, etc.? 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 Gender Identity Not on file Sexual Orientation Not on file documented as of this encounter Plan of Treatment Upcoming Encounters Date Type Department Care Team (Late st Contact Info) Description 12/14/2024 12:15 PM CDT Appointment [facility] [address] [facility] [address] [place] [address] 12/14/2024 1:20 PM CDT Office Visit [facility] Cancer and Hematology [place] [address] [address] Arvind Trevino MD [address] [place] [address] 01/10/2025 9:45 AM CDT Office Visit [facility] Supportive Care [facility] [address] [place] [address] Margaret Davis MD [address] [place] [address] 02/02/2025 1:00 PM COFFERDAM CONSTRUCTION SUPERVISOR Appointment [facility] [address] [facility] [address] [place] [address] Arvind Trevino MD S [address] [address] 02/02/2025 1:40 PM COFFERDAM CONSTRUCTION SUPERVISOR Office Visit [facility] Cancer and Hematology [place] [address] [address] Arvnid Trevino MD [address] [address] 02/07/2025 10:00 AM COFFERDAM CONSTRUCTION SUPERVISOR Office Visit [facility] Ear Nose and Throat Head Neck [place] [address] [place] [address] Magno Reyes MD [address] [place] [address] 02/08/2025 3:30 PM COFFERDAM CONSTRUCTION SUPERVISOR Appointment [facility] [address] [facility] [address] [place] [address] Amaris Deras PA-C [address] [place] [address] 03/05/2025 11:30 AM COFFERDAM CONSTRUCTION SUPERVISOR Clinical Support [facility] Supportive Care [facility] [address] [place] [address] Kathe Regan, TRANSFORMATION MANAGER [address] [place] [address] 03/12/2025 10:00 AM COFFERDAM CONSTRUCTION SUPERVISOR Clinical Support [facility] Supportive Care [facility] [address] [place] [address] Kathe Regan, TRANSFORMATION MANAGER [address] [place] [address] documented as of this encounter Visit Diagnoses Not on filedocumented in this encounter
--- OUTSIDE RECORDS SUMMARY | 2024-12-04 09:36 | XMS_ITS | Encounter Summary ---
Author Organization [employer] Address [address] [place] [address] Care Team Providers Care Fabrics And Material Cutter Name Role Phone Unavailable Primary Care Provider Unavailabl e Encounter Details Date Type Department Care Team (Late st Contact Info) Description 12/02/2024 External Device Data STL ABSTRACTION Provider, Abstract [...] worry about transportation for future doctor visits, miner pick medication, etc.? 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 [address] [facility] [address] [place] [address] 12/14/2024 1:20 PM CDT Office Visit [facility] Cancer and Hematology [place] [address] [address] Arvind Trevino MD [address] [place] [address] 01/10/2025 9:45 AM CDT Office Visit [facility] Supportive Care [facility] [address] [place] [address] Margaret Davis MD [address] [place] [address] 02/02/2025 1:00 PM BEVEL POLISHER Appointment [facility] [address] [facility] [address] [place] [address] Arvind Trevino MD S [address] [address] 02/02/2025 1:40 PM BEVEL POLISHER Office Visit [facility] Cancer and Hematology [place] [address] [address] Arvind Trevino MD [address] [address] 02/07/2025 10:00 AM BEVEL POLISHER Office Visit [facility] Ear Nose and Throat Head [place]ck [place] [address] [place] [address] Magno Reyes MD [address] [place] [address] 02/08/2025 3:30 PM BEVEL POLISHER Appointment [facility] [address] [facility] [address] [place] [address] Amaris Deras PA-C [address] [place] [address] 03/05/2025 11:30 AM BEVEL POLISHER Clinical Support [facility] Supportive Care [facility] [address] [place] [address] Kathe Regan, GRANULATING BLENDER [address] [place] [address] 03/12/2025 10:00 AM BEVEL POLISHER Clinical Support [facility] Supportive Care [facility] [address] [place] [address] Kathe Regan, GRANULATING BLENDER [address] [place] [address] documented as of this encounter Visit Diagnoses Not on filedocumented in this encounter
--- OUTSIDE RECORDS SUMMARY | 2024-12-04 09:36 | XMS_ITS | Clinical Summary ---
Author Organization [facility] Alicia Crump nob Address [address] [place] [address] Care Team Providers Care Head Cleaning Porter Name Role Phone Daryl Cruz MD Primary Care Provider [phone] Allergies No known active allergies Medications omeprazole [...] 100 Each 5 1 Active thyroid, pork, ([place] Thyroid) 30 mg tablet Take 1 Tablet [...] 36.6 C (97.8 F) 03/13/2020 12:00 PM CUSHION FILLER Respiratory Rate 16 03/13/2020 12:00 PM CUSHION FILLER Oxygen Saturation 98% 08/08/2020 10:40 AM CDT [...] Visit- Commercial 03/22/2024 INFLUENZA VACCINE (#1) 2024 Medical Devices Implanted Type Area Business Systems Administrator Device Identifier Shelf Expiration Date Model / Serial / Lot [place] Suture 4.75x24.5mm Bio Com Swiveloc Sp Ar-2324bcm - [id number] Implanted:Qty: 1 on 03/13/2020 by Sergio Medina III, MD at [facility] Right: Shoulder [employer] [id number] 12/20/2023 AR-2324BC M / / [id number] [place] Suture 4.75x24.5mm Bio Com Swiveloc Sp Ar-2324bcm - [id number] Implanted:Qty: 1 on 03/13/2020 by Sergio Medina III, MD at [facility] Right: Shoulder [employer] [id number] 12/20/2023 AR-2324BC M / / [id number] Procedures Procedure Name Priority Date/Time Associated Diagnosis Comments HEMOGLOBIN A1C Routine 10/05/2019 8:16 AM CDT Pain radiating to right shoulder Encounter to establish care from Last 3 Months or Most Recently Relevant to Health Maintenance Results * HEMOGLOBIN A1C (10/05/2019 8:16 AM CDT) HEMOGLOBIN A1C 5.6 See Comment % 10/05/2019 7:24 PM CDT [facility] EST. AVG GLUCOSE, A1C 114 mg/dL 10/05/2019 7:24 PM CDT [facility] Blood Venipuncture / Unknown 10/05/2019 8:16 AM CDT 10/05/2019 6:46 PM CDT Narrative [facility] - 10/05/2019 7:24 PM CDT HGB A1C INTERPRETATION NORMAL: <5.7% PRE-DIABETES: 5.7 - 6.4% DIABETES: 6.5% OR GREATER Falsely low A1C measurements can occur when: 1. Anemia and/or hemolytic anemia is present. 2. Hemoglobin variants present. 3. Renal failure. 4. Transfusion of blood product in the last 120 days. We recommend ordering a fructosamine test([id number]) to more accurately assess glycemic status if any of the above conditions are present. Janell Warren NP CHEMISTRY ORDERABLES Final Result [facility] CLIA# [id number] [address] [place] [address] from Last 3 Months or Most Recently Relevant to Health Maintenance Insurance [facility] [employer] Advance Directives For more information, please contact: [phone] * Full Code (Latest Code Status on File) Date Activated Date Inactivated Comments 03/13/2020 7:56 AM 03/13/2020 3:36 PM Care Teams Head Cleaning Porter Relationship Specialty Start Date End Date Daryl Cruz MD PCP - General Family Practice 12/11/19
--- OUTSIDE RECORDS SUMMARY | 2024-12-04 09:36 | XMS_ITS | Encounter Summary ---
Author Organization [employer] Address [address] [place] [address] Care Team Providers Care Clip On Sunglasses Assembler Name Role Phone Unavailable Primary Care Provider [...] worry about transportation for future doctor visits, brass pickler medication, etc.? 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 Gender Identity Not on file Sexual Orientation Not on file documented as of this encounter Plan of Treatment Upcoming Encounters Date Type Department Care Team (Late st Contact Info) Description 12/14/2024 12:15 PM CDT Appointment [facility] [address] [facility] [address] [place] [address] 12/14/2024 1:20 PM CDT Office Visit [facility] Cancer and Hematology [place] [address] [address] Arvind Trevino MD [address] [place] [address] 01/10/2025 9:45 AM CDT Office Visit [facility] Supportive Care [facility] [address] [place] [address] Margaret Davis MD [address] [place] [address] 02/02/2025 1:00 PM METAL ORGAN PIPE MAKER Appointment [facility] [address] [facility] [address] [place] [address] Arvind Trevino MD S [address] [address] 02/02/2025 1:40 PM METAL ORGAN PIPE MAKER Office Visit [facility] Cancer and Hematology [address] [address] [address] Arvind Trevino MD [address] [address] 02/07/2025 10:00 AM METAL ORGAN PIPE MAKER Office Visit [facility] Ear Nose and Throat [facility] [place] [address] [place] [address] Magno Reyes MD [address] [place] [address] 02/08/2025 3:30 PM METAL ORGAN PIPE MAKER Appointment [facility] [address] [facility] [address] [place] [address] Amaris Deras PA-C [address] [place] [address] 03/05/2025 11:30 AM METAL ORGAN PIPE MAKER Clinical Support [facility] Supportive Care [facility] [address] [place] [address] Kathe Reagn, VARNISHER PLASTICOATER [address] [place] [address] 03/12/2025 10:00 AM METAL ORGAN PIPE MAKER Clinical Support [facility] Supportive Care [facility] [address] [place] [address] Kathe Regan, VARNISHER PLASTICOATER [address] [place] [address] documented as of this encounter Visit Diagnoses Not on filedocumented in this encounter
--- OUTSIDE RECORDS SUMMARY | 2024-12-04 09:36 | XMS_ITS | Encounter Summary ---
Author Organization [employer] Address [address] [place] [address] Care Team Providers Care Physician Surgeon Name Role Phone Unavailable Primary Care Provider [...] worry about transportation for future doctor visits, moss picker medication, etc.? No 2024 Housing Stability [...] on file Legal Sex Male 8:32 PM PEDIATRIC ONCOLOGIST Gender Identity Not on file Sexual Orientation Not on file documented as of this encounter Plan of Treatment Upcoming Encounters Date Type Department Care Team (Late st Contact Info) Description 12/14/2024 12:15 PM CDT Appointment [facility] [address] [facility] [address] [place] [address] 12/14/2024 1:20 PM CDT Office [facility] Cancer and Hematology [place] [address] [address] Arvind Trevino MD [address] [place] [address] 01/10/2025 9:45 AM CDT Office Visit [facility] Supportive Care [facility] [address] [place] [address] Margaret Davis MD [address] [place] [address] 02/02/2025 1:00 PM PEDIATRIC ONCOLOGIST Appointment [facility] [address] [facility] [address] [place] [address] Arvind Trevino MD S [address] [address] 02/02/2025 1:40 PM PEDIATRIC ONCOLOGIST Office Visit [facility] Cancer and Hematology [place] [address] [address] Arvind Trevino MD [address] [address] 02/07/2025 10:00 AM PEDIATRIC ONCOLOGIST Office Visit [facility] Ear Nose and Throat Head [facility]ck [facility] [address] [place] [address] Magno Reyes MD [address] [place] [address] 02/08/2025 3:30 PM PEDIATRIC ONCOLOGIST Appointment [facility] Radiation Oncology [facility] [address] [facility] [address] [place] [address] Amaris Deras PA-C [address] [place] [address] 03/05/2025 11:30 AM PEDIATRIC ONCOLOGIST Clinical Support [facility] Supportive Care [facility] [address] [place] [address] Kathe Regan, AUTO HAULER [address] [place] [address] 03/12/2025 10:00 AM PEDIATRIC ONCOLOGIST Clinical Support [facility] Supportive Care [facility] [address] [place] [address] Kathe Regan, AUTO HAULER [address] [place] [address] documented as of this encounter Visit Diagnoses Not on filedocumented in this encounter
--- OUTSIDE RECORDS SUMMARY | 2024-12-04 09:36 | XMS_ITS | Encounter Summary ---
Author Organization [employer] Address [address] [place] [address] Care Team Providers Care Blasting Helper Name Role Phone Unavailable Primary Care Provider Unavailabl e Encounter Details Date Type Department Care Team (Late st Contact Info) Description 11/27/2024 External Device Data ST[facility] ABSTRACTION Provider, Abstract [...] on file Legal Sex Male 8:32 PM CANDY CATCHER Gender Identity Not on file Sexual Orientation Not on file documented as of this encounter Plan of Treatment Upcoming Encounters Date Type Department Care Team (Late st Contact Info) Description 12/14/2024 12:15 PM CDT Appointment [facility] [address] [facility] [address] [place] [address] 12/14/2024 1:20 PM CDT Office Visit [facility] Cancer and Hematology [place] [address] [address] Arvind Trevino MD [address] [place] [address] 01/10/2025 9:45 AM CDT Office Visit [facility] Supportive Care [facility] [address] [place] [address] Margaret Davis MD [address] [place] [address] 02/02/2025 1:00 PM CANDY CATCHER Appointment [facility] [address] [facility] [address] [place] [address] Arvind Trevino MD S [address] [address] 02/02/2025 1:40 PM CANDY CATCHER Office Visit [facility] Cancer and Hematology [place] [address] [address] Arvind Trevino MD [address] [address] 02/07/2025 10:00 AM CANDY CATCHER Office Visit [facility]3] Ear Nose and Throat Head Neck [facility] [address] [place] [address] Magno Reyes MD [address] [place] [address] 02/08/2025 3:30 PM CANDY CATCHER Appointment [facility] Radiation Oncology [facility] [address] [facility] [address] [place] [address] Amaris Deras PA-C [address] [place] [address] 03/05/2025 11:30 AM CANDY CATCHER Clinical Support [facility]3] Supportive Care [facility] [address] [place] [address] Kathe Regan, PAINTING TRADES WORKER [address] [place] [address] 03/12/2025 10:00 AM CANDY CATCHER Clinical Support [facility]3] Supportive Care [facility] [address] [place] [address] Kathe Regan, PAINTING TRADES WORKER [address] [place] [address] documented as of this encounter Visit Diagnoses Not on filedocumented in this encounter
--- OUTSIDE RECORDS SUMMARY | 2024-12-04 09:36 | XMS_ITS | Encounter Summary ---
Author Organization [employer] Address [address] [place] [address] Care Team Providers Care Home Demonstration Agent Name Role Phone Unavailable Primary Care Provider [...] worry about transportation for future doctor visits, machine operator picker medication, etc.? 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 Gender Identity Not on file Sexual Orientation Not on file documented as of this encounter Plan of Treatment Upcoming Encounters Date Type Department Care Team (Late st Contact Info) Description 12/14/2024 12:15 PM CDT Appointment [facility] [address] [facility] [address] [place] [address] 12/14/2024 1:20 PM CDT Office Visit [facility] Cancer and Hematology [place] [address] [address] Arvind Trevino MD [address] [place] [address] 01/10/2025 9:45 AM CDT Office Visit [facility] Supportive Care [facility] [address] [place] [address] Margaret Davis MD [address] [place] [address] 02/02/2025 1:00 PM BOW STAPLER Appointment [facility] [address] [facility] [address] [place] [address] Arvind Trevino MD S [address] [address] 02/02/2025 1:40 PM BOW STAPLER Office Visit [facility] Cancer and Hematology [place] [address] [address] Arvind Trevino MD [address] [address] 02/07/2025 10:00 AM BOW STAPLER Office Visit [facility] Ear Nose and Throat Head Neck [place] [address] [place] [address] Magno Reyes MD [address] [place] [address] 02/08/2025 3:30 PM BOW STAPLER Appointment [facility] Radiation [facility]cology [facility] [address] [facility] [address] [place] [address] Amaris Deras PA-C [address] [place] [address] 03/05/2025 11:30 AM BOW STAPLER Clinical Support [facility] Supportive Care [facility] [address] [place] [address] Kathe Regan, TIPPLE GREASER [address] [place] [address] 03/12/2025 10:00 AM BOW STAPLER Clinical Support [facility] Supportive Care [facility] [address] [place] [address] Kathe Regan, TIPPLE GREASER [address] [place] [address] documented as of this encounter Visit Diagnoses Not on filedocumented in this encounter
--- OUTSIDE RECORDS SUMMARY | 2024-12-04 09:36 | XMS_ITS | Encounter Summary ---
Author Organization [facility] Address [address] [place] [address] Care Team Providers Care Sand Hauler Name Role Phone Unavailable Primary Care Provider Unavailabl e Reason for Visit * Reason Onset Date Comments Medication Question 11/28/2024 Encounter Details Date Type Department Care Team (Late st Contact Info) Description 11/28/2024 Telephone [facility] Supportive Care [facility] [address] [place] [address] Nathaniel Carney Jr., MD [address] [place] [address] Medication Question Social History Tobacco Use Types Packs/Day Years [...] about transportation for future doctor visits, pickle sorter medication, etc.? 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 Oncology [facility] [address] [facility] [address] [place] [address] 12/14/2024 1:20 PM CDT Office Visit [facility] Cancer and Hematology [place] [address] [facility] 2 [place] [address] Arvind Trevino MD [address] [place] [address] 01/10/2025 9:45 AM CDT Office Visit [facility] Supportive Care [facility] [address] [place] [address] Margaret Davis MD [address] [place] [address] 02/02/2025 1:00 PM FIBER DESIGN ENGINEER Appointment [facility] Oncology [facility] [address] [place] [address] Arvind Trevino MD [address] [place] [address] 02/02/2025 1:40 PM FIBER DESIGN ENGINEER Office Visit [facility] Cancer and Hematology [place] [address] [facility] [place] [address] Arvind Trevino MD [address] [address] 02/07/2025 10:00 AM FIBER DESIGN ENGINEER Office Visit [facility] Ear Nose and Throat Head Neck [facility] [address] [place] [address] Magno Reyes MD [address] [place] [address] 02/08/2025 3:30 PM FIBER DESIGN ENGINEER [facility]ointment [facility] Radiation [facility] [address] [address] [place] [address] Amaris Deras PA-C [address] [facility] 10 [place] [address] 03/05/2025 11:30 AM FIBER DESIGN ENGINEER Clinical Support [facility] Supportive Care [facility] [address] [place] [address] Kathe Regan, GARMENT SEWING MACHINE OPERATOR [address] [place] [address] 03/12/2025 10:00 AM FIBER DESIGN ENGINEER Clinical Support [facility] Supportive Care [facility] [address] [place] [address] Kathe Regan, GARMENT SEWING MACHINE OPERATOR [address] [place] [address] documented as of this encounter Visit Diagnoses Not on filedocumented in this encounter
--- OUTSIDE RECORDS SUMMARY | 2024-12-04 09:36 | XMS_ITS | Encounter Summary ---
Author Organization [employer] Address [address] [place] [address] Care Team Providers Care Pe Electrical Engineer Name Role Phone Unavailable Primary Care Provider [...] worry about transportation for future doctor visits, medicinal plant picker medication, etc.? 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 [address] [facility] [address] [place] [address] 12/14/2024 1:20 PM CDT Office Visit [facility] Cancer and Hematology [place] [address] [address] Arvind Trevino MD [address] [place] [address] 01/10/2025 9:45 AM CDT Office Visit [facility] Supportive Care [facility] [address] [place] [address] Margaret Davis MD [address] [place] [address] 02/02/2025 1:00 PM THERMOMETER TESTER Appointment [facility] [address] [facility] [address] [place] [address] Arvind Trevino MD S [address] [address] 02/02/2025 1:40 PM THERMOMETER TESTER Office Visit [facility] Cancer and Hematology [place] [address] [address] Arvind Trevino MD [address] [address] 02/07/2025 10:00 AM THERMOMETER TESTER Office Visit [facility] Ear Nose and Throat Head Neck [facility] [address] [place] [address] Magno Reyes MD [address] [place] [address] 02/08/2025 3:30 PM THERMOMETER TESTER Appointment [facility] Radiation Oncology [facility] [address] [facility] [address] [place] [address] Amaris Dersa PA-C [address] [place] [address] 03/05/2025 11:30 AM THERMOMETER TESTER Clinical Support [facility] Supportive Care [facility] [address] [place] [address] Kathe Regan, BLOOD BANK LABORATORY TECHNICIAN [address] [place] [address] 03/12/2025 10:00 AM THERMOMETER TESTER Clinical Support [facility] Supportive Care [facility] [address] [place] [address] Kathe Regan, BLOOD BANK LABORATORY TECHNICIAN [address] [place] [address] documented as of this encounter Visit Diagnoses Not on filedocumented in this encounter
--- OUTSIDE RECORDS SUMMARY | 2024-12-04 09:36 | XMS_ITS | Encounter Summary ---
Author Organization [employer] Address [address] [place] [address] Care Team Providers Care Gold Stamper Name Role Phone Unavailable Primary Care Provider [...] about transportation for future doctor visits, pickle cutter medication, etc.? 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 [address] [place] [address] 12/14/2024 1:20 PM CDT Office Visit [facility] Cancer and Hematology [place] [address] [address] Arvind Trevino MD [address] [place] [address] 01/10/2025 9:45 AM CDT Office Visit [facility] Supportive Care [facility] [address] [place] [address] Margaret Davis MD [address] [place] [address] 02/02/2025 1:00 PM SCREW MACHINE HAND Appointment [facility] [address] [facility] [address] [place] [address] Arvind Trevino MD S [address] [address] 02/02/2025 1:40 PM SCREW MACHINE HAND Office Visit [facility] Cancer and Hematology [place] [address] [address] Arvind Trevino MD [address] [address] 02/07/2025 10:00 AM SCREW MACHINE HAND Office Visit [facility] Ear Nose and Throat Head Neck [place] [address] [employer] [place] [address] Magno Reyes MD [address] [employer] [employer] [address] [place] [address] 02/08/2025 3:30 PM SCREW MACHINE HAND Appointment [facility] Radiation Oncology [facility] Center [address] [facility] [address] [place] [address] Amaris Deras PA-C [address] [place] [address] 03/05/2025 11:30 AM SCREW MACHINE HAND Clinical Support [facility] Supportive Care [facility] [address] [place] [address] Kathe Regan, ASSEMBLER CAMPER [address] [place] [address] 03/12/2025 10:00 AM SCREW MACHINE HAND Clinical Support [facility] Supportive Care [facility] [address] [place] [address] Kathe Regan, ASSEMBLER CAMPER [address] [place] [address] documented as of this encounter Visit Diagnoses Not on filedocumented in this encounter
--- OUTSIDE RECORDS SUMMARY | 2024-12-04 09:36 | XMS_ITS | Clinical Summary ---
Author Organization [facility] Alicia Crump nob Address [address] [place] [address] Care Team Providers Care Piping Design Specialist Name Role Phone Unavailable Primary Care [...] Thermometer, Electronic (Digital Thermometer) 1 Each by [facility].(Non-Morales g; Combo Route) route 1 time daily [...] day 4 after chemo. 30 Tablet 1 11/07/2024 12:00 PM CDT 10/20/19 25 Active OLANZapine (ZyPREXA) 5 mg tablet Take 1 Tablet (5 mg) by mouth daily at bedtime. Take 1 tablet PO days 1-4 of chemotherapy. After that can then take PRN 30 Tablet 1 10/19/2024 4:40 PM CDT 10/20/19 25 Active dexAMETHasone (DECADRON) 4 mg tablet Take 1 Tablet (4 mg) by mouth 2 times daily. Take 2 tablets with breakfast day 2, 3 and 4 of each chemo. 60 Tablet 10/19/2024 4:40 PM CDT 10/20/19 25 Active fluconazole (DIFLUCAN) 100 mg tabletIndicati ons:Palliative care by specialist,Thr ush, oral Take 2 tabs on day one and then 1 tab daily thereafter. 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 Swish around, retain as long as possible then swallow. 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 Max Daily Amount: 1 Patch 5 Patch 11/12/19 25 025 Active Problems Problem Noted Date Diagnosed Date [...] Encounters Date Type Department Care Team Description 12/04/2024 External Device Data STL ABSTRACTION Provider, Abstract 12/04/2024 External Device Data STL ABSTRACTION Provider, Abstract 12/03/2024 External Device Data STL ABSTRACTION Provider, Abstract 12/03/2024 External Device Data STL ABSTRACTION Provider, Abstract 12/02/2024 External Device Data STL ABSTRACTION Provider, Abstract 12/02/2024 External Device Data STL ABSTRACTION Provider, Abstract 12/01/2024 External Device Data STL ABSTRACTION Provider, Abstract 12/01/2024 External Device Data STL ABSTRACTION Provider, Abstract 11/30/2024 External Device Data STL ABSTRACTION Provider, Abstract 11/30/2024 External Device Data STL ABSTRACTION Provider, Abstract 11/29/2024 11:45 AM CDT Video Visit [facility] Care [facility] [address] [place] [address] Belinda Edge NP Palliative care by specialist (Primary Dx); 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); Cancer related pain; Thrush, oral; Depression screen 11/29/2024 External Device Data STL ABSTRACTION Provider, Abstract 11/29/2024 External Device Data STL ABSTRACTION Provider, Abstract 11/28/2024 External Device Data STL ABSTRACTION Provider, Abstract 11/28/2024 Telephone [facility] [address] [place] [address] Nathaniel Carney Jr., MD Medication Question 11/28/2024 External Device Data STL ABSTRACTION Provider, Abstract 11/28/2024 External Device Data STL ABSTRACTION Provider, Abstract 11/27/2024 External Device Data STL ABSTRACTION Provider, Abstract 11/27/2024 External Device Data STL ABSTRACTION Provider, Abstract 11/26/2024 External Device Data STL ABSTRACTION Provider, Abstract 11/26/2024 External Device Data STL ABSTRACTION Provider, Abstract 11/25/2024 External Device Data STL ABSTRACTION Provider, Abstract 11/25/2024 External Device Data STL ABSTRACTION Provider, Abstract 11/24/2024 External Device Data STL ABSTRACTION Provider, Abstract 11/24/2024 External Device Data STL ABSTRACTION Provider, Abstract 11/23/2024 External Device Data STL ABSTRACTION Provider, Abstract 11/23/2024 External Device Data STL ABSTRACTION Provider, Abstract 11/22/2024 External Device Data STL ABSTRACTION Provider, Abstract 11/22/2024 External Device Data STL ABSTRACTION Provider, Abstract 11/21/2024 External Device Data STL ABSTRACTION Provider, Abstract 11/21/2024 External Device Data STL ABSTRACTION Provider, Abstract 11/20/2024 External Device Data STL ABSTRACTION Provider, Abstract 11/20/2024 External Device Data STL ABSTRACTION Provider, Abstract 11/19/2024 External Device Data STL ABSTRACTION Provider, Abstract 11/19/2024 External Device Data STL ABSTRACTION Provider, Abstract [...] Abstract 11/08/2024 10:00 AM CDT Office Visit [facility] Nose and Throat Head Neck [facility] [address] [place] [address] aMgno Reyes MD Tonsillar cancer (CMS/HCC) (Primary Dx) 11/08/2024 8:26 AM CDT - 11/08/2024 11:59 PM CDT Hospital Encounter [facility] [address] [place] [address] [address] [place] [address] Jose East MD Discharge Disposition: Home or Self Care 11/08/2024 External Device Data STL ABSTRACTION Provider, Abstract 11/08/2024 External Device Data STL ABSTRACTION Provider, Abstract 11/08/2024 External Device Data STL ABSTRACTION Provider, Abstract 11/08/2024 Chart Note [facility] Cancer [facility] [address] [place] [address] [place] [address] [place] [address] Melisa [place] RN 11/08/2024 Orders Only HIS RADIATION ONCOLOGY 11/07/2024 9:10 AM CDT - 11/07/2024 11:59 PM CDT Hospital Encounter [facility] [address] [facility] [address] [place] [address] Jose East MD Discharge Disposition: Home or Self Care 11/07/2024 External Device Data STL ABSTRACTION Provider, Abstract 11/07/2024 Orders Only HIS RADIATION ONCOLOGY 11/07/2024 Orders Only [facility] Supportive Care [facility] [address] [place] [address] Janet Ulrich, ATM TECHNICIAN 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); Palliative care by specialist; Cancer related pain 11/07/2024 External Device Data STL ABSTRACTION Provider, Abstract 11/06/2024 10:21 AM CDT - 11/06/2024 11:59 PM CDT Hospital Encounter [facility] [address] [facility] [address] [place] [address] Jose East MD Discharge Disposition: Home or Self Care 11/06/2024 9:30 AM CDT Office Visit [facility] Supportive Care [facility] [address] [place] [address] Margaret Davis MD Thrush, oral (Primary Dx); 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); Palliative care by specialist; Cancer related pain; Neuropathy associated with cancer (CMS/HCC); Mucositis due to radiation therapy; Depression screen 11/06/2024 Telephone [facility] Nose and Thro[facility] Head Neck [facility] [address] [place] [address] Magno Reyes MD appointment needed 11/06/2024 Chart Note [facility] Cancer and Hematology [place] [address] [place] [address] 11/06/2024 Orders Only HIS RADIATION ONCOLOGY 11/06/2024 External Device Data STL ABSTRACTION Provider, Abstract 11/05/2024 External Device Data STL ABSTRACTION Provider, Abstract 11/04/2024 External Device Data STL ABSTRACTION Provider, Abstract 11/03/2024 8:22 AM CDT - 11/03/2024 11:59 PM CDT Hospital Encounter [facility] [address] [place] [address] Jose East MD Discharge Disposition: Home or Self Care 11/03/2024 [address] [place] [address] Farnaz Mclainll S Cancer (Spiritual care) 11/03/2024 Orders Only HIS RADIATION ONCOLOGY 11/03/2024 External Device Data STL ABSTRACTION Provider, Abstract 11/02/2024 9:51 AM CDT - 11/02/2024 11:59 PM CDT Hospital Encounter [facility] [address] [place] [address] Arvind Trevino MD [facility] Oncology, Infusion 8 Discharge Disposition: Home or Self Care 11/02/2024 9:30 AM CDT Office Visit [facility] Cancer and Hematology [place] [address] [place] [address] Ave [address] [place] [address] Arvind Trevino MD Joy, Jennifer L, OLINDA Tonsillar cancer (CMS/HCC) (Primary Dx); 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; Anemia due to chemotherapy 11/02/2024 8:28 AM CDT - 11/02/2024 11:59 PM CDT Hospital Encounter [facility] [address] [place] [address] Arvind Trevino MD Discharge Disposition: Home or Self Care 11/02/2024 8:22 AM CDT - 11/02/2024 11:59 PM CDT Hospital Encounter [facility] [address] [place] [address] Arvind Trevino MD Discharge Disposition: Home or Self Care 11/02/2024 7:43 AM CDT - 11/02/2024 11:59 PM CDT Hospital Encounter [facility] [address] [facility] [facility] [address] [address] [place] [address] Jose East MD Discharge Disposition: Home or Self Care 11/02/2024 Orders Only HIS RADIATION ONCOLOGY 11/02/2024 External Device Data STL ABSTRACTION Provider, Abstract 11/02/2024 External Device Data STL ABSTRACTION Provider, Abstract 11/02/2024 External Device Data STL ABSTRACTION Provider, Abstract 11/02/2024 External Device Data STL ABSTRACTION Provider, Abstract 11/01/2024 9:14 AM CDT - 11/01/2024 11:59 PM CDT Hospital Encounter [facility] [address] [place] [address] [address]VE [address] [place] [address] Jose East MD Discharge Disposition: Home or Self Care 11/01/2024 External Device Data STL ABSTRACTION Provider, Abstract 11/01/2024 [facility] Cancer and Hematology [address] [address] [address] [place] [phone] Trish Alva, OLINDA ePRO 11/01/2024 External Device Data STL ABSTRACTION Provider, Abstract 11/01/2024 Chart Note [facility] [address] [facility] [place] [address] [place] [address] Melisa [place] RN 11/01/2024 External Device Data [...] - 10/31/2024 11:59 PM CDT Hospital Encounter [facility] [address] [facility] [address] [place] [address] Jose East MD Discharge Disposition: Home or Self Care 10/31/2024 Orders Only HIS RADIATION ONCOLOGY 10/31/2024 External Device Data STL ABSTRACTION Provider, Abstract 10/30/2024 1:30 PM CDT Video Visit [facility] Supportive Care [facility] [address] [place] [address] Margaret Davis MD Depression screen (Primary Dx); 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); Palliative care by specialist; Neuropathy associated with cancer (CMS/HCC); Cancer related pain; Thrush, oral 10/30/2024 9:39 AM CDT - 10/30/2024 11:59 PM CDT Hospital Encounter [facility] [address] [facility] [address] [place] [address] Jose East MD Discharge Disposition: Home or [...] STL ABSTRACTION Provider, Abstract 10/30/2024 Orders Only [facility] Cancer and Hematology [place] [address] [place] [address] Jackie Bertrand, RINKMAN Leukocytosis, unspecified type (Primary Dx); 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 10/30/2024 Orders Only HIS RADIATION ONCOLOGY 10/30/2024 Chart Note [facility] Cancer and [facility] [address] [place] [address] 10/30/2024 External Device Data STL ABSTRACTION Provider, Abstract 10/29/2024 External Device Data STL ABSTRACTION Provider, Abstract 10/28/2024 External Device Data STL ABSTRACTION Provider, Abstract 10/27/2024 9:01 AM CDT - 10/27/2024 11:59 PM CDT Hospital Encounter [facility] Oncology [facility] [address] [place] [address] Jose East MD Discharge Disposition: Home or Self Care 10/27/2024 Orders Only HIS RADIATION ONCOLOGY 10/27/2024 External Device Data STL ABSTRACTION Provider, Abstract 10/26/2024 4:28 PM CDT - 10/26/2024 11:59 PM CDT Hospital Encounter [facility] Oncology [facility] [address] [place] [address] Jose East MD Discharge Disposition: Home or Self Care 10/26/2024 1:11 PM CDT - 10/26/2024 11:59 PM CDT Hospital Encounter [facility] Oncology Infusion [facility] [address] [place] [address] Arvind Trevino MD Spr Oncology, Infusion 5 Discharge Disposition: Home or Self Care 10/26/2024 1:00 PM CDT Office Visit [facility] Cancer and Hematology [place] [address] [place] [address] Arvind Trevino MD Leukocytosis, unspecified type (Primary Dx); 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 10/26/2024 8:17 AM CDT - 10/26/2024 11:59 PM CDT Hospital Encounter [facility] [address] [place] [address] Arvind Trevino MD Discharge Disposition: Home or Self Care 10/26/2024 Orders Only HIS RADIATION ONCOLOGY 10/26/2024 External Device Data STL ABSTRACTION Provider, Abstract 10/25/2024 9:15 AM CDT - 10/25/2024 11:59 PM CDT Hospital Encounter [facility] [address] [place] [address] Jose East MD Discharge Disposition: Home or Self Care 10/25/2024 External Device Data STL ABSTRACTION Provider, Abstract 10/25/2024 Orders Only HIS RADIATION ONCOLOGY 10/24/2024 9:40 AM CDT - 10/24/2024 11:59 PM CDT Hospital Encounter [facility] [address] [place] [phone] Jose East MD Discharge Disposition: Home or Self Care 10/24/2024 Orders Only HIS RADIATION ONCOLOGY 10/24/2024 External Device Data STL ABSTRACTION Provider, Abstract 10/23/2024 9:27 AM CDT - 10/23/2024 11:59 PM CDT Hospital Encounter [facility] [address] [place] [address] Jose East MD Discharge Disposition: Home or Self Care 10/23/2024 Orders Only [facility] Cancer [facility] Hematology [place] [address] [facility] [address] [place] [address] Arvind Trevino MD Leukocytosis, unspecified type (Primary Dx); 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 10/23/2024 Orders Only HIS RADIATION ONCOLOGY 10/23/2024 External Device Data STL ABSTRACTION Provider, Abstract 10/22/2024 External Device Data STL ABSTRACTION Provider, Abstract 10/21/2024 External Device Data STL ABSTRACTION Provider, Abstract 10/20/2024 8:58 AM CDT - 10/20/2024 11:59 PM CDT Hospital Encounter [facility] [address] [facility] [address] [place] [address] Jose East MD Discharge Disposition: Home or Self Care 10/20/2024 8:15 AM CDT Office Visit [facility] Supportive Care [facility] [address] [place] [address] Negro Jordan NP Cancer related pain (Primary Dx); 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); Palliative care by specialist; Depression screen; Neuropathy associated with cancer (CMS/HCC); Thrush, oral; Neoplastic malignant related fatigue 10/20/2024 Refill [facility] Supportive Care [facility] [address] [place] [address] Negro Jordan NP Cancer related pain (Primary Dx); 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); Palliative care by specialist 10/20/2024 Orders Only HIS RADIATION ONCOLOGY 10/20/2024 External Device Data STL ABSTRACTION Provider, Abstract 10/19/2024 12:12 PM CDT - 10/19/2024 11:59 PM CDT Hospital Encounter [facility] [address] [facility] [address] [place] [address] Arvind Trevino MD Sprg Oncology, Infusion 13 Discharge Disposition: Home or Self Care 10/19/2024 12:00 PM CDT Office Visit [facility] Cancer and Hematology [place] [address] [place] [address] Arvind Trevino MD Grogan, Susan K, CABLE INSTALLATION TECHNICIAN Tonsillar cancer (CMS/HCC) (Primary Dx); Encounter for antineoplastic chemotherapy 10/19/2024 10:13 AM CDT - 10/19/2024 11:59 PM CDT [facility] [address] [place] [address] Arvind Trevino MD Discharge Disposition: Home or Self Care 10/19/2024 9:07 AM CDT - 10/19/2024 11:59 PM CDT Hospital Encounter [facility] [address] [place] [address] Jose East MD Discharge Disposition: Home or Self Care 10/19/2024 Orders Only HIS RADIATION ONCOLOGY 10/19/2024 External Device Data STL ABSTRACTION Provider, Abstract 10/18/2024 9:34 AM CDT - 10/18/2024 11:59 PM CDT Hospital Encounter [facility] [address] [place] [address] Jose East MD Discharge Disposition: Home or Self Care 10/18/2024 Orders Only HIS RADIATION ONCOLOGY 10/18/2024 External Device Data STL ABSTRACTION Provider, Abstract 10/17/2024 9:36 AM CDT - 10/17/2024 11:59 PM CDT Hospital Encounter [facility] [address] [place] [address] Jose East MD Discharge Disposition: Home or Self Care 10/17/2024 Refill [facility] Supportive Care [facility] [address] [place] [address] Negro Jordan, OLINDA Cancer related pain (Primary Dx); 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 [place] [address] Jose East MD Discharge Disposition: Home or Self Care 10/16/2024 Orders Only HIS RADIATION ONCOLOGY 10/16/2024 Chart Note [facility] Cancer and Hematology [place] [address] [place] [address] 10/16/2024 External Device Data STL ABSTRACTION Provider, Abstract 10/15/2024 External Device Data STL ABSTRACTION Provider, Abstract 10/14/2024 External Device Data STL ABSTRACTION Provider, Abstract 10/13/2024 9:26 AM CDT - 10/13/2024 11:59 PM CDT Hospital Encounter [facility] [address] [place] [address] Jose East MD Discharge Disposition: Home or Self Care 10/13/2024 Orders Only HIS RADIATION ONCOLOGY 10/13/2024 Orders Only [facility] Cancer and Hematology [place] [address] [place] [phone] Traci Veloz, CABLE INSTALLATION TECHNICIAN Leukocytosis, unspecified type (Primary Dx) 10/13/2024 External Device Data STL ABSTRACTION Provider, Abstract 10/12/2024 10:46 AM CDT - 10/12/2024 11:59 PM CDT Hospital Encounter [facility] [address] [place] [address] Arvind Trveino MD Sprg Oncology, Infusion 13 Discharge Disposition: Home or Self Care 10/12/2024 10:00 AM CDT - 10/12/2024 11:59 PM CDT Hospital Encounter [facility] [address] [place] [address] [address] [place] [address] Jose East MD Discharge Disposition: Home or Self Care 10/12/2024 10:00 AM CDT Office Visit [facility] Cancer and Hematology [place] [address] [place] [address] 2 [place] [address] Arvind Trevino MD Tonsillar cancer (CMS/HCC) (Primary Dx) 10/12/2024 8:30 AM CDT - 10/12/2024 11:59 PM CDT Hospital Encounter [facility] Laboratory Services [address] [facility] 2 [place] [address] Arvind Trevino MD Discharge Disposition: Home or Self Care 10/12/2024 Orders Only HIS RADIATION ONCOLOGY 10/12/2024 External Device Data STL ABSTRACTION Provider, Abstract 10/11/2024 9:46 AM CDT - 10/11/2024 11:59 PM CDT Hospital Encounter [facility] [address] [place] [address] [address] [place] [address] Jose East MD Discharge Disposition: Home or Self Care 10/11/2024 Orders Only HIS RADIATION ONCOLOGY 10/11/2024 External Device Data STL ABSTRACTION Provider, Abstract 10/10/2024 9:35 AM CDT - 10/10/2024 11:59 PM CDT Hospital Encounter [facility] [address] [place] [address] [address] [place] [address] Jose East MD Discharge Disposition: Home or Self Care 10/10/2024 External Device Data STL ABSTRACTION Provider, Abstract 10/10/2024 Orders Only HIS RADIATION ONCOLOGY 10/10/2024 External Device Data STL ABSTRACTION Provider, Abstract 10/09/2024 9:57 AM CDT - 10/09/2024 11:59 PM CDT Hospital Encounter [facility] [address] [facility] [place] [address] Jose East MD Discharge Disposition: Home or Self Care 10/09/2024 Orders Only HIS RADIATION ONCOLOGY 10/09/2024 Telephone [facility] [address] [place] [address] Bruce Mclain S Cancer (Spiritual care) 10/09/2024 Chart Note [facility] [address] [place] [address] [place] [address] [place] [address] Melisa [place] RN 10/09/2024 External Device Data STL ABSTRACTION Provider, Abstract 10/08/2024 External Device Data STL ABSTRACTION Provider, Abstract 10/07/2024 External Device Data STL ABSTRACTION Provider, Abstract 10/06/2024 9:22 AM CDT - 10/06/2024 11:59 PM CDT Hospital Encounter [facility] [address] [facility] [address] [place] [address] Jose East MD Discharge Disposition: Home or Self Care 10/06/2024 Orders Only HIS RADIATION ONCOLOGY 10/06/2024 External Device Data STL ABSTRACTION Provider, Abstract 10/05/2024 11:25 AM CDT - 10/05/2024 11:59 PM CDT Hospital [facility] [place] [address] [place] [address] Arvind Trevino MD Sprg Oncology, Infusion 14 Discharge Disposition: Home or Self Care 10/05/2024 10:54 AM CDT - 10/05/2024 11:59 PM CDT Hospital Encounter [facility] [address] [place] [address] [address] [place] [address] Jose East MD Discharge Disposition: Home or Self Care 10/05/2024 10:30 AM CDT - 10/05/2024 11:59 PM CDT Hospital Encounter [facility] [address] [place] [address] Jose East MD Discharge Disposition: Home or Self Care 10/05/2024 10:00 AM CDT Office Visit [facility] Cancer and Hematology [place] [address] [place] [address] Arvind Trevino MD Joy, Jennifer L, OLINDA Tonsillar cancer (CMS/HCC) (Primary Dx) 10/05/2024 8:33 AM CDT - 10/05/2024 11:59 PM CDT Hospital [facility] [address] [place] [address] Arvind Trevino MD Discharge Disposition: Home or Self Care 10/05/2024 Orders Only HIS RADIATION ONCOLOGY 10/05/2024 Refill [facility] Supportive Care [facility] [address] [place] [address] Margaret Davis MD 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 ([facility]/HCC) 10/05/2024 External Device Data STL ABSTRACTION Provider, Abstract 10/04/2024 9:56 AM CDT - 10/04/2024 11:59 PM CDT Hospital Encounter [facility] [address] [place] [address] Jose East MD Discharge Disposition: Home or Self Care 10/04/2024 External Device Data STL ABSTRACTION Provider, Abstract 10/04/2024 Orders Only HIS RADIATION ONCOLOGY 10/04/2024 External Device Data STL ABSTRACTION Provider, Abstract 10/04/2024 External Device Data STL ABSTRACTION Provider, Abstract 10/04/2024 External Device Data STL ABSTRACTION Provider, Abstract 10/03/2024 9:53 AM CDT - 10/03/2024 11:59 PM CDT Hospital Encounter [facility] [address] [place] [address] Jose East MD Discharge Disposition: Home or Self Care 10/03/2024 External Device Data STL ABSTRACTION Provider, Abstract 10/03/2024 Orders Only HIS RADIATION ONCOLOGY 10/03/2024 External Device Data STL ABSTRACTION Provider, Abstract 10/02/2024 9:59 AM CDT - 10/02/2024 11:59 PM CDT Hospital Encounter [facility] [address] [place] [address] Jose East MD Discharge Disposition: Home or Self Care 10/02/2024 Orders Only HIS RADIATION ONCOLOGY 10/02/2024 External Device Data STL ABSTRACTION Provider, Abstract 10/01/2024 External Device Data STL ABSTRACTION Provider, Abstract 09/30/2024 External Device Data STL ABSTRACTION Provider, Abstract 09/29/2024 10:04 AM CDT - 09/29/2024 11:59 PM CDT Hospital Encounter [facility] [address] [facility] [address] [place] [address] Jose East MD Discharge Disposition: Home or Self Care 09/29/2024 Orders Only HIS RADIATION ONCOLOGY 09/29/2024 Chart Note [facility] Hematology [place] [address] [facility] 2 [place] [address] 09/29/2024 Refill [facility] Supportive Care [facility] [address] [place] [address] Margaret Davis MD 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 ([facility]/HCC) 09/29/2024 External Device Data STL ABSTRACTION Provider, Abstract 09/28/2024 2:45 PM CDT - 09/28/2024 11:59 PM CDT Hospital Encounter [facility] [address] [place] [address] Jose East MD Discharge Disposition: Home or Self Care 09/28/2024 11:48 AM CDT - 09/28/2024 11:59 PM CDT Hospital Encounter [facility] [address] [place] [address] Arvind Trevion MD Sprg Oncology, Infusion 13 Discharge Disposition: Home or Self Care 09/28/2024 11:30 AM CDT Office Visit [facility] Cancer [facility] Hematology [place] [address] [place], [place] [address]t [address] [facility] [address] [place] [address] Arvind Trevino MD Joy, Jennifer L, RINKMAN Tonsillar cancer (CMS/HCC) (Primary Dx) 09/28/2024 9:50 AM CDT - 09/28/2024 11:59 PM CDT Hospital Encounter [facility] [address] [place] [address] [address] [place] [address] Arvind Trevino MD Discharge Disposition: Home or Self Care 09/28/2024 9:44 AM CDT - 09/28/2024 11:59 PM CDT Hospital Encounter [facility] [address] [facility] [place] [address] Arvind Trevino MD Discharge Disposition: Home or Self Care 09/28/2024 Orders Only HIS RADIATION ONCOLOGY 09/28/2024 External Device Data STL ABSTRACTION Provider, Abstract 09/27/2024 2:11 PM CDT - 09/27/2024 11:59 PM CDT Hospital Encounter [facility] [address] [place] [address] Jose East MD Discharge Disposition: Home or Self Care 09/27/2024 Orders Only HIS RADIATION ONCOLOGY 09/27/2024 External Device Data STL ABSTRACTION Provider, Abstract 09/26/2024 2:02 PM CDT - 09/26/2024 11:59 PM CDT Hospital Encounter [facility] [address] [place] [address] 10 [place] [address] Jose East MD Discharge Disposition: Home or Self Care 09/26/2024 Orders Only HIS RADIATION ONCOLOGY 09/26/2024 External Device Data STL ABSTRACTION Provider, Abstract 09/25/2024 2:20 PM CDT - 09/25/2024 11:59 PM CDT Hospital Encounter [facility] [address] [place] [address] 10 [place] [address] Jose East MD Discharge Disposition: Home or Self Care 09/25/2024 Orders Only HIS RADIATION ONCOLOGY 09/25/2024 Chart Note [facility] [address] [place] [address] [place] [address] Gianfranco Fajardo RN 09/25/2024 External Device Data STL ABSTRACTION Provider, Abstract 09/24/2024 External Device Data STL ABSTRACTION Provider, Abstract 09/23/2024 External Device Data STL ABSTRACTION Provider, Abstract 09/22/2024 External Device Data STL ABSTRACTION Provider, Abstract 09/21/2024 2:17 PM CDT - 09/21/2024 11:59 PM CDT Hospital Encounter [facility] [address] [place] [address] 10 [place] [address] Jose East MD Discharge Disposition: Home or Self Care 09/21/2024 Orders Only HIS RADIATION ONCOLOGY 09/21/2024 Orders Only [facility] Hematology [place] [address] [place] [address] 2 [place] [address] Arvind Trevino MD Leukocytosis, unspecified type (Primary Dx); 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 09/21/2024 Orders Only [facility] [place] [address] [place] [address] 2 [place] [address] Jackie Bertrand NP Leukocytosis, unspecified type (Primary Dx); 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 09/21/2024 Orders Only [facility] [place] [address] [place] [address] 2 [place] [address] Jackie Bertrand, OLINDA Leukocytosis, unspecified type (Primary Dx); 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 09/21/2024 Abstract [facility] Hematology [place] [address] [place] [address] 2 [place] [address] Provider, Abstract 09/21/2024 Chart Note [facility] [address] [place] [address] [place] [address] Deni Meehan RN 09/20/2024 11:30 AM CDT - 09/20/2024 11:59 PM CDT Hospital Encounter [facility] Oncology [facility] [address] [place] [address] [address] [place] [address] Arvind Trevino MD [facility] Oncology, Infusion 20 Discharge Disposition: Home or Self Care 09/20/2024 11:12 AM CDT - 09/20/2024 11:59 PM CDT Hospital Encounter [facility] Radiation Oncology [facility] [address] [place] [address] 10 [place] [address] Jose East MD Discharge Disposition: Home or Self Care 09/20/2024 11:00 AM CDT Office Visit [facility] Cancer [facility] [address] [place] [address] 2 [place] [address] Arvind Trevino MD Tonsillar cancer (CMS/HCC) (Primary Dx); 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 [address] Discharge Disposition: Home or Self Care 09/20/2024 Orders Only HIS RADIATION ONCOLOGY 09/20/2024 Abstract [facility] [address] [place] [address] [place] [address] Provider, Abstract 09/20/2024 Chart Note [facility] Hematology [place] [address] [place], [place] [address]e [facility] 2 [place] [address] Melisa [place], HELADIO 09/20/2024 Chart Note [facility] Hematology [place] [address] [place] [address] 2 [place] [address] 09/19/2024 10:00 AM CDT Office Visit [facility] Ear, Nose and Throat [address] [place] [address] Angie Goss, CABLE INSTALLATION TECHNICIAN Bilateral impacted cerumen (Primary Dx) 09/19/2024 9:30 AM CDT Procedure visit [facility] Audiology [address] [address] [place] [address] Arvind Trevino MD Stone, Amanda, AU.D Encounter for monitoring ototoxic drug therapy (Primary Dx); Tonsillar cancer (CMS/HCC); Sensorineural hearing loss, bilateral 09/19/2024 Telephone [facility] [address] [place] [address] [place] [address] Melisa [place], RN Nurse Navigation 09/14/2024 8:00 AM CDT - 09/14/2024 11:59 PM CDT Hospital Encounter [facility] Radiation Oncology [facility] [address] [place] [address] Discharge Disposition: Home or Self Care 09/13/2024 Telephone [facility] Supportive Care [facility] [address] [place] [address] Nathaniel Carney Jr., MD Medication Question 09/13/2024 Telephone [facility] [address] [place] [address] [place] [address] Melisa [place], RN Nurse Navigation 09/12/2024 3:00 PM CDT Clinical Support [facility] [address] [facility] 230 [place] [address] Kathe Regan MSW Other specified counseling (Primary Dx) 09/12/2024 2:30 PM CDT Office Visit [facility] Supportive [facility] [address] [facility] 230 [place] [address] Belinda Edge, LOINDA Palliative care by specialist (Primary Dx); 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); Cancer related pain; Depression screen 09/11/2024 Abstract [facility] [address] [place], [place] [address] [place] [address] Provider, Abstract 09/08/2024 11:00 AM CDT Clinical Support [facility] Cancer and Hematology [place] [address] [facility] 2 [place] [address] Arvind Trevino MD BrumAnna mckeon, CABLE INSTALLATION TECHNICIAN Tonsillar cancer (CMS/HCC) (Primary Dx); Encounter for education; Palliative care by specialist 09/08/2024 8:22 AM CDT - 09/08/2024 11:59 PM CDT Hospital Encounter [facility] Radiation Oncology [facility] [address] [facility] [address] [place] [address] Jose East MD Discharge Disposition: Home or Self Care 09/08/2024 Telephone [facility] Supportive [facility] [address] [facility] [address] [place] [address] Margaret Davis MD Pain 09/08/2024 Chart Note [facility] [address] [place] [address] [place] [address] Magi Garnett LCSW Other (Social Work Navigation) 09/08/2024 Chart Note [facility] [address] [place] [address] [place] [address] Melisa [place]ne, HELADIO 09/08/2024 Chart Note [facility] Cancer [facility] Hematology [place] [address] [place] [address] 2 [place] [address] 09/07/2024 1:00 PM CDT Clinical Support [facility] Supportive Care [facility] [address] [place] [address] Kathe Regan MSW Other specified counseling (Primary Dx) 09/06/2024 7:03 AM CDT - 09/06/2024 11:59 PM CDT Hospital Encounter [facility] Interventional Radiology [address] [place] [address] Arvind Trevino MD Todd, Ricardo Thomas MD Discharge Disposition: Home or Self Care 09/06/2024 7:03 AM CDT - 09/06/2024 11:59 PM CDT Hospital Encounter [facility] Interventional Radiology [address] [place] [address] Jose East MD Todd, Ricardo Thomas MD Discharge Disposition: Home or Self Care 09/06/2024 External Device Data STL ABSTRACTION Provider, Abstract 09/05/2024 Telephone [facility] [address] [place] [address] [place] [address] Melisa [place], HELADIO Nurse Navigation 09/04/2024 Chart Note [facility] Cancer [facility] Hematology [address] [facility] 2 [place] [phone] from Last 3 Months Family History Medical History Relation Name Comments Respiratory Disease Brother 2 Burce substance abuse Brother 3 Tray Alzheimer's Disease [...] on file Legal Sex Male 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 Gender Identity Not on file Sexual Orientation [...] Info) Description 12/14/2024 12:15 PM CDT Appointment [facility] [address] [facility] [address], [place] [address] 12/14/2024 1:20 PM CDT Office Visit [facility] Hematology [place] [address] [facility] [address] [address] Arvind Trevino MD [address] [address] 01/10/2025 9:45 AM CDT Office Visit [facility] Supportive Care [facility] [address] [address] Margaret Davis MD [address] [address] 02/02/2025 1:00 PM PROFESSOR OF PSYCHOLOGY Appointment [facility] [address] [facility] [address], [place] [address] Arvind Trevino MD [address] [place] [address] 02/02/2025 1:40 PM PROFESSOR OF PSYCHOLOGY Office Visit [facility] Cancer [facility] Hematology [place] [address] [address] Arvind Trevino MD [address] [place] [phone] 02/07/2025 10:00 AM PROFESSOR OF PSYCHOLOGY Office Visit [facility] Ear Nose and Throat Head [place]ck [place] [address] [place] [address] Magno Reyes MD [address] [place] [address] 02/08/2025 3:30 PM PROFESSOR OF PSYCHOLOGY Appointment [facility] Radiation Oncology [facility] [address] [place] [address] Amaris Deras PA-C [address] [place] [address] 03/05/2025 11:30 AM PROFESSOR OF PSYCHOLOGY Clinical Support [facility] Supportive Care [facility] [address] [place] [address] Kathe Regan, HOTEL FRONT OFFICE MANAGER [address] [place] [address] 03/12/2025 10:00 AM PROFESSOR OF PSYCHOLOGY Clinical Support [facility] Supportive Care [facility] [address] [place] [address] Kathe Regan, HOTEL FRONT OFFICE MANAGER [address] [place] [address] Health Maintenance Due Date Last Done Comments DTAP/TDAP/TD VACCINES (1 - Tdap) 1984 HEPATITIS B VACCINES (1 of 3 - + 3-dose series) 1984 ZOSTER VACCINE (1 of 2) 1984 COLORECTAL SCREENING 2010 Colorectal Cancer Screening 2010 FIT-DNA Q 3 years 2010 FIT/FOBT Q 1 year 2010 Flex Sig/CT Colonography Q 5 years 2010 COVID-19 Vaccine (3 - Moderna risk series) 11/25/2020 10/28/2020, 09/30/2020 Pre-Diabetes and Diabetes Screening 10/04/202210/04 INFLUENZA VACCINE (#1) 2024 Medical Devices Implanted Type Area Band Presser Device Identifier Shelf Expiration Date Model / Serial / Lot Sunny Side Suture 4.75x24.5mm Bio Com Swiveloc Sp Ar-2324bcm - [id number] Implanted:Qty: 1 on 03/13/2020 by Sergio Medina III, MD Sunny Side Right: Shoulder [employer] [id number] 12/20/2023 AR-2324BC M / / [id number] Sunny Side Suture 4.75x24.5mm Bio Com Swiveloc Sp Ar-2324bcm - [id number] Implanted:Qty: 1 on 03/13/2020 by Sergio Medina III, MD Sunny Side Right: Shoulder [employer] [id number] 12/20/2023 AR-2324BC M / / [id number] Clip Ligating Horizon Med Ti [id number] - Csc - [id number] Implanted:Qty: 1 on 02/24/2024 by Paul Kimbrough DO at Clip Right: Neck TELEFLEX- WECK CLOSURE SYS [id number] 10/13/2028 [id number] / / [id number] Tube Feeding Yaya Gastro Bolus 16fr 0100-16lv - [id number] Implanted:Qty: 1 on 09/06/2024 by Ricardo Rogers MD at Feeding Device N/A: Abdomen [employer] fka HALYARD [id number] 04/26/2027 0100-16LV / / [id number] Port Pwrprt Clearvue Slim 8fr [id number] - [id number] Implanted:Qty: 1 on 09/06/2024 by Ricardo Rogers MD at Port Left: Chest Wall BARD EVON VASC [id number] 07/19/2025 [id number] / / [id number] Procedures Procedure Name Priority Date/Time Associated Diagnosis [...] lymph nodes of head and neck (CMS/HCC) NC REMOVAL IMPACTED CERUMEN INSTRUMENTATION UNILAT Routine 09/19/2024 10:27 AM CDT Bilateral impacted cerumen NC TYMPANOMETRY Routine 09/19/2024 10:03 AM CDT Encounter for monitoring ototoxic drug therapy Tonsillar cancer (CMS/HCC) Sensorineural hearing loss, bilateral NC DISTRT PROD EVOKD OTOACOUSTIC EMSNS COMP/DX EVAL Routine 09/19/2024 10:03 AM CDT Encounter for monitoring ototoxic drug therapy Tonsillar cancer (CMS/HCC) Sensorineural hearing loss, bilateral NC COMPRE AUDIOMETRY THRESHOLD EVAL SP RECOGNIJ Routine [...] WITHOUT DIFFERENTIAL Stat 09/06/2024 7:17 AM CDT HEMOGLOBIN A1C Routine 10/05/2019 8:16 AM CDT from Last 3 Months or Most Recently Relevant to Health Maintenance Results * RAD ONC MSQ TREATMENT SUMMARY (11/08/2024 8:46 AM CDT) Treatment Site RTonsil&N ckRpln [facility] Course Number 1 [facility] Prescribed Fractional Dose 200 [address] [facility] Prescribed Total Dose 4,600 cGray [facility] Actual Fractions Delivered 23 [facility] Prescription Pattern Comment 6FFF; 36.8Gy SIB cGy [facility] Actual Session Delivered Dose 200 cGray [facility] Actual Total Dose 4,600 c[address] [facility] Prescribed Technique Helical-I MRT [facility] Elapsed Days 30 [facility] Start Date 10/09/2024 [facility] RAFAEL [facility] Last Date 11/08/2024 [facility] IC [facility] Prescribed Number of Fractions 23 [facility] 11/08/2024 8:46 AM CDT us Aok Ip Radiation Oncologist Physician MD RILEY ON ONCOLOGY ORDERABLES Final Result [facility] CLIA # [id number] [address] [place] [address] * RAD ONC MSQ TREATMENT SUMMARY (11/07/2024 9:30 AM CDT) [facility] RTonsil&N ckRpln [facility] Course Number 1 [facility] Prescribed Fractional Dose 200 cGray [facility] Prescribed Total Dose 4,600 cGray [facility] Actual Fractions Delivered 22 [facility] Prescription Pattern Comment 6FFF; 36.8Gy SIB cGy [facility] Actual Session Delivered Dose 200 cGray [facility] Actual Total Dose 4,400 [facility]Gray [facility] Prescribed Technique Helical-I MRT [facility] Elapsed Days 29 [facility] Start Date 10/09/2024 [facility] RAFAEL [facility] Last Date 11/07/2024 [facility] IC [facility] Prescribed Number of Fractions 23 [facility] 11/07/2024 9:30 AM CDT us Aok Ip Radiation Oncologist Physician MD RILEY ON ONCOLOGY ORDERABLES Final Result [facility] CLIA # [id number] [address] [place] [id number] * RAD ONC MSQ TREATMENT SUMMARY (11/06/2024 10:44 AM CDT) Treatment Site RTonsil&N ckRpln [facility] Course Number 1 [facility] Prescribed Fractional Dose 200 cGray [facility] Prescribed Total Dose 4,600 cGray [facility] Actual Fractions Delivered 21 [facility] Prescription Pattern Comment 6FFF; 36.8Gy SIB cGy [facility] Actual Session Delivered Dose 200 cGray [facility] Actual Total Dose 4,200 cGray [facility] Prescribed Technique Helical-I MRT [facility] Elapsed Days 28 [facility] LINIC [facility] Start Date 10/09/2024 [facility] RAFAEL [facility] Last Date 11/06/2024 [facility] Prescribed Number of Fractions 23 [facility] 11/06/2024 10:4 4 AM CDT us Aok Ip Radiation Oncologist Physician MD RILEY ON ONCOLOGY ORDERABLES Final Result Performing Organization Address [facility] Co de Phone Number [facility] CLIA # [id number] [address] [place] [address] * RAD ONC MSQ TREATMENT SUMMARY (11/03/2024 8:42 AM CDT) [facility] Treatment Site RTonsil&N ckRpln [facility] Course Number 1 [facility] Prescribed Fractional Dose 200 cGray [facility] Prescribed Total Dose 4,600 cGray [facility] Actual Fractions Delivered 20 [facility] Prescription Pattern Comment 6FFF; 36.8Gy SIB cGy [facility] Actual Session Delivered Dose 200 cGray [facility] Actual Total Dose 4,000 cGray [facility] Prescribed Technique Helical-I MRT [facility] Elapsed Days 25 [facility] Start Date 10/09/2024 [facility] RAFAEL [facility] Last Date 11/03/2024 [facility] IC [facility] Prescribed Number of Fractions 23 [facility] 11/03/2024 8:42 AM CDT Aok Ip Radiation Oncologist Physician MD RILEY ON ONCOLOGY ORDERABLES Final Result [facility] CLIA # [id number] [address] [place] [address] * MAGNESIUM LEVEL (11/02/2024 8:56 AM CDT) Only the most recent of6 resultswithin the time period is included. [facility] MAGNESIUM 1.7 1.6 - 2.6 mg/dL 11/02/2024 10:12 AM [facility] Blood Venipuncture / Unknown 11/02/2024 8:56 AM CDT 11/02/2024 8:56 AM CDT us Jackie Bertrand NP CHEMISTRY ORDERABLES Final Res ult [facility] CLIA# [id number] [phone] [place] [address] * (ABNORMAL) COMPREHENSIVE METABOLIC PANEL (11/02/2024 8:56 AM CDT) Only the most recent of7 resultswithin the time period is included. SODIUM 134(L) 136 - 145 mmol/L 11/02/2024 10:12 AM [facility] POTASSIUM 4.5 3.5 - 5.1 mmol/L 11/02/2024 10:12 AM [facility] CHLORIDE 96(L) 98 - 107 mmol/L 11/02/2024 10:12 AM [facility] CO2 28 22 - 29 mmol/L 11/02/2024 10:12 AM [facility] CALCIUM 8.5(L) 8.6 - 10.0 mg/dL 11/02/2024 10:12 AM [facility] BUN 27(H) 6 - 20 mg/dL 11/02/2024 10:12 AM [facility] CREATININE 0.64(L) 0.67 - 1.17 mg/dL 11/02/2024 10:12 AM [facility] GLUCOSE 136(H) 74 - 99 mg/dL 11/02/2024 10:12 AM [facility] TOTAL PROTEIN 6.5 6.4 - 8.3 g/dL 11/02/2024 10:12 AM [facility] ALBUMIN 3.9 3.5 - 5.2 g/dL 11/02/2024 10:12 AM [facility] BILIRUBIN TOTAL <0.2 0.0 - 1.0 mg/dL 11/02/2024 10:12 AM [facility] [place] ALKALINE PHOSPHATASE 45 40 - 129 U/L 11/02/2024 10:12 AM [facility] [place] AST 22 <=41 U/L 11/02/2024 10:12 AM [facility] [place] ALT 41 <=41 U/L 11/02/2024 10:12 AM [facility] [place] GFR >60 >=60 mL/min/1.7 3 sq meter 11/02/2024 10:12 AM [facility] [place] Comment:eGFR calculated with 2020 CKD-EPI equation. Vegetarian diet, extremely high or low muscle mass, and may affect results. Cystatin C with Glomerular Filtration Rate is a suitable alternative for these patients. ANION GAP 10 9 - 20 mmol/L 11/02/2024 10:12 AM [facility] [place] Blood Venipuncture / Unknown 11/02/2024 8:56 AM CDT 11/02/2024 8:56 AM CDT us Jackie Bertrand NP CHEMISTRY ORDERABLES Final Res ult [facility] [id number] [id number] [place] [address] * (ABNORMAL) MANUAL DIFFERENTIAL (11/02/2024 8:55 AM CDT) Only the most recent of4 resultswithin the time period is included. SEGMENTED NEUTROPHILS 73(H) 36 - 66 % 11/02/2024 9:55 AM T [facility] [place] LYMPHOCYTES RELATIVE 9(L) 43 - 53 % 11/02/2024 9:55 AM [facility] [place] MONOCYTES RELATIVE 6 4 - 10 % 2024 9:55 AM T [facility] [place] METAMYELOCYTES RELATIVE 10(H) 0 - 1 % 11/02/2024 9:55 AM [facility] [place] MYELOCYTES - REL (DIFF) 2(H) <0 % 11/02/2024 9:55 AM CDT [facility] [place] NEUTROPHILS ABSOLUTE COUNT 4.31 1.40 - 6.50 K/uL 11/02/2024 9:55 AM CDT [facility] [place] LYMPHOCYTES ABSOLUTE 0.53(L) 1.20 - 4.00 K/uL 11/02/2024 9:55 AM CDT [facility] [place] MONOCYTES ABSOLUTE 0.35 0.10 - 0.60 K/uL 11/02/2024 9:55 AM CDT [facility] [place] TOTAL CELLS COUNTED IN DIFF 100 11/02/2024 9:55 AM CDT [facility] [place] PLATELET EST. Adequate 11/02/2024 9:55 AM CDT [facility] ANISOCYTOSIS 2+ /hpf 11/02/2024 9:55 AM CDT [facility] TOXIC GRANULATION 1+ 025 9:55 AM CDT [facility] [place] Blood 11/02/2024 8:55 AM CDT 11/02/2024 8:55 AM CDT Jackie Bertrand NP HEMATOLOGY ORDERABLES COM Isabella costa Result [facility] [place] CLIA# [id number] [id number] [place] [address] * (ABNORMAL) CBC WITH DIFFERENTIAL (11/02/2024 8:55 AM CDT) Only the most recent of7 resultswithin the time period is included. WBC 5.9 4.8 - 10.8 K/uL 11/02/2024 9:20 AM CDT [facility] NRBCS 1(H) <1 % 11/02/2024 9:20 AM CDT [facility] [place] RBC 3.62(L) 4.60 - 6.20 M/uL 11/02/2024 9:20 AM CDT [facility] [place] HEMOGLOBIN 11.3(L) 14.0 - 18.0 g/dL 11/02/2024 9:20 AM CDT [facility] HEMATOCRIT 33.0(L) 41.0 - 53.0 % 11/02/2024 9:20 AM CDT [facility] MCV 91.2 82.0 - 100.0 fL 11/02/2024 9:20 AM CDT [facility] MCH 31.2 27.0 - 34.0 pg 11/02/2024 9:20 AM CDT [facility] [place] MCHC 34.2 31.0 - 37.0 g/dL 11/02/2024 9:20 AM CDT [facility] [place] RDW 19.4(H) 11.0 - 14.5 % 11/02/2024 9:20 AM CDT [facility] [place] RDW-STDEV 57.1(H) 37.0 - 54.0 fL 11/02/2024 9:20 AM CDT [facility] [place] PLATELETS 195 140 - 440 K/uL 11/02/2024 9:20 AM CDT [facility] [place] MPV 9.5 8.9 - 12.8 fL 11/02/2024 9:20 AM CDT [facility] [place] Blood 11/02/2024 8:55 AM CDT 11/02/2024 8:55 AM CDT us Jackie Bertrand RINKMAN HEMATOLOGY ORDERABLES Final Re sult [facility] [place] CLIA# [id number] [phone] [place] [address] * RAD ONC MSQ TREATMENT SUMMARY (11/02/2024 8:18 AM CDT) Pathologist [facility] Treatment Site RTonsil&N ckRpln [facility] Course Number 1 [facility] Prescribed Fractional Dose 200 cGray [facility] Prescribed Total Dose 4,600 cGray [facility] Actual Fractions Delivered 19 [facility] Prescription Pattern Comment 6FFF; 36.8Gy SIB cGy [facility] Actual Session Delivered Dose 200 cGray [facility] Actual Total Dose 3,800 cGray [facility] Prescribed Technique Helical-I MRT [facility] Elapsed Days 24 [facility] Start Date 10[facility]09/2024 [facility] RAFAEL [facility] Last Date 11/02/2024 [facility] CLIN IC [facility] Prescribed Number of Fractions 23 [facility] 11/02/2024 8:18 AM CDT us Aok Ip Radiation Oncologist Physician MD [facility] ORDERABLES Final Result [facility] CLIA # [id number] [address] [place] [address] * RAD ONC MSQ TREATMENT SUMMARY (11/01/2024 9:40 AM CDT) Pathologist [facility] Treatment Site RTonsil&N ckRpln [facility] Course Number 1 [facility] Prescribed Fractional Dose 200 cGray [facility] Prescribed Total Dose 4,600 cGray [facility] Actual Fractions Delivered 18 [facility] Prescription Pattern Comment 6FFF; 36.8Gy SIB cGy [facility] Actual Session Delivered Dose 200 cGray [facility] Actual Total Dose 3,600 cGray [facility] Prescribed Technique Helical-I MRT [facility] Elapsed Days 23 [facility] Start Date 10/09/2024 [facility] Last Date 11/01/2024 [facility] CLIN IC [facility] Prescribed Number of Fractions 23 [facility] 11/01/2024 9:40 AM CDT us Aok Ip Radiation Oncologist Physician MD [facility] ON ONCOLOGY ORDERABLES Final Result [facility] CLIA # [id number] [address] [place] [address] * RAD ONC MSQ TREATMENT SUMMARY (10/31/2024 9:53 AM CDT) [facility] Treatment Site RTonsil&N ckRpln [facility] Course Number 1 [facility] Prescribed Fractional Dose 200 cGray [facility] Prescribed Total Dose 4,600 cGray [facility] Actual Fractions Delivered 17 [facility] Prescription Pattern Comment 6FFF; 36.8Gy SIB cGy [facility] Actual Session Delivered Dose 200 cGray [facility] Actual Total Dose 3,400 cGray [facility] Prescribed Technique Helical-I MRT [facility] Elapsed Days 22 [facility] Start Date 10/09/2024 [facility] CLI RAFAEL [facility] Last Date 10/31/2024 [facility] IC [facility] Prescribed Number of Fractions 23 [facility] 10/31/2024 9:53 AM CDT us Aok Ip Radiation Oncologist Physician MD RI[facility] ON ONCOLOGY ORDERABLES Final Result [facility] CLIA # [id number] [address] [place] [address] * RAD ONC MSQ TREATMENT SUMMARY (10/30/2024 10:02 AM CDT) [facility] RTonsil&N ckRpln [facility] Course Number 1 [facility] Prescribed Fractional Dose 200 cGray [facility] Prescribed Total Dose 4,600 cGray [facility] Actual Fractions Delivered 16 [facility] Prescription Pattern Comment 6FFF; 36.8Gy SIB cGy [facility] Actual Session Delivered Dose 200 cGray [facility] Actual Total [facility]ose 3,200 cGray [facility] Prescribed Technique Helical-I MRT [facility] Elapsed Days 21 [facility] Start Date 10/09/2024 [facility] CLI RAFAEL [facility] Last Date 10/30/2024 [facility] CLIN IC [facility] Prescribed Number of Fractions 23 [facility] 10/30/2024 10:0 2 AM CDT us Aok Ip Radiation Oncologist Physician MD RI[facility] ON ONCOLOGY ORDERABLES Final Result [facility] CLIA # [id number] [address] [place] [address] * RAD ONC MSQ TREATMENT SUMMARY (10/27/2024 10:00 AM CDT) [facility] RTonsil&N ckRpln [facility] Course Number 1 [facility] Prescribed Fractional Dose 200 cGray [facility] Prescribed Total Dose 4,600 cGray [facility] Actual Fractions Delivered 15 [facility] Prescription Pattern Comment 6FFF; 36.8Gy SIB cGy [facility] Actual Session Delivered Dose 200 cGray [facility] Actual Total Dose 3,000 cGray [facility] Prescribed Technique Helical-I MRT [facility] Elapsed Days 18 [facility] Start Date 10/09/2024 [facility] Last Date 10/27/2024 [facility] IC [facility] Prescribed Number of Fractions 23 [facility] 10/27/2024 10:0 0 AM CDT us Aok Ip Radiation Oncologist Physician MD RI[facility] ON ONCOLOGY ORDERABLES Final Result [facility] CLIA # [id number] [address] [place] [address] * RAD ONC MSQ TREATMENT SUMMARY (10/26/2024 4:38 PM CDT) Treatment Site RTonsil&N ckRpln [facility] Course Number 1 [facility] Prescribed Fractional Dose 200 cGray [facility] Prescribed Total Dose 4,600 cGray [facility] Actual Fractions Delivered 14 [facility] Prescription Pattern Comment 6FFF; 36.8Gy SIB cGy [facility] Actual Session Delivered Dose 200 cGray [facility] Actual Total Dose 2,800 cGray [facility] Prescribed Technique Helical-I MRT [facility] Elapsed Days 17 [facility] Start Date 10[facility]09/2024 [facility] RAFAEL [facility] Last Date 10/26/2024 [facility] Prescribed Number of Fractions 23 [facility] 10/26/2024 4:38 PM CDT us Aok Ip Radiation Oncologist Physician MD RILEY ON ONCOLOGY ORDERABLES Final Result Performing Organization Address City/[facility]/ZIP Co de Phone Number [facility] CLIA # [id number] [address] [place] [address] * RAD ONC MSQ TREATMENT SUMMARY (10/25/2024 10:02 AM CDT) Pathologist [facility] Treatment Site RTonsil&N ckRpln [facility] Course Number 1 [facility] Prescribed Fractional Dose 200 cGray [facility] Prescribed Total Dose 4,600 cGray [facility] Actual Fractions Delivered 13 [facility] Prescription Pattern Comment 6FFF; 36.8Gy SIB cGy [facility] Actual Session Delivered Dose 200 cGray [facility] Actual Total Dose 2,600 cGray [facility] Prescribed Technique Helical-I MRT [facility] Elapsed Days 16 [facility] Start Date 10/09/2024 [facility] CLI RAFAEL [facility] Last Date 10/25/2024 [facility] Prescribed Number of Fractions 23 [facility] 10/25/2024 10:0 2 AM CDT us Aok Ip Radiation Oncologist Physician MD RILEY ON ONCOLOGY ORDERABLES Final Result [facility] CLIA # [id number] [address] [place] [address] * RAD ONC MSQ TREATMENT SUMMARY (10/24/2024 10:22 AM CDT) [facility] Treatment [facility] RTonsil&N ckRpln [facility] Course Number 1 [facility] Prescribed Fractional Dose 200 cGray [facility] Prescribed Total Dose 4,600 cGray [facility] Actual Fractions Delivered 12 [facility] Prescription Pattern Comment 6FFF; 36.8Gy SIB cGy [facility] Actual Session Delivered Dose 200 cGray [facility] Actual Total Dose 2,400 cGray [facility] Prescribed Technique Helical-I MRT [facility] Elapsed Days 15 [facility] Start Date 10/09/2024 [facility] CLI RAFAEL [facility] Last Date 10/24/2024 [facility] CLIN IC [facility] Prescribed Number of Fractions 23 [facility] 10/24/2024 10:2 2 AM CDT us Aok Ip Radiation Oncologist Physician MD RILEY ON ONCOLOGY ORDERABLES Final Result [facility] CLIA # [id number] [address] [place] [address] * RAD ONC MSQ TREATMENT SUMMARY (10/23/2024 9:43 AM CDT) [facility] Treatment [facility] RTonsil&N ckRpln [facility] Course Number 1 [facility] Prescribed Fractional Dose 200 cGray [facility] Prescribed Total Dose 4,600 cGray [facility] Actual Fractions Delivered 11 [facility] Prescription Pattern Comment 6FFF; 36.8Gy SIB cGy [facility] Actual Session Delivered Dose 200 cGray [facility] Actual Total Dose 2,200 cGray [facility] Prescribed Technique Helical-I MRT [facility] Elapsed Days 14 [facility] Start Date 10/09/2024 [facility] Last Date 10/23/2024 [facility] IC [facility] Prescribed Number of Fractions 23 [facility] 10/23/2024 9:43 AM CDT us Aok Ip Radiation Oncologist Physician MD RILEY ON ONCOLOGY ORDERABLES Final Result [facility] CLIA # [id number] [address] [place] [address] * RAD ONC MSQ TREATMENT SUMMARY (10/20/2024 9:21 AM CDT) Pathologist [facility] Treatment Site RTonsil&N ckRpln [facility] Course Number 1 [facility] Prescribed Fractional Dose 200 cGray [facility] Prescribed Total Dose 4,600 cGray [facility] Actual Fractions Delivered 10 [facility] Prescription Pattern Comment 6FFF; 36.8Gy SIB cGy [facility] Actual Session Delivered Dose 200 cGray [facility] Actual Total Dose 2,000 cGray [facility] Prescribed Technique Helical-I MRT [facility] Elapsed Days 11 [facility] Start Date 10[facility]09/2024 [facility] RAFAEL [facility] Last Date 10/20/2024 [facility]IN IC [facility] Prescribed Number of Fractions 23 [facility] 10/20/2024 9:21 AM CDT us Aok Ip Radiation Oncologist Physician MD RILEY ON ONCOLOGY ORDERABLES Final Result [facility] CLIA # [id number] [address] [place] [address] * RAD ONC MSQ TREATMENT SUMMARY (10/19/2024 10:08 AM CDT) [facility] RTonsil&N ckRpln [facility] Course Number 1 [facility] Prescribed Fractional Dose 200 cGray [facility] Prescribed Total Dose 4,600 cGray [facility] Actual Fractions Delivered 9 [facility] Prescription Pattern Comment 6FFF; 36.8Gy SIB cGy [facility] Actual Session Delivered [facility]ose 200 cGray [facility] Actual Total [facility]ose 1,800 cGray [facility] Prescribed Technique Helical-I MRT [facility] Elapsed Days 10 [facility] Start Date 10[facility]09/2024 [facility] RA[facility]EL [facility] Last Date 10/19/2024 [facility] IC [facility] Prescribed Number of Fractions 23 [facility] 10/19/2024 10:0 8 AM CDT us Aok Ip Radiation Oncologist Physician MD [facility] ORDER[facility] Final Result [facility] CLIA # [id number] [place] [address] * RAD ONC MSQ TREATMENT SUMMARY (10/18/2024 9:58 AM CDT) [facility] RTonsil&N ckRpln [facility] Course Number 1 [facility] Prescribed Fractional [facility]ose 200 [facility] [facility] Prescribed Total Dose 4,600 cGray [facility] Actual Fractions Delivered 8 [facility] Prescription Pattern Comment 6FFF; 36.8Gy SIB cGy [facility] Actual Session Delivered Dose 200 cGray [facility] Actual Total [facility]ose 1,600 cGray [facility] Prescribed Technique Helical-I MRT [facility] Elapsed Days 9 [facility] Start Date 10[facility]09/2024 [facility] RAFAEL [facility] Last Date 10/18/2024 [facility] Prescribed Number of Fractions 23 [facility] 10/18/2024 9:58 AM CDT us Aok Ip Radiation Oncologist Physician MD RILEY ON ONCOLOGY ORDERABLES Final Result [facility] CLIA # [id number] [address] [place] [address] * RAD ONC MSQ TREATMENT SUMMARY (10/17/2024 10:07 AM CDT) Treatment Site RTonsil&N ckRpln [facility] Course Number 1 [facility] Prescribed Fractional Dose 200 cGray [facility] Prescribed Total Dose 4,600 cGray [facility] Actual Fractions Delivered 7 [facility] Prescription Pattern Comment 6FFF; 36.8Gy SIB cGy [facility] Actual Session Delivered Dose 200 cGray [facility] Actual Total Dose 1,400 cGray [facility] Prescribed Technique Helical-I MRT [facility] Elapsed Days 8 [facility] Start Date 10/09/2024 [facility] Last Date 10/17/2024 [facility] Prescribed Number of Fractions 23 [facility] 10/17/2024 10:0 7 AM CDT us Aok Ip Radiation Oncologist Physician MD RILEY ON ONCOLOGY ORDERABLES Final Result Performing Organization Address City/[facility] Co de Phone Number [facility] CLIA # [id number] [address] [place] [address] * RAD ONC MSQ TREATMENT SUMMARY (10/16/2024 10:17 AM CDT) Pathologist [facility] Treatment Site RTonsil&N ckRpln [facility] Course Number 1 [facility] Prescribed Fractional Dose 200 cGray [facility] Prescribed Total Dose 4,600 cGray [facility] Actual Fractions Delivered 6 [facility] Prescription Pattern Comment 6FFF; 36.8Gy SIB cGy [facility] Actual Session Delivered Dose 200 cGray [facility] Actual Total [facility]ose 1,200 cGray [facility] Prescribed Technique Helical-I MRT [facility] Elapsed Days 7 [facility] Start Date 10[facility]09/2024 [facility] RA[facility] Last Date 10/16/2024 [facility] Prescribed Number of Fractions 23 [facility] 10/16/2024 10:1 7 AM CDT us Aok Ip Radiation Oncologist Physician MD RILEY ON ONCOLOGY ORDERABLES Final Result [facility] CLIA # [id number] [address] [place] [address] * RAD ONC MSQ TREATMENT SUMMARY (10/13/2024 10:08 AM CDT) [facility] RTonsil&N ckRpln [facility] Course Number 1 [facility] Prescribed Fractional Dose 200 cGray [facility] Prescribed Total Dose 4,600 cGray [facility] Actual Fractions Delivered 5 [facility] Prescription Pattern Comment 6FFF; 36.8Gy SIB cGy [facility] Actual Session Delivered Dose 200 cGray [facility] Actual Total [facility]ose 1,000 cGray [facility] Prescribed Technique Helical-I MRT [facility] Elapsed Days 4 [facility] Start Date 10[facility]09/2024 [facility] RAFAEL [facility] Last Date 10/13/2024 [facility] Prescribed Number of Fractions 23 [facility] 10/13/2024 10:0 8 AM CDT Aok Ip Radiation Oncologist Physician MD RILEY ON ONCOLOGY ORDERABLES Final Result [facility] CLIA # [id number] [address] [place] [address] * RAD ONC MSQ TREATMENT SUMMARY (10/12/2024 10:42 AM CDT) [facility] Treatment [facility] RTonsil&N ckRpln [facility] Course Number 1 [facility] Prescribed Fractional Dose 200 cGray [facility] Prescribed Total Dose 4,600 cGray [facility] Actual Fractions Delivered 4 [facility] Prescription Pattern Comment 6FFF; 36.8Gy SIB cGy [facility] Actual Session Delivered Dose 200 cGray [facility] Actual Total [facility]ose 800 cGray [facility] Prescribed Technique Helical-I MRT [facility] Elapsed Days 3 [facility] Start Date 10/09/2024 [facility] Last Date 10/12/2024 [facility] Prescribed Number of Fractions 23 [facility] 10/12/2024 10:4 2 AM CDT us Aok Ip Radiation Oncologist Physician MD RILEY ON ONCOLOGY ORDERABLES Final Result [facility] CLIA # [id number] [address] [place] [address] * RAD ONC MSQ TREATMENT SUMMARY (10/11/2024 10:08 AM CDT) Pathologist [facility] Treatment Site RTonsil&N ckRpln [facility] Course Number 1 [facility] Prescribed Fractional Dose 200 cGray [facility] Prescribed Total Dose 4,600 cGray [facility] Actual Fractions Delivered 3 [facility] Prescription Pattern Comment 6FFF; 36.8Gy SIB cGy [facility] Actual Session Delivered Dose 200 cGray [facility] Actual Total Dose 600 cGray [facility] Prescribed Technique Helical-I MRT [facility] Elapsed Days 2 [facility] Start Date 10/09/2024 [facility] RAFAEL [facility] Last Date 10/11/2024 [facility] Prescribed Number of Fractions 23 [facility] 10/11/2024 10:0 8 AM CDT us Aok Ip Radiation Oncologist Physician MD RILEY ON ONCOLOGY ORDERABLES Final Result Performing Organization Address City/[facility]/ZIP Co de Phone Number [facility] CLIA # [id number] [address] [place] [address] * RAD ONC MSQ TREATMENT SUMMARY (10/10/2024 9:53 AM CDT) [facility] Treatment Site RTonsil&N ckRpln [facility] Course Number 1 [facility] Prescribed Fractional Dose 200 cGray [facility] Prescribed Total Dose 4,600 cGray [facility] Actual Fractions Delivered 2 [facility] Prescription Pattern Comment 6FFF; 36.8Gy SIB cGy [facility] Actual Session Delivered Dose 200 cGray [facility] Actual Total Dose 400 cGray [facility] Prescribed Technique Helical-I MRT [facility] Elapsed Days 1 [facility] Start Date 10/09/2024 [facility] RAFAEL [facility] Last Date 10/10/2024 [facility] Prescribed Number of Fractions 23 [facility] 10/10/2024 9:53 AM CDT us Aok Ip Radiation Oncologist Physician MD RILEY ON ONCOLOGY ORDERABLES Final Result [facility] CLIA # [id number] [address] [place] [address] * RAD ONC MSQ TREATMENT SUMMARY (10/09/2024 10:59 AM CDT) [facility] Treatment Site RTonsil&N ckRpln [facility] Course Number 1 [facility] Prescribed Fractional Dose 200 cGray [facility] Prescribed Total Dose 4,600 cGray [facility] Actual Fractions Delivered 1 [facility] Prescription Pattern Comment 6FFF; 36.8Gy SIB cGy [facility] Actual Session Delivered Dose 200 cGray [facility] Actual Total Dose 200 cGray [facility] Prescribed Technique Helical-I MRT [facility] Elapsed Days 0 [facility] Start Date 10/09/2024 [facility] RAFAEL [facility] Last Date 10/09/2024 [facility] Prescribed Number of Fractions 23 [facility] 10/09/2024 10:5 9 AM CDT us Aok Ip Radiation Oncologist Physician MD RILEY ON ONCOLOGY ORDERABLES Final Result [facility] CLIA # [id number] [facility] [place] [address] * RAD ONC MSQ TREATMENT SUMMARY (10/06/2024 9:56 AM CDT) [facility] Treatment Site R tonsil R neck [facility] Course Number 1 [facility] Prescribed Fractional Dose 200 cGray [facility] Prescribed Total Dose 7,000 cGray [facility] Actual [facility]ractions Delivered 12 [facility] Prescription Pattern Comment 5600 cGy SIB cGy [facility] Actual Session Delivered Dose 200 cGray [facility] Actual Total Dose 2,400 cGray [facility] Prescribed Technique Helical-IM RT [facility] Elapsed Days 16 [facility] Start Date 09/20/2024 [facility] Last Date 10/06/2024 [facility] Prescribed Number of Fractions 35 [facility] 10/06/2024 9:56 AM CDT us Aok Ip Radiation Oncologist Physician MD RILEY ON ONCOLOGY ORDERABLES Final Result [facility] CLIA # [id number] [address] [place] [address] * RAD ONC MSQ TREATMENT SUMMARY (10/05/2024 10:59 AM CDT) Treatment Site R tonsil R neck [facility] Course Number 1 [facility] Prescribed Fractional Dose 200 cGray [facility] Prescribed Total Dose 7,000 cGray [facility] Actual [facility]ractions Delivered 11 [facility] Prescription Pattern Comment 5600 cGy SIB cGy [facility] Actual Session Delivered Dose 200 cGray [facility] Actual Total Dose 2,200 cGray [facility] Prescribed Technique Helical-IM RT [facility] Elapsed Days 15 [facility] Start Date 09[facility]20/2024 [facility] RAFAEL [facility] Last Date 10/05/2024 [facility] Prescribed Number of Fractions 35 [facility] 10/05/2024 10:5 9 AM CDT us Aok Ip Radiation Oncologist Physician MD RILEY ON ONCOLOGY ORDERABLES Final Result [facility] CLIA # [id number] [address] [place] [address] * RAD ONC MSQ TREATMENT SUMMARY (10/04/2024 10:38 AM CDT) [facility] Treatment Site R tonsil R neck [facility] Course Number 1 [facility] Prescribed Fractional Dose 200 cGray [facility] Prescribed Total Dose 7,000 cGray [facility] Actual [facility]ractions Delivered 10 [facility] Prescription Pattern Comment 5600 cGy SIB cGy [facility] Actual Session Delivered Dose 200 cGray [facility] Actual Total Dose 2,000 cGray [facility] Prescribed Technique Helical-IM RT [facility] Elapsed Days 14 [facility] Start Date 09[facility]20/2024 [facility] RA[facility]EL [facility] Last Date 10/04/2024 [facility] Prescribed Number of Fractions 35 [facility] 10/04/2024 10:3 8 AM CDT us Aok Ip Radiation Oncologist Physician MD RILEY ON ONCOLOGY ORDERABLES Final Result [facility] CLIA # [id number] [address] [place] [address] * RAD ONC MSQ TREATMENT SUMMARY (10/03/2024 10:13 AM CDT) [facility] Treatment [facility] R tonsil R neck [facility] Course Number 1 [facility] Prescribed Fractional Dose 200 cGray [facility] Prescribed Total [facility]ose 7,000 cGray [facility] Actual [facility]ractions Delivered 9 [facility] Prescription Pattern Comment 5600 cGy SIB cGy [facility] Actual Session Delivered Dose 200 cGray [facility] Actual Total [facility]ose 1,800 cGray [facility] Prescribed Technique Helical-IM RT [facility] Elapsed Days 13 [facility] Start Date 09[facility]20/2024 [facility] RAFAEL [facility] Last Date 10/03/2024 [facility] Prescribed Number of Fractions 35 [facility] 10/03/2024 10:1 3 AM CDT us Aok Ip Radiation Oncologist Physician MD RILEY ON ONCOLOGY ORDERABLES Final Result [facility] CLIA # [id number] [address] [place] [address] * RAD ONC MSQ TREATMENT SUMMARY (10/02/2024 10:17 AM CDT) Pathologist [facility] Treatment Site R tonsil R neck [facility] Course Number 1 [facility] Prescribed Fractional Dose 200 cGray [facility] Prescribed Total Dose 7,000 cGray [facility] Actual [facility]ractions Delivered 8 [facility] Prescription Pattern Comment 5600 cGy SIB cGy [facility] Actual Session Delivered Dose 200 cGray [facility] Actual Total Dose 1,600 cGray [facility] Prescribed Technique Helical-IM RT [facility] Elapsed Days 12 [facility] Start Date 09[facility]20/2024 [facility] Last Date 10[facility]02/2024 [facility] Prescribed Number of Fractions 35 [facility] 10/02/2024 10:1 7 AM CDT us Aok Ip Radiation Oncologist Physician MD RILEY ON ONCOLOGY ORDERABLES Final Result [facility] CLIA # [id number] [address] [place] [address] * RAD ONC MSQ TREATMENT SUMMARY (09/29/2024 10:32 AM CDT) [facility] Treatment Site R tonsil R neck [facility] Course Number 1 [facility] Prescribed Fractional Dose 200 cGray [facility] Prescribed Total Dose 7,000 cGray [facility] Actual [facility]ractions Delivered 7 [facility] Prescription Pattern Comment 5600 cGy SIB cGy [facility] Actual Session Delivered Dose 200 cGray [facility] Actual Total [facility]ose 1,400 cGray [facility] Prescribed Technique Helical-IM RT [facility] Elapsed Days 9 [facility] Start Date 09[facility]20/2024 [facility] RAFAEL [facility] Last Date 09/29/2024 [facility] Prescribed Number of Fractions 35 [facility] 09/29/2024 10:3 2 AM CDT us Aok Ip Radiation Oncologist Physician MD RILEY ON ONCOLOGY ORDERABLES Final Result [facility] CLIA # [id number] [address] [place] [address] * RAD ONC MSQ TREATMENT SUMMARY (09/28/2024 3:10 PM CDT) [facility] Treatment Site R tonsil R neck [facility] Course Number 1 [facility] Prescribed Fractional Dose 200 cGray [facility] Prescribed Total [facility]ose 7,000 cGray [facility] Actual [facility]ractions Delivered 6 [facility] Prescription Pattern Comment 5600 cGy SIB cGy [facility] Actual Session Delivered Dose 200 cGray [facility] Actual Total [facility]ose 1,200 cGray [facility] Prescribed Technique Helical-IM RT [facility] Elapsed Days 8 [facility] Start Date 09[facility]20/2024 [facility] RA[facility]EL [facility] Last Date 09/28/2024 [facility] Prescribed Number of Fractions 35 [facility] 09/28/2024 3:10 PM CDT us Aok Ip Radiation Oncologist Physician MD RILEY ON ONCOLOGY ORDERABLES Final Result [facility] CLIA # [id number] [address] [place] [address] * RAD ONC MSQ TREATMENT SUMMARY (09/27/2024 2:39 PM CDT) [facility] Treatment Site R tonsil R neck [facility] Course Number 1 [facility] Prescribed Fractional Dose 200 cGray [facility] Prescribed Total [facility]ose 7,000 cGray [facility] Actual [facility]ractions Delivered 5 [facility] Prescription Pattern Comment 5600 cGy SIB cGy [facility] Act[facility] Session Delivered Dose 200 cGray [facility] Actual Total Dose 1,000 cGray [facility] Prescribed Technique Helical-IM RT [facility] Elapsed Days 7 [facility] Start Date 09/20/2024 [facility] Last Date 09/27/2024 [facility] Prescribed Number of Fractions 35 [facility] 09/27/2024 2:39 PM CDT us Aok Ip Radiation Oncologist Physician MD RILEY ON ONCOLOGY ORDERABLES Final Result [facility] CLIA # [id number] [address] [place] [address] * RAD ONC MSQ TREATMENT SUMMARY (09/26/2024 2:49 PM CDT) Treatment Site R tonsil R neck [facility] Course Number 1 [facility] Prescribed Fractional Dose 200 cGray [facility] Prescribed Total Dose 7,000 cGray [facility] Actual Fractions Delivered 4 [facility] Prescription Pattern Comment 5600 cGy SIB cGy [facility] Actual Session Delivered Dose 200 cGray [facility] Actual Total Dose 800 cGray [facility] Prescribed Technique Helical-IM RT [facility] Elapsed Days 6 [facility] Start Date 09/20/2024 [facility] RA[facility]EL [facility] Last Date 09/26/2024 [facility] Prescribed Number of Fractions 35 [facility] 09/26/2024 2:49 PM CDT us Aok Ip Radiation Oncologist Physician MD RILEY ON ONCOLOGY ORDERABLES Final Result [facility] CLIA # [id number] [address] [place] [address] * RAD ONC MSQ TREATMENT SUMMARY (09/25/2024 3:13 PM CDT) [facility] Treatment Site R tonsil R neck [facility] Course Number 1 [facility] Prescribed Fractional Dose 200 cGray [facility] Prescribed Total Dose 7,000 cGray [facility] Actual Fractions Delivered 3 [facility] Prescription Pattern Comment 5600 cGy SIB cGy [facility] Actual Session Delivered Dose 200 cGray [facility] Actual Total Dose 600 cGray [facility] Prescribed Technique Helical-IM RT [facility] Elapsed Days 5 [facility] Start Date 09[facility]20/2024 [facility] RA[facility]EL [facility] Last Date 09/25/2024 [facility] Prescribed Number of Fractions 35 [facility] 09/25/2024 3:13 PM CDT us Aok Ip Radiation Oncologist Physician MD RILEY ON ONCOLOGY ORDERABLES Final Result [facility] CLIA # [id number] [address] [place] [address] * RAD ONC MSQ TREATMENT SUMMARY (09/21/2024 3:26 PM CDT) [facility] Treatment [facility] R tonsil R neck [facility] Course Number 1 [facility] Prescribed Fractional Dose 200 cGray [facility] Prescribed Total Dose 7,000 cGray [facility] Actual Fractions Delivered 2 [facility] Prescription Pattern Comment 5600 cGy SIB cGy [facility] Actual Session Delivered Dose 200 cGray [facility] Actual Total Dose 400 cGray [facility] Prescribed Technique Helical-IM RT [facility] Elapsed Days 1 [facility] Start Date 09[facility]20/2024 [facility] RA[facility]EL [facility] Last Date 09/21/2024 [facility] Prescribed Number of Fractions 35 [facility] 09/21/2024 3:26 PM CDT us Aok Ip Radiation Oncologist Physician MD RILEY ON ONCOLOGY ORDERABLES Final Result [facility] CLIA # [id number] [address] [place] [address] * RAD ONC MSQ TREATMENT SUMMARY (09/20/2024 11:33 AM CDT) Pathologist [facility] Treatment Site R tonsil R neck [facility] Course Number 1 [facility] Prescribed Fractional Dose 200 cGray [facility] Prescribed Total Dose 7,000 cGray [facility] Actual Fractions Delivered 1 [facility] Prescription Pattern Comment 5600 cGy SIB cGy [facility] Actual Session Delivered Dose 200 cGray [facility] Actual Total Dose 200 cGray [facility] Prescribed Technique Helical-IM RT [facility] Elapsed Days 0 [facility] Start Date 09/20/2024 [facility] Last Date 09/20/2024 [facility] Prescribed Number of Fractions 35 [facility] 09/20/2024 11:3 3 AM CDT Aok Ip Radiation Oncologist Physician MD RILEY ON ONCOLOGY ORDERABLES Final Result [facility] CLIA # [id number] [address] [place] [address] * NC REMOVAL IMPACTED CERUMEN INSTRUMENTATION UNILAT (09/19/2024 10:27 [...] procedure well and without any known complications. Result [facility] Angie STUART PROCEDURE/MINOR SURGICAL ORDE RABLES Final Result * NC TYMPANOMETRY (09/19/2024 10:03 AM CDT) Kathe Putnam AU.D - 09/19/2024 10:03 AM CDT Kathe Kirkpatrick AU.D 09/19/2024 10:07 AM Tympanometric results: See Scanned Images Right Ear: Jerger Type A (0.5 ear canal volume; 0.30 compliance; 7 middle ear pressure) Left Ear: Jerger Type A (0.6 ear canal volume; 0.54 compliance; -9 middle ear pressure) [facility] ORDERABLES Final Result * NC DISTRT PROD EVOKD OTOACOUSTIC EMSNS COMP/DX EVAL (09/19/2024 10:03 AM CDT) Kathe Putnam AU.D - 09/19/2024 10:03 AM CDT Kathe Kirkpatrick AU.D 09/19/2024 10:07 AM 12 Frequency Distortion Product Otoacoustic Emissions (DPOAEs) Protocol: See Scanned Images Right ear: OAEs present at or above 6 dB SNR at 1408-6017 Hz Left ear: OAEs present at or above 6 dB SNR at 1927-1666 Hz us Kathe [facility] ORDERABLES Final Result * NC COMPRE AUDIOMETRY THRESHOLD EVAL SAMIRA RECOGNIJ (09/19/2024 [...] revealed significant but non-occluding cerumen bilaterally. Speech Rn Gastroenterology Threshold:(live voice) Right Ear: 20 dB HL [...] Interpretation: Baseline: 09/19/2024; Grade 0; National Cancer [place] Common Terminology Criteria for Adverse Events (CTCAE) [...] at or above 6 dB SNR at 5323-4226 Hz Left ear: OAEs present at or above 6 dB SNR at 6948-9019 Hz Patient test reliability was very good. [...] if changes in hearing or tinnitus occur. Kathe [facility] ORDERABLES Final Result [...] documented in the medical record on the [facility]-approved form, 'Sedative/Analgesic Administration for Diagnostic [...] the wire into the stomach. A 16 Algerian YAYA gastrostomy tube was placed over the wire through the sheath and into the stomach. The sheath was removed. Intraluminal position was again confirmed with the injection of contrast, and the gastrostomy tube balloon was inflated with dilute contrast.The procedure site was dressed. CATHETER: 16 Algerian YAYA gastrostomy tube.. COMPLICATIONS: None. The patient [...] documented in the medical record on the [facility]-approved form, 'Sedative/Analgesic Administration for Diagnostic [...] the wire into the stomach. A 16 Algerian YAYA gastrostomy tube was placed over the wire through the sheath and into the stomach. The sheath was removed. Intraluminal position was again confirmed with the injection of contrast, and the gastrostomy tube balloon was inflated with dilute contrast.The procedure site was dressed. CATHETER: 16 Algerian YAYA gastrostomy tube.. COMPLICATIONS: None. The patient [...] documented in the medical record on the [facility]-approved form, 'Sedative/Analgesic Administration for Diagnostic [...] and with use of maximal barrier technique. [place] timeout protocol was performed. The initial sonographic [...] incision site was dilated, and an 8 Algerian peel-away sheath was inserted over a 0.035-inch J-wire using fluoroscopic guidance. The 8 Algerian tunneled catheter was inserted into the left [...] documented in the medical record on the [facility]-approved form, 'Sedative/Analgesic Administration for Diagnostic [...] and with use of maximal barrier technique. [place] timeout protocol was performed. The initial sonographic [...] incision site was dilated, and an 8 Algerian peel-away sheath was inserted over a 0.035-inch J-wire using fluoroscopic guidance. The 8 Algerian tunneled catheter was inserted into the left [...] Result * PROTIME-INR (09/06/2024 7:17 AM CDT) PROTIME 13.5 12.7 - 14.9 Seconds 09/06/2024 8:03 AM CDT [facility] [email or web address] [facility] INR 1.0 0.8 - 1.2 09/06/2024 8:03 AM CDT [facility] [email or web address] [facility] Blood Venipuncture / Unknown 09/06/2024 7:17 AM CDT 09/06/2024 7:50 AM CDT Narrative [facility] [email or web address] [facility] - 09/06/2024 8:03 AM CDT Expected Values for INR: DVT/PE Goal INR 2.5; range 2.0 - 3.0 Valve Replacement Tissue Goal INR 2.5; range 2.0 - 3.0 Valve Replacement Mechanical Goal INR 3.0; range 2.5 - 3.5 POST-NH Goal INR 2.5; range 2.0 - 3.0 or Goal INR 3.0; range 2.5 - 3.5 Atrial Fibrillation Goal INR 2.5; range 2.0 - 3.0 Ischemic Stroke Goal INR 2.5; range 2.0 - 3.0 us Ricardo Rogers MD HEMATOLOGY ORDERABLES Final Re sult [facility] CLIA # [id number] [facility] [address] [place] [address] * (ABNORMAL) CBC WITHOUT DIFFERENTIAL (09/06/2024 7:17 AM CDT) [facility] WBC 6.5 4.8 - 10.8 K/uL 09/06/2024 7:55 AM CDT [facility] RBC 4.49(L) 4.60 - 6.20 M/uL 09/06/2024 7:55 AM CDT [facility] HEMOGLOBIN 12.9(L) 14.0 - 18.0 g/dL 09/06/2024 7:55 AM CDT [facility] HEMATOCRIT 39.3(L) 41.0 - 53.0 % 09/06/2024 7:55 AM CDT [facility] MCV 87.5 84.0 - 103.0 fL 09/06/2024 7:55 AM CDT [facility] MCH 28.7 27.0 - 34.0 pg 09/06/2024 7:55 AM CDT [facility] MCHC 32.8 30.0 - 35.0 g/dL 09/06/2024 7:55 AM CDT [facility] PLATELETS 291 140 - 440 K/uL 09/06/2024 7:55 AM CDT [facility] MPV 9.9 8.9 - 12.8 fL 09/06/2024 7:55 AM CDT [facility] RDW 13.2 11.0 - 14.5 % 09/06/2024 7:55 AM CDT [facility] RDW-STDEV 42.0 37.0 - 54.0 fL 09/06/2024 7:55 AM CDT [facility] Blood Venipuncture / Unknown 09/06/2024 7:17 AM CDT 09/06/2024 7:50 AM CDT us Ricardo Rogers MD HEMATOLOGY ORDERABLES Final Re sult [facility] CLIA # [id number] [facility] [address] [address] [place] [address] * HEMOGLOBIN A1C (10/05/2019 8:16 AM CDT) HEMOGLOBIN A1C 5.6 See Comment % 10/05/2019 7:24 PM CDT [facility] [place] EST. AVG GLUCOSE, A1C 114 mg/dL 10/05/2019 7:24 PM CDT [facility] Blood Venipuncture / Unknown 10/05/2019 8:16 AM CDT 10/05/2019 6:46 PM CDT Narrative [facility] - 10/05/2019 7:24 PM CDT HGB A1C INTERPRETATION NORMAL: <5.7% PRE-DIABETES: 5.7 - 6.4% DIABETES: 6.5% OR GREATER Falsely low A1C measurements can occur when: 1. Anemia and/or hemolytic anemia is present. 2. Hemoglobin variants present. 3. Renal failure. 4. Transfusion of blood product in the last 120 days. We recommend ordering a fructosamine test([id number]) to more accurately assess glycemic status if any of the above conditions are present. Janell Warren RINKMAN CHEMISTRY ORDERABLES Final Result [facility] CLIA# [id number] [address] [place] [address] from Last 3 Months or Most Recently Relevant to Health Maintenance Insurance [facility] * Guarantor: ADIEL HINSON Account Type Relation to Patient Date of Phone Billing Address Personal/Family [address] [place] [address] [employer] Advance Directives For more information, please contact: [phone] * Full Code (Latest Code Status on File) Date Activated Date Inactivated Comments 02/27/2024 10:18 AM 03/02/2024 6:36 PM * Full Code Date Activated Date Inactivated Comments 02/24/2024 7:34 PM 02/27/2024 10:18 AM
--- OUTSIDE RECORDS SUMMARY | 2024-12-04 09:36 | XMS_ITS ---
Author Organization [facility] Alicia Crump nob Address [address] [place] [address] Care Team Providers Care Aboriginal Ceremonial Celebrant Name Role Phone Unavailable Primary Care Provider [...]
--- OUTSIDE RECORDS SUMMARY | 2024-12-04 09:36 | XMS_ITS | Encounter Summary ---
Author Organization [facility] Address [address] [place] [address] Care Team Providers Care Commercial Or Institutional Cleaner Name Role Phone Unavailable Primary Care Provider [...] worry about transportation for future doctor visits, pecan picker medication, etc.? No 2024 Housing Stability [...] on file Legal Sex Male 8:32 PM WAIST PLEATER Gender Identity Not on file Sexual Orientation Not on file documented as of this encounter Plan of Treatment Upcoming Encounters Date Type Department Care Team (Late st Contact Info) Description 12/14/2024 12:15 PM CDT Appointment [facility] [address] [facility] [address] [place] [address] 12/14/2024 1:20 PM CDT Office Visit [facility] [place] [address] [address] Arvind Trevino MD [address] [place] [address] 01/10/2025 9:45 AM CDT Office Visit [facility] Supportive Care [facility] [address] [place] [address] Margaret Davis MD [address] [place] [address] 02/02/2025 1:00 PM WAIST PLEATER Appointment [facility] [address] [facility] [address] [place] [address] Arvind Trevino MD [address] [address] 02/02/2025 1:40 PM WAIST PLEATER Office Visit [facility] [place] [address] [address] Arvind Trevino MD [address] [address] 02/07/2025 10:00 AM WAIST PLEATER Office Visit [facility] Ear Nose and Throat Head Neck [facility] [address] [place] [address] Magno Reyes MD [address] [place] [address] 02/08/2025 3:30 PM WAIST PLEATER Appointment [facility] Radiation [facility] [address] [facility] [address] [place] [address] Amaris Deras PA-C [address] [place] [address] 03/05/2025 11:30 AM WAIST PLEATER Clinical Support [facility] Supportive Care [facility] [address] [place] [address] Kathe Regan, FRONT OFFICE DIRECTOR [address] [place] [address] 03/12/2025 10:00 AM WAIST PLEATER Clinical Support [facility] Supportive Care [facility] [address] [place] [address] Kathe Regan, FRONT OFFICE DIRECTOR [address] [place] [address] documented as of this encounter Visit Diagnoses Not on filedocumented in this encounter
[2024-12-04 09:39] VITALS: BP 124/83; PULSE 99; RESP 16; TEMP 36.8; O2SAT 98; BMI 26.6
[2024-12-04 12:55] VITALS: BP 122/88; PULSE 95; O2SAT 99
--- NOTE | 2024-12-04 12:57 | ED_ITS ---
Documented by User: JEAN CLAUDE Rodriges 12/04/24 13:01 HPI - General Adult General: Chief complaint: General Medical Stated complaint: Feeding tube is clogged Time Seen by Provider: 12/04/24 09:53 Source: patient Mode of arrival: ambulatory Limitations: no limitations History of Present Illness: Patient is a 59-year-old male who presents the emergency department stating that his feeding tube has been clogged. Had the feeding tube placed a while back due to cancer, states he has pain when he flushes it and also is having difficulty flushing it. No fever, surrounding skin changes to indicate any infection, nausea/vomiting, or any other signs of systemic illness. His vitals are stable at this time. MD complaint: Clogged feeding tube Associated symptoms: Deny chest pain, dyspnea, headache(s), nausea, rash, palpitations or vomiting Related Data Home Medications ?Medication ?Instructions ?Recorded ?Confirmed ibuprofen 200 mg tablet (Advil) 800 mg PO Q6H PRN Pain 02/24/24 11/24/24 acetaminophen 160 mg/5 mL oral 500 mg PO Q6H PRN Pain 08/01/24 11/24/24 liquid fentanyl 12 mcg/hr transdermal 12 mcg topical Q72H 11/24/24 patch fluconazole 100 mg tablet 100 mg PO DAILY 11/19/2408/13 gabapentin 300 mg capsule 300 mg PO BID 11/19/2411/24 morphine 15 mg immediate release 15 mg PO Q4H PRN Pain 11/19/24 11/24/24 tablet olanzapine 5 mg tablet 5 mg PO DAILY 11/19/2411/24 Held on 11/22/24. Instructions: Resume on 12/13/24. ondansetron HCl 8 mg tablet 8 mg PO Q8H PRN Nausea And Vomiting 11/19/24 11/24/24 Previous Rx's ?Medication ?Instructions ?Recorded metoprolol tartrate 25 mg tablet 25 mg PO BID@0900,210 0 #180 tabs 08/02/24 sodium chloride 1,000 mg soluble 1,000 mg PO DAILY #30 tabs 11/26/24 tablet Allergies Allergy/AdvReac Type Severity Reaction Status Date / Time diltiazem (From Cardizem) Allergy Mild ALGY-Hives Verified 11/24/24 09:07 Review of Systems General: Reports: 10 or more systems reviewed and unremarkable except in HPI and below Const: Reports: other (Reports clogged feeding tube); Denies: fever(s), chills or fatigue Eyes: Denies: change in vision ENMT: Denies: throat pain, ear or mastoid pain or nasal discharge Card: Denies: chest pain, palpitations, swelling of feet/ankles or lightheadedness Resp: Denies: dyspnea, productive cough or wheezing GI: Denies: abdominal pain, nausea, vomiting, diarrhea or constipation : Denies: flank pain, difficulty urinating, dysuria or urinary frequency Musc: Denies: neck pain, back pain or joint pain Skin/Breast: Denies: rash Neuro: Denies: headache(s), numbness in extremities or weakness in extremities PFSH ED PFSH: Surgical History Hx of tonsillectomy Family History Father Alzheimer's dementia Mother Cancer lung Social History Smoking and tobacco/nicotine status: former use of tobacco/nicotine Alcohol intake: former Former alcohol use details: Years ago before father Substance/Drug Use: current Physical Exam Const: COMMON NORMALS: no acute distress and no limitations GENERAL APPEARANCE: cooperative, comfortable and well developed ORIENTATION/CONSCIOUSNESS: Yes awake HENMT: COMMON NORMALS: normocephalic, atraumatic and hearing grossly normal bilaterally HEAD & SCALP: normocephalic and atraumatic Eye: COMMON NORMALS: Equal, round and reactive pupils present, EOMs intact bilaterally and conjunctivae normal CONJUNCTIVA: Yes conjunctivae normal PUPIL: Yes Equal, round and reactive pupils present Neck/C-Spine: COMMON NORMALS: full ROM, supple and no JVD Resp: COMMON NORMALS: normal respiratory effort, No retractions, No use of accessory muscles and clear to auscultation bilaterally AUSCULTATION: clear to auscultation bilaterally Cardio: COMMON NORMALS: no JVD, regular rate, regular rhythm, No clicks present (Cardio), No murmurs present (Cardio) and No rub (Cardio) RATE: regular rate RHYTHM: regular rhythm GI: COMMON NORMALS: Normal to inspection, nondistended, normoactive bowel sounds present, Soft to palpation and non-tender AUSCULTATION: Yes normoactive bowel sounds PALPATION: Yes Soft to palpation RECTAL EXAM: Yes deferred OTHER: Feeding tube left upper quadrant, mild amount of physiologic drainage around insertion site, no purulence, induration, erythema. At bedside, feeding tube is able to flush without complication Extremity: COMMON NORMALS: normal to inspection, full ROM and capillary refill normal Skin: COMMON NORMALS: no rashes or lesions noted GENERAL SKIN EXAM: no rashes or lesions noted Course Vital Signs: Vital signs: Vital Signs Temperature 98.2 F 12/04/24 09:39 Pulse Rate 95 12/04/24 12:55 Respiratory Rate 16 12/04/24 09:39 Blood Pressure 122/88 12/04/24 12:55 Pulse Oximetry 99 12/04/24 12:55 Oxygen Delivery Me thod Room Air 12/04/24 09:39 MDM - General Adult Medical Decision Making Patient presenting with feeding tube issues, stating he thought it was clogged. However we were able to flush it at bedside, patient had stated he was feeling some discomfort when flushing and this is why he likely was not getting it to flush completely due to hesitancy. There was no significant signs of any infection, and clearly is functional so no further workup in the ED, I did tell him to call his surgery/oncology team to schedule follow-up if he continues to have issues with mild irritation. No radiology studies performed this visit Discharge Plan Discharge Patient Disposition: Home Clinical Impression: Clogged feeding tube Condition: Stable Prescriptions: No Action sodium chloride 1,000 mg tablet,soluble 1,000 mg PO DAILY Qty: 30 0RF fluconazole 100 mg tablet 100 mg PO DAILY ondansetron HCl 8 mg tablet 8 mg PO Q8H PRN (Reason: Nausea And Vomiting) morphine 15 mg tablet 15 mg PO Q4H PRN (Reason: Pain) fentanyl 12 mcg/hr patch 72 hour 12 mcg topical Q72H olanzapine 5 mg tablet 5 mg PO DAILY gabapentin 300 mg capsule 300 mg PO BID ibuprofen [Advil] 200 mg Tablet 800 mg PO Q6H PRN (Reason: Pain) acetaminophen 160 mg/5 mL Liquid 500 mg PO Q6H PRN (Reason: Pain) Rx Instructions: TAKE 31.25 MG PO EVERY 6 HOURS NEEDED metoprolol tartrate 25 mg Tablet 25 mg PO BID@0900,2100 Qty: 180 0RF Discharge Orders: Discharge ED (Routine); Ordered 12/04/24 Ordered By: Curtis Rodriguez Referrals: Jackie Cedeño DO [Primary Care Provider, [facility]] Patient Instructions: Patient Portal & Guerita Instructions Activity Restrictions/Additional Instructions: Feeding Tube Discharge Instructions Discharge Instructions: Enteral Feeding Tube (Clogged Tube Flushed, No Infection) Summary of ED Course: 59-year-old male with history of malignancy and enteral feeding tube presented with possible tube occlusion. Tube was successfully flushed in the ED. No signs of infection; minimal non-infectious drainage noted at the stoma. --- 1. Tube and Stoma Care - Clean the tube insertion site daily with mild soap and water. Avoid overlying gauze or pads that retain moisture, as these can promote skin breakdown.[1] https://doi.org/10.1038/ajg.2015.28 [2] https://[employer]/retrieve/pii/H8088-71612477493-2 - Ensure the external bolster is positioned approximately 1 cm from the skin to prevent excessive traction and buried bumper syndrome.[2] https://[employer]/retrieve/pii/N1644-38182493111-7 [1] https://doi.org/10.1038/ajg.2015.28 - Monitor the site for increased redness, swelling, warmth, pain, purulent drainage, or foul odor. Small amounts of clear or serous drainage are common and not concerning unless accompanied by the above signs.[1] https://doi.org/10.103 8/ajg.2015.28 [2] https://[employer]/retrieve/pii/S1254-90312461726-6 2. Tube Patency and Flushing - Flush the tube with 30 mL of water every 4 hours during continuous feeds, and before and after each bolus feed or medication administration.[2] https://[employer]/retrieve/pii/A0686-81662455562-6 [1] https://doi.org/10.1038/ajg.2016.28 [3] https://doi.org/10.1177/2904743628082185 - Use only water for routine flushing. Avoid crushing medications unless specifically approved for enteral administration; use liquid formulations when possible.[2] https://[employer]/retrieve/pii/U3527-44462450158-2 [1] https://doi.org/10.1038/ajg.2016.28 - If resistance is encountered during flushing, do not force the flush. Attempt gentle flushing; if unsuccessful, use a commercially available declogging solution (pancreatic enzyme tablet dissolved in sodium bicarbonate) as per ACG guidelines. If still unsuccessful, contact the care team for further management. [1] https://doi.org/10.1038/ajg.2016.28 3. Monitoring and Troubleshooting - Observe for increased leakage, breakdown, or enlarging stoma. If present, evaluate for possible buried bumper, granulation tissue, or infection.[1] https://doi.org/10.1038/ajg.2016.28 - Hypergranulation tissue may be managed with topical high-potency steroid ointment or silver nitrate cauterization, as directed by the surgical team.[1] https://doi.org/10.1038/ajg.2016.28 - For persistent tube dysfunction, accidental dislodgement, or breakdown, prompt evaluation is warranted. Do not attempt blind replacement if the tube is recently placed (<4 weeks); seek immediate medical attention.[2] https://[employer]/retrieve/pii/Z0096-09992494549-2 [1] https://doi.org/10.1038/ajg.2016.28 4. Nutrition and Hydration - Maintain prescribed enteral nutrition regimen, including formula type, rate, and volume. Document intake and monitor for signs of dehydration (decreased urination, dry mucous membranes, dizziness).[3] https://doi.org/10.11 77/1696657837149891 - Weekly monitoring of weight and oral intake is recommended to ensure adequate nutrition and hydration, especially during transitions in feeding modality.[4] https://doi.org/10.1002/ohn.302 5. Return Precautions - Return to the ED or contact the care team immediately for: - Fever >38?C (100.4?F), chills, or rigors - Increasing pain, redness, swelling, or purulent drainage at the tube site - Bleeding from the tube site - Sudden inability to flush or use the tube - Signs of peritonitis (severe abdominal pain, rigidity, distension) - Signs of dehydration or undernutrition (confusion, weakness, decreased urine output) - Accidental tube dislodgement, especially if the tube was placed within the last 4 weeks[2] https: //[employer]/retrieve/pii/V6341-08672457084-8 [1] https://doi.org/10.1038/ajg.2016.28 [5] https://ascopubs.org/doi/10.1200/JCO.2017.77.6211?url_ver=Z39.88-2003&rfr_id=lila :rid:crossref.org&rfr_dat=cr_pub%20%200pubmed 6. Follow-Up - Schedule follow-up with oncology and surgical teams within 1 week, or sooner if directed, for ongoing management of enteral nutrition, tube care, and cancer therapy coordination.[4] https://doi.org/10.1002/ohn.302 [3] https://doi.org/10.1177/8075968206169466 - Multidisciplinary input (nutrition, wound care, palliative care as appropriate) is recommended for optimal outcomes.[3] https://doi.org/10.1177/3826078757718080 [2] https://[employer]/retrieve/pii/G9778-63402478629-5 [6] https: //doi.org/10.1002/jpen.2364 7. Education and Support - Ensure patient and caregivers are trained in tube care, flushing regimen, troubleshooting, and emergency contact procedures.[3] https://doi.org/10.1177/9531675221344972 - Provide written and verbal instructions; confirm understanding and competence prior to discharge.[3] https://doi.org/10.1177/3827761586979646 --- Gutiérrez Points - Routine tube flushing and site care are essential to prevent occlusion and infection. - Early recognition of complications and prompt follow-up are critical, especially in oncology patients. - Multidisciplinary follow-up is necessary for ongoing care and nutrition management. References * ACG Clinical Guideline: Nutrition Therapy in the Adult Hospitalized Patient https://doi.org/10.1038/ajg.2016.28 . Karla SA, Yas BarbaK, Ashly GE, Dante BETHEA. The [place] Journal of Gastroenterology. 2016;111(3):315-34; quiz 335. doi:10.1038/ajg.2016.28. * [facility] Clinical Practice Update on Endoscopic Enteral Access: Commentary https://linkinghub.[employer]/retrieve/pii/Z[address]185-2762(27)76019-6 . Nicky D, Wolfgang CHAPIN, Vernell J. Gastroenterology. 2024;168(1):164-168. doi:10.1053/j.gastro.2023.09.043. * ASPEN Safe Practices for Enteral Nutrition Therapy [Formula: See Text https://doi.org/10.1177/0998459679106521 . Mame PUENTES, Tino AL, Khanh L, et al. JPEN. Journal of Parenteral and Enteral Nutrition. 2017;41(1):15-103. doi:10.1177/1955587942177943. * Expert Consensus Statement: Management of Dysphagia in Head and Neck Cancer Patients https://doi.org/10.1002/ohn.302 . Regina LARKIN, Gigi CARLSON, Kiran HARP, et al. Otolaryngology--Head and Neck Surgery : Official Journal of [place] Academy of Otolaryngology-Head and Neck Surgery. 2022;168(4):571-592. doi:10.1002/ohn.302. * Outpatient Management of Fever and Neutropenia in Adults Treated for Malignancy: [place] Society of Clinical Oncology and Infectious Diseases Society of [employer] Clinical Practice Guideline Update https://ascopubs.org/doi/10.1200/JCO.2017.77.6211?url_ver=Z39.88- 2003&rfr_id=lila:rid:crossref.org&rfr_dat=cr_pub%20%200pubmed . Lavelle RA, Noam EB, Rudolph EJ, et al. Journal of Clinical Oncology : Official Journal of the [place] [employer] of Clinical Oncology. 2018;36(14):7329-7271. doi:10.1200/JCO.2017.77.6211. * When Is Enteral Nutrition Indicated? https://doi.org/10.1002/jpen.2364 . Elmer ML, Jurgen PM, Alexandrea A, et al. JPEN. Journal of Parenteral and Enteral Nutrition. 2021;46(7):6961-4229. doi:10.1002/jpen.2364. Print Language: Ecuadorean Coding Level of Care Code ED Hand Drawer In for Chg Fwd Documented by User: Chase Lopez DO 12/04/24 14:03 HPI - General Adult General: Chief complaint: General Medical Stated complaint: Feeding tube is clogged Time Seen by Provider: 12/04/24 09:53 Related Data Home Medications ?Medication ?Instructions ?Recorded ?Confirmed ibuprofen 200 mg tablet (Advil) 800 mg PO Q6H PRN Pain 02/24/24 11/24/24 acetaminophen 160 mg/5 mL oral 500 mg PO Q6H PRN Pain 08/01/24 11/24/24 liquid fentanyl 12 mcg/hr transdermal 12 mcg topical Q72H 11/24/24 patch fluconazole 100 mg tablet 100 mg PO DAILY 11/19/2408/13 gabapentin 300 mg capsule 300 mg PO BID 11/19/2411/24 morphine 15 mg immediate release 15 mg PO Q4H PRN Pain 11/19/24 11/24/24 tablet olanzapine 5 mg tablet 5 mg PO DAILY 11/19/2411/24 Held on 11/22/24. Instructions: Resume on 12/13/24. ondansetron HCl 8 mg tablet 8 mg PO Q8H PRN Nausea And Vomiting 11/19/24 11/24/24 Previous Rx's ?Medication ?Instructions ?Recorded metoprolol tartrate 25 mg tablet 25 mg PO BID@0900,210 0 #180 tabs 08/02/24 sodium chloride 1,000 mg soluble 1,000 mg PO DAILY #30 tabs 11/26/24 tablet Allergies Allergy/AdvReac Type Severity Reaction Status Date / Time diltiazem (From [facility]) Allergy Mild ALGY-Hives Verified 11/24/24 09:07 [facility] ED PFSH: Surgical History Hx of tonsillectomy Family History Father Alzheimer's dementia Mother Cancer lung Social History Smoking and tobacco/nicotine status: former use of tobacco/nicotine Alcohol intake: former Former alcohol use details: Years ago before father Substance/Drug Use: current Course Vital Signs: Vital signs: Vital Signs Temperature 98.2 F 12/04/24 09:39 Pulse Rate 95 12/04/24 12:55 Respiratory Rate 16 12/04/24 09:39 Blood Pressure 122/88 12/04/24 12:55 Pulse Oximetry 99 12/04/24 12:55 Oxygen Delivery Me thod Room Air 12/04/24 09:39 MDM - General Adult Medical Decision Making Patient presenting with feeding tube issues, stating he thought it was clogged. However we were able to flush it at bedside, patient had stated he was feeling some discomfort when flushing and this is why he likely was not getting it to flush completely due to hesitancy. There was no significant signs of any infection, and clearly is functional so no further workup in the ED, I did tell him to call his surgery/oncology team to schedule follow-up if he continues to have issues with mild irritation. Chart reviewed and patient discussed with midlevel. Agree with assessment and plan. Discharge Plan Discharge Patient Disposition: Home Clinical Impression: Clogged feeding tube Condition: Stable Prescriptions: No Action sodium chloride 1,000 mg tablet,soluble 1,000 mg PO DAILY Qty: 30 0RF fluconazole 100 mg tablet 100 mg PO DAILY ondansetron HCl 8 mg tablet 8 mg PO Q8H PRN (Reason: Nausea And Vomiting) morphine 15 mg tablet 15 mg PO Q4H PRN (Reason: Pain) fentanyl 12 mcg/hr patch 72 hour 12 mcg topical Q72H olanzapine 5 mg tablet 5 mg PO DAILY gabapentin 300 mg capsule 300 mg PO BID ibuprofen [Advil] 200 mg Tablet 800 mg PO Q6H PRN (Reason: Pain) acetaminophen 160 mg/5 mL Liquid 500 mg PO Q6H PRN (Reason: Pain) Rx Instructions: TAKE 31.25 MG PO EVERY 6 HOURS NEEDED metoprolol tartrate 25 mg Tablet 25 mg PO BID@0900,2100 Qty: 180 0RF Discharge Orders: Discharge ED (Routine); Ordered 12/04/24 Ordered By: Curtis Rodriguez Referrals: Jackie Cedeño DO [Primary Care Provider, [facility]] Patient Instructions: Patient Portal & Guerita Instructions Activity Restrictions/Additional Instructions: Feeding Tube Discharge Instructions Discharge Instructions: Enteral Feeding Tube (Clogged Tube Flushed, No Infection) Summary of ED Course: 59-year-old male with history of malignancy and enteral feeding tube presented with possible tube occlusion. Tube was successfully flushed in the ED. No signs of infection; minimal non-infectious drainage noted at the stoma. --- 1. Tube and Stoma Care - Clean the tube insertion site daily with mild soap and water. Avoid overlying gauze or pads that retain moisture, as these can promote skin breakdown.[1] https://doi.org/10.1038/ajg.2016.28 [2] https://[employer]/retrieve/pii/N6976-0274(00)05697-5 - Ensure the external bolster is positioned approximately 1 cm from the skin to prevent excessive traction and buried bumper syndrome.[2] https://[employer]/retrieve/pii/P1339-27782401703-6 [1] https://doi.org/10.1038/ajg.2016.28 - Monitor the site for increased redness, swelling, warmth, pain, purulent drainage, or foul odor. Small amounts of clear or serous drainage are common and not concerning unless accompanied by the above signs.[1] https://doi.org/10.1038/ajg.2016.28 [2] https://[employer]/retrieve/pii/E8125-82232411646-8 2. Tube Patency and Flushing - Flush the tube with 30 mL of water every 4 hours during continuous feeds, and before and after each bolus feed or medication administration.[2] https://[employer]/retrieve/pii/T5671-63782438916-0 [1] https://doi.org/10.1038/ajg.2016.28 [3] https://doi.org/10.1177/6759268657673926 - Use only water for routine flushing. Avoid crushing medications unless specifically approved for enteral administration; use liquid formulations when p ossible.[2] https://[employer]/retrieve/pii/T9869-89092465819-5 [1] https://doi.org/10.1038/ajg.2015.28 - If resistance is encountered during flushing, do not force the flush. Attempt gentle flushing; if unsuccessful, use a commercially available declogging solution (pancreatic enzyme tablet dissolved in sodium bicarbonate) as per ACG guidelines. If still unsuccessful, contact the care team for further management. [1] https://doi.org/10.1038/ajg.2016.28 3. Monitoring and Troubleshooting - Observe for increased leakage, breakdown, or enlarging stoma. If present, evaluate for possible buried bumper, granulation tissue, or infection.[1] https://doi.org/10.1038/ajg.2016.28 - Hypergranulation tissue may be managed with topical high-potency steroid ointment or silver nitrate cauterization, as directed by the surgical team.[1] https://doi.org/10.1038/ajg.2016.28 - For persistent tube dysfunction, accidental dislodgement, or breakdown, prompt evaluation is warranted. Do not attempt blind replacement if the tube is recently placed (<4 weeks); seek immediate medical attention.[2] https://[employer]/retrieve/pii/[id number](86)55367-0 [1] https://doi.org/10.1038/ajg.2016.28 4. Nutrition and Hydration - Maintain prescribed enteral nutrition regimen, including formula type, rate, and volume. Document intake and monitor for signs of dehydration (decreased urination, dry mucous membranes, dizziness).[3] https://doi.org/10.1177/01 77013784418158 - Weekly monitoring of weight and oral intake is recommended to ensure adequate nutrition and hydration, especially during transitions in feeding modality.[4] https://doi.org/10.1002/ohn.302 5. Return Precautions - Return to the ED or contact the care team immediately for: - Fever >38?C (100.4?F), chills, or rigors - Increasing pain, redness, swelling, or purulent drainage at the tube site - Bleeding from the tube site - Sudden inability to flush or use the tube - Signs of peritonitis (severe abdominal pain, rigidity, distension) - Signs of dehydration or undernutrition (confusion, weakness, decreased urine output) - Accidental tube dislodgement, especially if the tube was placed within the last 4 weeks[2] https://[employer]/retrieve/pii/P1438-8071(46)91232-7 [1] https://doi.org/10.1038/ajg.2016.28 [5] https://ascopubs.org/doi/10.1200/JCO.2017.77.6211?url_ver=Z39.88-2003&rfr_id=lila :rid:crossref.org&rfr_dat=cr_pub%20%200pubmed 6. Follow-Up - Schedule follow-up with oncology and surgical teams within 1 week, or sooner if directed, for ongoing management of enteral nutrition, tube care, and cancer therapy coordination.[4] https://doi.org/10.1002/ohn.302 [3] https://doi.org/10.1177/8950540149779641 - Multidisciplinary input (nutrition, wound care, palliative care as appropriate) is recommended for optimal outcomes.[3] https://doi.org/10.1177/5272615557514774 [2] https://[employer]/retrieve/pii/V[address]9754(82)25457-4 [6] https://doi.org/10.1002/jpen.2364 7. Education and Support - Ensure patient and caregivers are trained in tube care, flushing regimen, troubleshooting, and emergency contact procedures.[3] https://doi.org/10.1177/4237839562623331 - Provide written and verbal instructions; confirm understanding and competence prior to discharge.[3] https://doi.org/10.1177/0073022837828302 --- Gutiérrez Points - Routine tube flushing and site care are essential to prevent occlusion and infection. - Early recognition of complications and prompt follow-up are critical, especially in oncology patients. - Multidisciplinary follow-up is necessary for ongoing care and nutrition management. References * ACG Clinical Guideline: Nutrition Therapy in the Adult Hospitalized Patient https://doi.org/10.1038/ajg.2016.28 . Karla SA, Yas BarbaK, Ashly GE, Dante RG. The [place] Journal of Gastroenterology. 2016;111(3):315-34; quiz 335. doi:10.1038/ajg.2016.28. * [facility] Clinical Practice Update on Endoscopic Enteral Access: Commentary https://[employer]/retrieve/pii/F[address]92[address]62(71)09096-7 . Nicky D, Wolfgang CHAPIN, Vernell J. Gastroenterology. 2024;168(1):164-168. doi:10.1053/j.gastro.2024.09.043. * ASPEN Safe Practices for Enteral Nutrition Therapy [Formula: See Text https://doi.org/10.1177/1518421782015174 . Mame PUENTES, Tino AL, Khanh Rhodes, et al. JPEN. Journal of Parenteral and Enteral Nutrition. 2017;41(1):15-103. doi:10.1177/5988541260892197. * Expert Consensus Statement: Management of Dysphagia in Head and Neck Cancer Patients https://doi.org/10.1002/ohn.302 . Regina MA, Gigi MB, Kiran SL, et al. Otolaryngology--Head and Neck Surgery : Official Journal of [place] Academy of Otolaryngology-Head and Neck Surgery. 2022;168(4):571-592. doi:10.1002/ohn.302. * Outpatient Management of Fever and Neutropenia in Adults Treated for Malignancy: [place] Society of Clinical Oncology and Infectious Diseases Society of [place] Clinical Practice Guideline Update https://ascopubs.org/doi/10.1200/JCO.2017.77.6211?url_ver=Z39.88- 2003&rfr_id=lila:rid:crossref.org&rfr_dat=cr_pub%20%200pubmed . Lavelle RA, Noam EB, Rudolph EJ, et al. Journal of Clinical Oncology : Official Journal of the [place] [employer] of Clinical Oncology. 2018;36(14):5696-7603. doi:10.1200/JCO.2017.77.6211. * When Is Enteral Nutrition Indicated? https://doi.org/10.1002/jpen.2364 . Elmer ML, Jurgen PM, Alexandrea A, et al. JPEN. Journal of Parenteral and Enteral Nutrition. 2021;46(7):9871-9176. doi:10.1002/jpen.2364. Print Language: Ecuadorean Coding Level of Care Code ED Hand Drawer In for Rosanne Holliday
== END 2024-12-04 12:56 | disposition home or self-care (01) ==
PROVIDERS: Emergency Provider Physician Assistant; PCP Family Medicine
DX: T85.898A Other specified complication of other internal prosthetic devices, implants and grafts, initial encounter (principal); X58.XXXA Exposure to other specified factors, initial encounter; K94.23 Gastrostomy malfunction; Z87.891 Personal history of nicotine dependence
CPT/HCPCS: 99281

== ENCOUNTER 2024-12-13 07:47 | Emergency (ER) | payer OTHER, SELFPAY ==
--- OUTSIDE RECORDS SUMMARY | 2024-12-13 08:03 | XMS_ITS ---
Author Organization [facility] Alicia Crump nob Address [address] Eliecer corley [place]MEN[place] Qureshi [address] Care Team Providers Care Lineworker Name Role Phone Unavailable Primary Care Provider [...]
--- OUTSIDE RECORDS SUMMARY | 2024-12-13 08:04 | XMS_ITS | Encounter Summary ---
Author Organization [employer] Address 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 Gender Identity Not on file Sexual Orientation Not on file documented as of this encounter Plan of Treatment Upcoming Encounters Date Type Department Care Team (Late st Contact Info) Description 12/14/2024 12:15 PM CDT Appointment [facility] [address] [facility] [address] [place] [address] 12/14/2024 1:20 PM CDT Office Visit [facility] [place] [address] [address] Arvind Trevino MD [address] [place] [address] 01/10/2025 9:45 AM CDT Office Visit [facility] Supportive Care [facility] [address] [place] [address] Margaret Davis MD [address] [place] [address] 02/02/2025 1:00 PM PHARMACY TECH Appointment [facility] [address] [facility] [address] [place] [address] Arvind Trevino MD [address] [address] 02/02/2025 1:40 PM PHARMACY TECH Office Visit [facility] [place] [address] [address] Arvind Trevino MD [address] [address] 02/07/2025 10:00 AM PHARMACY TECH Office Visit [facility] N[facility] Th[facility] [address] [place] [address] Magno Reyes MD [address] [place] [address] 02/08/2025 3:30 PM PHARMACY TECH Appointment [facility] [address] [facility] [address] [place] [address] Amaris Deras PA-C [address] [place] [address] 03/05/2025 11:30 AM PHARMACY TECH Clinical Support [facility] Supportive Care [facility] [address] [place] [address] Kathe Regan, SCHOOL VOCATIONAL EDUCATOR [address] [place] [address] 03/12/2025 10:00 AM PHARMACY TECH Clinical Support [facility] Supportive Care [facility] [address] [place] [address] Kathe Regan, SCHOOL VOCATIONAL EDUCATOR [address] [place] [address] documented as of this encounter Visit Diagnoses Not on filedocumented in this encounter
--- OUTSIDE RECORDS SUMMARY | 2024-12-13 08:04 | XMS_ITS | Encounter Summary ---
Author Organization [employer] Address [address] [place] [address] Care Team Providers Care Mainframe Programmer Analyst Name Role Phone Unavailable Primary Care Provider Unavailabl e Encounter Details Date Type Department Care Team (Late st Contact Info) Description 12/06/2024 External Device Data STL ABSTRACTION Provider, Abstract [...] transportation for future doctor visits, pick up man medication, etc.? 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 Gender Identity Not on file Sexual Orientation Not on file documented as of this encounter Plan of Treatment Upcoming Encounters Date Type Department Care Team (Late st Contact Info) Description 12/14/2024 12:15 PM CDT Appointment [facility] [address] [facility] [address] [place] [address] 12/14/2024 1:20 PM CDT Office Visit [facility] [place] [address] [address] Arvind Trevino MD [address] [place] [address] 01/10/2025 9:45 AM CDT Office Visit [facility] Supportive [place] [facility] [address] [place] [address] Margaret Davis MD [address] [place] [address] 02/02/2025 1:[address] FREIGHT BRAKE COUPLER Appointment [facility] [address] [facility] [address] [place] [address] Arvind Trevino MD S [address] [address] 02/02/2025 1:[address] FREIGHT BRAKE COUPLER Office Visit [facility] [place] [address] [address] Arvind Trevino MD [address] [address] 02/07/2025 10:[address] FREIGHT BRAKE COUPLER Office Visit [facility] Nose [facility] Th[facility] [address] [place] [address] Magno Reyes MD [address] [place] [address] 02/08/2025 3:[address] FREIGHT BRAKE COUPLER Appointment [facility] [address] [facility] [address] [place] [address] Amaris Deras PA-C [address] [place] [address] 03/05/2025 11:[address] FREIGHT BRAKE COUPLER Clinical Support [facility] Supportive Care [facility] [address] [place] [address] Kathe Regan, TIRE BAGGER [address] [place] [address] 03/12/2025 10:[address] FREIGHT BRAKE COUPLER Clinical Support [facility] Supportive Care [facility] [address] [place] [address] Kathe Regan, TIRE BAGGER [address] [place] [address] documented as of this encounter Visit Diagnoses Not on filedocumented in this encounter
--- OUTSIDE RECORDS SUMMARY | 2024-12-13 08:04 | XMS_ITS | Clinical Summary ---
Author Organization [facility] [place] Alicia Crump nob Address [address] Eliecer CARMENZA Jasso [address] Care Team Providers Care Field Map Editor Name Role Phone Unavailable Primary Care Provider Unavailabl e Allergies No known active allergies Medications omeprazole (PriLOSEC) 20 mg Capsule, Delayed Release(E.C.) Take 20 mg by mouth daily. 0 Active metoprolol tartrate (LOPRESSOR) 25 mg tablet TAKE ONE TABLET BY MOUTH TWICE DAILY AT 9am AND 9pm 5 Active baclofen (LIORESAL) 5 mg tablet Take 1 Tablet (5 mg) by mouth 3 times daily as needed for Pain. 30 Tablet 5 Active Oral Thermometer, Electronic (Digital Thermometer) 1 Each by Misc.(Non-Drug ; Combo Route) route 1 time daily as needed for Temperature. 1 Each 5 Active lidocaine (lidocaine viscous 2%) 2 % Solution 5 mL by Mouth/Throat route every 6 hours as needed for Pain. 400 mL 5 5 Active ondansetron (ZOFRAN) 8 mg Tablet Take 1 Tablet (8 mg) by mouth every 8 hours as needed for Nausea/Emesis. Take every 8 hours PRN starting on day 4 after chemo. 30 Tablet 1 11/07/2024 12:00 PM CDT 5 Active OLANZapine (ZyPREXA) 5 mg tablet Take 1 Tablet (5 mg) by mouth daily at bedtime. Take 1 tablet PO days 1-4 of chemotherapy. After that can then take PRN 30 Tablet 1 10/19/2024 4:40 PM CDT 5 Active dexAMETHasone (DECADRON) 4 mg tablet Take 1 Tablet (4 mg) by mouth 2 times daily. Take 2 tablets with breakfast day 2, 3 and 4 of each chemo. 60 Tablet 10/19/2024 4:40 PM CDT 5 Active fluconazole (DIFLUCAN) 100 mg tabletIndicatio ns:Palliative care by specialist,Thru sh, oral Take 2 tabs on day one and then 1 tab daily thereafter. 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 Swish around, retain as long as possible then swallow. 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 Max Daily Amount: 1 Patch 5 Patch 11/27/19 25 Active Problems Problem Noted Date Diagnosed Date [...] Encounters Date Type Department Care Team Description 12/07/2024 External Device Data STL ABSTRACTION Provider, Abstract 12/07/2024 External Device Data STL ABSTRACTION Provider, Abstract 12/06/2024 External Device Data STL ABSTRACTION Provider, Abstract 12/06/2024 External Device Data STL ABSTRACTION Provider, Abstract 12/05/2024 External Device Data STL ABSTRACTION Provider, Abstract 12/05/2024 External Device Data STL ABSTRACTION Provider, Abstract [...] Abstract 11/29/2024 11:45 AM CDT Video Visit [facility] [place] Supportive Care 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 [address] [place] [address] Rommel Aparicio, Nathaniel Oreilly MD Medication Question 11/28/2024 External Device Data [...] Abstract 11/08/2024 10:00 AM CDT Office Visit [facility] [place] [facility] Th[facility] Head Neck [facility] [address] [place] [address] Magno Reyes MD Tonsillar cancer (CMS/HCC) (Primary Dx) 11/08/2024 8:26 AM CDT - 11/08/2024 11:59 PM CDT Hospital Encounter [facility] [address] [place] [address] [address] [place] [address] Jose East MD Discharge Disposition: Home or Self Care 11/08/2024 External Device Data STL ABSTRACTION Provider, Abstract 11/08/2024 External Device Data STL ABSTRACTION Provider, Abstract 11/08/2024 External Device Data STL ABSTRACTION Provider, Abstract 11/08/2024 Chart Note [facility] [address] [facility] [place] [address] [place] [address] Melisa Dunne RN 11/08/2024 Orders Only HIS RADIATION ONCOLOGY 11/07/2024 9:10 AM CDT - 11/07/2024 11:59 PM CDT Hospital Encounter [facility] [address] [place] [address] Jose East MD Discharge Disposition: Home or Self Care 11/07/2024 External Device Data STL ABSTRACTION Provider, Abstract 11/07/2024 Orders Only HIS RADIATION ONCOLOGY 11/07/2024 Orders Only [facility] [place] Supportive Care 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); Palliative care by specialist; Cancer related pain; Neuropathy associated with cancer (CMS/HCC); Mucositis due to radiation therapy; Depression screen 11/06/2024 Telephone [facility] [place] [facility] Th[facility] Head Neck [facility] [address] [place] [address] Magno Reyes MD appointment needed 11/06/2024 Chart Note [facility] Cancer [facility] H[facility] [place] [address] [place] [address] 11/06/2024 Orders Only HIS RADIATION ONCOLOGY 11/06/2024 External Device Data STL ABSTRACTION Provider, Abstract 11/05/2024 External Device Data STL ABSTRACTION Provider, Abstract 11/04/2024 External Device Data STL ABSTRACTION Provider, Abstract 11/03/2024 8:22 AM CDT - 11/03/2024 11:59 PM CDT Hospital Encounter [facility] [address] [place] [address] Jose East MD Discharge Disposition: Home or Self Care 11/03/2024 Telephone [facility] Spiritual [id number] [place] [address] Farnaz Mclainll S Cancer (Spiritual care) 11/03/2024 Orders Only HIS RADIATION ONCOLOGY 11/03/2024 External Device Data STL ABSTRACTION Provider, Abstract 11/02/2024 9:51 AM CDT - 11/02/2024 11:59 PM CDT Hospital Encounter [facility] [address] [place] [address] Arvind Trevino MD [facility] Oncology, Infusion 8 Discharge Disposition: Home or Self Care 11/02/2024 9:30 AM CDT Office Visit [facility] Cancer and Hematology [place] [address] [place] [address] Ave [facility] [address] [place] [address] Arvind Trevino MD Joy, Jennifer L, PHYSICAL FITNESS TRAINER Tonsillar cancer (CMS/HCC) (Primary Dx); 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; Anemia due to chemotherapy 11/02/2024 8:28 AM CDT - 11/02/2024 11:59 PM CDT Hospital Encounter [facility] [address] [place] [address] Arvind Trevino MD Discharge Disposition: Home or Self Care 11/02/2024 8:22 AM CDT - 11/02/2024 11:59 PM CDT Hospital Encounter [facility] Laboratory Services [address] [facility] [address] [place] [address] Arvind Trevino MD Discharge Disposition: Home or Self Care 11/02/2024 7:43 AM CDT - 11/02/2024 11:59 PM CDT Hospital Encounter [facility] [address] [facility] [address] [place] [address] Jose East MD Discharge Disposition: Home or Self Care 11/02/2024 Orders Only HIS RADIATION ONCOLOGY 11/02/2024 External Device Data STL ABSTRACTION Provider, Abstract 11/02/2024 External Device Data STL ABSTRACTION Provider, Abstract 11/02/2024 External Device Data STL ABSTRACTION Provider, Abstract 11/02/2024 External Device Data STL ABSTRACTION Provider, Abstract 11/01/2024 9:14 AM CDT - 11/01/2024 11:59 PM CDT Hospital Encounter [facility] [address] [facility] [address] [place] [address] Jose East MD Discharge Disposition: Home or Self Care 11/01/2024 External Device Data STL ABSTRACTION Provider, Abstract 11/01/2024 [facility] Cancer and Hematology [address] [address] [place] [phone] Trish Alva, OLINDA ePRO 11/01/2024 External Device Data STL ABSTRACTION Provider, Abstract 11/01/2024 Chart Note [facility] [address] [place] [address] Melisa Dunne RN 11/01/2024 External Device Data [...] - 10/31/2024 11:59 PM CDT Hospital Encounter [facility] [address] [facility] [address] [place] [address] Jose East MD Discharge Disposition: Home or Self Care 10/31/2024 Orders Only HIS RADIATION ONCOLOGY 10/31/2024 External Device Data STL ABSTRACTION Provider, Abstract 10/30/2024 1:30 PM CDT Video Visit [facility] [place] Supportive Care 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 [address] [place] [address] Jose East MD Discharge Disposition: Home or [...] STL ABSTRACTION Provider, Abstract 10/30/2024 Orders Only [facility] Cancer [facility] Hematology [place] [address] [place] [address] Jackie Bertrand, OLINDA Leukocytosis, unspecified type (Primary Dx); 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 10/30/2024 Orders Only HIS RADIATION ONCOLOGY 10/30/2024 Chart Note [facility] Cancer and Hemat[facility] [place] [address] [place] [address] 10/30/2024 External Device Data STL ABSTRACTION Provider, Abstract 10/29/2024 External Device Data STL ABSTRACTION Provider, Abstract 10/28/2024 External Device Data STL ABSTRACTION Provider, Abstract 10/27/2024 9:01 AM CDT - 10/27/2024 11:59 PM CDT Hospital Encounter [facility] [address] [facility] [address] [place] [address] Jose East MD Discharge Disposition: Home or Self Care 10/27/2024 Orders Only HIS RADIATION ONCOLOGY 10/27/2024 External Device Data STL ABSTRACTION Provider, Abstract 10/26/2024 4:28 PM CDT - 10/26/2024 11:59 PM CDT Hospital Encounter [facility] Oncology [facility] [address] [place] [address] Jose East MD Discharge Disposition: Home or Self Care 10/26/2024 1:11 PM CDT - 10/26/2024 11:59 PM CDT Hospital Encounter [facility] Oncology Infusion [facility] [address] [place] [address] Arvind Trevino MD Spr Oncology, Infusion 5 Discharge Disposition: Home or Self Care 10/26/2024 1:00 PM CDT Office Visit [facility] Cancer [facility] Hematology [place] [address] [place] [address] Arvind Trevino MD Leukocytosis, unspecified type (Primary Dx); 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 10/26/2024 8:17 AM CDT - 10/26/2024 11:59 PM CDT Hospital Encounter [facility] Laboratory Services [address] [place] [address] Arvind Trevino MD Discharge Disposition: Home or Self Care 10/26/2024 Orders Only HIS RADIATION ONCOLOGY 10/26/2024 External Device Data STL ABSTRACTION Provider, Abstract 10/25/2024 9:15 AM CDT - 10/25/2024 11:59 PM CDT Hospital Encounter [facility] Radiation Oncology [facility] [address] [place] [address] Jose East MD Discharge Disposition: Home or Self Care 10/25/2024 External Device Data STL ABSTRACTION Provider, Abstract 10/25/2024 Orders Only HIS RADIATION ONCOLOGY 10/24/2024 9:40 AM CDT - 10/24/2024 11:59 PM CDT Hospital Encounter [facility] Radiation Oncology [facility] [address] [place] [address] Jose East MD Discharge Disposition: Home or Self Care 10/24/2024 Orders Only HIS RADIATION ONCOLOGY 10/24/2024 External Device Data STL ABSTRACTION Provider, Abstract 10/23/2024 9:27 AM CDT - 10/23/2024 11:59 PM CDT Hospital Encounter [facility] Radiation Oncology [facility] [address] [place] [address] Jose East MD Discharge Disposition: Home or Self Care 10/23/2024 Orders Only [facility] Cancer and Hematology [place] [address] [place] [address] Arvind Trevino MD Leukocytosis, unspecified type (Primary Dx); 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 10/23/2024 Orders Only HIS RADIATION ONCOLOGY 10/23/2024 External Device Data STL ABSTRACTION Provider, Abstract 10/22/2024 External Device Data STL ABSTRACTION Provider, Abstract 10/21/2024 External Device Data STL ABSTRACTION Provider, Abstract 10/20/2024 8:58 AM CDT - 10/20/2024 11:59 PM CDT Hospital Encounter [facility] [address] [facility] [address] [place] [address] Jose East MD Discharge Disposition: Home or Self Care 10/20/2024 8:15 AM CDT Office Visit [facility] [place] Supportive Care 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); Palliative care by specialist 10/20/2024 Orders Only HIS RADIATION ONCOLOGY 10/20/2024 External Device Data STL ABSTRACTION Provider, Abstract 10/19/2024 12:12 PM CDT - 10/19/2024 11:59 PM CDT Hospital Encounter [facility] [address] [place] [address] Arvind Trevnio MD Sprg Oncology, Infusion 13 Discharge Disposition: Home or Self Care 10/19/2024 12:00 PM CDT Office Visit [facility] Cancer and Hematology [place] [address] [place] [address] Arvind Trevino MD Grogan, Susan K, COMMUNITY ORGANIZATION WORKER Tonsillar cancer (CMS/HCC) (Primary Dx); Encounter for antineoplastic chemotherapy 10/19/2024 10:13 AM CDT - 10/19/2024 11:59 PM CDT Hospital En[facility] Laboratory Services [address] [place] [address] Arvind Trevino MD Discharge Disposition: Home or Self Care 10/19/2024 9:07 AM CDT - 10/19/2024 11:59 PM CDT Hospital Encounter [facility] [address] [place] [address] Jose East MD Discharge Disposition: Home or Self Care 10/19/2024 Orders Only HIS RADIATION ONCOLOGY 10/19/2024 External Device Data STL ABSTRACTION Provider, Abstract 10/18/2024 9:34 AM CDT - 10/18/2024 11:59 PM CDT Hospital Encounter [facility] [address] [place] [address] Jose East MD Discharge Disposition: Home or Self Care 10/18/2024 Orders Only HIS RADIATION ONCOLOGY 10/18/2024 External Device Data STL ABSTRACTION Provider, Abstract 10/17/2024 9:36 AM CDT - 10/17/2024 11:59 PM CDT Hospital Encounter [facility] [address] [place] [address] Jose East MD Discharge Disposition: Home or Self Care 10/17/2024 Refill [facility] [place] Supportive Care [facility] [address] [place] [address] Negro Jordan, OLINDA Cancer related pain (Primary Dx); 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); Palliative care by specialist 10/17/2024 Orders Only HIS RADIATION ONCOLOGY 10/17/2024 External Device Data STL ABSTRACTION Provider, Abstract 10/16/2024 9:16 AM CDT - 10/16/2024 11:59 PM CDT Hospital Encounter [facility] Radiation Oncology [facility] [address] [place] [address] Jose East MD Discharge Disposition: Home or Self Care 10/16/2024 Orders Only HIS RADIATION ONCOLOGY 10/16/2024 Chart Note [facility] Cancer and Hematology [place] [address] [place] [address] Ave [facility] [address] [place] [address] Ruth Deal, LJ 10/16/2024 External Device Data STL ABSTRACTION Provider, Abstract 10/15/2024 External Device Data STL ABSTRACTION Provider, Abstract 10/14/2024 External Device Data STL ABSTRACTION Provider, Abstract 10/13/2024 9:26 AM CDT - 10/13/2024 11:59 PM CDT Hospital En[facility] [address] [place] [address] Jose East MD Discharge Disposition: Home or Self Care 10/13/2024 Orders Only HIS RADIATION ONCOLOGY 10/13/2024 Orders Only [facility] Cancer and Hematology [place] [address] [place], [place] [address] [facility] [address] [place] [address] Traci Veloz, COMMUNITY ORGANIZATION WORKER Leukocytosis, unspecified type (Primary Dx) 10/13/2024 External Device Data STL ABSTRACTION Provider, Abstract 10/12/2024 10:46 AM CDT - 10/12/2024 11:59 PM CDT Hospital Encounter [facility] [address] [place] [address] Arvind Trevino MD Sprg Oncology, Infusion 13 Discharge Disposition: Home or Self Care 10/12/2024 10:00 AM CDT - 10/12/2024 11:59 PM CDT Hospital Encounter [facility] [address] [place] [address] AVE [facility] [address] [place] [address] [phone] Jose East MD Discharge Disposition: Home or Self Care 10/12/2024 10:00 AM CDT Office Visit [facility] Cancer and Hematology [place] [address] [place] [address] 2 [place] [address] [phone] Arvind Trevino MD Tonsillar cancer (CMS/HCC) (Primary Dx) 10/12/2024 8:30 AM CDT - 10/12/2024 11:59 PM CDT Hospital Encounter [facility] Laboratory Services [address] [facility] 2 [place] [address] Arvind Trevino MD Discharge Disposition: Home or Self Care 10/12/2024 Orders Only HIS RADIATION ONCOLOGY 10/12/2024 External Device Data STL ABSTRACTION Provider, Abstract 10/11/2024 9:46 AM CDT - 10/11/2024 11:59 PM CDT Hospital Encounter [facility] [address] [place] [address] [facility] [address] [place] [address] Jose East MD Discharge Disposition: Home or Self Care 10/11/2024 Orders Only HIS RADIATION ONCOLOGY 10/11/2024 External Device Data STL ABSTRACTION Provider, Abstract 10/10/2024 9:35 AM CDT - 10/10/2024 11:59 PM CDT Hospital Encounter [facility] [address] [place] [address] [facility] [address] [place] [address] [phone] Jose East MD Discharge Disposition: Home or Self Care 10/10/2024 External Device Data STL ABSTRACTION Provider, Abstract 10/10/2024 Orders Only HIS RADIATION ONCOLOGY 10/10/2024 External Device Data STL ABSTRACTION Provider, Abstract 10/09/2024 9:57 AM CDT - 10/09/2024 11:59 PM CDT Hospital Encounter [facility] Oncology [facility] [address] [place] [address] Jose East MD Discharge Disposition: Home or Self Care 10/09/2024 Orders Only HIS RADIATION ONCOLOGY 10/09/2024 Telephone [facility] Spiritual Care [address] [place] [address] Bruce Mclain S Cancer (Spiritual care) 10/09/2024 Chart Note [facility] [address] [facility] [address] [place] [address] Melisa Dunne RN 10/09/2024 External Device Data STL ABSTRACTION Provider, Abstract 10/08/2024 External Device Data STL ABSTRACTION Provider, Abstract 10/07/2024 External Device Data STL ABSTRACTION Provider, Abstract 10/06/2024 9:22 AM CDT - 10/06/2024 11:59 PM CDT Hospital Encounter [facility] [address] [place] [address] Jose East MD Discharge Disposition: Home or Self Care 10/06/2024 Orders Only HIS RADIATION ONCOLOGY 10/06/2024 External Device Data STL ABSTRACTION Provider, Abstract 10/05/2024 11:25 AM CDT - 10/05/2024 11:59 PM CDT Hospital Encounter [facility] Oncology Infusion Cancer [place] [address] [facility] [address] [place] [address] Arvind Trevino MD Sprg Oncology, Infusion 14 Discharge Disposition: Home or Self Care 10/05/2024 10:54 AM CDT - 10/05/2024 11:59 PM CDT Hospital Encounter [facility] [address] [facility] [address] [place] [address] Jose East MD Discharge Disposition: Home or Self Care 10/05/2024 10:30 AM CDT - 10/05/2024 11:59 PM CDT Hospital Encounter [facility] Oncology [facility] [address] [place] [address] Jose East MD Discharge Disposition: Home or Self Care 10/05/2024 10:00 AM CDT Office Visit [facility] Cancer and Hematology [place] [address] [place] [address] Arvind Trevino MD Joy, Jennifer L, OLINDA Tonsillar cancer (CMS/HCC) (Primary Dx) 10/05/2024 8:33 AM CDT - 10/05/2024 11:59 PM CDT Hospital [facility] [facility] [address] [place] [phone] Arvind Trevino MD Discharge Disposition: Home or Self Care 10/05/2024 Orders Only HIS RADIATION ONCOLOGY 10/05/2024 Refill [facility] [place] [facility] [address] [place] [address] Margaret Davis MD 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 ([facility]/HCC) 10/05/2024 External Device Data STL ABSTRACTION Provider, Abstract 10/04/2024 9:56 AM CDT - 10/04/2024 11:59 PM CDT Hospital Encounter [facility] [address] [place] [phone] Jose East MD Discharge Disposition: Home or Self Care 10/04/2024 External Device Data STL ABSTRACTION Provider, Abstract 10/04/2024 Orders Only HIS RADIATION ONCOLOGY 10/04/2024 External Device Data STL ABSTRACTION Provider, Abstract 10/04/2024 External Device Data STL ABSTRACTION Provider, Abstract 10/04/2024 External Device Data STL ABSTRACTION Provider, Abstract 10/03/2024 9:53 AM CDT - 10/03/2024 11:59 PM CDT Hospital Encounter [facility] [address] [place] [phone] Jose East MD Discharge Disposition: Home or Self Care 10/03/2024 External Device Data STL ABSTRACTION Provider, Abstract 10/03/2024 Orders Only HIS RADIATION ONCOLOGY 10/03/2024 External Device Data STL ABSTRACTION Provider, Abstract 10/02/2024 9:59 AM CDT - 10/02/2024 11:59 PM CDT Hospital Encounter [facility] [address] [place] [phone] Jose East MD Discharge Disposition: Home or Self Care 10/02/2024 Orders Only HIS RADIATION ONCOLOGY 10/02/2024 External Device Data STL ABSTRACTION Provider, Abstract 10/01/2024 External Device Data STL ABSTRACTION Provider, Abstract 09/30/2024 External Device Data STL ABSTRACTION Provider, Abstract 09/29/2024 10:04 AM CDT - 09/29/2024 11:59 PM CDT Hospital Encounter [facility] [address] [place] [phone] Jose East MD Discharge Disposition: Home or Self Care 09/29/2024 Orders Only HIS RADIATION ONCOLOGY 09/29/2024 Chart Note [facility] Cancer and Hematology [place] [address] [facility] [address] [place] [address] Ruth Deal, LJ 09/29/2024 Refill [facility] [place] [facility] [address] [place] [address] Margaret Davis MD 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 ([facility]/HCC) 09/29/2024 External Device Data STL ABSTRACTION Provider, Abstract 09/28/2024 2:45 PM CDT - 09/28/2024 11:59 PM CDT Hospital Encounter [facility] [address] [place] [address] Jose East MD Discharge Disposition: Home or Self Care 09/28/2024 11:48 AM CDT - 09/28/2024 11:59 PM CDT Hospital Encounter [facility] [address] [place] [phone] Arvind Trevino MD Sprg Oncology, Infusion 13 Discharge Disposition: Home or Self Care 09/28/2024 11:30 AM CDT Office Visit [facility] Cancer and Hematology [place] [address] [place] [address] Arvind Trevino MD Joy, Jennifer L, PHYSICAL FITNESS TRAINER Tonsillar cancer (CMS/HCC) (Primary Dx) 09/28/2024 9:50 AM CDT - 09/28/2024 11:59 PM CDT Hospital Encounter [facility] [address] [place] [address] Arvind Trevino MD Discharge Disposition: Home or Self Care 09/28/2024 9:44 AM CDT - 09/28/2024 11:59 PM CDT Hospital Encounter [facility] Laboratory Services [address] [place] [address] Arvind Trevino MD Discharge Disposition: Home or Self Care 09/28/2024 Orders Only HIS RADIATION ONCOLOGY 09/28/2024 External Device Data STL ABSTRACTION Provider, Abstract 09/27/2024 2:11 PM CDT - 09/27/2024 11:59 PM CDT Hospital Encounter [facility] [address] [place] [address] Jose East MD Discharge Disposition: Home or Self Care 09/27/2024 Orders Only HIS RADIATION ONCOLOGY 09/27/2024 External Device Data STL ABSTRACTION Provider, Abstract 09/26/2024 2:02 PM CDT - 09/26/2024 11:59 PM CDT Hospital Encounter [facility] [address] [place] [phone] Jose East MD Discharge Disposition: Home or Self Care 09/26/2024 Orders Only HIS RADIATION ONCOLOGY 09/26/2024 External Device Data STL ABSTRACTION Provider, Abstract 09/25/2024 2:20 PM CDT - 09/25/2024 11:59 PM CDT Hospital Encounter [facility] [address] [place] [address] [address] [place] [phone] Jose East MD Discharge Disposition: Home or Self Care 09/25/2024 Orders Only HIS RADIATION ONCOLOGY 09/25/2024 Chart Note [facility] [place] [address] [place] [address] [address] [place] [phone] Gianfranco Fajardo RN 09/25/2024 External Device Data STL ABSTRACTION Provider, Abstract 09/24/2024 External Device Data STL ABSTRACTION Provider, Abstract 09/23/2024 External Device Data STL ABSTRACTION Provider, Abstract 09/22/2024 External Device Data STL ABSTRACTION Provider, Abstract 09/21/2024 2:17 PM CDT - 09/21/2024 11:59 PM CDT Hospital Encounter [facility] [address] [place] [phone] Jose East MD Discharge Disposition: Home or Self Care 09/21/2024 Orders Only HIS RADIATION ONCOLOGY 09/21/2024 Orders Only [facility] [address] [place] [phone] Arvind Trevino MD Leukocytosis, unspecified type (Primary Dx); 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 [address] [place] [address] [address] [place] [address] Arvind Trevino MD Spr Oncology, Infusion 20 Discharge Disposition: Home or Self Care 09/20/2024 11:12 AM CDT - 09/20/2024 11:59 PM CDT Hospital Encounter [facility] Radiation Oncology [facility] [address] [place] [address] 10 [place] [address] Jose East MD Discharge Disposition: Home or Self Care 09/20/2024 11:00 AM CDT Office Visit [facility] Cancer [facility] [address] [place] [address] 2 [place] [address] Arvind Trevino MD Tonsillar cancer (CMS/HCC) (Primary Dx); 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 [address] Discharge Disposition: Home or Self Care 09/20/2024 Orders Only HIS RADIATION ONCOLOGY 09/20/2024 Abstract [facility] [address] [place] [address] [place] [address] [place] [phone] Provider, Abstract 09/20/2024 Chart Note [facility] Cancer and Hematology [place] [address] [place] [address] Melisa Dunne, HELADIO 09/20/2024 Chart Note [facility] Cancer [facility] Hematology [place] [address] [place] [address] 2 [place] [address] 09/19/2024 10:00 AM CDT Office Visit [facility] [place] [facility] Th[facility] [address] [place] [address] Angie Goss, COMMUNITY ORGANIZATION WORKER Bilateral impacted cerumen (Primary Dx) 09/19/2024 9:30 AM CDT Procedure visit [facility] [place] Aud[facility] [address] [place] [address] Arvind Trevino MD Stone, Amanda, AU.D Encounter for monitoring ototoxic drug therapy (Primary Dx); Tonsillar cancer (CMS/HCC); Sensorineural hearing loss, bilateral 09/19/2024 Telephone [facility] [address] [place] [address] [place] [address] [place] [phone] Melisa Dunne, RN Nurse Navigation 09/14/2024 8:00 AM CDT - 09/14/2024 11:59 PM CDT Hospital Encounter [facility] Radiation Oncology [facility] [address] [facility] [address] [place] [phone] Discharge Disposition: Home or Self Care 09/13/2024 Telephone [facility] [place] [facility] [address] [place] [phone] Nathaniel Carney Jr., MD Medication Question 09/13/2024 Telephone [facility] [address] [facility] [place] [address] [place] [address] Melisa Dunne, RN Nurse Navigation 09/12/2024 3:00 PM CDT Clinical Support [facility] [place] Support[facility] [address] [place] [address] Kathe Regan MSW Other specified counseling (Primary Dx) 09/12/2024 2:30 PM CDT Office Visit [facility] [place] 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 Gender Identity Not on file Sexual Orientation [...] Info) Description 12/14/2024 12:15 PM CDT Appointment [facility] Oncology [facility] [place] [address] [place] [address] 12/14/2024 1:20 PM CDT Office Visit [facility] Cancer and Hematology [place] [address] [facility] 2 [place] [address] Arvind Trevino MD [address] [place] [address] 01/10/2025 9:45 AM CDT Office Visit [facility] [place] Support[facility] [address] [place] [address] Margaret Davis MD [address] [place] [address] 02/02/2025 1:00 PM PIPELINE INSPECTOR Appointment [facility] Oncology [facility] [address] [place] [address] Arvind Trevino MD [address] [place] [address] 02/02/2025 1:40 PM PIPELINE INSPECTOR Office Visit [facility] Cancer and Hematology [place] [address] [place] [address] Arvind Trevino MD [address] [address] 02/07/2025 10:00 AM PIPELINE INSPECTOR Office Visit [facility] [place] [facility] Head [place]ck [facility] [address] [place] [address] Magno Reyes MD [address] [place] [address] 02/08/2025 3:30 PM PIPELINE INSPECTOR Appointment [facility] Radiation [facility] [address] [facility] [place] [address] Amaris Deras PA-C [address] [place] [address] 03/05/2025 11:30 AM PIPELINE INSPECTOR Clinical Support [facility] [place] Supportive Care [facility] [address] [place] [phone] Kathe Regan, UNISAW OPERATOR [address] [place] [phone] 03/12/2025 10:00 AM PIPELINE INSPECTOR Clinical Support [facility] [place] [facility] [address] [place] [address] Kathe Regan, UNISAW OPERATOR [address] [place] [phone] Health Maintenance Due Date Last Done Comments [...] (#1) 2024 Medical Devices Implanted Type Area Fuse Maker Device Identifier Shelf Expiration Date Model / Serial / Lot Trinchera Suture 4.75x24.5mm Bio appening Swiveloc Sp Ar-2324bcm - [id number] Implanted:Qty: 1 on 03/13/2020 by Sergio Medina III, MD Trinchera Right: Shoulder [employer] [id number] 12/20/2023 AR-2324BC M / / [id number] Trinchera Suture 4.75x24.5mm Bio appening Swiveloc Sp Ar-2324bcm - [id number] Implanted:Qty: 1 on 03/13/2020 by Sergio Medina III, MD Trinchera Right: Shoulder [employer] [id number] 12/20/2023 AR-2324BC M / / [id number] Clip Ligating [facility] [id number] - [facility] - [id number] Implanted:Qty: 1 on 02/24/2024 by Paul Kimbrough DO at [facility] Clip Right: Neck TELE[employer]LEX- [employer]K [employer]URE SYS [id number] 10/13/2028 [id number] / / [id number] Tube Feeding Yusuf Gastro Bolus 16fr 0100-16lv - [id number] Implanted:Qty: 1 on 09/06/2024 by Ricardo Rogers MD at [facility] Feeding Device N/A: Abdomen [employer] fka HALYARD [id number] 04/26/2027 0100-16LV / / [id number] Port Pwrprt Clearvue Slim 8fr [id number] - [id number] Implanted:Qty: 1 on 09/06/2024 by Ricardo Rogers MD at [facility] Port Left: Chest Wall BARD EVON VASC [id number] 07/19/2025 [id number] / / [id number] Procedures Procedure Name Priority Date/Time Associated Diagnosis [...] lymph nodes of head and neck (CMS/HCC) [place] REMOVAL IMPACTED CERUMEN INSTRUMENTATION UNILAT Routine 09/19/2024 10:27 AM CDT Bilateral impacted cerumen MI TYMPANOMETRY Routine 09/19/2024 10:03 AM CDT Encounter for monitoring ototoxic drug therapy Tonsillar cancer (CMS/HCC) Sensorineural hearing loss, bilateral MI DISTRT PROD EVOKD OTOACOUSTIC EMSNS COMP/DX EVAL Routine 09/19/2024 10:03 AM CDT Encounter for monitoring ototoxic drug therapy Tonsillar cancer (CMS/HCC) Sensorineural hearing loss, bilateral [place] COMPRE AUDIOMETRY THRESHOLD EVAL SP RECOGNIJ Routine 09/19/2024 10:03 AM CDT Encounter for monitoring ototoxic drug therapy Tonsillar cancer (CMS/HCC) Sensorineural hearing loss, bilateral HEMOGLOBIN A1C Routine 10/05/2019 8:16 AM CDT from Last 3 Months or Most Recently Relevant to Health Maintenance Results * RAD ONC MSQ TREATMENT SUMMARY (11/08/2024 8:46 AM CDT) [facility] Treatment Site RTonsil&N ckRpln [facility] Course Number 1 [facility] Prescribed Fractional Dose 200 cGray [facility] Prescribed Total Dose 4,600 cGray [facility] Actual Fractions Delivered 23 [facility] Prescription Pattern Comment 6FFF; 36.8Gy SIB cGy [facility] Actual Session Delivered Dose 200 cGray [facility] Actual Total Dose 4,600 cGray [facility] Prescribed Technique Helical-I MRT [facility] Elapsed Days 30 [facility] C LINIC [facility] Start Date 10/09/2024 [facility] CLI RAFAEL [facility] Last Date 11/08/2024 [facility] CLIN IC [facility] Prescribed Number of Fractions 23 [facility] 11/08/2024 8:46 AM CDT us Aok Ip Radiation Oncologist Physician MD RILEY ON ONCOLOGY ORDERABLES Final Result [facility] CLIA # [id number] [address] [place] [id number] * RAD ONC MSQ TREATMENT SUMMARY (11/07/2024 9:30 AM CDT) [facility] Treatment Site RTonsil&N ckRpln [facility] Course Number 1 [facility] Prescribed Fractional Dose 200 cGray [facility] Prescribed Total Dose 4,600 cGray [facility] Actual Fractions Delivered 22 [facility] Prescription Pattern Comment 6FFF; 36.8Gy SIB cGy [facility] Actual Session Delivered Dose 200 cGray [facility] Actual Total Dose 4,400 cGray [facility] Prescribed Technique Helical-I MRT [facility] Elapsed Days 29 [facility] LIN[facility] Start Date 10/09/2024 [facility] CLI RAFAEL [facility] Last Date 11/07/2024 [facility] CLIN IC [facility] Prescribed Number of Fractions 23 [facility] 11/07/2024 9:30 AM CDT us Aok Ip Radiation Oncologist Physician MD RILEY ON ONCOLOGY ORDERABLES Final Result [facility] CLIA # [id number] [address] [place] [id number] * RAD ONC MSQ TREATMENT SUMMARY (11/06/2024 10:44 AM CDT) Pathologist [facility] Treatment Site RTonsil&N ckRpln [facility] Course Number 1 [facility] Prescribed Fractional Dose 200 cGray [facility] Prescribed Total Dose 4,600 cGray [facility] Actual Fractions Delivered 21 [facility] Prescription Pattern Comment 6FFF; 36.8Gy SIB cGy [facility] Actual Session Delivered Dose 200 cGray [facility] Actual Total Dose 4,200 cGray [facility] Prescribed Technique Helical-I MRT [facility] Elapsed Days 28 [facility] C LINIC [facility] Start Date 10/09/2024 [facility] CLI RAFAEL [facility] Last Date 11/06/2024 [facility] CLIN IC [facility] Prescribed Number of Fractions 23 [facility] 11/06/2024 10:4 4 AM CDT us Aok Ip Radiation Oncologist Physician MD RILEY ON ONCOLOGY ORDERABLES Final Result [facility] CLIA # [id number] [address] [place] [address] * RAD ONC MSQ TREATMENT SUMMARY (11/03/2024 8:42 AM CDT) [facility] Treatment Site RTonsil&N ckRpln [facility] Course Number 1 [facility] Prescribed Fractional Dose 200 cGray [facility] Prescribed Total Dose 4,600 cGray [facility] Actual Fractions Delivered 20 [facility] Prescription Pattern Comment 6FFF; 36.8Gy SIB cGy [facility] Actual Session Delivered Dose 200 cGray [facility] Actual Total Dose 4,000 cGray [facility] Prescribed Technique Helical-I MRT [facility] Elapsed Days 25 [facility] C LINIC [facility] Start Date 10/09/2024 [facility] CLI RAFAEL [facility] Last Date 11/03/2024 [facility] CLIN IC [facility] Prescribed Number of Fractions 23 [facility] 11/03/2024 8:42 AM CDT us Aok Ip Radiation Oncologist Physician MD RILEY ON ONCOLOGY ORDERABLES Final Result [facility] CLIA # [id number] [address] [place] [address] * MAGNESIUM LEVEL (11/02/2024 8:56 AM CDT) Only the most recent of6 resultswithin the time period is included. Pathologist [facility] MAGNESIUM 1.7 1.6 - 2.6 mg/dL 11/02/2024 10:12 AM [facility] [place] Blood Venipuncture / Unknown 11/02/2024 8:56 AM CDT 11/02/2024 8:56 AM CDT us Jackie Bertrand NP CHEMISTRY ORDERABLES Final Res ult [facility] [place] CLIA# [id number] [address] [place] [address] * (ABNORMAL) COMPREHENSIVE METABOLIC PANEL (11/02/2024 8:56 AM CDT) Only the most recent of7 resultswithin the time period is included. SODIUM 134(L) 136 - 145 mmol/L 11/02/2024 10:12 AM [facility] [place] POTASSIUM 4.5 3.5 - 5.1 mmol/L 11/02/2024 10:12 AM [facility] [place] CHLORIDE 96(L) 98 - 107 mmol/L 11/02/2024 10:12 AM [facility] [place] CO2 28 22 - 29 mmol/L 11/02/2024 10:12 AM [facility] [place] CALCIUM 8.5(L) 8.6 - 10.0 mg/dL 11/02/2024 10:12 AM [facility] [place] BUN 27(H) 6 - 20 mg/dL 11/02/2024 10:12 AM [facility] [place] CREATININE 0.64(L) 0.67 - 1.17 mg/dL 11/02/2024 10:12 AM [facility] [place] GLUCOSE 136(H) 74 - 99 mg/dL 11/02/2024 10:12 AM [facility] [place] TOTAL PROTEIN 6.5 6.4 - 8.3 g/dL 11/02/2024 10:12 AM [facility] [place] ALBUMIN 3.9 3.5 - 5.2 g/dL 11/02/2024 10:12 AM [facility] [place] BILIRUBIN TOTAL <0.2 0.0 - 1.0 mg/dL 11/02/2024 10:12 AM [facility] ALKALINE PHOSPHATASE 45 40 - 129 U/L 11/02/2024 10:12 AM [facility] [place] AST 22 <=41 U/L 11/02/2024 10:12 AM [facility] [place] ALT 41 <=41 U/L 11/02/2024 10:12 AM [facility] [place] GFR >60 >=60 mL/min/1.7 3 sq meter 11/02/2024 10:12 AM [facility] [place] Comment:eGFR calculated with 2020 CKD-EPI equation. Vegetarian diet, extremely high or low muscle mass, and may affect results. Cystatin C with Glomerular Filtration Rate is a suitable alternative for these patients. ANION GAP 10 9 - 20 mmol/L 11/02/2024 10:12 AM [facility] [place] Blood Venipuncture / Unknown 11/02/2024 8:56 AM CDT 11/02/2024 8:56 AM CDT us Jackie Bertrand PHYSICAL FITNESS TRAINER CHEMISTRY ORDERABLES Final Res [facility] [id number] [id number] [place] [address] * (ABNORMAL) MANUAL DIFFERENTIAL (11/02/2024 8:55 AM CDT) Only the most recent of4 resultswithin the time period is included. SEGMENTED NEUTROPHILS 73(H) 36 - 66 % 11/02/2024 9:55 AM [facility] [place] LYMPHOCYTES RELATIVE 9(L) 43 - 53 % 11/02/2024 9:55 AM CDT [facility] [place] MONOCYTES RELATIVE 6 4 - 10 % 2024 9:55 AM CDT [facility] [place] METAMYELOCYTES RELATIVE 10(H) 0 - 1 % 11/02/2024 9:55 AM CDT [facility] [place] MYELOCYTES - REL (DIFF) 2(H) <0 % 11/02/2024 9:55 AM CDT [facility] [place] NEUTROPHILS ABSOLUTE COUNT 4.31 1.40 - 6.50 K/uL 11/02/2024 9:55 AM CDT [facility] [place] LYMPHOCYTES ABSOLUTE 0.53(L) 1.20 - 4.00 K/uL 11/02/2024 9:55 AM CDT [facility] [place] MONOCYTES ABSOLUTE 0.35 0.10 - 0.60 K/uL 11/02/2024 9:55 AM CDT [facility] [place] TOTAL CELLS COUNTED IN DIFF 100 11/02/2024 9:55 AM CDT [facility] [place] PLATELET EST. Adequate 11/02/2024 9:55 AM CDT [facility] [place] ANISOCYTOSIS 2+ /hpf 11/02/2024 9:55 AM CDT [facility] [place] TOXIC GRANULATION 1+ 025 9:55 AM CDT [facility] [place] Blood 11/02/2024 8:55 AM CDT 11/02/2024 8:55 AM CDT us Jackie Bertrand NP HEMATOLOGY ORDERABLES COM Isabella costa Result [facility] [place] CLIA# [id number] [id number] [place] [address] * (ABNORMAL) CBC WITH DIFFERENTIAL (11/02/2024 8:55 AM CDT) Only the most recent of7 resultswithin the time period is included. WBC 5.9 4.8 - 10.8 K/uL 11/02/2024 9:20 AM T [facility] [place] NRBCS 1(H) <1 % 11/02/2024 9:20 AM [facility] [place] RBC 3.62(L) 4.60 - 6.20 M/uL 11/02/2024 9:20 AM T [facility] [place] HEMOGLOBIN 11.3(L) 14.0 - 18.0 g/dL 11/02/2024 9:20 AM T [facility] [place] HEMATOCRIT 33.0(L) 41.0 - 53.0 % 11/02/2024 9:20 AM T [facility] [place] MCV 91.2 82.0 - 100.0 fL 11/02/2024 9:20 AM [facility] [place] MCH 31.2 27.0 - 34.0 pg 11/02/2024 9:20 AM T [facility] [place] MCHC 34.2 31.0 - 37.0 g/dL 11/02/2024 9:20 AM T [facility] [place] RDW 19.4(H) 11.0 - 14.5 % 11/02/2024 9:20 AM T [facility] [place] RDW-STDEV 57.1(H) 37.0 - 54.0 fL 11/02/2024 9:20 AM [facility] [place] PLATELETS 195 140 - 440 K/uL 11/02/2024 9:20 AM CDT [facility] [place] MPV 9.5 8.9 - 12.8 fL 11/02/2024 9:20 AM T [facility] [place] Blood 11/02/2024 8:55 AM CDT 11/02/2024 8:55 AM CDT us Jackie Bertrand NP HEMATOLOGY ORDERABLES Final Re sult [facility] [place] CLIA# [id number] [id number] [place] [address] * RAD ONC MSQ TREATMENT SUMMARY (11/02/2024 8:18 AM CDT) [facility] Treatment Site RTonsil&N ckRpln [facility] Course Number 1 [facility] Prescribed Fractional Dose 200 cGray [facility] Prescribed Total Dose 4,600 cGray [facility] Actual Fractions Delivered 19 [facility] Prescription Pattern Comment 6FFF; 36.8Gy SIB cGy [facility] Actual Session Delivered Dose 200 cGray [facility] Actual Total Dose 3,800 cGray [facility] Prescribed Technique Helical-I MRT [facility] Elapsed Days 24 [facility] C LINIC [facility] Start Date 10[facility]09/2024 [facility] CLI RAFAEL [facility] Last Date 11/02/2024 [facility] CLIN IC [facility] Prescribed Number of Fractions 23 [facility] 11/02/2024 8:18 AM CDT us Aok Ip Radiation Oncologist Physician MD RILEY ON ONCOLOGY ORDERABLES Final Result [facility] CLIA # [id number] [address] [place] [id number] * RAD ONC MSQ TREATMENT SUMMARY (11/01/2024 9:40 AM CDT) [facility] Treatment [facility] RTonsil&N ckRpln [facility] Course Number 1 [facility] Prescribed Fractional Dose 200 cGray [facility] Prescribed Total Dose 4,600 cGray [facility] Actual Fractions Delivered 18 [facility] Prescription Pattern Comment 6FFF; 36.8Gy SIB cGy [facility] Actual Session Delivered Dose 200 cGray [facility] Actual Total Dose 3,600 cGray [facility] Prescribed Technique Helical-I MRT [facility] Elapsed Days 23 [facility] LIN [facility] Start Date 10[facility]09/2024 [facility] CLI RAFAEL [facility] Last Date 11/01/2024 [facility] CLIN IC [facility] Prescribed Number of Fractions 23 [facility] 11/01/2024 9:40 AM CDT us Aok Ip Radiation Oncologist Physician MD RILEY ON ONCOLOGY ORDERABLES Final Result [facility] CLIA # [id number] [address] [place] [id number] * RAD ONC MSQ TREATMENT SUMMARY (10/31/2024 9:53 AM CDT) Treatment Site RTonsil&N ckRpln [facility] Course Number 1 [facility] Prescribed Fractional Dose 200 cGray [facility] Prescribed Total Dose 4,600 cGray [facility] Actual Fractions Delivered 17 [facility] Prescription Pattern Comment 6FFF; 36.8Gy SIB cGy [facility] Actual Session Delivered Dose 200 cGray [facility] Actual Total Dose 3,400 cGray [facility] Prescribed Technique Helical-I MRT [facility] Elapsed Days 22 [facility] C LINIC [facility] Start Date 10/09/2024 [facility] CLI RAFAEL [facility] Last Date 10/31/2024 [facility] CLIN IC [facility] Prescribed Number of Fractions 23 [facility] 10/31/2024 9:53 AM CDT us Aok Ip Radiation Oncologist Physician MD RILEY ON ONCOLOGY ORDERABLES Final Result [facility] CLIA # [id number] [address] [place] [address] * RAD ONC MSQ TREATMENT SUMMARY (10/30/2024 10:02 AM CDT) [facility] RTonsil&N ckRpln [facility] Course Number 1 [facility] Prescribed Fractional Dose 200 cGray [facility] Prescribed Total Dose 4,600 cGray [facility] Actual Fractions Delivered 16 [facility] Prescription Pattern Comment 6FFF; 36.8Gy SIB cGy [facility] Actual Session Delivered Dose 200 cGray [facility] Actual Total Dose 3,200 cGray [facility] Prescribed Technique Helical-I MRT [facility] Elapsed Days 21 [facility] C LINIC [facility] Start Date 10/09/2024 [facility] CLI RAFAEL [facility] Last Date 10/30/2024 [facility] CLIN IC [facility] Prescribed Number of Fractions 23 [facility] 10/30/2024 10:0 2 AM CDT us Aok Ip Radiation Oncologist Physician MD RILEY ON ONCOLOGY ORDERABLES Final Result [facility] CLIA # [id number] [address] [place] [address] * RAD ONC MSQ TREATMENT SUMMARY (10/27/2024 10:00 AM CDT) [facility] RTonsil&N ckRpln [facility] Course Number 1 [facility] Prescribed Fractional Dose 200 cGray [facility] Prescribed Total Dose 4,600 cGray [facility] Actual Fractions Delivered 15 [facility] Prescription Pattern Comment 6FFF; 36.8Gy SIB cGy [facility] Actual Session Delivered Dose 200 cGray [facility] Actual Total Dose 3,000 cGray [facility] Prescribed Technique Helical-I MRT [facility] Elapsed Days 18 [facility] C LINIC [facility] Start Date 10/09/2024 [facility] CLI RAFAEL [facility] Last Date 10/27/2024 [facility] CLIN IC [facility] Prescribed Number of Fractions 23 [facility] 10/27/2024 10:0 0 AM CDT us Aok Ip Radiation Oncologist Physician MD RILEY ON ONCOLOGY ORDERABLES Final Result [facility] CLIA # [id number] [address] [place] [address] * RAD ONC MSQ TREATMENT SUMMARY (10/26/2024 4:38 PM CDT) [facility] RTonsil&N ckRpln [facility] Course Number 1 [facility] Prescribed Fractional Dose 200 cGray [facility] Prescribed Total Dose 4,600 cGray [facility] Actual Fractions Delivered 14 [facility] Prescription Pattern Comment 6FFF; 36.8Gy SIB cGy [facility] Actual Session Delivered Dose 200 cGray [facility] Actual Total Dose 2,800 cGray [facility] Prescribed Technique Helical-I MRT [facility] Elapsed Days 17 [facility] Start Date 10[facility]09/2024 [facility] Last Date 10/26/2024 [facility] CLIN IC [facility] Prescribed Number of Fractions 23 [facility] 10/26/2024 4:38 PM CDT us Aok Ip Radiation Oncologist Physician MD RILEY ON ONCOLOGY ORDERABLES Final Result [facility] CLIA # [id number] [address] [place] [address] * RAD ONC MSQ TREATMENT SUMMARY (10/25/2024 10:02 AM CDT) Treatment Site RTonsil&N ckRpln [facility] Course Number 1 [facility] Prescribed Fractional Dose 200 cGray [facility] Prescribed Total Dose 4,600 cGray [facility] Actual Fractions Delivered 13 [facility] Prescription Pattern Comment 6FFF; 36.8Gy SIB cGy [facility] Actual Session Delivered Dose 200 cGray [facility] Actual Total Dose 2,600 cGray [facility] Prescribed Technique Helical-I MRT [facility] Elapsed Days 16 [facility] C LINIC [facility] Start Date 10/09/2024 [facility] CLI RAFAEL [facility] Last Date 10/25/2024 [facility] CLIN IC [facility] Prescribed Number of Fractions 23 [facility] 10/25/2024 10:0 2 AM CDT us Aok Ip Radiation Oncologist Physician MD RILEY ON ONCOLOGY ORDERABLES Final Result [facility] CLIA # [id number] [address] [place] [address] * RAD ONC MSQ TREATMENT SUMMARY (10/24/2024 10:22 AM CDT) [facility] Treatment Site RTonsil&N ckRpln [facility] Course Number 1 [facility] Prescribed Fractional Dose 200 cGray [facility] Prescribed Total Dose 4,600 cGray [facility] Actual Fractions Delivered 12 [facility] Prescription Pattern Comment 6FFF; 36.8Gy SIB cGy [facility] Actual Session Delivered Dose 200 cGray [facility] Actual Total Dose 2,400 cGray [facility] Prescribed Technique Helical-I MRT [facility] Elapsed Days 15 [facility] C LINIC [facility] Start Date 10/09/2024 [facility] CLI RAFAEL [facility] Last Date 10/24/2024 [facility] CLIN IC [facility] Prescribed Number of Fractions 23 [facility] 10/24/2024 10:2 2 AM CDT us Aok Ip Radiation Oncologist Physician MD RILEY ON ONCOLOGY ORDERABLES Final Result [facility] CLIA # [id number] [address] [place] [address] * RAD ONC MSQ TREATMENT SUMMARY (10/23/2024 9:43 AM CDT) [facility] Treatment Site RTonsil&N ckRpln [facility] Course Number 1 [facility] Prescribed Fractional Dose 200 cGray [facility] Prescribed Total Dose 4,600 cGray [facility] Actual Fractions Delivered 11 [facility] Prescription Pattern Comment 6FFF; 36.8Gy SIB cGy [facility] Actual Session Delivered Dose 200 cGray [facility] Actual Total Dose 2,200 cGray [facility] Prescribed Technique Helical-I MRT [facility] Elapsed Days 14 [facility] LINIC [facility] Start Date 10[facility]09/2024 [facility] CLI RAFAEL [facility] Last Date 10/23/2024 [facility] CLIN IC [facility] Prescribed Number of Fractions 23 [facility] 10/23/2024 9:43 AM CDT us Aok Ip Radiation Oncologist Physician MD RILEY ON ONCOLOGY ORDERABLES Final Result [facility] CLIA # [id number] [address] [place] [address] * RAD ONC MSQ TREATMENT SUMMARY (10/20/2024 9:21 AM CDT) Pathologist [facility] Treatment Site RTonsil&N ckRpln [facility] Course Number 1 [facility] Prescribed Fractional Dose 200 cGray [facility] Prescribed Total Dose 4,600 cGray [facility] Actual Fractions Delivered 10 [facility] Prescription Pattern Comment 6FFF; 36.8Gy SIB cGy [facility] Actual Session Delivered Dose 200 cGray [facility] Actual Total Dose 2,000 cGray [facility] Prescribed Technique Helical-I MRT [facility] Elapsed Days 11 [facility] LINIC [facility] Start Date 10/09/2024 [facility] RAFAEL [facility] Last Date 10/20/2024 [facility] CLIN [facility] Prescribed Number of Fractions 23 [facility] 10/20/2024 9:21 AM CDT us Aok Ip Radiation Oncologist Physician MD RILEY ON ONCOLOGY ORDERABLES Final Result [facility] CLIA # [id number] [facility] [place] [address] * RAD ONC MSQ TREATMENT SUMMARY (10/19/2024 10:08 AM CDT) [facility] Treatment Site RTonsil&N ckRpln [facility] Course Number 1 [facility] Prescribed Fractional Dose 200 cGray [facility] Prescribed Total Dose 4,600 cGray [facility] Actual Fractions Delivered 9 [facility] Prescription Pattern Comment 6FFF; 36.8Gy SIB cGy [facility] Actual Session Delivered Dose 200 cGray [facility] Actual Total Dose 1,800 cGray [facility] Prescribed Technique Helical-I MRT [facility] Elapsed Days 10 [facility] Start Date 10[facility]09/2024 [facility] CLI RAFAEL [facility] Last Date 10/19/2024 [facility] CLIN IC [facility] Prescribed Number of Fractions 23 [facility] 10/19/2024 10:0 8 AM CDT us Aok Ip Radiation Oncologist Physician MD RILEY ON ONCOLOGY ORDERABLES Final Result [facility] CLIA # [id number] [address] [place] [address] * RAD ONC MSQ TREATMENT SUMMARY (10/18/2024 9:58 AM CDT) [facility] RTonsil&N ckRpln [facility] Course Number 1 [facility] Prescribed Fractional Dose 200 cGray [facility] Prescribed Total [facility]ose 4,600 cGray [facility] Actual Fractions Delivered 8 [facility] Prescription Pattern Comment 6FFF; 36.8Gy SIB cGy [facility] Actual Session Delivered [facility]ose 200 cGray [facility] Actual Total [facility]ose 1,600 cGray [facility] Prescribed Technique Helical-I MRT [facility] Elapsed Days 9 [facility] C LINIC [facility] Start Date 10[facility]09/2024 [facility] CLI [facility] Last Date 10/18/2024 [facility] IC [facility] Prescribed Number of Fractions 23 [facility] 10/18/2024 9:58 AM CDT us Aok Ip Radiation Oncologist Physician MD RILEY ON ONCOLOGY ORDERABLES Final Result [facility] CLIA # [id number] [address] [place] [address] * RAD ONC MSQ TREATMENT SUMMARY (10/17/2024 10:07 AM CDT) [facility] RTonsil&N ckRpln [facility] Course Number 1 [facility] Prescribed Fractional [facility]ose 200 cGray THE [facility] Prescribed Total Dose 4,600 cGray [facility] Actual Fractions Delivered 7 [facility] Prescription Pattern Comment 6FFF; 36.8Gy SIB cGy [facility] Actual Session Delivered Dose 200 cGray [facility] Actual Total Dose 1,400 cGray [facility] Prescribed Technique Helical-I MRT [facility] Elapsed Days 8 [facility] Start Date 10[facility]09/2024 [facility] Last Date 10/17/2024 [facility] CLIN IC [facility] Prescribed Number of Fractions 23 [facility] 10/17/2024 10:0 7 AM CDT us Aok Ip Radiation Oncologist Physician MD RILEY ON ONCOLOGY ORDERABLES Final Result [facility] CLIA # [id number] [address] [place] [id number] * RAD ONC MSQ TREATMENT SUMMARY (10/16/2024 10:17 AM CDT) Treatment Site RTonsil&N ckRpln [facility] Course Number 1 [facility] Prescribed Fractional Dose 200 cGray [facility] Prescribed Total Dose 4,600 cGray [facility] Actual Fractions Delivered 6 [facility] Prescription Pattern Comment 6FFF[facility] 36.8Gy SIB cGy [facility] Actual Session Delivered Dose 200 cGray [facility] Actual Total Dose 1,200 cGray [facility] Prescribed Technique Helical-I MRT [facility] Elapsed Days 7 [facility] Start Date [facility]09/2024 [facility] Last Date 10/16/2024 [facility] Prescribed Number of Fractions 23 [facility] 10/16/2024 10:1 7 AM CDT us Aok Ip Radiation Oncologist Physician MD RILEY ON ONCOLOGY ORDERABLES Final Result Performing Organization Address [facility]/ZIP Co de Phone Number [facility] CLIA # [id number] [address] [place] [address] * RAD ONC MSQ TREATMENT SUMMARY (10/13/2024 10:08 AM CDT) Pathologist [facility] Treatment Site RTonsil&N ckRpln [facility] Course Number 1 [facility] Prescribed Fractional Dose 200 cGray [facility] Prescribed Total Dose 4,600 cGray [facility] Actual Fractions Delivered 5 [facility] Prescription Pattern Comment 6FFF; 36.8Gy SIB cGy [facility] Actual Session Delivered Dose 200 cGray [facility] Actual Total Dose 1,000 cGray [facility] Prescribed Technique Helical-I MRT [facility] Elapsed Days 4 [facility] Start Date 10[facility]09/2024 [facility] CLI RAFAEL [facility] Last Date 10/13/2024 [facility] CLIN IC [facility] Prescribed Number of Fractions 23 [facility] 10/13/2024 10:0 8 AM CDT us Aok Ip Radiation Oncologist Physician MD RILEY ON ONCOLOGY ORDERABLES Final Result [facility] CLIA # [id number] [address] [place] [address] * RAD ONC MSQ TREATMENT SUMMARY (10/12/2024 10:42 AM CDT) [facility] RTonsil&N ckRpln [facility] Course Number 1 [facility] Prescribed Fractional Dose 200 cGray [facility] Prescribed Total Dose 4,600 cGray [facility] Actual Fractions Delivered 4 [facility] Prescription Pattern Comment 6FFF; 36.8Gy SIB cGy [facility] Actual Session Delivered Dose 200 cGray [facility] Actual Total Dose 800 cGray [facility] Prescribed Technique Helical-I MRT [facility] Elapsed Days 3 [facility] Start Date 10[facility]09/2024 [facility] CLI RAFAEL [facility] Last Date 10/12/2024 [facility] CLIN IC [facility] Prescribed Number of Fractions 23 [facility] 10/12/2024 10:4 2 AM CDT us Aok Ip Radiation Oncologist Physician MD RILEY ON ONCOLOGY ORDERABLES Final Result [facility] CLIA # [id number] [address] [place] [address] * RAD ONC MSQ TREATMENT SUMMARY (10/11/2024 10:08 AM CDT) [facility] Treatment [facility] RTonsil&N ckRpln [facility] Course Number 1 [facility] Prescribed Fractional Dose 200 cGray [facility] Prescribed Total Dose 4,600 cGray [facility] Actual Fractions Delivered 3 [facility] Prescription Pattern Comment 6FFF; 36.8Gy SIB cGy [facility] Actual Session Delivered Dose 200 cGray [facility] Actual Total Dose 600 cGray [facility] Prescribed Technique Helical-I MRT [facility] Elapsed Days 2 [facility] Start Date 10[facility]09/2024 [facility] Last Date 10/11/2024 [facility] CLIN IC [facility] Prescribed Number of Fractions 23 [facility] 10/11/2024 10:0 8 AM CDT us Aok Ip Radiation Oncologist Physician MD RILEY ON ONCOLOGY ORDERABLES Final Result [facility] CLIA # [id number] [address] [place] [address] * RAD ONC MSQ TREATMENT SUMMARY (10/10/2024 9:53 AM CDT) Pathologist [facility] Treatment Site RTonsil&N ckRpln [facility] Course Number 1 [facility] Prescribed Fractional Dose 200 cGray [facility] Prescribed Total Dose 4,600 cGray [facility] Actual Fractions Delivered 2 [facility] Prescription Pattern Comment 6FFF; 36.8Gy SIB cGy [facility] Actual Session Delivered Dose 200 cGray [facility] Actual Total Dose 400 cGray [facility] Prescribed Technique Helical-I MRT [facility] Elapsed Days 1 [facility] Start Date 10[facility]09/2024 [facility] CLI RAFAEL [facility] Last Date 10/10/2024 [facility] CLIN IC [facility] Prescribed Number of Fractions 23 [facility] 10/10/2024 9:53 AM CDT us Aok Ip Radiation Oncologist Physician MD RILEY ON ONCOLOGY ORDERABLES Final Result [facility] CLIA # [id number] [address] [place] [address] * RAD ONC MSQ TREATMENT SUMMARY (10/09/2024 10:59 AM CDT) [facility] RTonsil&N ckRpln [facility] Course Number 1 [facility] Prescribed Fractional Dose 200 cGray [facility] Prescribed Total Dose 4,600 cGray [facility] Actual Fractions Delivered 1 [facility] Prescription Pattern Comment 6FFF; 36.8Gy SIB cGy [facility] Actual Session Delivered Dose 200 cGray [facility] Actual Total Dose 200 cGray [facility] Prescribed Technique Helical-I MRT [facility] Elapsed Days 0 [facility] Start Date 10[facility]09/2024 [facility] CLI RAFAEL [facility] Last Date 10/09/2024 [facility] CLIN IC [facility] Prescribed Number of Fractions 23 [facility] 10/09/2024 10:5 9 AM CDT us Aok Ip Radiation Oncologist Physician MD RILEY ON ONCOLOGY ORDERABLES Final Result [facility] CLIA # [id number] [address] [place] [address] * RAD ONC MSQ TREATMENT SUMMARY (10/06/2024 9:56 AM CDT) [facility] R tonsil R neck [facility] Course Number 1 [facility] Prescribed Fractional Dose 200 cGray [facility] Prescribed Total Dose 7,000 cGray [facility] Actual [facility]ractions Delivered 12 [facility] Prescription Pattern Comment 5600 cGy SIB cGy [facility] Actual Session Delivered Dose 200 cGray [facility] Actual Total Dose 2,400 cGray [facility] Prescribed Technique Helical-IM RT [facility] Elapsed Days 16 [facility] Start Date 09[facility]20/2024 [facility] CLI RAFAEL [facility] Last Date 10/06/2024 [facility] Prescribed Number of Fractions 35 [facility] 10/06/2024 9:56 AM CDT us Aok Ip Radiation Oncologist Physician MD RILEY ON ONCOLOGY ORDERABLES Final Result [facility] CLIA # [id number] [address] [place] [id number] * RAD ONC MSQ TREATMENT SUMMARY (10/05/2024 10:59 AM CDT) [facility] Treatment Site R tonsil R neck [facility] Course Number 1 [facility] Prescribed Fractional Dose 200 cGray [facility] Prescribed Total Dose 7,000 cGray [facility] Actual [facility]ractions Delivered 11 [facility] Prescription Pattern Comment 5600 cGy SIB cGy [facility] Actual Session Delivered Dose 200 cGray [facility] Actual Total Dose 2,200 cGray [facility] Prescribed Technique Helical-IM RT [facility] Elapsed Days 15 [facility] Start Date 09/20/2024 [facility] Last Date 10/05/2024 [facility] Prescribed Number of Fractions 35 [facility] 10/05/2024 10:5 9 AM CDT us Aok Ip Radiation Oncologist Physician MD RILEY ON ONCOLOGY ORDERABLES Final Result [facility] CLIA # [id number] [address] [place] [address] * RAD ONC MSQ TREATMENT SUMMARY (10/04/2024 10:38 AM CDT) [facility] Treatment Site R tonsil R neck [facility] Course Number 1 [facility] Prescribed Fractional Dose 200 cGray [facility] Prescribed Total Dose 7,000 cGray [facility] Actual [facility]ractions Delivered 10 [facility] Prescription Pattern Comment 5600 cGy SIB cGy [facility] Actual Session Delivered Dose 200 cGray [facility] Actual Total Dose 2,000 cGray [facility] Prescribed Technique Helical-IM RT [facility] Elapsed Days 14 [facility] C [facility] Start Date 09[facility]20/2024 [facility] CLI RAFAEL [facility] Last Date 10/04/2024 [facility] CLIN IC [facility] Prescribed Number of Fractions 35 [facility] 10/04/2024 10:3 8 AM CDT us Aok Ip Radiation Oncologist Physician MD RILEY ON ONCOLOGY ORDERABLES Final Result [facility] CLIA # [id number] [address] [place] [address] * RAD ONC MSQ TREATMENT SUMMARY (10/03/2024 10:13 AM CDT) [facility] Treatment Site R tonsil R neck [facility] Course Number 1 [facility] Prescribed Fractional Dose 200 cGray [facility] Prescribed Total Dose 7,000 cGray [facility] Actual [facility]ractions Delivered 9 [facility] Prescription Pattern Comment 5600 cGy SIB cGy [facility] Actual Session Delivered Dose 200 cGray [facility] Actual Total Dose 1,800 cGray [facility] Prescribed Technique Helical-IM RT [facility] Elapsed Days 13 [facility] C [facility] Start Date 09[facility]20/2024 [facility] CLI RAFAEL [facility] Last Date 10/03/2024 [facility] CLIN IC [facility] Prescribed Number of Fractions 35 [facility] 10/03/2024 10:1 3 AM CDT us Aok Ip Radiation Oncologist Physician MD RILEY ON ONCOLOGY ORDERABLES Final Result [facility] CLIA # [id number] [address] [place] [address] * RAD ONC MSQ TREATMENT SUMMARY (10/02/2024 10:17 AM CDT) [facility] Treatment Site R tonsil R neck [facility] Course Number 1 [facility] Prescribed Fractional Dose 200 cGray [facility] Prescribed Total Dose 7,000 cGray [facility] Actual [facility]ractions Delivered 8 [facility] Prescription Pattern Comment 5600 cGy SIB cGy [facility] Actual Session Delivered Dose 200 cGray [facility] Actual Total [facility]ose 1,600 cGray [facility] Prescribed Technique Helical-IM RT [facility] Elapsed Days 12 [facility] Start Date 09/20/2024 [facility] Last Date 10/02/2024 [facility] CLIN IC [facility] Prescribed Number of Fractions 35 [facility] 10/02/2024 10:1 7 AM CDT us Aok Ip Radiation Oncologist Physician MD RILEY ON ONCOLOGY ORDERABLES Final Result [facility] CLIA # [id number] [address] [place] [address] * RAD ONC MSQ TREATMENT SUMMARY (09/29/2024 10:32 AM CDT) Treatment Site R tonsil R neck [facility] Course Number 1 [facility] Prescribed Fractional Dose 200 cGray [facility] Prescribed Total Dose 7,000 cGray [facility] Actual Fractions Delivered 7 [facility] Prescription Pattern Comment 5600 cGy SIB cGy [facility] Actual Session Delivered Dose 200 cGray [facility] Actual Total [facility]ose 1,400 cGray [facility] Prescribed Technique Helical-IM RT [facility] Elapsed Days 9 [facility] Start Date 09[facility]20/2024 [facility] CLI RAFAEL [facility] Last Date 09/29/2024 [facility] CLIN IC [facility] Prescribed Number of Fractions 35 [facility] 09/29/2024 10:3 2 AM CDT us Aok Ip Radiation Oncologist Physician MD RILEY ON ONCOLOGY ORDERABLES Final Result [facility] CLIA # [id number] [address] [place] [address] * RAD ONC MSQ TREATMENT SUMMARY (09/28/2024 3:10 PM CDT) [facility] Treatment Site R tonsil R neck [facility] Course Number 1 [facility] Prescribed Fractional Dose 200 cGray [facility] Prescribed Total Dose 7,000 cGray [facility] Actual Fractions Delivered 6 [facility] Prescription Pattern Comment 5600 cGy SIB cGy [facility] Actual Session Delivered Dose 200 cGray [facility] Actual Total [facility]ose 1,200 cGray [facility] Prescribed Technique Helical-IM RT [facility] Elapsed Days 8 [facility] Start Date 09[facility]20/2024 [facility] CLI RAFAEL [facility] Last Date 09/28/2024 [facility] CLIN IC [facility] Prescribed Number of Fractions 35 [facility] 09/28/2024 3:10 PM CDT us Aok Ip Radiation Oncologist Physician MD RILEY ON ONCOLOGY ORDERABLES Final Result [facility] CLIA # [id number] [address] [place] [address] * RAD ONC MSQ TREATMENT SUMMARY (09/27/2024 2:39 PM CDT) [facility] Treatment Site R tonsil R neck [facility] Course Number 1 [facility] Prescribed Fractional Dose 200 cGray [facility] Prescribed Total Dose 7,000 cGray [facility] Actual [facility]ractions Delivered 5 [facility] Prescription Pattern Comment 5600 cGy SIB cGy [facility] Actual Session Delivered Dose 200 cGray [facility] Actual Total [facility]ose 1,000 cGray [facility] Prescribed Technique Helical-IM RT [facility] Start Date 09[facility]20/2024 [facility] CLI RAFAEL [facility] Last Date 09/27/2024 [facility] CLIN IC [facility] Prescribed Number of Fractions 35 [facility] 09/27/2024 2:39 PM CDT us Aok Ip Radiation Oncologist Physician RADITICO ON ONCOLOGY ORDERABLES Final Result [facility] CLIA # [id number] [place] [address] * RAD ONC MSQ TREATMENT SUMMARY (09/26/2024 2:49 PM CDT) Pathologist [facility] Treatment Site R tonsil R neck [facility] Course Number 1 [facility] Prescribed Fractional [facility]ose 200 cGray [facility] Prescribed Total [facility]ose 7,000 cGray [facility] Actual [facility]ractions Delivered 4 [facility] Prescription Pattern Comment 5600 cGy SIB cGy [facility] [facility] [place] [facility] Actual Session Delivered Dose 200 cGray [facility] [place] Actual Total Dose 800 cGray [facility] [place] Prescribed Technique Helical-IM RT [facility] [place] Elapsed Days 6 [facility] Start Date 09/20/2024 [facility] Last Date 09/26/2024 [facility] Prescribed Number of Fractions 35 [facility] 09/26/2024 2:49 PM CDT us Aok Ip Radiation Oncologist Physician MD RILEY ON ONCOLOGY ORDERABLES Final Result [facility] CLIA # [id number] [address] [place] [address] * RAD ONC MSQ TREATMENT SUMMARY (09/25/2024 3:13 PM CDT) [facility] Treatment Site R tonsil R neck [facility] Course Number 1 [facility] [place] Prescribed Fractional Dose 200 cGray [facility] [place] Prescribed Total Dose 7,000 cGray [facility] Actual Fractions Delivered 3 [facility] Prescription Pattern Comment 5600 cGy SIB cGy [facility] Actual Session Delivered Dose 200 cGray [facility] Actual Total Dose 600 cGray [facility] Prescribed Technique Helical-IM RT [facility] Start Date 09[facility]20/2024 [facility] CLI RAFAEL [facility] Last Date 09/25/2024 [facility] CLIN IC [facility] Prescribed Number of Fractions 35 [facility] 09/25/2024 3:13 PM CDT us Aok Ip Radiation Oncologist Physician MD RILEY ON ONCOLOGY ORDERABLES Final Result [facility] [place] CLIA # [id number] [address] [place] [address] * RAD ONC MSQ TREATMENT SUMMARY (09/21/2024 3:26 PM CDT) [facility] Treatment Site R tonsil R neck [facility] [place] Course Number 1 [facility] Prescribed Fractional Dose 200 cGray [facility] Prescribed Total Dose 7,000 cGray [facility] Actual Fractions Delivered 2 [facility] Prescription Pattern Comment 5600 cGy SIB cGy [facility] Actual Session Delivered Dose 200 cGray [facility] Actual Total Dose 400 cGray [facility] [place] [facility] Prescribed Technique Helical-IM RT [facility] Elapsed Days 1 [facility] C LINIC [facility] Start Date 09/20/2024 [facility] CLI RAFAEL [facility] Last Date 09/21/2024 [facility] CLIN IC [facility] Prescribed Number of Fractions 35 [facility] 09/21/2024 3:26 PM CDT us Aok Ip Radiation Oncologist Physician MD RILEY ON ONCOLOGY ORDERABLES Final Result [facility] CLIA # [id number] [address] [place] [address] * RAD ONC MSQ TREATMENT SUMMARY (09/20/2024 11:33 AM CDT) [facility] Treatment Site R tonsil R neck [facility] Course Number 1 [facility] Prescribed Fractional Dose 200 cGray [facility] [facility] Prescribed Total Dose 7,000 cGray [facility] Actual Fractions Delivered 1 [facility] Prescription Pattern Comment 5600 cGy SIB cGy [facility] Actual Session Delivered Dose 200 cGray [facility] [place] [facility] Actual Total Dose 200 cGray [facility] Prescribed Technique Helical-IM RT [facility] Elapsed Days 0 [facility] C LINIC [facility] Start Date 09/20/2024 [facility] CLI RAFAEL [facility] Last Date 09/20/2024 [facility] CLIN IC [facility] Prescribed Number of Fractions 35 [facility] 09/20/2024 11:3 3 AM CDT us Aok Ip Radiation Oncologist Physician MD RILEY ON ONCOLOGY ORDERABLES Final Result [facility] CLIA # [id number] [address] [place] [address] * MI REMOVAL IMPACTED CERUMEN INSTRUMENTATION UNILAT (09/19/2024 10:27 [...] PROCEDURE/MINOR SURGICAL ORDE RABLES Final Result * MI TYMPANOMETRY (09/19/2024 10:03 AM CDT) Narrative Kathe Kirkpatrick AU.D - 09/19/2024 10:03 AM CDT Kathe Kirkpatrick AU.D 09/19/2024 10:07 AM Tympanometric results: See Scanned Images Right Ear: Jerger Type A (0.5 ear canal volume; 0.30 compliance; 7 middle ear pressure) Left Ear: Jerger Type A (0.6 ear canal volume; 0.54 compliance; -9 middle ear pressure) us Kathe Casimiro [facility] ORDERABLES Final Result * MI DISTRT PROD EVOKD OTOACOUSTIC EMSNS COMP/DX EVAL (09/19/2024 10:03 AM CDT) Kathe Putnam AU.D - 09/19/2024 10:03 AM CDT Kathe Kirkpatrick AU.D 09/19/2024 10:07 AM 12 Frequency Distortion Product Otoacoustic Emissions (DPOAEs) Protocol: See Scanned Images Right ear: OAEs present at or above 6 dB SNR at 0132-7393 Hz Left ear: OAEs present at or above 6 dB SNR at 9780-0459 Hz us Kathe Casimiro [facility] ORDERABLES Final Result * MI COMPRE AUDIOMETRY THRESHOLD EVAL SP RECOGNIJ (09/19/2024 10:03 AM CDT) Kathe Putnam AU.D [...] revealed significant but non-occluding cerumen bilaterally. Speech Electrocardiograph Technician Threshold:(live voice) Right Ear: 20 dB HL [...] Interpretation: Baseline: 09/19/2024; Grade 0; National Cancer [place] Common Terminology Criteria for Adverse Events (CTCAE) [...] at or above 6 dB SNR at 6015-2182 Hz Left ear: OAEs present at or above 6 dB SNR at 5620-8464 Hz Patient test reliability was very good. [...] [facility] ORDERABLES Final Result * HEMOGLOBIN A1C (10/05/2019 8:16 AM CDT) HEMOGLOBIN A1C 5.6 See Comment % 10/05/2019 7:24 PM CDT [facility] EST. AVG GLUCOSE, A1C 114 mg/dL 10/05/2019 7:24 PM CDT [facility] Blood Venipuncture / Unknown 10/05/2019 8:16 AM CDT 10/05/2019 6:46 PM CDT Narrative [facility] - 10/05/2019 7:24 PM CDT HGB A1C INTERPRETATION NORMAL: <5.7% PRE-DIABETES: 5.7 - 6.4% DIABETES: 6.5% OR GREATER Falsely low A1C measurements can occur when: 1. Anemia and/or hemolytic anemia is present. 2. Hemoglobin variants present. 3. Renal failure. 4. Transfusion of blood product in the last 120 days. We recommend ordering a fructosamine test([id number]) to more accurately assess glycemic status if any of the above conditions are present. us Janell Warren PHYSICAL FITNESS TRAINER CHEMISTRY ORDERABLES Final Result [facility] CLIA# [id number] [address] [place] [address] from Last 3 Months or Most Recently Relevant to Health Maintenance Insurance [facility] * Guarantor: ADIEL HINSON Account Type Relation to Patient Date of Phone Billing Address Personal/Family [address] [place] [id number] [employer] Advance Directives For more information, please contact: [phone] * Full Code (Latest Code Status on File) Date Activated Date Inactivated Comments 02/27/2024 10:18 AM 03/02/2024 6:36 PM * Full Code Date Activated Date Inactivated Comments 02/24/2024 7:34 PM 02/27/2024 10:18 AM
--- OUTSIDE RECORDS SUMMARY | 2024-12-13 08:04 | XMS_ITS | Clinical Summary ---
Author Organization [facility] Alicia Crump nob Address [address] [place] [address] Care Team Providers Care Post Anesthesia Care Unit Nurse Name Role Phone Daryl Cruz MD Primary Care Provider [phone] Allergies No known active allergies Medications omeprazole [...] 100 Each 5 1 Active thyroid, pork, ([place] Thyroid) 30 mg tablet Take 1 Tablet [...] 36.6 C (97.8 F) 03/13/2020 12:00 PM STORY EDITOR Respiratory Rate 16 03/13/2020 12:00 PM STORY EDITOR Oxygen Saturation 98% 08/08/2020 10:40 AM CDT [...] (#1) 2024 Medical Devices Implanted Type Area Gynaecological Oncologist Device Identifier Shelf Expiration Date Model / Serial / Lot [employer] Suture 4.75x24.5mm Bio Com Swiveloc Sp Ar-2324bcm - [id number] Implanted:Qty: 1 on 03/13/2020 by Sergio Medina III, MD at [facility] [employer] Right: Shoulder [employer] [id number] 12/20/2023 AR-2324BC M / / [id number] [employer] Suture 4.75x24.5mm Bio Com Swiveloc Sp Ar-2324bcm - [id number] Implanted:Qty: 1 on 03/13/2020 by Sergio Medina III, MD at [facility] [employer] Right: Shoulder [employer] [id number] 12/20/2023 [id number]-2324BC M / / [id number] Procedures Procedure Name Priority Date/Time Associated Diagnosis Comments HEMOGLOBIN A1C Routine 10/05/2019 8:16 AM CDT Pain radiating to right shoulder Encounter to establish care from Last 3 Months or Most Recently Relevant to Health Maintenance Results * HEMOGLOBIN A1C (10/05/2019 8:16 AM CDT) HEMOGLOBIN A1C 5.6 See Comment % 10/05/2019 7:24 PM CDT [facility] EST. AVG GLUCOSE, A1C 114 mg/dL 10/05/2019 7:24 PM CDT [facility] Blood Venipuncture / Unknown 10/05/2019 8:16 AM CDT 10/05/2019 6:46 PM CDT Narrative [facility] - 10/05/2019 7:24 PM CDT HGB A1C INTERPRETATION NORMAL: <5.7% PRE-DIABETES: 5.7 - 6.4% DIABETES: 6.5% OR GREATER Falsely low A1C measurements can occur when: 1. Anemia and/or hemolytic anemia is present. 2. Hemoglobin variants present. 3. Renal failure. 4. Transfusion of blood product in the last 120 days. We recommend ordering a fructosamine test([id number]) to more accurately assess glycemic status if any of the above conditions are present. Janell Warren NP CHEMISTRY ORDERABLES Final Result [facility] CLIA# [id number] [address] [place] [address] from Last 3 Months or Most Recently Relevant to Health Maintenance Insurance [facility] RX [facility] [employer] Advance Directives For more information, please contact: [phone] * Full Code (Latest Code Status on File) Date Activated Date Inactivated Comments 03/13/2020 7:56 AM 03/13/2020 3:36 PM Care Teams Post Anesthesia Care Unit Nurse Relationship Specialty Start Date End Date Daryl Cruz MD PCP - General Family Practice 12/11/19
--- OUTSIDE RECORDS SUMMARY | 2024-12-13 08:04 | XMS_ITS | Encounter Summary ---
Author Organization [employer] Address 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 Gender Identity Not on file Sexual Orientation Not on file documented as of this encounter Plan of Treatment Upcoming Encounters Date Type Department Care Team (Late st Contact Info) Description 12/14/2024 12:15 PM CDT Appointment [facility] [address] [facility] [address] [place] [address] 12/14/2024 1:20 PM CDT Office Visit [facility] Cancer and Hematology [place] [address] [address] Arvind Trevino MD [address] [place] [address] 01/10/2025 9:45 AM CDT Office Visit [facility] Supportive Care [facility] [address] [place] [address] Margaret Davis MD [address] [place] [address] 02/02/2025 1:00 PM SUGAR PRESSER Appointment [facility] [address] [facility] [address] [place] [address] Arvind Trevino MD [address] [address] 02/02/2025 1:40 PM SUGAR PRESSER Office Visit [facility] Cancer and Hematology [place] [address] [address] Arvind Trevino MD [address] [address] 02/07/2025 10:00 AM SUGAR PRESSER Office Visit [facility] Ear Nose and Throat Head Neck [facility] [address] [place] [address] Magno Reyes MD [address] [place] [address] 02/08/2025 3:30 PM SUGAR PRESSER Appointment [facility] Radiation Oncology [facility] [address] [facility] [address] [place] [address] Amaris Deras PA-C [address] [place] [address] 03/05/2025 11:30 AM SUGAR PRESSER Clinical Support [facility] Supportive Care [facility] [address] [place] [address] Kathe Regan, TRANSPORTATION ASSOCIATE [address] [place] [address] 03/12/2025 10:00 AM SUGAR PRESSER Clinical Support [facility] Supportive Care [facility] [address] [place] [address] Kathe Regan, TRANSPORTATION ASSOCIATE [address] [place] [address] documented as of this encounter Visit Diagnoses Not on filedocumented in this encounter
--- OUTSIDE RECORDS SUMMARY | 2024-12-13 08:04 | XMS_ITS | Encounter Summary ---
Author Organization [employer] Address 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 Gender Identity Not on file Sexual Orientation Not on file documented as of this encounter Plan of Treatment Upcoming Encounters Date Type Department Care Team (Late st Contact Info) Description 12/14/2024 12:15 PM CDT Appointment [facility] [address] [facility] [address] [place] [address] 12/14/2024 1:20 PM CDT Office Visit [facility] Cancer and Hematology [place] [address] [address] Arvind Trevino MD [address] [place] [address] 01/10/2025 9:45 AM CDT Office Visit [facility] Supportive Care [facility] [address] [place] [address] Margaret Davis MD [address] [place] [address] 02/02/2025 1:00 PM MANUFACTURING CONTROLLER Appointment [facility] [address] [facility] [address] [place] [address] Arvind Trevino MD S [address] [address] 02/02/2025 1:40 PM MANUFACTURING CONTROLLER Office Visit [facility] Cancer and Hematology [place] [address] [address] Arvind Trevino MD [address] [address] 02/07/2025 10:00 AM MANUFACTURING CONTROLLER Office Visit [facility] Ear Nose and Throat Head Neck [facility] [address] [place] [address] Magno Reyes MD [address] [place] [address] 02/08/2025 3:30 PM MANUFACTURING CONTROLLER Appointment [facility] Radiation Oncology [facility] [address] [facility] [address] [place] [address] Amaris Deras PA-C [address] [place] [address] 03/05/2025 11:30 AM MANUFACTURING CONTROLLER Clinical Support [facility] Supportive Care [facility] [address] [place] [address] Kathe Regan, SNOUT PULLER [address] [place] [address] 03/12/2025 10:00 AM MANUFACTURING CONTROLLER Clinical Support [facility] Supportive Care [facility] [address] [place] [address] Kathe Regan, SNOUT PULLER [address] [place] [address] documented as of this encounter Visit Diagnoses Not on filedocumented in this encounter
[2024-12-13 08:28] VITALS: BP 140/99; PULSE 100; RESP 18; TEMP 36.7; O2SAT 95
--- NOTE | 2024-12-13 08:43 | ED_ITS ---
HPI - General Adult General: Chief complaint: General Medical Stated complaint: feeding tube came out while flushing it Time Seen by Provider: 12/13/24 07:53 History of Present Illness: 59-year-old male presents emergency room after PEG tube coming out while he was flushing this morning. Is been bothering him some lately causing some ache and discomfort discomfort when he flushes it. When he went to flush it this morning it spontaneously came out. He had it with him at the bedside the flange in the bulbar by less than half an inch of space. 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 Related Data Home Medications ?Medication ?Instructions ?Recorded ?Confirmed ibuprofen 200 mg tablet (Advil) 800 mg PO Q6H PRN Pain 02/24/24 11/24/24 acetaminophen 160 mg/5 mL oral 500 mg PO Q6H PRN Pain 08/01/24 11/24/24 liquid fentanyl 12 mcg/hr transdermal 12 mcg topical Q72H 11/24/24 patch fluconazole 100 mg tablet 100 mg PO DAILY 11/19/2408/13 gabapentin 300 mg capsule 300 mg PO BID 11/19/2411/24 morphine 15 mg immediate release 15 mg PO Q4H PRN Pain 11/19/24 11/24/24 tablet olanzapine 5 mg tablet 5 mg PO DAILY 11/19/2411/24 Held on 11/22/24. Instructions: Resume on 12/13/24. ondansetron HCl 8 mg tablet 8 mg PO Q8H PRN Nausea And Vomiting 11/19/24 11/24/24 Previous Rx's ?Medication ?Instructions ?Recorded metoprolol tartrate 25 mg tablet 25 mg PO BID@0900,210 0 #180 tabs 08/02/24 sodium chloride 1,000 mg soluble 1,000 mg PO DAILY #30 tabs 11/26/24 tablet Allergies Allergy/AdvReac Type Severity Reaction Status Date / Time diltiazem (From [facility]) Allergy Mild ALGY-Hives Verified 11/24/24 09:07 [facility] ED PFS: Medical History Tonsillar cancer Atrial fibrillation with RVR Surgical History Hx of tonsillectomy Family History Father Alzheimer's dementia Mother Cancer lung Social History Smoking and tobacco/nicotine status: former use of tobacco/nicotine Alcohol intake: former Former alcohol use details: Years ago before father Substance/Drug Use: current Physical Exam Const: COMMON NORMALS: no acute distress GENERAL APPEARANCE: cooperative and comfortable ORIENTATION/CONSCIOUSNESS: Yes awake, Yes oriented to person, Yes oriented to place and Yes oriented to time HENMT: COMMON NORMALS: normocephalic, atraumatic and hearing grossly normal bilaterally HEAD & SCALP: normocephalic and atraumatic Resp: COMMON NORMALS: normal respiratory effort, No retractions, No use of accessory muscles and clear to auscultation bilaterally AUSCULTATION: clear to auscultation bilaterally Cardio: COMMON NORMALS: regular rate, regular rhythm and No murmurs present (Cardio) RATE: regular rate RHYTHM: regular rhythm GI: COMMON NORMALS: Soft to palpation and No hepatosplenomegaly present AUSCULTATION: Yes normoactive bowel sounds PALPATION: Yes Soft to palpation, No Tenderness to palpation present (GI), No Guarding due to palpation present (GI) and Yes No hepatosplenomegaly present OTHER: Left upper quadrant wound consistent with prior PEG tube placement some mucus at the tube no active bleeding no redness no inflammation no induration of the surrounding skin Extremity: COMMON NORMALS: normal to inspection, capillary refill normal, no clubbing, cyanosis or edema, no calf tenderness and no pedal edema Neuro: SENSORIUM/ORIENTATION: Yes oriented to person, Yes oriented to place and Yes oriented to time Skin: COMMON NORMALS: no rashes or lesions noted GENERAL SKIN EXAM: no rashes or lesions noted Course Vital Signs: Vital signs: Vital Signs Temperature 98.1 F 12/13/24 08:28 Pulse Rate 95 12/13/24 09:01 Respiratory Rate 18 12/13/24 08:28 Blood Pressure 140/99 12/13/24 09:01 Pulse Oximetry 95 12/13/24 09:01 Oxygen Delivery Me thod Room Air 12/13/24 08:28 MDM - General Adult Medical Decision Making Based on the appearance of the PEG tube that the patient brought in and his description of events that being easily displaced causing some aching and discomfort for some time particularly when he flushed it believe the bulb was in the tract this morning when he flushed it probably had been there for some time which accounts for his generalized aching discomfort that he has had for a while. Also accounts for how it is so easily displaced. The bulb does not appear to be fully inflated. There is no sign of infection or injury at the os of the PEG tube. Patient does not want to maintain the tube he states he has never used that he is completed his treatment he understands that if he has a recurrence he may need it replaced again and he is willing to undertake that risk. He states he never used it the first time around. Per his wishes we will leave it out at this time. Wound care instructions given follow-up with his primary care doctor or oncologist as previously scheduled. No radiology studies performed this visit Discharge Plan Discharge Patient Disposition: Home Clinical Impression: PEG tube malfunction, Tonsillar cancer Condition: Stable Prescriptions: No Action sodium chloride 1,000 mg tablet,soluble 1,000 mg PO DAILY Qty: 30 0RF fluconazole 100 mg tablet 100 mg PO DAILY ondansetron HCl 8 mg tablet 8 mg PO Q8H PRN (Reason: Nausea And Vomiting) morphine 15 mg tablet 15 mg PO Q4H PRN (Reason: Pain) fentanyl 12 mcg/hr patch 72 hour 12 mcg topical Q72H olanzapine 5 mg tablet 5 mg PO DAILY gabapentin 300 mg capsule 300 mg PO BID ibuprofen [Advil] 200 mg Tablet 800 mg PO Q6H PRN (Reason: Pain) acetaminophen 160 mg/5 mL Liquid 500 mg PO Q6H PRN (Reason: Pain) Rx Instructions: TAKE 31.25 MG PO EVERY 6 HOURS NEEDED metoprolol tartrate 25 mg Tablet 25 mg PO BID@0900,2100 Qty: 180 0RF Discharge Orders: Discharge ED (Routine); Ordered 12/13/24 Ordered By: Chase Lopez Referrals: Jackie Cedeño DO [Primary Care Provider, Family Practice] Patient Instructions: Opioid Safety, Pain Management, Patient Portal & [place] Instructions Activity Restrictions/Additional Instructions: Thank you for choosing [facility] for your healthcare needs today. It is very important that you follow up as instructed or that you return to the Emergency Department should you have concerns or if your condition changes or worsens in any way. Emergency department visits are focused on emergent conditions, in some cases you may require further evaluation on an outpatient basis. You were seen in the emergency room after the PEG tube had come out. From the appearance of the PEG tube suspected balloon was in the tract in the abdominal wall for some time the balloon was not fully inflating the distance tween the flange and the balloon was not likely to be enough to have the balloon seated in the stomach. You opted not to have it replaced as you have not been using it. You can follow-up with your primary care doctor and oncologist as previously scheduled. Apply topical antibiotic ointment to the wound and keep it covered for the next several days. These typically closed spontaneously within 72 hours. If there is any redness or erythema thickening of the skin return if you have a fever return. It is not unusual to have mucousy drainage from the wound over the first several days. You can wash with warm water you should not soak in a bathtub or go swimming until the wound is completely healed. (Please note that included in your discharge packet is information concerning opioid safety and pain management. This information is given to all patients were discharged from the ER regardless of their discharge diagnosis or the medicines they usually take or are prescribed.) Print Language: Maori Coding Level of Care Code ED University Relations Director for Rosanne Holliday
[2024-12-13 09:01] VITALS: BP 140/99; PULSE 95; O2SAT 95
== END 2024-12-13 09:03 | disposition home or self-care (01) ==
PROVIDERS: Emergency Provider Family Medicine; PCP Family Medicine
DX: K94.23 Gastrostomy malfunction (principal); Z87.891 Personal history of nicotine dependence; C09.9 Malignant neoplasm of tonsil, unspecified
CPT/HCPCS: 99281

== ENCOUNTER → 2024-12-26 14:25 | Outpatient (BNVA) | payer OTHER, SELFPAY | PROVIDERS: PCP Family Medicine; Visit Provider Family Medicine | DX: Z12.5 Encounter for screening for malignant neoplasm of prostate (principal); Z13.6 Encounter for screening for cardiovascular disorders | CPT/HCPCS: 80053; 80061; G0103 ==